=== PATIENT | male | born 1980 | race Caucasian/White ===

== ENCOUNTER → 2019-04-07 11:08 | Outpatient (BNVA) | payer MEDICARE, MEDICAID, SELFPAY | PROVIDERS: Family Provider Family Medicine; PCP Family Medicine; Visit Provider Family Medicine | DX: M25.562 Pain in left knee (principal); R61 Generalized hyperhidrosis; G43.909 Migraine, unspecified, not intractable, without status migrainosus; G89.4 Chronic pain syndrome; N52.9 Male erectile dysfunction, unspecified; E11.9 Type 2 diabetes mellitus without complications; J44.9 Chronic obstructive pulmonary disease, unspecified; K21.9 Gastro-esophageal reflux disease without esophagitis | CPT/HCPCS: 73562; 80053; 82607; 84402; 84403; 84443; 85025 ==

== ENCOUNTER → 2019-12-16 12:58 | Outpatient (BNVA) | payer MEDICARE, MEDICAID, SELFPAY | PROVIDERS: Family Provider Family Medicine; PCP Family Medicine; Visit Provider Family Medicine | DX: E11.9 Type 2 diabetes mellitus without complications (principal) | CPT/HCPCS: 80053; 80061; 83036; 85025 ==

== ENCOUNTER → 2020-02-01 14:25 | Outpatient (BNVA) | payer MEDICARE, MEDICAID, SELFPAY | PROVIDERS: Family Provider Family Medicine; PCP Family Medicine; Visit Provider Family Medicine | DX: R35.0 Frequency of micturition (principal); N40.1 Benign prostatic hyperplasia with lower urinary tract symptoms; R35.1 Nocturia | CPT/HCPCS: 81000; 87086 ==

== ENCOUNTER 2020-09-28 15:15 | Outpatient (CLI) | payer MEDICARE, MEDICAID, SELFPAY ==
--- NOTE | 2020-09-28 15:28 | XR_ITS ---
WS: [id number] Chest with right rib detail, 09/28/2020 Clinical Data: right rib pain Comparison: PA chest, 11/30/2018. Findings: There is right pleural pericardial reaction. There are clips on the right side of the lower thoracic spine from surgery. No nodules, masses or effusions are seen. The diaphragms are flattened. There is an epidural stimulator with the stimulator wires ending at the inferior aspect of the T5 vertebral darwin dy. There is deformity of the left second and third ribs possibly from trauma. Patient has had a disc fusion of the lower cervical spine. Heart is normal. The right ribs are normal without fracture. No bone destruction or erosion is seen. There is no pneum othorax or subcutaneous emphysema. XR/XR ribs RT 2V* [id number] Impression: 1. Right pleural pericardial reaction possibly from surgery. 2. Hyperinflation. 3. Negative right rib detail.
== END 2020-09-28 15:16 | disposition home or self-care (01) ==
PROVIDERS: PCP Family Medicine; Visit Provider Nurse Practitioner Family
DX: R07.81 Pleurodynia (principal)
CPT/HCPCS: 71100

== ENCOUNTER → 2020-10-06 09:15 | Outpatient (BNVA) | payer MEDICARE, MEDICAID, SELFPAY | PROVIDERS: PCP Family Medicine; Visit Provider Family Medicine | DX: Z13.6 Encounter for screening for cardiovascular disorders (principal); E66.9 Obesity, unspecified; N40.1 Benign prostatic hyperplasia with lower urinary tract symptoms; G43.701 Chronic migraine without aura, not intractable, with status migrainosus; E11.9 Type 2 diabetes mellitus without complications; R35.1 Nocturia | CPT/HCPCS: 80053; 80061; 83036; 84153; 84443; 85025 ==

== ENCOUNTER 2021-03-07 20:00 | Outpatient (CLI) | payer MEDICARE, MEDICAID, SELFPAY | END 2021-03-07 20:01 | disposition home or self-care (01) | LOC: SLEEP 03-08 08:48 | PROVIDERS: PCP Family Medicine; Visit Provider Family Medicine | DX: G47.10 Hypersomnia, unspecified (principal); R06.83 Snoring; R53.83 Other fatigue; G47.33 Obstructive sleep apnea (adult) (pediatric) | CPT/HCPCS: 95811 ==

== ENCOUNTER → 2021-05-16 03:00 | Outpatient (BNVA) | payer MEDICARE, MEDICAID, SELFPAY | PROVIDERS: PCP Family Medicine; Visit Provider Family Medicine | DX: R60.0 Localized edema (principal); E11.9 Type 2 diabetes mellitus without complications | CPT/HCPCS: 80048; 83036 ==

== ENCOUNTER 2021-05-23 20:00 | Outpatient (CLI) | payer MEDICARE, MEDICAID, SELFPAY | END 2021-05-23 20:01 | disposition home or self-care (01) | LOC: SLEEP 05-24 07:42 | PROVIDERS: PCP Family Medicine; Visit Provider Family Medicine | DX: G47.33 Obstructive sleep apnea (adult) (pediatric) (principal) | CPT/HCPCS: 95811 ==

== ENCOUNTER 2021-06-27 10:07 | Outpatient (CLI) | payer MEDICARE, MEDICAID, SELFPAY ==
--- NOTE | 2021-06-27 13:25 | PFTS_ITS ---
Date of Study:06/27/21 Date of Dictation: MECHANICS: Forced vital capacity (FVC) is reduced. Forced expiratory volume in one second (FEV1) is reduced. FEV1/FVC is reduced. FLOW VOLUME LOOP: Reduced lateral lung volumes with significant scooping. LUNG VOLUMES: Not measured DIFFUSING CAPACITY FOR CARBON MONOXIDE: Not measured. INTERPRETATION: The postbronchodilator spirometry is consistent with very severe airflow obstruction. There is no significant postbronchodilator response. A component of restrictive lung disease cannot be ruled out in the absence of lung volume measurements. MTDD
== END 2021-06-27 10:08 | disposition home or self-care (01) ==
LOC: RT 10:10
PROVIDERS: PCP Family Medicine; Visit Provider Family Medicine
DX: J44.9 Chronic obstructive pulmonary disease, unspecified (principal)
CPT/HCPCS: 94060; J7611

== ENCOUNTER 2021-06-28 07:10 | Outpatient (CLI) | payer MEDICARE, MEDICAID, SELFPAY ==
[2021-06-28 07:40] VITALS: BMI 31.1
--- NOTE | 2021-06-28 07:52 | ECG_ITS ---
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 Interpretive Statements NAME OF STUDY: LEXISCAN SESTAMIBI STRESS TEST INDICATION: [ng, ] Procedure: At the baseline, the blood pressure was 113/81mmHg with a heart rate of 107 bpm. The electrocardiogram showed sinus tachycardia,no ischemic changes. The Lexiscan was infused over a period of 20 seconds. A total of 0.4 mg of Lexiscan was infused. The stress phase was continued for a total of 5 minutes. Heart rate was at the end of stress phase was 116 bpm and a blood pressure of 100/72mmHg. The EKG at the peak infusion revealed sinus tachycardia with no significant ST-T wave changes. Sestamibi was injected 20 seconds after the Lexiscan infusion. Blood pressure at the end of recovery phase was 115/81 mmHg with a heart rate of 112 bpm. Conclusion: 1. Normal EKG response to Lexiscan infusion 2. No Lexiscan induced chest pain or cardiac arrhythmia. 3. Normal blood pressure and heart rate response. 4. Sestamibi/sestamibi perfusion scan pending; see separate report. Electronically Signed On 07-30-2021 21:23:25 CDT by Ulisses Howard M.D. [id number]
--- NOTE | 2021-06-28 07:53 | NMCV_ITS ---
NM camelia perf SPECT r/s* [id number] Valentino Cerrato Age: 40 Gender: M : 1980 Exam Date: 06/28/2021 08:33 Ordering Phys: Raina Parkinson DO Technologist: REGAN Gaspar Exam Location: [facility] Indications: SHORTNESS OF BREATH STRESS TEST Please see separate stress test report in [facility] for full findings IMAGE PROTOCOL Rest/Stress 1 Lexiscan Day Radiopharmaceutical Dose (mCi) Administration Site Administered by Rest: Tc-99m 11.0 IV REGAN Gaspar Sestamibi Stress:Tc-99m 32.4 IV Gita Torres, LOG SKIDDER Sestamibi Rest: 28-Jun-2021 60 Discovery 630 Stress: 28-Jun-2021 30 Discovery 630 0.4mg Lexiscan. Supine position only as patient was unable to lay prone. SPECT RESULTS Technical Quality: Excellent Raw Data Analysis: Normal Image Corrections: No attenuation or motion correction applied Summed Stress Score: 1 Summed Rest Score: 4 Summed Difference Score: 0 PERFUSION FINDINGS There is reduced radiotracer uptake in the apical inferior and apical lateral jasso at rest that improve at stress. Likely attenuation artifact. No evidence of ischemia is noted FUNCTIONAL RESULTS (calculated via Gated SPECT) Stress Image LV EF (%): 39 Stress EDV (mL):104 TID: 1.17 Stress ESV (mL):63 FUNCTIONAL FINDINGS: LV systolic function is moderately reduced with EF of 39% IMPRESSIONS 1. Attenuation artifact noted in the apical inferior and apical lateral jasso. No evidence of significant ischemia 2. LV systolic function is moderately reduced with EF of 39% Ulisses Howard MD (Electronically Signed) Final Date: 02 July 2021 10:55 S
[2021-06-28] MEDS: regadenoson 0.4 Mg/5 ml Syringe IVP (09:01)
[2021-06-28 09:42] VITALS: BP 115/81; PULSE 106
== END 2021-06-28 07:11 | disposition home or self-care (01) ==
LOC: CDL 07:19
PROVIDERS: PCP Family Medicine; Visit Provider Family Medicine
DX: R06.09 Other forms of dyspnea (principal); R06.02 Shortness of breath
CPT/HCPCS: 78452; 93017; A9500; J2785

== ENCOUNTER → 2021-07-26 10:25 | Outpatient (BNVA) | payer MEDICARE, MEDICAID, SELFPAY | PROVIDERS: PCP Family Medicine; Visit Provider Internal Medicine Critical Care Medicine | DX: J44.9 Chronic obstructive pulmonary disease, unspecified (principal); F17.210 Nicotine dependence, cigarettes, uncomplicated; G47.33 Obstructive sleep apnea (adult) (pediatric); K21.9 Gastro-esophageal reflux disease without esophagitis; E11.8 Type 2 diabetes mellitus with unspecified complications | CPT/HCPCS: 71046; 99204 ==

== ENCOUNTER → 2021-09-21 15:11 | Outpatient (BNVA) | payer MEDICARE, MEDICAID, SELFPAY | PROVIDERS: PCP Family Medicine; Visit Provider Family Medicine | DX: E11.9 Type 2 diabetes mellitus without complications (principal) | CPT/HCPCS: 80053; 83036 ==

== ENCOUNTER → 2021-09-25 09:11 | Outpatient (BNVA) | payer MEDICARE, MEDICAID, SELFPAY | PROVIDERS: PCP Family Medicine; Visit Provider Internal Medicine Critical Care Medicine | DX: J44.9 Chronic obstructive pulmonary disease, unspecified (principal); F17.210 Nicotine dependence, cigarettes, uncomplicated; G47.33 Obstructive sleep apnea (adult) (pediatric) | CPT/HCPCS: 99214 ==

== ENCOUNTER 2021-09-27 08:41 | Outpatient (CLI) | payer MEDICARE, MEDICAID, SELFPAY ==
--- NOTE | 2021-09-27 08:45 | USCV_ITS ---
Blossom Valentino Age: 41 Gender: M : 1980 Exam Date: 09/27/2021 09:18 Ordering Phys: Raina Parkinson DO Technologist: Heather See Exam Location: [facility] [place] Indication: dyspnea, decreased EF, CHF? BP: 118 / 70 HR: 109 Rhythm: Sinus Technical Quality: Suboptimal MEASUREMENTS (Male / Female) Normal Values 2D ECHO LV Diastolic Diameter PLAX 4.0 cm 4.2 - 5.9 / 3.9 - 5.3 cm LV Systolic Diameter PLAX 1.5 cm IVS Diastolic Thickness 1.4 cm 0.6 - 1.0 / 0.6 - 0.9 cm IVS Systolic Thickness 1.4 cm LVPW Diastolic Thickness 1.0 cm 0.6 - 1.0 / 0.6 - 0.9 cm LVPW Systolic Thickness 2.1 cm LVOT Diameter 2.0 cm LV Ejection Fraction 2D Teich 92.2 % LA Diameter 2.4 cm LA Width 2.8 cm LA Height 3.4 cm RA Width 3.3 cm RA Height 3.8 cm IVC Diameter 0.6 cm DOPPLER AV Peak Velocity 96.0 cm/s LVOT Peak Velocity 72.0 cm/s AV Area Cont Eq vti 2.6 cm squared AV Area Cont Eq pk 2.5 cm squared MV Area PHT 5.0 cm squared Mitral E to A Ratio 1.6 MV E' Velocity 63.0 cm/s Mitral E to LV E' Septal Ratio 4.4 TR Peak Velocity 103.0 cm/s TR Peak Gradient 4.2 mmHg Right Atrial Pressure 3.0 mmHg Pulmonary Artery Systolic Pressu 7.2 mmHg FINDINGS Left Ventricle Normal left ventricular size and systolic function, EF 65%.no regional wall motion abnormalities. Right Ventricle Possibly normal RV size ejection fraction. Right Atrium The right atrium is normal in size. Left Atrium The left atrium is normal in size. Mitral Valve No gross abnormalities noted Aortic Valve No gross abnormalities noted Tricuspid Valve No gross abnormalities noted Pulmonic Valve Pulmonic valve not well visualized. Pericardium Normal pericardium without effusion. Aorta Normal ascending aorta dimension. IVC Inferior vena cava not visualized. CONCLUSIONS Normal left ventricular size and systolic function, EF 65%. No regional wall motion abnormalities. There is no pericardial effusion. Possibly normal cardiac chamber sizes. Technically difficult study because of the poor ultrasonic window. Dr Duane Gonzalez MD [facility] (Electronically Signed) Final Date: 27 September 2021 23:08 S
== END 2021-09-27 08:42 | disposition home or self-care (01) ==
LOC: RAD 08:43
PROVIDERS: PCP Family Medicine; Visit Provider Family Medicine
DX: I50.20 Unspecified systolic (congestive) heart failure (principal); R00.0 Tachycardia, unspecified
CPT/HCPCS: 93306

== ENCOUNTER 2021-12-20 10:03 | Outpatient (CLI) | payer MEDICARE, MEDICAID, SELFPAY ==
--- NOTE | 2021-12-20 09:30 | USCV_ITS ---
Valentino Cerrato Age: 41 Gender: M : 1980 Exam Date: 12/20/2021 10:22 Ordering Phys: Raina Parkinson DO Technologist: DAYNA Exam Location: [facility] – [place] Indication: HISTORY: PROCEDURES: FINDINGS: The veins were found to be easily compressible with spontaneous blood flow. Non pulsatile flow pattern. No significant reflux either in the deep or in the superficial veins CONCLUSIONS #1. No evidence of deep or superficial vein thrombosis in the above- mentioned veins. #2. No significant reflux, either in the deep or in the superficial veins. #3. Relatively large caliber superficial veins bilaterally, mostly less than 1 cm deep from the surface. Dr Duane Gonzalez MD [facility] (Electronically Signed) Final Date: 22 December 2021 08:59 S
== END 2021-12-20 10:04 | disposition home or self-care (01) ==
PROVIDERS: PCP Family Medicine; Visit Provider Family Medicine
DX: I73.9 Peripheral vascular disease, unspecified (principal)
CPT/HCPCS: 93970

== ENCOUNTER → 2021-12-26 14:25 | Outpatient (BNVA) | payer MEDICARE, MEDICAID, SELFPAY | PROVIDERS: PCP Family Medicine; Visit Provider Family Medicine | DX: Z23 Encounter for immunization (principal); E11.9 Type 2 diabetes mellitus without complications; J44.1 Chronic obstructive pulmonary disease with (acute) exacerbation | CPT/HCPCS: 80061; 83036 ==

== ENCOUNTER → 2022-01-25 08:19 | Outpatient (BNVA) | payer MEDICARE, MEDICAID, SELFPAY | PROVIDERS: PCP Family Medicine; Visit Provider Internal Medicine Pulmonary Disease | DX: J44.9 Chronic obstructive pulmonary disease, unspecified (principal); F17.210 Nicotine dependence, cigarettes, uncomplicated; G47.33 Obstructive sleep apnea (adult) (pediatric) | CPT/HCPCS: 99214 ==

== ENCOUNTER 2022-03-18 06:00 | Outpatient (RCR) | payer MEDICARE, MEDICAID, SELFPAY | END 2022-04-17 23:59 | disposition home or self-care (01) | LOC: SPT 06:00 | PROVIDERS: PCP Family Medicine; Visit Provider Family Medicine | DX: M25.511 Pain in right shoulder (principal); M25.512 Pain in left shoulder | CPT/HCPCS: 97161 ==

== ENCOUNTER 2022-04-18 06:00 | Outpatient (RCR) | payer MEDICARE, MEDICAID, SELFPAY | END 2022-04-30 16:30 | disposition home or self-care (01) | LOC: SPT 06:00 | PROVIDERS: PCP Family Medicine; Visit Provider Family Medicine | DX: M25.511 Pain in right shoulder (principal); M25.512 Pain in left shoulder | CPT/HCPCS: 97110 ==

== ENCOUNTER → 2022-04-26 08:35 | Outpatient (BNVA) | payer MEDICARE, MEDICAID, SELFPAY | PROVIDERS: PCP Family Medicine; Visit Provider Internal Medicine Pulmonary Disease | DX: J44.9 Chronic obstructive pulmonary disease, unspecified (principal); F17.210 Nicotine dependence, cigarettes, uncomplicated; G47.33 Obstructive sleep apnea (adult) (pediatric) | CPT/HCPCS: 99214 ==

== ENCOUNTER 2022-06-16 06:00 | Outpatient (RCR) | payer MEDICARE, MEDICAID, SELFPAY | END 2022-07-15 23:59 | disposition home or self-care (01) | LOC: PULRHB 06:00 | PROVIDERS: PCP Family Medicine; Visit Provider Internal Medicine Pulmonary Disease | DX: J44.9 Chronic obstructive pulmonary disease, unspecified (principal); J84.9 Interstitial pulmonary disease, unspecified | CPT/HCPCS: 94625 ==

== ENCOUNTER → 2022-06-26 13:06 | Outpatient (BNVA) | payer MEDICARE, MEDICAID, SELFPAY | PROVIDERS: PCP Family Medicine; Visit Provider Family Medicine | DX: E11.9 Type 2 diabetes mellitus without complications (principal) | CPT/HCPCS: 80053; 82043; 83036; 85025 ==

== ENCOUNTER 2022-07-16 06:00 | Outpatient (RCR) | payer MEDICARE, MEDICAID, SELFPAY | END 2022-08-15 23:59 | disposition home or self-care (01) | LOC: PULRHB 06:00 | PROVIDERS: PCP Family Medicine; Visit Provider Internal Medicine Pulmonary Disease | DX: J44.9 Chronic obstructive pulmonary disease, unspecified (principal); J84.9 Interstitial pulmonary disease, unspecified | CPT/HCPCS: 94625 ==

== ENCOUNTER 2022-08-16 06:00 | Outpatient (RCR) | payer MEDICARE, MEDICAID, SELFPAY | END 2022-09-14 23:59 | disposition home or self-care (01) | LOC: PULRHB 06:00 | PROVIDERS: PCP Family Medicine; Visit Provider Internal Medicine Pulmonary Disease | DX: J44.9 Chronic obstructive pulmonary disease, unspecified (principal); J84.9 Interstitial pulmonary disease, unspecified | CPT/HCPCS: 94625 ==

== ENCOUNTER → 2022-09-04 11:48 | Outpatient (BNVA) | payer MEDICARE, MEDICAID, SELFPAY | PROVIDERS: PCP Family Medicine; Visit Provider Orthopaedic Surgery | DX: M25.511 Pain in right shoulder (principal); M25.512 Pain in left shoulder; M75.01 Adhesive capsulitis of right shoulder | CPT/HCPCS: 73030; 99203 ==

== ENCOUNTER 2022-09-04 12:16 | Outpatient (CLI) | payer MEDICARE, MEDICAID, SELFPAY ==
--- NOTE | 2022-09-04 12:25 | XR_ITS ---
WS: [id number] EXAMINATION: XR knee RT 3V* [id number] REASON FOR EXAM: right medial knee pain COMPARISON: None available. ORDER DATE: 09/04/2022 12:26 PM FINDINGS: There is no sign of any acute osseous or articular abnormality. There are no specific soft tissue abn ormalities. XR/XR knee RT 3V* [id number] IMPRESSION: No acute osseous or soft tissue change
== END 2022-09-04 12:17 | disposition home or self-care (01) ==
LOC: RAD 12:20
PROVIDERS: PCP Family Medicine; Visit Provider Family Medicine
DX: M25.561 Pain in right knee (principal)
CPT/HCPCS: 73562

== ENCOUNTER → 2022-09-12 14:59 | Outpatient (BNVA) | payer MEDICARE, MEDICAID, SELFPAY | PROVIDERS: Visit Provider Specialist | DX: M25.511 Pain in right shoulder (principal); G89.29 Other chronic pain; M75.01 Adhesive capsulitis of right shoulder | CPT/HCPCS: 99204 ==

== ENCOUNTER 2022-09-15 06:00 | Outpatient (RCR) | payer MEDICARE, MEDICAID, SELFPAY | END 2022-10-15 23:59 | disposition home or self-care (01) | LOC: PULRHB 06:00 | PROVIDERS: PCP Family Medicine; Visit Provider Internal Medicine Pulmonary Disease | DX: J44.9 Chronic obstructive pulmonary disease, unspecified (principal); J84.9 Interstitial pulmonary disease, unspecified | CPT/HCPCS: 94625 ==

== ENCOUNTER → 2022-09-25 09:21 | Outpatient (BNVA) | payer MEDICARE, MEDICAID, SELFPAY | PROVIDERS: PCP Family Medicine; Visit Provider Family Medicine | DX: R53.83 Other fatigue (principal); E11.9 Type 2 diabetes mellitus without complications | CPT/HCPCS: 80053; 83036; 84443 ==

== ENCOUNTER 2022-10-18 09:24 | Outpatient (CLI) | payer MEDICARE, MEDICAID, SELFPAY ==
--- NOTE | 2022-10-18 09:30 | CT_ITS ---
WS: [id number] CT ARTHROGRAM RIGHT SHOULDER TECHNIQUE: CT arthrogram RIGHT shoulder with coronal and sagittal reformatted images. CLINICAL INFORMATION: shoulder pain COMPARISON: None. DLP: [address] scans at [facility] use at least one of these dose optimization techniques: automated e xposure control; mA and/or kV adjustment per patient size (includes targeted exams where dose is matc hed to clinical indication); or iterative reconstruction. FINDINGS: Mild degenerative arthritis AC joint with mild downsloping acromion. Mild narrowing of the subacromia l space. Minimal contact of the underlying supraspinatus. Normal distal supraspinatus and infraspinat us. Normal teres minor. Distal subscapularis appears intact. Biceps tendon appears intact within the bicipital groove. Intra-articular biceps tendon appears intact. Small labral tear involving the inferior glenoid labrum with dissecting contrast. This is near the 6: 00 position extending to the anterior inferior labrum. Middle glenohumeral ligament appears intact. S omewhat diminutive joint capsule for a patient this age. Correlation for adhesive capsulitis. CT/CT shoulder RT ww con [id number] IMPRESSION: 1. Rotator cuff is intact. 2. Mild downsloping of the acromion. 3. Biceps tendon is intact within the bicipital groove. 4. Small labral tear at the 6 clock position extending towards the anterior in ferior glenoid labrum. 5. Somewhat diminutive joint capsule for patient this age. Recommend correlati on for adhesive capsulitis. 6. No other acute findings.
--- NOTE | 2022-10-18 09:30 | IR_ITS ---
WS: [id number] Right shoulder arthrogram, 10/18/2022 Clinical Data: shoulder pain Comparison: None. Fluoroscopy time: 1min [id number] # of spot films: 1 Findings: With the usual technique, a 22-gauge small spinal needle was inserted into the right shoulder joint. After localizing the needle tip with 1 mL of Omnipaque at a concentration of 240 mg/mL, an injection of 4 mL of Omnipaque and 20 mL of saline was done. The shoulder joint shows a normal outline. No evidence of a rotator cuff tear could be seen. IR/IR arthrogram shoulderRT [id number] Impression: Satisfactory injection of dilute Omnipaque into the right shoulder joint for pr eparation for CT arthrogram.
== END 2022-10-18 09:25 | disposition home or self-care (01) ==
PROVIDERS: PCP Family Medicine; Visit Provider Specialist
DX: M75.01 Adhesive capsulitis of right shoulder (principal); S43.401A Unspecified sprain of right shoulder joint, initial encounter; X58.XXXA Exposure to other specified factors, initial encounter
CPT/HCPCS: 23350; 73202; 77002; Q9966

== ENCOUNTER → 2022-10-25 09:29 | Outpatient (BNVA) | payer MEDICARE, MEDICAID, SELFPAY | PROVIDERS: PCP Family Medicine; Visit Provider Internal Medicine Pulmonary Disease | DX: J44.9 Chronic obstructive pulmonary disease, unspecified (principal); F17.210 Nicotine dependence, cigarettes, uncomplicated; G47.33 Obstructive sleep apnea (adult) (pediatric) | CPT/HCPCS: 99214 ==

== ENCOUNTER → 2022-11-05 10:08 | Outpatient (BNVA) | payer MEDICARE, MEDICAID, SELFPAY | PROVIDERS: PCP Family Medicine; Visit Provider Specialist | DX: M75.01 Adhesive capsulitis of right shoulder | CPT/HCPCS: 20610; 99214; J1100; J2795; J3301 ==

== ENCOUNTER 2022-11-07 08:55 | Outpatient (RCR) | payer MEDICARE, MEDICAID, SELFPAY | END 2022-11-15 23:59 | disposition home or self-care (01) | LOC: SPT 08:55 | PROVIDERS: PCP Family Medicine; Visit Provider Specialist | DX: M75.01 Adhesive capsulitis of right shoulder (principal) | CPT/HCPCS: 97110; 97161 ==

== ENCOUNTER 2022-11-14 07:09 | Outpatient (CLI) | payer MEDICARE, MEDICAID, SELFPAY ==
[2022-11-14 07:35] VITALS: PULSE 93; RESP 20; O2SAT 94
[2022-11-14 07:40] VITALS: PULSE 99
[2022-11-14] MEDS: albuterol 2.5 mg/3 mL Neb INHALATION (07:40)
== END 2022-11-14 07:10 | disposition home or self-care (01) ==
PROVIDERS: PCP Family Medicine; Visit Provider Internal Medicine Pulmonary Disease
DX: R06.02 Shortness of breath (principal)
CPT/HCPCS: 94060; 94618; 94726; 94729; J7613

== ENCOUNTER 2022-11-16 06:00 | Outpatient (RCR) | payer MEDICARE, MEDICAID, SELFPAY | END 2022-12-07 23:59 | disposition home or self-care (01) | LOC: SPT 06:00 | PROVIDERS: PCP Family Medicine; Visit Provider Specialist | DX: M75.01 Adhesive capsulitis of right shoulder (principal) | CPT/HCPCS: 97110 ==

== ENCOUNTER → 2022-12-25 13:02 | Outpatient (BNVA) | payer MEDICARE, MEDICAID, SELFPAY | PROVIDERS: PCP Family Medicine; Visit Provider Family Medicine | DX: E11.9 Type 2 diabetes mellitus without complications; R68.82 Decreased libido; I73.9 Peripheral vascular disease, unspecified | CPT/HCPCS: 80053; 83036 ==

== ENCOUNTER → 2023-06-25 13:14 | Outpatient (BNVA) | payer MEDICARE, MEDICAID, SELFPAY | PROVIDERS: PCP Family Medicine; Visit Provider Family Medicine | DX: Z13.6 Encounter for screening for cardiovascular disorders (principal); R35.1 Nocturia; E11.9 Type 2 diabetes mellitus without complications | CPT/HCPCS: 80053; 80061; 83036; 84153; 85025 ==

== ENCOUNTER 2023-07-01 06:57 | Outpatient (CLI) | payer MEDICARE, MEDICAID, SELFPAY ==
--- NOTE | 2023-07-01 07:30 | US_ITS ---
WS: [id number] RIGHT UPPER QUADRANT ULTRASOUND HISTORY: elevated LFT COMPARISON: None available. Liver: 17.0 cm in length. Liver is top normal size with mild coarse echotexture. No mass. Portal Vein: Normal hepatopetal flow with monophasic waveform. Gallbladder: Normally distended gallbladder with no stones or wall thickening. CBD: Not imaged or measured. No intrahepatic dilatation. Pancreas: Obscured. Right kidney: 11.5 cm in length. Normal size and echogenicity. No hydronephrosis or mass. Aorta and IVC: Poorly visualized. No ascites. IMPRESSION: 1. Technically limited RIGHT upper quadrant ultrasound. 2. Hepatic steatosis. No mass. 3. Common bile duct is not visualized. 4. Nonvisualization of the pancreas.
== END 2023-07-01 06:58 | disposition home or self-care (01) ==
LOC: RAD 06:57
PROVIDERS: PCP Family Medicine; Visit Provider Family Medicine
DX: R79.89 Other specified abnormal findings of blood chemistry (principal); J44.9 Chronic obstructive pulmonary disease, unspecified; J43.1 Panlobular emphysema; F17.210 Nicotine dependence, cigarettes, uncomplicated; G47.33 Obstructive sleep apnea (adult) (pediatric); Z99.81 Dependence on supplemental oxygen
CPT/HCPCS: 76705; 99214

== ENCOUNTER → 2023-07-23 10:05 | Outpatient (BNVA) | payer MEDICARE, MEDICAID, SELFPAY | PROVIDERS: PCP Family Medicine; Visit Provider Family Medicine | DX: I50.22 Chronic systolic (congestive) heart failure (principal); R06.02 Shortness of breath | CPT/HCPCS: 80053; 83880 ==

== ENCOUNTER → 2023-09-26 08:30 | Outpatient (BNVA) | payer MEDICARE, MEDICAID, SELFPAY | PROVIDERS: PCP Family Medicine; Visit Provider Family Medicine Adult Medicine | DX: E11.9 Type 2 diabetes mellitus without complications (principal); J44.9 Chronic obstructive pulmonary disease, unspecified; I73.9 Peripheral vascular disease, unspecified | CPT/HCPCS: 80048; 83036 ==

== ENCOUNTER → 2023-10-15 07:45 | Outpatient (BNVA) | payer MEDICARE, MEDICAID, SELFPAY | PROVIDERS: PCP Family Medicine; Visit Provider Podiatrist Foot & Ankle Surgery | DX: E11.8 Type 2 diabetes mellitus with unspecified complications (principal); E11.42 Type 2 diabetes mellitus with diabetic polyneuropathy; M21.41 Flat foot [pes planus] (acquired), right foot; L60.3 Nail dystrophy; G80.9 Cerebral palsy, unspecified; L84 Corns and callosities; Q66.72 Congenital pes cavus, left foot; Z79.84 Long term (current) use of oral hypoglycemic drugs | CPT/HCPCS: 11056; 11721; 99203 ==

== ENCOUNTER → 2023-11-20 15:25 | Outpatient (BNVA) | payer MEDICARE, MEDICAID, SELFPAY | PROVIDERS: PCP Family Medicine Adult Medicine | DX: I50.22 Chronic systolic (congestive) heart failure (principal); M79.604 Pain in right leg | CPT/HCPCS: 80053; 83880; 85025; 85379 ==

== ENCOUNTER 2023-11-25 14:48 | Outpatient (CLI) | payer MEDICARE, MEDICAID, SELFPAY ==
--- NOTE | 2023-11-25 15:00 | USCV_ITS ---
BlossomValentino Age: 43 Gender: M : 1980 Exam Date: 11/25/2023 15:03 Ordering Phys: Yocasta Dean NP Technologist: CT Exam Location: [facility] [place] Indication: swelling PROCEDURES: Venous duplex imaging was performed in only the right lower extremity. On the right side, the common femoral, superficial femoral, profunda femoral, popliteal, posterior tibial, greater saphenous veins and the peroneal trunk were identified and interrogated in the standard fashion. FINDINGS: Normal 2-D Doppler and augmentation and compressibility throughout the lower extremity venous structures. Additional imaging through the proximal calf veins also reveals no thrombus. Limited evaluation of the greater saphenous vein is patent with no thrombus. CONCLUSIONS No DVT right lower extremity. Dr. Maureen Castellon DO (Electronically Signed) Final Date: 25 November 2023 16:10 S
== END 2023-11-25 14:49 | disposition home or self-care (01) ==
LOC: RAD 14:51
PROVIDERS: PCP Family Medicine Adult Medicine
DX: M79.604 Pain in right leg (principal)
CPT/HCPCS: 93971

== ENCOUNTER → 2023-12-05 08:06 | Outpatient (BNVA) | payer MEDICARE, MEDICAID, SELFPAY | PROVIDERS: PCP Family Medicine Adult Medicine; Visit Provider Thoracic Surgery (Cardiothoracic Vascular Surgery) | DX: E11.52 Type 2 diabetes mellitus with diabetic peripheral angiopathy with gangrene (principal); E11.622 Type 2 diabetes mellitus with other skin ulcer; L97.811 Non-pressure chronic ulcer of other part of right lower leg limited to breakdown of skin; L97.311 Non-pressure chronic ulcer of right ankle limited to breakdown of skin | CPT/HCPCS: 97597; 99213 ==

== ENCOUNTER → 2023-12-19 13:45 | Outpatient (BNVA) | payer MEDICARE, MEDICAID, SELFPAY | PROVIDERS: PCP Family Medicine Adult Medicine; Visit Provider Thoracic Surgery (Cardiothoracic Vascular Surgery) | DX: E11.52 Type 2 diabetes mellitus with diabetic peripheral angiopathy with gangrene (principal); E11.622 Type 2 diabetes mellitus with other skin ulcer; L97.811 Non-pressure chronic ulcer of other part of right lower leg limited to breakdown of skin; L97.311 Non-pressure chronic ulcer of right ankle limited to breakdown of skin | CPT/HCPCS: 97597 ==

== ENCOUNTER → 2023-12-24 14:30 | Outpatient (BNVA) | payer MEDICARE, MEDICAID, SELFPAY | PROVIDERS: PCP Family Medicine Adult Medicine; Visit Provider Thoracic Surgery (Cardiothoracic Vascular Surgery) | DX: Z09 Encounter for follow-up examination after completed treatment for conditions other than malignant neoplasm (principal); Z87.2 Personal history of diseases of the skin and subcutaneous tissue | CPT/HCPCS: 99212 ==

== ENCOUNTER → 2024-01-03 10:52 | Outpatient (BNVA) | payer MEDICARE, MEDICAID, SELFPAY | PROVIDERS: PCP Family Medicine Adult Medicine | DX: E11.9 Type 2 diabetes mellitus without complications (principal); L03.90 Cellulitis, unspecified | CPT/HCPCS: 80053; 83036; 83880; 85025 ==

== ENCOUNTER 2024-02-11 12:45 | Outpatient (CLI) | payer MEDICARE, MEDICAID, SELFPAY ==
--- NOTE | 2024-02-11 12:45 | USCV_ITS ---
Valentino Cerrato Age: 43 Gender: M : 1980 Exam Date: 02/11/2024 13:03 Ordering Phys: Yocasta Dean NP Technologist: Exam Location: [facility] [place] Indication: cp sob copd BP: 130 / 80 HR: 104 Rhythm: Sinus Technical Quality: Adequate MEASUREMENTS (Male / Female) Normal Values 2D ECHO LV Diastolic Diameter PLAX 3.3 cm 4.2 - 5.9 / 3.9 - 5.3 cm IVS Diastolic Thickness 1.1 cm 0.6 - 1.0 / 0.6 - 0.9 cm IVS Systolic Thickness 1.5 cm LVPW Diastolic Thickness 1.4 cm 0.6 - 1.0 / 0.6 - 0.9 cm LVPW Systolic Thickness 1.7 cm LVOT Diameter 2.1 cm LV Ejection Fraction 2D Teich 64.2 % LV Ejection Fraction MOD 4C 63.0 % LV Ejection Fraction MOD 2C 67.9 % LV Ejection Fraction 2C AL 68.1 % LA Diameter 3.2 cm RA Systolic Volume 4C AL 28.7 ml RA Systolic Volume 4C MOD 26.6 ml Aorta at Sinotubular Diameter 2.7 cm M-MODE LA Ao Ratio MM 1.2 AV Cusp Separation MM 2.2 cm DOPPLER AV Peak Velocity 107.0 cm/s LVOT Peak Velocity 84.0 cm/s AV Area Cont Eq vti 3.7 cm squared AV Area Cont Eq pk 2.6 cm squared MV Peak Velocity 85.0 cm/s MV Area PHT 6.5 cm squared Mitral E to A Ratio 1.1 TR Peak Velocity 375.0 cm/s TR Peak Gradient 56.3 mmHg TV Peak E Velocity 95.0 cm/s PV Peak Velocity 111.0 cm/s FINDINGS Left Ventricle Normal left ventricular size, systolic function and wall thickness, with no regional wall motion abnormalities. Left ventricular ejection fraction is estimated at 60 %. Normal left ventricular filling pressure. Right Ventricle The right ventricle is normal in size and function. Right Atrium The right atrium is normal in size. Left Atrium The left atrium is normal in size. Mitral Valve Structurally normal mitral valve without significant stenosis or prolapse. There is no mitral regurgitation. Aortic Valve Structurally normal aortic valve without significant sclerosis or stenosis. There is no aortic regurgitation. Tricuspid Valve Structurally normal tricuspid valve without significant stenosis or regurgitation. Pulmonic Valve Structurally normal pulmonic valve without significant stenosis. There is no pulmonic regurgitation. Pericardium Normal pericardium without effusion. Aorta Normal ascending aorta dimension. IVC The inferior vena cava appears normal. CONCLUSIONS Normal left ventricular size, systolic function and wall thickness, with no regional wall motion abnormalities. Left ventricular ejection fraction is estimated at 60 %. Normal left ventricular filling pressure. There is no pericardial effusion. No significant valve abnormalities. Right atrial pressure is around 5 mm of mercury. Rangel Michaud MD (Electronically Signed) Final Date: 12 February 2024 00:23 S
== END 2024-02-11 12:55 | disposition home or self-care (01) ==
PROVIDERS: PCP Family Medicine Adult Medicine
DX: I73.9 Peripheral vascular disease, unspecified (principal); I50.22 Chronic systolic (congestive) heart failure; E11.42 Type 2 diabetes mellitus with diabetic polyneuropathy; R07.9 Chest pain, unspecified; L60.3 Nail dystrophy; R06.02 Shortness of breath; J44.9 Chronic obstructive pulmonary disease, unspecified; Q66.72 Congenital pes cavus, left foot; G80.9 Cerebral palsy, unspecified; Z79.84 Long term (current) use of oral hypoglycemic drugs
CPT/HCPCS: 11721; 93306; 99213

== ENCOUNTER 2024-02-28 11:28 | Emergency (ER) | payer MEDICARE, MEDICAID, SELFPAY ==
[2024-02-28 11:32] VITALS: BP 109/75; PULSE 88; RESP 18; TEMP 36.9; O2SAT 97; BMI 33.9
--- NOTE | 2024-02-28 11:51 | ECG_ITS ---
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 Measurements Intervals Neal Rate: 84 P: 62 OH: 153 QRS: 88 QRSD: 99 T: 67 QT: 353 QTc: 418 Interpretive Statements SINUS RHYTHM Compared to ECG 11/30/2018 16:52:01 Sinus tachycardia no longer present Electronically Signed On 02-28-2024 21:57:18 [employer] by Ulisses Howard M.D. [email or web address]
--- NOTE | 2024-02-28 11:51 | ED_ITS ---
HPI - General Adult 2 General: Chief complaint: Shortness of Breath/Dyspnea Stated complaint: sob Time Seen by Provider: 02/28/24 11:37 Source: patient Mode of arrival: EMS Limitations: no limitations History of Present Illness: Patient is a 43-year-old male with a history of cerebral palsy, systolic heart failure, obesity, COPD normally on 2-4L O2 and diabetes mellitus here via EMS for medical evaluation. Patient states he recently got placed on propranolol by his primary care provider for treatment of an essential tremor. He states the beta-niko caused his heart rate to bottom out . He states earlier today he turned christensen and ashy and states he placed a pulse ox on his finger and noticed his heart rate was in the low 80s. He states he is normally tachycardic so a heart rate in the 80s is very low for him. Patient did feel little lightheaded. EMS report was that when they picked patient up he was satting in the 80s on his normal amounts of oxygen. Upon arrival to the emergency department he is satting 99% on 4 L. I turned him down to 2 L and he maintained saturations at 97% or above. He does not feel any short of breath currently more so than his baseline. He has chronic lower extremity swelling that he feels like his at baseline. He has recently underwent echocardiogram just last month ordered by primary care. EF was reportedly estimated at 60%. He has no chest pain. 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 Onset (ago): hour(s) Relieving factors: none Exacerbating factors: none Associated symptoms: Reports dyspnea (chronic-normally wears 2-4L O2); Deny chest pain, headache(s), malaise, nausea, rash, palpitations, syncope or vomiting Treatments prior to arrival: none Related Data Home Medications Medication Instructions Recorded Confirmed hydrocodone 10 mg-acetaminophen 1 tab PO BID PRN 04/07/19 02/24/24 325 mg tablet nerve stimulator ##1 04/07/19 02/24/24 oxygen-air delivery systems 01/06/21 02/24/24 Previous Rx's Medication Instructions Recorded blood-glucose meter #1 ea 06/14/21 lancets 30 gauge ([employer] [facility] ##100 11/29/21 Plus Lancet) budesonide 0.5 mg/2 mL suspension 0.5 mg (2 mL) inhalation BID 30 10/29/22 for nebulization days #120 mL formoterol fumarate 20 mcg/2 mL 2 ml inhalation BID 30 days #120 mL 10/29/22 solution for nebulization (Perforomist) rizatriptan 10 mg disintegrating 10 mg PO Q2H PRN migraine headache 06/25/23 tablet (Maxalt-TECHNICAL INFORMATION SPECIALIST) #27 tabs pantoprazole 40 mg tablet,delayed See Rx Instructions .Route 07/09/23 release .COMPLEX #90 tabs tiotropium bromide 18 mcg capsule See Rx Instructions .Route 11/25/23 with inhalation device (Spiriva .COMPLEX #30 caps with HandiHaler) gentamicin 0.1 % topical ointment 1 applic topical BID #30 grams 12/03/23 levofloxacin 500 mg tablet 500 mg PO DAILY 10 days #10 tabs 12/03/23 aspirin 81 mg tablet,delayed 81 mg PO QDAY #90 tabs 12/30/23 release (Adult Low Dose Aspirin) dulaglutide 1.5 mg/0.5 mL 1.5 mg (0.5 mL) SUBCUT .weekly #6 12/31/23 subcutaneous pen injector mL hydrochlorothiazide 12.5 mg tablet See Rx Instructions .Route 01/20/24 .COMPLEX #90 tabs metoprolol tartrate 25 mg tablet See Rx Instructions .Route 01/20/24 .COMPLEX #90 tabs tamsulosin 0.4 mg capsule 0.4 mg PO DAILY #90 caps 01/23/24 empagliflozin 25 mg tablet See Rx Instructions .Route 02/19/24 (Jardiance) .COMPLEX #90 tabs fluticasone propionate 50 See Rx Instructions .Route 02/19/24 mcg/actuation nasal .COMPLEX #16 grams spray,suspension metformin 750 mg tablet,extended See Rx Instructions .Route 02/19/24 release 24 hr .COMPLEX #180 tabs blood sugar diagnostic (Blood #50 ea 02/24/24 Glucose Test strips) sodium chloride 0.65 % nasal spray 2 spray intranasal Q4H PRN dry 02/24/24 aerosol (Saline Nasal) nasal passages #44 mL Allergies Allergy/AdvReac Type Severity Reaction Status Date / Time Penicillins Allergy edema Verified 02/24/24 15:06 Review of Systems 2 Const: Denies: fever(s), chills, body aches, fatigue or malaise Eyes: Denies: change in vision or blurry vision Card: Reports: swelling of feet/ankles (chronic) and dyspnea on exertion (chronic); Denies: chest pain, palpitations, irregular heart rhythm, edema, lightheadedness, syncope, pre-syncope, orthopnea, leg pain with exertion or acrocyanosis Resp: Reports: dyspnea (chronic-normally wears 2-4L O2); Denies: productive cough, wheezing, stridor, pain on inspiration or hemoptysis GI: Denies: abdominal pain, nausea, vomiting, heartburn or diarrhea : Denies: difficulty urinating or dysuria Musc: Reports: extremity swelling (chronic LE edema); Denies: neck pain, back pain or joint pain Skin/Breast: Denies: rash Neuro: Denies: headache(s) or dizziness PFSH ED 2 PFSH: Medical History Colonoscopy refused Essential tremor Cellulitis Right leg pain Osteoarthrosis-multiple sites Bilateral shoulders, right knee, cervical, hips Bilateral impacted cerumen COPD, group B, by GOLD 2017 classification Chronic migraine without aura, with status migrainosus Chronic pain syndrome Erectile dysfunction Diabetes GERD (gastroesophageal reflux disease) Lumbar post-laminectomy syndrome Cataract Right Surgical History S/P carpal tunnel release right Status post lung surgery S/P cervical spinal fusion Family History Other Cancer Diabetes Social History Smoking and tobacco/nicotine status: former use of tobacco/nicotine Alcohol intake: never Substance/Drug Use: never Household members: significant other Marital status: Current occupational status: disabled Current gender identity: Male Physical Exam 2 Const: COMMON NORMALS: patient oriented x3, no limitations, alert and well nourished GENERAL APPEARANCE: cooperative, disheveled, appears older than stated age and other (odorous) ORIENTATION/CONSCIOUSNESS: Yes awake, Yes oriented to person, Yes oriented to place and Yes oriented to time HENMT: COMMON NORMALS: normocephalic and atraumatic HEAD & SCALP: normal to inspection, normocephalic and atraumatic Neck/C-Spine: COMMON NORMALS: full ROM, no lymphadenopathy, supple and no meningeal signs Chest: COMMONS NORMALS: normal inspection of the chest Resp: COMMON NORMALS: normal respiratory effort OTHER: course junky sounding lungs that clear with coughing Cardio: COMMON NORMALS: regular rate and regular rhythm RATE: regular rate RHYTHM: regular rhythm GI: COMMON NORMALS: Normal to inspection, nondistended, normoactive bowel sounds present, Soft to palpation, non-tender, No hepatosplenomegaly present and no masses PALPATION: Yes Soft to palpation and Yes No hepatosplenomegaly present : COMMON NORMALS: Yes no CVA tenderness BLADDER/KIDNEY EXAM: Yes no CVA tenderness Back/Pelvis: COMMON NORMALS: no CVA tenderness and thoracic and lumbar spine normal to inspection Extremity: NARRATIVE EXTREMITY EXAM: chronic 2+ bilateral pitting edema/lymphedema R>L; he has overlying erythema that is not cellulitic in appearance; patient/family states this is normal GENERAL: Yes normal exam except as noted Neuro: COMMON NORMALS: patient oriented x3, moves all extremities, no focal motor deficits and no sensory deficits noted SENSORIUM/ORIENTATION: Yes alert, Yes oriented to person, Yes oriented to place and Yes oriented to time MENINGEAL SIGNS: Yes no meningeal signs Skin: COMMON NORMALS: no rashes or lesions noted GENERAL SKIN EXAM: no rashes or lesions noted Course 2 Vital Signs: Vital signs: Vital Signs Temperature 98.4 F 02/28/24 11:32 Pulse Rate 90 02/28/24 12:27 Respiratory Rate 18 02/28/24 12:18 Blood Pressure 109/75 02/28/24 11:32 Pulse Oximetry 95 02/28/24 12:27 Oxygen Delivery Me thod Nasal Cannula 02/28/24 12:18 Oxygen Flow Rate 2 02/28/24 12:27 MDM - General Adult Medical Decision Making Patient really has no physical complaints upon arrival to the emergency department other than his recent propranolol prescription bottomed his heart rate out . Heart rate has been in the 80s throughout his stay. He is not requiring more oxygen than usual. He does not complain of shortness of breath. He has no chest pain. His blood work overall is nonactionable. CXR unremarkable. EKG non-ischemic. Patient has a diagnosis of systolic heart failure listed on his chart however he adamantly states he does not have this diagnosis and feels this is a mistake. He has had recent echocardiogram imaging which was normal. They would like further evaluation regarding his chronic lower extremity edema. This appears more like lymphedema. Discussed chronic management for this including lymphedema wraps and elevation and sometimes PT can help with this. States he will discuss with PCP. He wants cardiology follow up as well. He is cleared from an ED standpoint. Medical Records I reviewed the patient's medical records. Lab Data I reviewed the patient's lab results. 02/28/24 11:15 02/28/24 11:15 Radiology Impressions Chest X-Ray 02/28/24 11:51 IMPRESSION: 1. Pulmonary hyperinflation and chronic changes but no acute process noted. Laboratory Results WBC 9.21 10^3/uL (3.29-11.43) 02/28/24 11:15 RBC 5.67 10^6/uL (3.85-5.65) H 02/28/24 11:15 Hgb 16.60 g/dL (11.27-16.99) 02/28/24 11:15 Hct 57.2 % (37-53) H 02/28/24 11:15 MCV 100.9 fl (82-101) 02/28/24 11:15 MCH 29.3 pg (27-33) 02/28/24 11:15 MCHC 29.0 g/dL (30-55) L 02/28/24 11:15 RDW 12.7 % (12.1-15.1) 02/28/24 11:15 Plt Count 200 10^3/cmm (157-399) 02/28/24 11:15 MPV 10.4 fL (7.4-10.4) 02/28/24 11:15 Neut % (Auto) 78.9 % 02/28/24 11:15 Lymph % (Auto) 11.0 % 02/28/24 11:15 Leslie % (Auto) 8.6 % 02/28/24 11:15 Eos % (Auto) 0.4 % 02/28/24 11:15 Baso % (Auto) 0.7 % 02/28/24 11:15 Neut # (Auto) 7.27 10^3/uL (1.8-7.7) 02/28/24 11:15 Lymph # (Auto) 1.0 10^3/uL (0.8-4.8) 02/28/24 11:15 Leslie # (Auto) 0.8 10^3/uL (0.2-0.9) 02/28/24 11:15 Eos # (Auto) 0.0 10^3/uL (0.0-0.8) 02/28/24 11:15 Baso # (Auto) 0.1 10^3/uL (0.0-0.1) 02/28/24 11:15 Nucleated RBC % (auto) 0 % 02/28/24 11:15 Nucleated RBCs # 0.0 /100WBC 02/28/24 11:15 Sodium 138 mmol/L (136-145) 02/28/24 11:15 Potassium 4.9 mmol/L (3.5-5.1) 02/28/24 11:15 Chloride 93 mmol/L (98-107) L 02/28/24 11:15 Carbon Dioxide 37 mmol/L (22-29) H 02/28/24 11:15 Anion Gap 12.9 (5-19) 02/28/24 11:15 BUN 14 mg/dL (6-20) 02/28/24 11:15 Creatinine 0.6 mg/dL (0.7-1.2) L 02/28/24 11:15 GFR Calculation 145.7 mL/min (90-130) H 02/28/24 11:15 Glucose 225 mg/dL (65-115) H 02/28/24 11:15 Calculated Osmolality 294 mOsm/kg (285-295) 02/28/24 11:15 Calcium 9.5 mg/dL (8.5-10.5) 02/28/24 11:15 Total Bilirubin 0.6 mg/dL (0.15-1.2) 02/28/24 11:15 AST 36 U/L (0-40) 02/28/24 11:15 ALT 66 U/L (0-41) H 02/28/24 11:15 Alkaline Phosphatase 94 U/L (40-130) 02/28/24 11:15 Troponin T Baseline < 6 ng/L (0-15) 02/28/24 11:15 NT-Pro-B Natriuret Pep 178 pg/mL (0-125) H 02/28/24 11:15 Total Protein 6.7 g/dL (6.6-8.7) 02/28/24 11:15 Albumin 4.3 g/dL (3.5-5.2) 02/28/24 11:15 Globulin 2.4 g/dL (1.3-4.6) 02/28/24 11:15 All radiology interpretation(s) finalized by discharge Discharge Plan Discharge Patient Disposition: Home Clinical Impression: Lymphedema Adverse effect of beta-niko Qualifiers: Encounter type: initial encounter Qualified Code(s): T44.7X5A - Adverse effect of beta-adrenoreceptor antagonists, initial encounter Condition: Stable Prescriptions: Discontinued propranolol 10 mg tablet 10 mg PO BID Qty: 60 0RF No Action rizatriptan [Maxalt-TECHNICAL INFORMATION SPECIALIST] 10 mg tablet,disintegrating 10 mg PO Q2H PRN (Reason: migraine headache) Qty: 27 2RF Rx Instructions: until response; not to exceed 2 doses in a 24 hour period (DME) blood-glucose meter Misc See Rx Instructions .Route Qty: 1 0RF Rx Instructions: once daily with glucose test strips and lancets hydrocodone-acetaminophen 10-325 mg tablet 1 tab PO BID PRN (DME) nerve stimulator Device See Rx Instructions .ROUTE .MEDSUPPLY Qty: 1 Rx Instructions: As directed (DME) oxygen-air delivery systems Device See Rx Instructions .Route Rx Instructions: As directed 2L at night Saline Nasal 0.65 % aerosol,spray 2 spray intranasal Q4H PRN (Reason: dry nasal passages) Qty: 44 0RF (DME) Blood Glucose Test Strip See Rx Instructions .Route Qty: 50 2RF Rx Instructions: BID daily with glucose meter gentamicin 0.1 % ointment 1 applic topical BID Qty: 30 2RF levofloxacin 500 mg tablet 500 mg PO DAILY 10 Days Qty: 10 0RF (DME) lancets [OneTouch Delica Plus Lancet] 30 gauge misc See Rx Instructions .ROUTE .COMPLEX Qty: 100 2RF Dose Instruction: Once daily with Glucose meter and Test strips. Rx Instructions: Once daily with Glucose meter and Test strips. budesonide 0.5 mg/2 mL suspension for nebulization 0.5 mg inhalation BID 30 Days Qty: 120 4RF formoterol fumarate [Perforomist] 20 mcg/2 mL solution for nebulization 2 ml inhalation BID 30 Days Qty: 120 4RF pantoprazole 40 mg tablet,delayed release (DR/EC) See Rx Instructions .ROUTE .COMPLEX Qty: 90 3RF Dose Instruction: TAKE ONE TABLET BY MOUTH DAILY Rx Instructions: TAKE ONE TABLET BY MOUTH DAILY Spiriva with HandiHaler 18 mcg capsule, w/inhalation device See Rx Instructions .ROUTE .COMPLEX Qty: 30 5RF Dose Instruction: inhale THE contents of 1 capsule BY MOUTH DAILY; puncture 1 capsule using device AND INHALE fast AND deep two times. Rx Instructions: inhale THE contents of 1 capsule BY MOUTH DAILY; puncture 1 capsule using device AND INHALE fast AND deep two times. aspirin [Adult Low Dose Aspirin] 81 mg tablet,delayed release (DR/EC) 81 mg PO QDAY Qty: 90 3RF dulaglutide 1.5 mg/0.5 mL pen injector 1.5 mg SUBCUT .weekly Qty: 6 1RF hydrochlorothiazide 12.5 mg tablet See Rx Instructions .ROUTE .COMPLEX Qty: 90 1RF Dose Instruction: TAKE ONE TABLET BY MOUTH EVERY MORNING Rx Instructions: TAKE ONE TABLET BY MOUTH EVERY MORNING metoprolol tartrate 25 mg tablet See Rx Instructions .ROUTE .COMPLEX Qty: 90 1RF Dose Instruction: TAKE 1/2 TABLET BY MOUTH TWICE DAILY Rx Instructions: TAKE 1/2 TABLET BY MOUTH TWICE DAILY tamsulosin 0.4 mg capsule 0.4 mg PO DAILY Qty: 90 1RF fluticasone propionate 50 mcg/actuation spray,suspension See Rx Instructions .ROUTE .COMPLEX Qty: 16 2RF Dose Instruction: instill 2 SPRAYS IN EACH NOSTRIL EVERY DAY NEEDED FOR allergy symptoms Rx Instructions: instill 2 SPRAYS IN EACH NOSTRIL EVERY DAY NEEDED FOR allergy symptoms metformin 750 mg tablet extended release 24 hr See Rx Instructions .ROUTE .COMPLEX Qty: 180 2RF Dose Instruction: TAKE ONE TABLET BY MOUTH TWICE DAILY Rx Instructions: TAKE ONE TABLET BY MOUTH TWICE DAILY Jardiance 25 mg tablet See Rx Instructions .ROUTE .COMPLEX Qty: 90 2RF Dose Instruction: TAKE ONE TABLET BY MOUTH EVERY MORNING Rx Instructions: TAKE ONE TABLET BY MOUTH EVERY MORNING Discharge Orders: Discharge ED (Routine); Ordered 02/28/24 Ordered By: Sussy Amaya Referrals: Len Givens MD [Primary Care Provider] - Activity Restrictions/Additional Instructions: As we discussed, you can discontinue the propranolol. Please take your primary care provider about further evaluation of your chronic lymphedema. This could include referrals to wound care/physical therapy for lymphedema treatment, lymphedema wrapping, etc. You have requested cardiology follow-up/referral. This has been placed. 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
--- NOTE | 2024-02-28 11:51 | XR_ITS ---
WS: [id number] Exam: XR chest 1V portable [id number] Date/Time of Exam: 02/28/2024 11:51 AM Reason For Exam: chest pain Comparison 07/26/2021. Lungs are hyperinflated and clear. Chronic interstitial changes noted. Heart size is top limits hui l. Prominent right-sided epicardial fat pad. Electrode with leads superimpose the RIGHT heart and med iastinum. Postoperative changes of the RIGHT hilum. Signs of prior thoracotomy and several old rib fr actures. The superior mediastinum is normal in contour. Hardware in the lower C-spine. XR/XR chest 1V portable [id number] IMPRESSION: 1. Pulmonary hyperinflation and chronic changes but no acute process noted.
[2024-02-28 11:57] LABS: Basophils # 0.1 10^3/uL (0.0-0.1); Basophils % 0.7 %; Eosinophils % 0.4 %; Hematocrit 57.2 % (37-53); Mean Corpuscular Hemoglobin 29.3 pg (27-33); Mean Corpuscular Volume 100.9 fl (82-101); Mean Platelet Volume 10.4 fL (7.4-10.4); Monocytes # 0.8 10^3/uL (0.2-0.9); Monocytes % 8.6 %; Neutrophils # 7.27 10^3/uL (1.8-7.7); Neutrophils % 78.9 %; Nucleated Red Blood Cells % 0 %; Platelet Count 200 10^3/cmm (157-399); Red Blood Count 5.67 10^6/uL (3.85-5.65); Red Cell Distribution Width 12.7 % (12.1-15.1); White Blood Count 9.21 10^3/uL (3.29-11.43)
[2024-02-28] MEDS: ipratropium-albuterol 3 mL Neb INHALATION (12:17)
[2024-02-28 12:18] VITALS: PULSE 89; RESP 18; O2SAT 92
[2024-02-28 12:27] VITALS: PULSE 90; O2SAT 95
[2024-02-28 12:29] LABS: Alanine Aminotransferase 66 U/L (0-41); Albumin Level 4.3 g/dL (3.5-5.2); Alkaline Phosphatase 94 U/L (40-130); Anion Gap 12.9 (5-19); Aspartate Amino Transferase 36 U/L (0-40); Blood Urea Nitrogen 14 mg/dL (6-20); Calcium 9.5 mg/dL (8.5-10.5); Carbon Dioxide 37 mmol/L (22-29); Chloride 93 mmol/L (98-107); Creatinine Clr Calc Pharmacy 202.1371; Globulin 2.4 g/dL (1.3-4.6); Glomerular Filtration Rate 145.7 mL/min (90-130); Glucose 225 mg/dL (65-115); NT Pro B Type Natriuretic Pept 178 pg/mL (0-125); Osmolality Calculated 294 mOsm/kg (285-295); Potassium 4.9 mmol/L (3.5-5.1); Sodium 138 mmol/L (136-145); Total Bilirubin 0.6 mg/dL (0.15-1.2); Total Protein 6.7 g/dL (6.6-8.7)
[2024-02-28 12:39] LABS: Troponin(5th) Baseline < 6 ng/L (0-15)
[2024-02-28 13:41] VITALS: BP 137/78; PULSE 90; O2SAT 98
[2024-02-28 13:43] VITALS: BP 137/78; PULSE 91; O2SAT 96
--- NOTE | 2024-03-02 07:21 | DCPLANNER ---
message heart care for er f/u
== END 2024-02-28 13:46 | disposition home or self-care (01) ==
PROVIDERS: Emergency Provider Physician Assistant; PCP Family Medicine Adult Medicine
DX: I89.0 Lymphedema, not elsewhere classified (principal); T44.7X5A Adverse effect of beta-adrenoreceptor antagonists, initial encounter; Z79.84 Long term (current) use of oral hypoglycemic drugs; E11.9 Type 2 diabetes mellitus without complications; I11.0 Hypertensive heart disease with heart failure; I50.20 Unspecified systolic (congestive) heart failure; Z99.81 Dependence on supplemental oxygen; J44.9 Chronic obstructive pulmonary disease, unspecified; Z87.891 Personal history of nicotine dependence
CPT/HCPCS: 71045; 80053; 83880; 84484; 85025; 93005; 94640; 99285

== ENCOUNTER → 2024-05-19 11:32 | Outpatient (BNVA) | payer MEDICARE, MEDICAID, SELFPAY | PROVIDERS: PCP Family Medicine Adult Medicine; Visit Provider Internal Medicine Cardiovascular Disease | DX: J44.9 Chronic obstructive pulmonary disease, unspecified (principal); I87.2 Venous insufficiency (chronic) (peripheral); R00.0 Tachycardia, unspecified; Z87.891 Personal history of nicotine dependence | CPT/HCPCS: 99214 ==

== ENCOUNTER 2024-05-28 13:10 | Outpatient (CLI) | payer MEDICARE, MEDICAID, SELFPAY ==
--- NOTE | 2024-05-28 13:30 | USR_ITS ---
PROCEDURE INFORMATION: Exam: US Duplex Lower Extremity Veins, Bilateral Exam date and time: 05/28/2024 1:39 PM Age: 43 years old Clinical indication: Swelling (edema) of limb; Lower extremity, bilateral; Additional info: Venous insufficiency TECHNIQUE: Imaging protocol: Real-time duplex ultrasound of the bilateral extremities with 2-D christensen scale, color Doppler flow and spectral waveform analysis including responses to compression and other maneuvers (when performed) with image documentation. Complete exam focused on the lower extremity veins. COMPARISON: No relevant prior studies available. FINDINGS: Right deep veins: Unremarkable. The common femoral, femoral, proximal profunda femoral and popliteal veins are patent without thrombus. Normal Doppler waveforms. Normal compressibility and/or augmentation response. Left deep veins: Unremarkable. The common femoral, femoral, proximal profunda femoral and popliteal veins are patent without thrombus. Normal Doppler waveforms. Normal compressibility and/or augmentation response. Superficial veins: Greater saphenous veins at the saphenofemoral junctions are patent bilaterally without thrombus. Soft tissues: Diffuse subcutaneous edema. US/CV hemant dup insuff [facility] [id number] IMPRESSION: 1. Diffuse subcutaneous edema. 2. No DVT.
== END 2024-05-28 13:11 | disposition home or self-care (01) ==
LOC: RAD 13:11
PROVIDERS: PCP Family Medicine Adult Medicine; Visit Provider Internal Medicine Cardiovascular Disease
DX: M79.604 Pain in right leg (principal); R60.1 Generalized edema
CPT/HCPCS: 93970

== ENCOUNTER → 2024-06-16 08:45 | Outpatient (BNVA) | payer MEDICARE, MEDICAID, SELFPAY | PROVIDERS: PCP Family Medicine; Visit Provider Family Medicine | DX: E11.9 Type 2 diabetes mellitus without complications (principal); R79.89 Other specified abnormal findings of blood chemistry | CPT/HCPCS: 80053; 80061; 82043; 83036; 84403 ==

== ENCOUNTER 2024-08-22 21:42 | Emergency (ER) | payer MEDICARE, MEDICAID, SELFPAY ==
[2024-08-22 21:45] VITALS: BP 126/71; PULSE 114; RESP 18; TEMP 36.8; O2SAT 90
--- NOTE | 2024-08-22 22:16 | ECG_ITS ---
[facility] Test Date: 2024-08-22 Pat Name: Valentino Cerrato Department: Room: Gender: Male Board Handler: : 1980 Requested By: Fox Curtis Order Number: [id number] Sue MD: KENNY MACKEY Measurements Intervals [place] Rate: 117 P: 72 AK: 145 QRS: 83 QRSD: 82 T: 54 QT: 305 QTc: 427 Interpretive Statements SINUS TACHYCARDIA POSSIBLE RIGHT VENTRICULAR CONDUCTION DELAY [RSR (QR) IN V1/V2] ABNORMAL RHYTHM ECG Compared to ECG 02/28/2024 11:45:22 Sinus rhythm no longer present Electronically Signed On 08-22-2024 23:47:26 CDT by KENNY MACKEY [email or web address]
[2024-08-22 22:22] LABS: Basophils % 0.5 %; Eosinophils # 0.1 10^3/uL (0.0-0.8); Eosinophils % 1.1 %; Hematocrit 47.1 % (37-53); Lymphocytes # 1.2 10^3/uL (0.8-4.8); Lymphocytes % 15.3 %; Mean Corpuscular HGB Conc 30.8 g/dL (30-55); Mean Corpuscular Volume 94.2 fl (82-101); Mean Platelet Volume 9.8 fL (7.4-10.4); Monocytes # 0.7 10^3/uL (0.2-0.9); Monocytes % 8.5 %; Neutrophils % 74.4 %; Nucleated Red Blood Cells % 0 %; Platelet Count 227 10^3/cmm (157-399); Red Cell Distribution Width 12.3 % (12.1-15.1); White Blood Count 8.08 10^3/uL (3.29-11.43)
[2024-08-22 22:40] LABS: Alanine Aminotransferase 33 U/L (0-41); Albumin Level 3.9 g/dL (3.5-5.2); Alkaline Phosphatase 91 U/L (40-130); Anion Gap 13.5 (5-19); Aspartate Amino Transferase 24 U/L (0-40); Blood Urea Nitrogen 8 mg/dL (6-20); Calcium 9.4 mg/dL (8.5-10.5); Carbon Dioxide 37 mmol/L (22-29); Chloride 91 mmol/L (98-107); Globulin 3.3 g/dL (1.3-4.6); Glomerular Filtration Rate 179.8 mL/min (90-130); Glucose 137 mg/dL (65-115); Osmolality Calculated 286 mOsm/kg (285-295); Potassium 3.5 mmol/L (3.5-5.1); Sodium 138 mmol/L (136-145); Total Bilirubin 0.3 mg/dL (0.15-1.2); Total Protein 7.2 g/dL (6.6-8.7)
[2024-08-22 22:58] LABS: Influenza A NEGATIVE (Negative); Influenza B NEGATIVE (Negative); Respiratory Syncytial Virus Ce NEGATIVE (Negative); SARS-CoV-2 PCR NEGATIVE (Negative)
== END 2024-08-22 23:41 | disposition left against medical advice (07) ==
PROVIDERS: Student in an Organized Health Care Education/Training Program; Emergency Provider Family Medicine; PCP Family Medicine
DX: Z01.89 Encounter for other specified special examinations (principal); R00.0 Tachycardia, unspecified; R94.31 Abnormal electrocardiogram [ECG] [EKG]; Z53.21 Procedure and treatment not carried out due to patient leaving prior to being seen by health care provider
CPT/HCPCS: 36415; 80053; 85025; 87637; 93005; 99284

== ENCOUNTER → 2024-10-16 09:11 | Outpatient (BNVA) | payer MEDICARE, MEDICAID, SELFPAY | PROVIDERS: PCP Family Medicine; Visit Provider Family Medicine | DX: E11.9 Type 2 diabetes mellitus without complications (principal) | CPT/HCPCS: 80053; 83036 ==

== ENCOUNTER 2024-10-27 12:57 | Outpatient (CLI) | payer MEDICARE, MEDICAID, SELFPAY ==
--- NOTE | 2024-10-27 13:02 | XRR_ITS ---
PROCEDURE INFORMATION: Exam: XR Left Shoulder Exam date and time: 10/27/2024 1:09 PM Age: 44 years old Clinical indication: Pain; Shoulder; Left; Additional info: Limited rom TECHNIQUE: Imaging protocol: Radiologic exam of the left shoulder. Views: 2 or more views. COMPARISON: CR XR shoulder LT min 2V* [id number] 09/04/2022 11:48 AM FINDINGS: Bones/joints: Normal. Soft tissues: Normal. XR/XR shoulder LT min 2V* [id number] IMPRESSION: No acute findings.
== END 2024-10-27 12:58 | disposition home or self-care (01) ==
LOC: RAD 13:00
PROVIDERS: PCP Family Medicine; Visit Provider Family Medicine
DX: M25.512 Pain in left shoulder (principal); G89.29 Other chronic pain; M75.02 Adhesive capsulitis of left shoulder
CPT/HCPCS: 73030

== ENCOUNTER 2024-11-17 10:14 | Outpatient (RCR) | payer MEDICARE, MEDICAID, SELFPAY | END 2024-12-15 23:59 | disposition home or self-care (01) | LOC: SPT 10:14 | PROVIDERS: PCP Family Medicine; Visit Provider Family Medicine | DX: M75.02 Adhesive capsulitis of left shoulder (principal) | CPT/HCPCS: 97110; 97161 ==

== ENCOUNTER 2024-12-17 09:37 | Observation (INO) | payer MEDICARE, MEDICAID, SELFPAY ==
[2024-12-17] VITALS (11 sets, daily range): BP systolic 105–134; BP diastolic 69–78; PULSE 106–117; RESP 15–16; TEMP 37.3; O2SAT 94–97; BMI 32.5
--- OUTSIDE RECORDS SUMMARY | 2024-12-17 09:44 | XMS_ITS | Encounter Summary ---
Author Organization [facility] Address [address] [place] [address] Care Team Providers Care Induction Machine Setter Name Role Phone Kayla Duarte MD Primary Care Provider [phone] Encounter Details Date Type Department Care Team (Latest Contact Info) Description 02/27/2006 Outpatient Historical [facility] [address] Alex Macario, DO NO ADDRESS ON FILE Unspecified Infantile Cerebral Palsy (CMS/HCC) (Primary Dx); Cervicalgia; Depressive Disorder, not Elsewhere Classified Social History Tobacco Use Types Packs/Day Years Used Date Smoking Tobacco: Never Assessed Sex and Gender Information Value Date Recorded Sex Assigned at Not on file 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
--- OUTSIDE RECORDS SUMMARY | 2024-12-17 09:44 | XMS_ITS | Encounter Summary ---
Author Organization [facility] Address [address] [place] [address] Care Team Providers Care Tool Grinder Set Up Operator Gear Name Role Phone Kayla Duarte MD Primary Care Provider [phone] Encounter Details Date Type Department Care Team (Latest Contact Info) Description 02/14/2005 Outpatient Historical [facility] [address] [place] [address] Alex Dumont MD [address] [address] DISC DIS NEC/NOS-THORAC (Primary Dx) Social History Tobacco Use Types Packs/Day Years Used Date Smoking Tobacco: Never Assessed Sex and Gender Information Value Date Recorded Sex Assigned at Not on file 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
--- OUTSIDE RECORDS SUMMARY | 2024-12-17 09:44 | XMS_ITS | Encounter Summary ---
Author Organization [facility] Address [address] [place] [address] Care Team Providers Care Management Aide Name Role Phone Kayla Duarte MD Primary Care Provider [phone] Encounter Details Date Type Department Care Team (Late st Contact Info) Description 02/14/2005 Outpatient Historical [facility] [address] [place] [address] Social History Tobacco Use Types Packs/Day Years Used Date Smoking Tobacco: Never Assessed Sex and Gender Information Value Date Recorded Sex Assigned at Not on file 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
--- OUTSIDE RECORDS SUMMARY | 2024-12-17 09:44 | XMS_ITS | Clinical Summary ---
Author Organization [facility] Address [address] [place] [address] Care Team Providers Care Failure Analysis Technician Name Role Phone Kayla Duarte MD Primary Care Provider [phone] Allergies Active Allergy Reactions Criticality Noted Date Comments Penicillins Hives High 11/26/2019 Medications aspirin (ECOTRIN EC) 81 mg Tablet, Delayed Release (E.C.) Take 81 mg by mouth daily. Active divalproex (DEPAKOTE) 500 mg delayed release tablet Take 500 mg by mouth 3 times daily. Pt states 1000mg BID Active propantheline (PROBANTHINE) 15 mg tablet Take 15 mg by mouth 4 times daily. Active pantoprazole (PROTONIX) 40 mg Tablet, Delayed Release (E.C.) Take 40 mg by mouth daily. Active HYDROcodone-heber taminophen (NORCO) 10-325 mg Tablet Take 325 Tablets by mouth daily. 10/21/2019 Active Chantix Starting Month Box 0.5 mg (11)- 1 mg (42) tablets STARTER dose pack Take 1 Tablet by mouth 2 times daily. 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, s/p PPV 11/30/2019 11/26/2019 Proliferative vitreoretinopa thy of right eye, s/p PPV 11/30/2019 11/26/2019 Type 2 diabetes mellitus wit hout complication, without long-term current use of insulin 11/26/2019 Family History Medical History Relation Name Comments Diabetes Father Heart Attack Maternal Grandfather Amblyopia Neg Hx Blindness Neg Hx Cancer Neg Hx Cataract Neg Hx Corneal Dystrophies Neg Hx Detachment/Tears Neg Hx Fuchs' dystrophy Neg Hx Glaucoma Neg Hx Hypertension Neg Hx Keratoconus Neg Hx Macular Degen Neg Hx Strabismus Neg Hx Stroke Neg Hx Thyroid Disease Neg Hx Relation Name Status Comments Father Maternal Grandfather Social History Tobacco Use Types Packs/Day Years Used Date Smoking Tobacco: Every Day Smokeless Tobacco: Never Sex and Gender Information Value Date Recorded Sex Assigned at Not on file 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 Gender Identity Not on file Sexual Orientation Not on file Last Filed Vital Signs Vital Sign Reading Time Taken Comments Blood Pressure 126/77 11/30/2019 1:39 PM CDT Pulse 99 11/30/2019 1:39 PM CDT Temperature 36.7 C (98 F) 11/30/2019 1:39 PM CDT Respiratory Rate 16 11/30/2019 1:32 PM CDT Oxygen Saturation 95% 11/30/2019 1:39 PM CDT Inhaled Oxygen Concentration - - Weight 90.7 kg (200 lb) 12/23/2019 12:43 PM CDT Per pt Height 182.9 cm (6') 12/23/2019 12:43 PM CDT Per Pt Body Mass Index 27.12 12/23/2019 12:43 PM CDT Plan of Treatment Health Maintenance Due Date Last Done Comments DIABETES ANNUAL FOOT EXAM 1996 DIABETES HBA1C Q 6 MONTHS 1996 DIABETES MICROALBUMIN ANNUAL SCREEN 1996 LDL CHOLESTEROL ANNUAL 1996 DTAP/TDAP/TD VACCINES (1 - Tdap) 1997 HEPATITIS B VACCINES (1 of 3 - 19+ 3-dose series) 1997 COLORECTAL SCREENING 08/28/2023 Colorectal Cancer Screening 08/28/2023 FIT-DNA Q 3 years 08/28/2023 FIT/FOBT Q 1 year 08/28/2023 Flex Sig/CT Colonography Q 5 years 08/28/2023 DIABETES ANNUAL RETINAL EXAM 01/24/2024 01/23/2023, 04/21/2020, 04/21/2020, Additional history exists INFLUENZA VACCINE (#1) 2024 HPV VACCINES Aged Out No longer eligi ble based on patient's age to complete this topic Insurance [place]ICAID [place] [address] DUAL COMPLETE MCR PPO D-SNP RX [employer] RX Member Subscriber Plan / Payer (Ef fective 2015-Present) Name:Stephan Lyn Relation to Subscriber:Self Name:STEPHAN LYN Payer ID:Not on file Group ID:[id number] Type:RX Medicare Part D Address: [place], [place] RX INFOCROSSING Medicaid Advance Directives For more information, please contact: [phone] * Full Code (Latest Code Status on File) Date Activated Date Inactivated Comments 11/30/2019 9:54 AM 11/30/2019 4:40 PM Care Teams Failure Analysis Technician Relationship Specialty Start Date End Date Kayla Duarte MD [address] [facility] [place] [address] PCP - General 08/02/16
--- OUTSIDE RECORDS SUMMARY | 2024-12-17 09:44 | XMS_ITS | Clinical Summary ---
Author Organization [facility] Address [address] [place] [address] Phone Care Team Providers Care Milk Collector Name Role Phone Kayla Duarte MD Primary Care Provider [phone] Allergies Active Allergy Reactions Criticality Noted Date Comments Penicillins Hives High 11/26/2019 Medications HYDROcodone-acet aminophen (NORCO) 10-325 mg Tablet Take 325 Tablets by mouth daily. 10/21/19 20 Active propantheline (PROBANTHINE) 15 mg tablet Take 15 mg by mouth 4 times daily. 11/26/19 20 Active pantoprazole (PROTONIX) 40 mg Tablet, Delayed Release (E.C.) Take 40 mg by mouth daily. 11/26/19 20 Active aspirin (ECOTRIN EC) 81 mg Tablet, Delayed Release (E.C.) Take 81 mg by mouth daily. 11/26/19 20 Active varenicline (Chantix Starting Month Box) 0.5 mg (11)- 1 mg (42) tablets STARTER dose pack Take 1 Tablet by mouth 2 times daily. 03/22/19 21 Active albuterol (PROVENTIL,LIZZY VENANCIO) 2.5 mg /3 mL (0.083 %) Solution for Nebulization 3 mL by nebulizer every 6 hours for 30 day(s) Active albuterol sulfate HFA 90 mcg/actuation aerosol inhaler 2 puff(s) inhaled every 6 hours 05/17/19 22 Active diclofenac potassium (CATAFLAM) 50 mg Tablet 2 times daily. 05/26/19 22 Active Jardiance 25 mg tablet 01/23/20 23 Active Spiriva with HandiHaler 18 mcg capsule 01/23/20 23 Active testosterone cypionate (DEPO-TESTOSTERO NE) 100 mg/mL Oil as directed intramuscularly every 4 weeks for 4 week(s) Active tamsulosin (FLOMAX) 0.4 mg capsule 01/23/20 23 Active naproxen sodium (Aleve) 220 mg Tablet 2 tabs po orally TID prn pain; take with food Active metoprolol tartrate (LOPRESSOR) 25 mg tablet 01/23/20 23 Active metFORMIN (GLUCOPHAGE XR) 750 mg Extended Release 24 hour tablet 01/23/20 23 Active metFORMIN (FORTAMET) 500 mg Extended Release 24 hour tablet Take 750 mg by mouth 2 times daily. 11/14/19 22 Active lactulose (ENULOSE) 10 gram/15 mL 10 gram/15 mL solution 15 mL orally once a day Active hydroCHLOROthiaz howard 12.5 mg tablet 01/23/20 23 Active fluticasone propionate (FLONASE) 50 mcg/spray Padroni, Suspension nasal inhaler 01/23/20 23 Active Active Problems Problem Noted Date Diagnosed Date Pseudophakia of both eyes 01/23/2023 Proliferative vitreoretinopathy of left eye 10/2022 Cystoid macular edema, right eye 01/27/2020 Combined form of senile cataract of left eye 12/2019 Posterior capsular opacification, right eye 11/16 Macula-off rhegmatogenous retinal detachment of left eye 11/26/2019 Proliferative vitreoretinopa thy of right eye, [...] Smoking Tobacco: Every Day Smokeless Tobacco: Never Feeling Safe Answer Date Recorded Are you in a relationship wi th someone who hurts you emotionally and/or physically? 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 Gender Identity Not on file Sexual Orientation Not on file Last Filed Vital Signs Vital Sign Reading Time Taken Comments Blood Pressure 128/96 01/24/2023 5:47 PM OLEO HASHER AND RENDERER Pulse 110 01/24/2023 5:47 PM OLEO HASHER AND RENDERER per patiient this is his norm Temperature 37 C (98.6 F) 01/24/2023 5:47 PM OLEO HASHER AND RENDERER Respiratory Rate 18 01/24/2023 11:4 0 AM OLEO HASHER AND RENDERER Oxygen Saturation 92% 01/24/2023 5:4 7 PM OLEO HASHER AND RENDERER Inhaled Oxygen Concentration - - Weight 107.9 kg (237 lb 12.8 oz) 01/24/2023 11:40 AM OLEO HASHER AND RENDERER Height 182.9 cm (6') 01/24/2023 11:40 AM OLEO HASHER AND RENDERER Body Mass Index 32.25 01/24/2023 11:40 AM OLEO HASHER AND RENDERER Plan of Treatment Health Maintenance Due Date [...] 5 years 08/28/2023 DIABETES ANNUAL RETINAL EXAM 01/25/2024 01/24/2023, 01/24/2023, 01/23/2023, Additional history exists INFLUENZA VACCINE (#1) 2024 01/06/2021 HPV VACCINES Aged Out No longer eligi ble based on patient's age to complete this topic Insurance MEDICAID [facility] MEDICARE HMO * Guarantor: STEPHAN LYN Account Type Relation to Patient Date of Phone Billing Address Personal/Family [address] [place] [address] RX [employer] RX Member Subscriber Plan / Payer (Ef fective 2015-Present) Name:Stephan Lyn Relation to Subscriber:Self Name:Blossom Stephan Prather Payer ID:Not on file Group ID:[id number] Type:RX Medicare Part D Address: [place], [place] RX INFOCROSSING Medicaid Care Teams Milk Collector Relationship Specialty Start Date End Date Kayla Duarte MD [address] [facility] [place] [address] PCP - General 08/02/16
--- OUTSIDE RECORDS SUMMARY | 2024-12-17 09:44 | XMS_ITS | Encounter Summary ---
Author Organization [facility] Address [address] [place] [address] Care Team Providers Care Wood Boat Builder Supervisor Name Role Phone Kayla Duarte MD Primary Care Provider [phone] Encounter Details Date Type Department Care Team (Latest Contact Info) Description 04/03/2006 Outpatient Historical [facility] [address] [id number] Alex Macario, NO ADDRESS ON FILE Lumbago (Primary Dx) Social History Tobacco Use Types Packs/Day Years Used Date Smoking Tobacco: Never Assessed Sex and Gender Information Value Date Recorded Sex Assigned at Not on file 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
--- NOTE | 2024-12-17 10:23 | USCV_ITS ---
Valentino Cerrato Age: 44 Gender: M : 1980 Exam Date: 12/17/2024 11:11 Ordering Phys: Donaldo Garnett DO Technologist: SAL Exam Location: [facility] Indication: LE Swelling HISTORY: LE Swelling. Pt stated he couldn't remove pants so images start at prox sfv PROCEDURES: Venous duplex imaging was performed in bilateral lower extremities. The following venous structures were evaluated: common femoral vein, profunda vein, proximal portion of the greater saphenous vein, superficial femoral vein, and the popliteal vein. In addition, the posterior tibial and peroneal trunk were evaluated. Serial compression, augmentation maneuvers, and spectral Doppler flow evaluation were performed. FINDINGS: No evidence of DVT seen in any vessel visualized at this time. CONCLUSIONS No evidence of right lower extremity DVT. No evidence of left lower extremity DVT. Seymour Reddy MD (Electronically Signed) Final Date: 17 December 2024 15:20 S
--- NOTE | 2024-12-17 10:24 | ECG_ITS ---
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 Measurements Intervals [place] Rate: 115 P: 75 NH: 150 QRS: 87 QRSD: 84 T: 71 QT: 302 QTc: 418 Interpretive Statements SINUS TACHYCARDIA ABNORMAL RHYTHM ECG Compared to ECG 08/22/2024 22:16:08 No significant changes Electronically Signed On 12-17-2024 18:49:33 CDT by Duane Gonzalez M.D. [id number] [id number]
--- NOTE | 2024-12-17 10:30 | ED_ITS ---
HPI - Extremity Problem 2 General: Chief complaint: Extremity Problem,Nontraumatic Stated complaint: Both Legs swollen Time Seen by Provider: 12/17/24 10:23 History of Present Illness: 44-year-old male presents emergency room complaining of bilateral lower leg swelling. He reports this has been going on for some time and recently began to get worse he has redness there is necrotic skin about both lower extremities. 2+ edema of the lower extremities he denies any fever sweats or chills. Patient has baseline COPD and is on 4 L by nasal cannula chronically. He has a history of diabetes mellitus. No known history of coronary artery disease or peripheral vascular disease. Associated symptoms: Deny chest pain, fever(s) or rash Related Data Home Medications ?Medication ?Instructions ?Recorded ?Confirmed nerve stimulator ##1 04/07/19 12/17/24 oxygen-air delivery systems 01/06/21 12/17/24 Previous Rx's ?Medication ?Instructions ?Recorded blood-glucose meter #1 ea 06/14/21 lancets 30 gauge ([employer] [facility] ##100 11/29/21 Plus Lancet) sodium chloride 0.65 % nasal spray 2 spray intranasal Q4H PRN dry 02/24/24 aerosol (Saline Nasal) nasal passages #44 mL Portable 02 concentrator #1 ea 06/09/24 02 #1 ea 07/07/24 tamsulosin 0.4 mg capsule See Rx Instructions .Route 0 07/14/24 .COMPLEX #90 caps tiotropium bromide 18 mcg capsule See Rx Instructions .Route 08/31/24 with inhalation device (Spiriva .COMPLEX #30 caps with HandiHaler) aspirin 81 mg tablet,delayed See Rx Instructions .Rout e 10/12/24 release .COMPLEX #90 tabs blood sugar diagnostic (Blood #50 ea 10/12/24 Glucose Test strips) testosterone cypionate 200 mg/mL 200 mg SUBCUT .every 14 days #2 mL 10/16/24 intramuscular oil dulaglutide 3 mg/0.5 mL 3 mg (0.5 mL) SUBCUT .every 2 10/18/24 subcutaneous pen injector weeks #2 mL empagliflozin 25 mg tablet 25 mg PO QAM #90 tabs 10/18 (Jardiance) metformin 750 mg tablet,extended 750 mg PO BID #180 ta bs 10/18/24 release 24 hr fluticasone propionate 50 See Rx Instructions .Route 0 11/02/24 mcg/actuation nasal .COMPLEX #16 grams spray,suspension carbamide peroxide 6.5 % ear drops 5 drp otic (ear) Q1 2H 5 days #15 mL 12/07/24 (Debrox) metoprolol tartrate 25 mg tablet See Rx Instructions . Route 12/07/24 .COMPLEX #90 tabs pantoprazole 40 mg tablet,delayed 40 mg PO DAILY #90 t abs 12/07/24 release hydrochlorothiazide 12.5 mg tablet See Rx Instructions .Route 12/08/24 .COMPLEX #90 tabs rizatriptan 10 mg disintegrating 10 mg PO Q2H PRN migr brian headache 12/08/24 tablet (Maxalt-WATERPROOFING MIXER) #27 tabs Allergies Allergy/AdvReac Type Severity Reaction Status Date / Time Penicillins Allergy edema Verified 12/17/24 08:28 Review of Systems 2 Const: Denies: fever(s) or chills Card: Denies: chest pain Resp: Denies: dyspnea GI: Denies: abdominal pain : Denies: dysuria, urinary frequency or urinary urgency Musc: Denies: neck pain or back pain Skin/Breast: Denies: rash PFSH ED 2 PFSH: Medical History Type 2 diabetes mellitus Chronic venous stasis dermatitis of both lower extremities Bilateral impacted cerumen Colonoscopy refused Essential tremor Cellulitis of lower extremity, unspecified laterality Right leg pain Osteoarthrosis-multiple sites Bilateral shoulders, right knee, cervical, hips COPD, group B, by GOLD 2017 classification Chronic migraine without aura, with status migrainosus Chronic pain syndrome Erectile dysfunction Diabetes GERD (gastroesophageal reflux disease) Lumbar post-laminectomy syndrome Cataract Right Surgical History S/P carpal tunnel release right Status post lung surgery S/P cervical spinal fusion Family History Other Cancer Diabetes Social History Smoking and tobacco/nicotine status: former use of tobacco/nicotine Quit status (tobacco/nicotine): has quit using Year quit tobacco: 2023 Former quit date comment: 1 pack/day for 20 years Alcohol intake: never Substance/Drug Use: never Additional social history: Patient wants full CODE STATUS as discussed with Seymour Garza MD on 12/17/2024. 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 Current gender identity: Male Physical Exam 2 Const: GENERAL APPEARANCE: cooperative ORIENTATION/CONSCIOUSNESS: Yes awake, Yes oriented to person, Yes oriented to place and Yes oriented to time HENMT: COMMON NORMALS: normocephalic, atraumatic and hearing grossly normal bilaterally HEAD & SCALP: normocephalic and atraumatic Resp: COMMON NORMALS: normal respiratory effort, No retractions, No use of accessory muscles and clear to auscultation bilaterally AUSCULTATION: clear to auscultation bilaterally Cardio: COMMON NORMALS: regular rate, regular rhythm and No murmurs present (Cardio) RATE: regular rate RHYTHM: regular rhythm GI: COMMON NORMALS: Soft to palpation and No hepatosplenomegaly present A USCULTATION: Yes normoactive bowel sounds PALPATION: Yes Soft to palpation, No Tenderness to palpation present (GI), No Guarding due to palpation present (GI) and Yes No hepatosplenomegaly present Extremity: GENERAL: Yes edema OTHER: Bilateral changes of venous stasis edema with open wounds particularly in the right leg. Reddened inflamed and indurated. Neuro: SENSORIUM/ORIENTATION: Yes oriented to person, Yes oriented to place and Yes oriented to time Skin: COMMON NORMALS: no rashes or lesions noted GENERAL SKIN EXAM: no rashes or lesions noted Course 2 Vital Signs: Vital signs: Vital Signs Temperature 99.1 F 12/17/24 10:00 Pulse Rate 111 H 12/17/24 14:57 Respiratory Rate 16 12/17/24 10:00 Blood Pressure 134/78 12/17/24 14:57 Pulse Oximetry 96 12/17/24 14:57 Oxygen Delivery Me thod Nasal Cannula 12/17/24 15:45 Oxygen Flow Rate 4 12/17/24 13:00 Fraction of Inspir ed Oxygen 30 12/17/24 14:30 MDM - Extremity (Nontraumatic) Medical Decision Making Chronic venous stasis edema with worsening ulcers or signs of cellulitis. Patient has fluid overload. CO2 chronically elevated. No hypoxia on baseline of 4 L. Start antibiotics cultures done will admit the patient will need diuresis further evaluation for his heart failure. Ultrasound lower extremities negative for venous thrombosis. Medical Records I reviewed the patient's medical records. Lab Data I reviewed the patient's lab results. 12/17/24 10:37 12/17/24 10:37 Laboratory Results WBC 8.07 10^3/uL (3.29-11.43) 12/17/24 10:37 RBC 4.68 10^6/uL (3.85-5.65) 12/17/24 10:37 Hgb 13.40 g/dL (11.27-16.99) 12/17/24 10:37 Hct 44.8 % (37-53) 12/17/24 10:37 MCV 95.7 fl (82-101) 12/17/24 10:37 MCH 28.6 pg (27-33) 12/17/24 10:37 MCHC 29.9 g/dL (30-55) L 12/17/24 10:37 RDW 12.4 % (12.1-15.1) 12/17/24 10:37 Plt Count 286 10^3/cmm (157-399) 12/17/24 10:37 MPV 9.1 fL (7.4-10.4) 12/17/24 10:37 Neut % (Auto) 80.3 % 12/17/24 10:37 Lymph % (Auto) 8.9 % 12/17/24 10:37 Cavalier % (Auto) 9.0 % 12/17/24 10:37 Eos % (Auto) 1.1 % 12/17/24 10:37 Baso % (Auto) 0.5 % 12/17/24 10:37 Neut # (Auto) 6.47 10^3/uL (1.8-7.7) 12/17/24 10:37 Lymph # (Auto) 0.7 10^3/uL (0.8-4.8) L 12/17/24 10:37 Cavalier # (Auto) 0.7 10^3/uL (0.2-0.9) 12/17/24 10:37 Eos # (Auto) 0.1 10^3/uL (0.0-0.8) 12/17/24 10:37 Baso # (Auto) 0.0 10^3/uL (0.0-0.1) 12/17/24 10:37 Nucleated RBC % (auto) 0 % 12/17/24 10:37 Nucleated RBCs # 0.0 /100WBC 12/17/24 10:37 Specimen Type Arterial 12/17/24 12:30 Sample Site Radial, left 12/17/24 12:30 ABG pH 7.35 (7.35-7.45) 12/17/24 12:30 ABG pCO2 83.5 mmHg (35-45) H* 12/17/24 12:30 ABG pO2 72.3 mmHg (80.0-100.0) L 12/17/24 12:30 ABG HCO3 46.2 mmol/L (22-26) H 12/17/24 12:30 ABG O2 Saturation 94.6 12/17/24 12:30 ABG Base Excess 16.4 mmol/L (-2.0-2.0) H 12/17/24 12:30 Jone Test Pos 12/17/24 12:30 A-a O2 Gradient Not Reportable 12/17/24 12:30 Hematocrit 40.1 % (42-52) L 12/17/24 12:30 Hgb O2 Saturation 90.2 % (95-100) L 12/17/24 12:30 Carboxyhemoglobin 3.5 %THgb (0.4-20.1) 12/17/24 12:30 Methemoglobin 1.2 % (0.4-1.5) 12/17/24 12:30 Total Hemoglobin 13.1 g/dL (14-18) L 12/17/24 12:30 Sodium 140.0 mmol/L (131-143) 12/17/24 12:30 Potassium 3.8 mmol/L (3.5-5.0) 12/17/24 12:30 Glucose 197.0 mg/dL (70-115) H 12/17/24 12:30 Ionized Calcium 1.2 mmol/L (1.1-1.4) 12/17/24 12:30 O2 Delivery Device Nc 12/17/24 12:30 O2 Liters/Min 3.5 % 12/17/24 12:30 Fast Food Worker ID Cak 12/17/24 12:30 Sodium 139 mmol/L (136-145) 12/17/24 10:37 Potassium 3.9 mmol/L (3.5-5.1) 12/17/24 10:37 Chloride 90 mmol/L (98-107) L 12/17/24 10:37 Carbon Dioxide 41 mmol/L (22-29) H 12/17/24 10:37 Anion Gap 11.9 (5-19) 12/17/24 10:37 BUN 12 mg/dL (6-20) 12/17/24 10:37 Creatinine 0.6 mg/dL (0.7-1.2) L 12/17/24 10:37 GFR Calculation 145.0 mL/min (90-130) H 12/17/24 10:37 Glucose 239 mg/dL (65-115) H 12/17/24 10:37 Calculated Osmolality 296 mOsm/kg (285-295) H 12/17/24 10:37 Lactic Acid 1.7 mmol/L (0.5-2.2) 12/17/24 10:37 Calcium 9.3 mg/dL (8.5-10.5) 12/17/24 10:37 Total Bilirubin 0.4 mg/dL (0.15-1.2) 12/17/24 10:37 AST 14 U/L (0-40) 12/17/24 10:37 ALT 18 U/L (0-41) 12/17/24 10:37 Alkaline Phosphatase 80 U/L (40-130) 12/17/24 10:37 C-Reactive Protein 62.5 mg/L (0.0-4.9) H 12/17/24 10:37 Total Protein 7.5 g/dL (6.6-8.7) 12/17/24 10:37 Albumin 3.8 g/dL (3.5-5.2) 12/17/24 10:37 Globulin 3.7 g/dL (1.3-4.6) 12/17/24 10:37 Procalcitonin 0.07 ng/mL (0-0.5) 12/17/24 10:37 Urine Color Yellow (Yellow) 12/17/24 11:00 Urine Appearance Clear (CLEAR) 12/17/24 11:00 Urine pH 5.5 (5-7) 12/17/24 11:00 Ur Specific [place] 1.021 (1.005-1.030) 12/17/24 11:00 Urine Protein 1+ (Negative) A 12/17/24 11:00 Urine Glucose (UA) Trace (Normal) H 12/17/24 11:00 Urine Ketones Negative (Negative) 12/17/24 11:00 Urine Blood Negative (Negative) 12/17/24 11:00 Urine Nitrate Negative (Negative) 12/17/24 11:00 Urine Bilirubin Negative (Negative) 12/17/24 11:00 Urine Urobilinogen 1.0 mg/dL (Negative) 12/17/24 11:00 Ur Leukocyte Esterase Negative (Negative) 12/17/24 11:00 Urine RBC None /hpf (0-2) 12/17/24 11:00 Urine WBC 0-4 /hpf (0-5) H 12/17/24 11:00 Ur Squamous Epith Cells 0-4 /hpf (0-5) H 12/17/24 11:00 Amorphous Sediment Not Reportable 12/17/24 11:00 Urine Bacteria None /hpf (NONE) 12/17/24 11:00 Urine Mucus None /hpf 12/17/24 11:00 All radiology interpretation(s) finalized by discharge EKG Data EKG 1: Interpretation: EKG 12/17/2024 1038. Sinus tachycardia rate of 115. No acute ST changes noted LA interval 150 QTc 418. EKG compared to 08/22/2024 no acute changes noted Discharge Plan Discharge Patient Disposition: Admitted As Inpatient Admit Provider: Seymour Garza Clinical Impression: Cellulitis of lower extremity, unspecified laterality, Type 2 diabetes mellitus without complication, without long-term current use of insulin, Systolic heart failure, Chronic venous stasis dermatitis of both lower extremities Condition: Stable Coding Level of Care Code ED Pig Caster for Hilton Waters
[2024-12-17 10:44] LABS: Hematocrit 44.8 % (37-53); Hemoglobin 13.40 g/dL (11.27-16.99); Mean Corpuscular HGB Conc 29.9 g/dL (30-55); Mean Corpuscular Hemoglobin 28.6 pg (27-33); Mean Corpuscular Volume 95.7 fl (82-101); Nucleated Red Blood Cells % 0 %; Platelet Count 286 10^3/cmm (157-399); Red Blood Count 4.68 10^6/uL (3.85-5.65); White Blood Count 8.07 10^3/uL (3.29-11.43)
--- NOTE | 2024-12-17 10:49 | PC.NURSE ---
Pt bilat lower legs having swelling with large yellow discolored wounds that appear mostly intact. Strong foul odor noted. PT's feet appear black from dirt, unkempt, long thick toe nails noted. Soaks appear wet from weeping. wounds and swelling from below knee and down.
[2024-12-17 11:03] LABS: Alanine Aminotransferase 18 U/L (0-41); Albumin Level 3.8 g/dL (3.5-5.2); Alkaline Phosphatase 80 U/L (40-130); Anion Gap 11.9 (5-19); Aspartate Amino Transferase 14 U/L (0-40); Blood Urea Nitrogen 12 mg/dL (6-20); Calcium 9.3 mg/dL (8.5-10.5); Chloride 90 mmol/L (98-107); Creatinine Clr Calc Pharmacy 196.0614; Globulin 3.7 g/dL (1.3-4.6); Glucose 239 mg/dL (65-115); Lactic Sepsis W/Reflex 1.7 mmol/L (0.5-2.2); Osmolality Calculated 296 mOsm/kg (285-295); Potassium 3.9 mmol/L (3.5-5.1); Sodium 139 mmol/L (136-145); Total Protein 7.5 g/dL (6.6-8.7)
[2024-12-17 11:09] LABS: Carbon Dioxide 41 mmol/L (22-29)
[2024-12-17 12:41] LABS: ABG PH Result 7.35 (7.35-7.45); Arterial Blood Gas Hematocrit 40.1 % (42-52); Blood Gas Allen Test Pos; Blood Gas LPM 3.5 %; Blood Gas Operator Identificat CAK; Blood Gas Sample Site Radial, left; Blood Gas Sample Type Arterial; Carboxyhemoglobin 3.5 %THgb (0.4-20.1); Glucose Level-ABG 197.0 mg/dL (70-115); HCO3 ABG 46.2 mmol/L (22-26); Ionized Calcium Level - ABG 1.2 mmol/L (1.1-1.4); Methemoglobin 1.2 % (0.4-1.5); Oxygen Saturation ABG 94.6; PO2 ABG 72.3 mmHg (80.0-100.0); Potassium Level - ABG 3.8 mmol/L (3.5-5.0); Sodium Level - ABG 140.0 mmol/L (131-143)
[2024-12-17 12:42] LABS: ABG PCO2 83.5 mmHg (35-45)
[2024-12-17 13:35] LABS: Glucose Urine UA Trace (Normal); Nitrate Urine Negative (Negative); Specific Gravity, Urine 1.021 (1.005-1.030)
[2024-12-17 13:48] LABS: Add Urine Microscopic? YES
--- NOTE | 2024-12-17 18:34 | P.HP_ITS ---
Providers/Chief Complaint 2 Admitting Physician: Seymour Garza MD Primary Care Provider: Raina Parkinson DO Chief Complaint: Both Legs swollen History of Present Illness Valentino Cerrato is a 44 year old male with history of diabetes and with his fianc?e. He was seen in the clinic by Dr. Parkinson and sent to the emergency department for cellulitis known peripheral vascular disease. Patient was referred for admission for cellulitis and extremely poor hygiene. He has baseline COPD treated with 4 L nasal cannula oxygen. He tells me he has sleep apnea but he does not treat. Patient does not have a CPAP machine. He says he does snore some but fianc? is never said he quits breathing. Patient states his hemoglobin A1c runs about 7. Patient quit smoking last year after 20 years of a pack per day. Review of Systems 2 Narrative: General No fevers chills he had weight gain about 30 pounds to 240 pounds he is not sure how much of it is water. Cardiovascular no chest pain or palpitations he does have leg edema Respiratory positive for O2 dependence GI no nausea vomiting diarrhea constipation negative for dysuria hematuria Neuro no send history of stroke he did have a seizure when he was 2 weeks old and he had to have heart surgery as a baby Medications/Allergies Home Medications ?Medication ?Instructions ?Recorded ?Confirmed ?Last Taken ?Type nerve stimulator ##1 04/07/19 12/17/24 Unknow n History oxygen-air delivery systems 01/06/21 12/17/24 Unknown History blood-glucose meter #1 ea 06/14/21 12/17/24 Unkn own Rx lancets 30 gauge (OneTouch Delica ##100 11/29/2112/17 Unknown Rx Plus Lancet) sodium chloride 0.65 % nasal spray 2 spray intranasal Q4H PRN dry 02/24/24 12/17/24 Unknown Rx aerosol (Saline Nasal) nasal passages #44 mL Portable 02 concentrator #1 ea 06/09/24 12/17/24 Unkn own Rx 02 #1 ea 07/07/24 12/17/24 Unkn own Rx tamsulosin 0.4 mg capsule See Rx Instructions .Route 0 07/14/24 12/17/24 12/16/24 Rx .COMPLEX #90 caps tiotropium bromide 18 mcg capsule See Rx Instructions .Route 08/31/24 12/17/24 12/17/24 08:00 Rx with inhalation device (Spiriva .COMPLEX #30 caps with HandiHaler) aspirin 81 mg tablet,delayed See Rx Instructions .Rout e 10/12/24 12/17/24 12/17/24 08:00 Rx release .COMPLEX #90 tabs blood sugar diagnostic (Blood #50 ea 10/12/24 12/17/24 Unknown Rx Glucose Test strips) testosterone cypionate 200 mg/mL 200 mg SUBCUT .every 14 days #2 mL 10/16/24 12/17/24 Unknown Rx intramuscular oil dulaglutide 3 mg/0.5 mL 3 mg (0.5 mL) SUBCUT .every 2 10/18/24 12/17/24 Unknown Rx subcutaneous pen injector weeks #2 mL empagliflozin 25 mg tablet 25 mg PO QAM #90 tabs 10/1812/17/24 12/17/24 08:00 Rx (Jardiance) metformin 750 mg tablet,extended 750 mg PO BID #180 ta bs 10/18/24 12/17/24 12/17/24 08:30 Rx release 24 hr fluticasone propionate 50 See Rx Instructions .Route 0 11/02/24 12/17/24 Unknown Rx mcg/actuation nasal .COMPLEX #16 grams spray,suspension carbamide peroxide 6.5 % ear drops 5 drp otic (ear) Q1 2H 5 days #15 mL 12/07/24 12/17/24 Unknown Rx (Debrox) metoprolol tartrate 25 mg tablet See Rx Instructions . Route 12/07/24 12/17/24 12/17/24 08:30 Rx .COMPLEX #90 tabs pantoprazole 40 mg tablet,delayed 40 mg PO DAILY #90 t abs 12/07/24 12/17/24 12/17/24 08:30 Rx release hydrochlorothiazide 12.5 mg tablet See Rx Instructions .Route 12/08/24 12/17/24 12/17/24 08:30 Rx .COMPLEX #90 tabs rizatriptan 10 mg disintegrating 10 mg PO Q2H PRN migr brian headache 12/08/24 12/17/24 Unknown Rx tablet (Maxalt-AGRICULTURAL EXTENSION SPECIALIST) #27 tabs Allergies Allergy/AdvReac Type Severity Reaction Status Date / Time Penicillins Allergy edema Verified 12/17/24 08:28 PFSH Acute 2 PFSH: Medical History (Updated 12/17/24 @ 18:46 by Seymour Garza MD) Type 2 diabetes mellitus Chronic venous stasis dermatitis of both lower extremities Bilateral impacted cerumen Colonoscopy refused Essential tremor Cellulitis Right leg pain Osteoarthrosis-multiple sites Bilateral shoulders, right knee, cervical, hips COPD, group B, by GOLD 2017 classification Chronic migraine without aura, with status migrainosus Chronic pain syndrome Erectile dysfunction Diabetes GERD (gastroesophageal reflux disease) Lumbar post-laminectomy syndrome Cataract Right Surgical History S/P carpal tunnel release right Status post lung surgery S/P cervical spinal fusion Family History Other Cancer Diabetes Social History (Updated 12/17/24 @ 18:44 by Seymour Garza MD) Smoking and tobacco/nicotine status: former use of tobacco/nicotine Quit status (tobacco/nicotine): has quit using Year quit tobacco: 2023 Former quit date comment: 1 pack/day for 20 years Alcohol intake: never Substance/Drug Use: never Additional social history: Patient wants full CODE STATUS as discussed with Seymour Garza MD on 12/17/2024. 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 Oropharynx Mallampati 1 CV regular rate and rhythm no loud murmur Lungs clear to auscultation bilaterally Calves 2+ edema with chronic venous stasis changes, skin dark soiling with dirt or stool Mentation he is alert and oriented x 3 Extremity: NARRATIVE EXTREMITY EXAM: Data 12/17/24 10:37 12/17/24 10:37 Micro: Microbiology 12/17/24 10:35 Blood Culture - Preliminary Blood SPECIMEN COLLECTED 12/17/24 10:37 Blood Culture - Preliminary Blood SPECIMEN COLLECTED US Vascular: Radiologist's impression: No evidence of right lower extremity DVT. No evidence of left lower extremity DVT. A&P Assessment and plan 1. Chronic venous stasis dermatitis of both lower extremities: Patient be started on BiPAP diuresis. Will obtain CRP and procalcitonin to see if there are signs of ongoing infection. White count is normal and patient is afebrile. He denies fever at home he denies pain in his legs 2. Obstructive sleep apnea: Start BiPAP 12/6 with a backup rate of 12. Patient has CO2 retention with CO2 of 88. If on nasal cannula O2 maintain sats only 89 to 90% 3. Obesity (BMI 30.0-34.9): Start 1800-calorie ADA weight loss diet 4. GERD (gastroesophageal reflux disease): Continue home proton pump inhibitor 5. Type 2 diabetes mellitus: Continue metformin if creatinine bumped with diuresis stop metformin PDMP PDMP Reviewed: Not Reviewed Attestations 2 Medical Necessity Statement*: Patient mid to the hospital for venous stasis dermatitis and volume overload requiring BiPAP diuresis and will require greater than 2 midnights in hospital Coding Level of Care Code Acute Code for Chg Fwd Diagnoses Chronic venous stasis dermatitis of both lower extremities I87.2 Obstructive sleep apnea G47.33 Obesity (BMI 30.0-34.9) E66.811 GERD (gastroesophageal reflux disease) K21.9 Type 2 diabetes mellitus E11.9 Time Spent (min) 70
[2024-12-17 19:51] LABS: Procalcitonin 0.07 ng/mL (0-0.5)
--- NOTE | 2024-12-17 20:03 | PC.NURSE ---
THIS RN WAS NOTIFIED BY THE LADLE CLEANER AND BEDSIDE IOS DEVELOPER THAT THE PT WAS UPSET AND WAS WANTING TO LEAVE AMA. THIS RN WENT IN TO TALK WITH THE PT AND DETERMINE WHY THE PT WAS UPSET. PT STATES THAT HE WAS NPO AND DID NOT KNOW WHY. I FEEL LIKE I SHOULD KNOW WHAT IS GOING ON WITH MY CARE. ALSO THE NURSE BEFORE THIS ONE WAS SUPPOSED TO SCRUB MY FEET AND SHE NEVER DID. THIS RN EXPLAINED TO THE PT THAT HE WAS NO LONGER NPO AND OFFERED TO GET THE PT SOME FOOD TO WHICH THE PT DECLINED. THIS RN ALSO EXPLAINED THAT THE NURSE PRIOR WAS TOLD BY THE POSTAL INSPECTOR NOT TO SCRUB THE WOUNDS BUT COULD OFFER THE PT SOAP AND WATER TO CLEAN THE LEGS HIMSELF. AT THIS POINT THE PTS FIANCEE SHOWED UP AND TOLD THIS RN WE CAN DEBRIDE THE WOUNDS AT HOME. WE CAME HERE TO GET CARE AND WE ARE NOT GETTING CARE. THIS RN APOLOGIZED FOR THE CONFUSION AND FRUSTRATION. THIS RN ALSO EXPLAINED THE RISKS OF GOING HOME AMA AND THE BENEFITS OF STAYING AND GETTING ABX. PT AND HIS FIANCEE WERE STILL UPSET AND WANTED TO LEAVE AMA. THIS RN REMOVED THE IV AND PT SIGNED AMA PAPERWORK. THIS RN NOTIFIED ANNABELLE AMBROSE AND MOTORCYCLE FABRICATOR.
--- OUTSIDE RECORDS SUMMARY | 2024-12-18 15:06 | XMS_ITS | Clinical Summary ---
Author Organization [facility] Address [address] [place] [address] Phone Care Team Providers Care Tool Rental Technician Name Role Phone Kayla Duarte MD Primary Care Provider [phone] Allergies Active Allergy Reactions Criticality Noted Date [...] 23 Active fluticasone propionate (FLONASE) 50 mcg/spray [place], Suspension nasal inhaler 01/23/20 23 Active Active [...] on file Legal Sex Male 1:22 AM VISUAL EDUCATOR Gender Identity Not on file Sexual Orientation Not on file Last Filed Vital Signs Vital Sign Reading Time Taken Comments Blood Pressure 128/96 01/24/2023 5:47 PM VISUAL EDUCATOR Pulse 110 01/24/2023 5:47 PM VISUAL EDUCATOR per patiient this is his norm Temperature 37 C (98.6 F) 01/24/2023 5:47 PM VISUAL EDUCATOR Respiratory Rate 18 01/24/2023 11:4 0 AM VISUAL EDUCATOR Oxygen Saturation 92% 01/24/2023 5:4 7 PM VISUAL EDUCATOR Inhaled Oxygen Concentration - - Weight 107.9 kg (237 lb 12.8 oz) 01/24/2023 11:40 AM VISUAL EDUCATOR Height 182.9 cm (6') 01/24/2023 11:40 AM VISUAL EDUCATOR Body Mass Index 32.25 01/24/2023 11:40 AM VISUAL EDUCATOR Plan of Treatment Health Maintenance Due Date [...] age to complete this topic Insurance MEDICAID [place] [facility] MEDICARE HMO * Guarantor: STEPHAN LYN Account Type Relation to Patient Date of Phone Billing Address Personal/Family [address] [place] [address] RX [employer] RX Member Subscriber Plan / Payer (Ef fective 2015-Present) Name:Stephan Lyn Relation to Subscriber:Self Name:Blossom Stephan Prather Payer ID:Not on file Group ID:[id number] Type:RX Medicare Part D Address: [place], [place] RX INFOCROSSING Medicaid Care Teams Tool Rental Technician Relationship Specialty Start Date End Date Kayla Duarte MD [address] [facility] [place] [address] PCP - General 08/02/16
--- OUTSIDE RECORDS SUMMARY | 2024-12-18 15:07 | XMS_ITS | Encounter Summary ---
Author Organization [facility] Address [address] [place] [address] Care Team Providers Care Optical Mechanic Apprentice Name Role Phone Kayla Duarte MD Primary Care Provider [phone] Encounter Details Date Type Department Care Team (Late st Contact Info) Description 02/14/2005 Outpatient [facility] [address] [place] [address] Social History Tobacco Use Types Packs/Day Years Used Date Smoking Tobacco: Never Assessed Sex and Gender Information Value Date Recorded Sex Assigned at Not on file Legal Sex Male 4:05 AM SUPERVISOR TRANSFERRING AND BOXING Gender Identity Not on file Sexual Orientation Not on file documented as of this encounter Plan of Treatment Not on file documented as of this encounter Visit Diagnoses Not on filedocumented in this encounter Care Teams Optical Mechanic Apprentice Relationship Specialty Start Date End Date Kayla Duarte MD [address] [place] [address] PCP - General 08/02/16 documented as of this encounter
--- OUTSIDE RECORDS SUMMARY | 2024-12-18 15:07 | XMS_ITS | Encounter Summary ---
Author Organization [facility] Address [address] [place] [address] Care Team Providers Care Apartment Leasing Consultant Name Role Phone Kayla Duarte MD Primary Care Provider Encounter Details Date Type Department Care Team (Latest Contact Info) Description 02/14/2005 Outpatient Historical [facility] [address] [place] [phone] Alex Dumont MD [address] [address] DISC DIS NEC/NOS-THORAC (Primary Dx) Social History Tobacco Use Types Packs/Day Years Used Date Smoking Tobacco: Never Assessed Sex and Gender Information Value Date Recorded Sex Assigned at Not on file Legal Sex Male 4:05 AM CUSTOMER CARE MANAGER Gender Identity Not on file Sexual Orientation Not on file documented as of this encounter Plan of Treatment Not on file documented as of this encounter Visit Diagnoses Diagnosis Other and unspecified disc disorder of thoracic region- Primary documented in this encounter Care Teams Apartment Leasing Consultant Relationship Specialty Start Date End Date Kayla Duarte MD [address] [place] [address] PCP - General 08/02/16 documented as of this encounter
--- OUTSIDE RECORDS SUMMARY | 2024-12-18 15:07 | XMS_ITS | Clinical Summary ---
Author Organization [facility] Address [address] [place] [address] Care Team Providers Care Marketing Director Assisted Living Name Role Phone Kayla Duarte MD Primary Care Provider Allergies Active Allergy Reactions Criticality Noted Date [...] on file Legal Sex Male 4:05 AM TILT WALL SUPERVISOR Gender Identity Not on file Sexual Orientation [...] age to complete this topic Insurance [place]ICAID [place] [place] [address] DUAL COMPLETE MCR PPO D-SNP RX [employer] RX Member Subscriber Plan / Payer (Ef fective 2015-Present) Name:Stephan Lyn Relation to Subscriber:Self Name:STEPHAN LYN Payer ID:Not on file Group ID:[id number] Type:RX Medicare Part D Address: [place], [place] RX INFOCROSSING Medicaid Advance Directives For more information, please contact: [phone] * Full Code (Latest Code Status on File) Date Activated Date Inactivated Comments 11/30/2019 9:54 AM 11/30/2019 4:40 PM Care Teams Marketing Director Assisted Living Relationship Specialty Start Date End Date Kayla Duarte MD [address] [facility] [place] [address] PCP - General 08/02/16
--- OUTSIDE RECORDS SUMMARY | 2024-12-18 15:07 | XMS_ITS | Encounter Summary ---
Author Organization [facility] Address [address] [place] [address] Care Team Providers Care Post Acute Care Nurse Name Role Phone Kayla Duarte MD Primary Care Provider [phone] Encounter Details Date Type Department Care Team (Latest Contact Info) Description 02/27/2006 Outpatient Historical [facility] Medicine[address] [address] Alex Macario, DO NO ADDRESS ON FILE Unspecified Infantile Cerebral Palsy (CMS/HCC) (Primary Dx); Cervicalgia; Depressive Disorder, not Elsewhere Classified Social History Tobacco Use Types Packs/Day Years Used Date Smoking Tobacco: Never Assessed Sex and Gender Information Value Date Recorded Sex Assigned at Not on file Legal Sex Male 4:05 AM GRANITE POLISHER Gender Identity Not on file Sexual Orientation Not on file documented as of this encounter Plan of Treatment Not on file documented as of this encounter Visit Diagnoses Diagnosis Infantile cerebral palsy, unspecified (CMS/HCC)- Primary Infantile cerebral palsy, unspecified Cervicalgia Depressive disorder, not elsewhere classified documented in this encounter Care Teams Post Acute Care Nurse Relationship Specialty Start Date End Date Kayla Duarte MD [address] [facility] [place] [address] PCP - General 08/02/16 documented as of this encounter
--- OUTSIDE RECORDS SUMMARY | 2024-12-18 15:07 | XMS_ITS | Encounter Summary ---
Author Organization [facility] Address [address] [place] [address] Care Team Providers Care Plasterer Tender Name Role Phone Kayla Duarte MD Primary Care Provider [phone] Encounter Details Date Type Department Care Team (Latest Contact Info) Description 04/03/2006 Outpatient Historical [facility] Medicine[address] [phone] Alex Macario, NO ADDRESS ON FILE Lumbago (Primary Dx) Social History Tobacco Use Types Packs/Day Years Used Date Smoking Tobacco: Never Assessed Sex and Gender Information Value Date Recorded Sex Assigned at Not on file Legal Sex Male 4:05 AM SOLE LEVELER Gender Identity Not on file Sexual Orientation Not on file documented as of this encounter Plan of Treatment Not on file documented as of this encounter Visit Diagnoses Diagnosis Lumbago- Primary documented in this encounter Care Teams Plasterer Tender Relationship Specialty Start Date End Date Kayla Duarte MD [address] [place] [address] PCP - General 08/02/16 documented as of this encounter
--- NOTE | 2025-01-05 20:07 | P.DS_ITS ---
Discharge Providers Date of Admission: 12/17/24 13:24 Date of Discharge: December Attending Provider at Admission: Seymour Garza MD Attending Provider at Discharge: Seymour Garza MD Primary Care Provider: Raina Parkinson DO Diagnoses at Discharge Discharge Diagnosis 1. Chronic venous stasis dermatitis of both lower extremities: 2. Obstructive sleep apnea: 3. Obesity (BMI 30.0-34.9): 4. Gastroesophageal reflux disease without esophagitis: 5. Type 2 diabetes mellitus: Reason for Visit Reason for Visit: Both Legs swollen Hospital Course Hospital Course Pt Left AMA during lift supervisor 12/17/2024 12/17/24 20:03 - Nurse Note by Peri Cloud RN Acct Num: [id number] : 1980 Patient Age: 44 THIS RN WAS NOTIFIED BY THE LOADING MACHINE TOOL SETTER AND BEDSIDE PRESS TENDER SHORT GOODS THAT THE PT WAS UPSET AND WAS WANTING TO LEAVE AMA. THIS RN WENT IN TO TALK WITH THE PT AND DETERMINE WHY THE PT WAS UPSET. PT STATES THAT HE WAS NPO AND DID NOT KNOW WHY. I FEEL LIKE I SHOULD KNOW WHAT IS GOING ON WITH MY CARE. ALSO THE NURSE BEFORE THIS ONE WAS SUPPOSED TO SCRUB MY FEET AND SHE NEVER DID. THIS RN EXPLAINED TO THE PT THAT HE WAS NO LONGER NPO AND OFFERED TO GET THE PT SOME FOOD TO WHICH THE PT DECLINED. THIS RN ALSO EXPLAINED THAT THE NURSE PRIOR WAS TOLD BY THE TRAFFIC ANALYSIS TECHNICIAN NOT TO SCRUB THE WOUNDS BUT COULD OFFER THE PT SOAP AND WATER TO CLEAN THE LEGS HIMSELF. AT THIS POINT THE PTS FIANCEE SHOWED UP AND TOLD THIS RN WE CAN DEBRIDE THE WOUNDS AT HOME. WE CAME HERE TO GET CARE AND WE ARE NOT GETTING CARE. THIS RN APOLOGIZED FOR THE CONFUSION AND FRUSTRATION. THIS RN ALSO EXPLAINED THE RISKS OF GOING HOME AMA AND THE BENEFITS OF STAYING AND GETTING A BX. PT AND HIS FIANCEE WERE STILL UPSET AND WANTED TO LEAVE AMA. THIS RN REMOVED THE IV AND PT SIGNED AMA PAPERWORK. THIS RN NOTIFIED ANNABELLE MEADE MANNEQUIN MOLDER. Initialized on 12/17/24 20:03 - END OF NOTE Discharge Data Studies Completed and Pending Completed Studies During Hospitalization Category Date Time Status US venous duplex lower extremity bilat [CV venous Ultrasound 12/17/24 10:23 [place] [id number]] Stat Laboratory Results WBC 8.07 10^3/uL (3.29-11.43) 12/17/24 10:37 RBC 4.68 10^6/uL (3.85-5.65) 12/17/24 10:37 Hgb 13.40 g/dL (11.27-16.99) 12/17/24 10:37 Hct 44.8 % (37-53) 12/17/24 10:37 MCV 95.7 fl (82-101) 12/17/24 10:37 MCH 28.6 pg (27-33) 12/17/24 10:37 MCHC 29.9 g/dL (30-55) L 12/17/24 10:37 RDW 12.4 % (12.1-15.1) 12/17/24 10:37 Plt Count 286 10^3/cmm (157-399) 12/17/24 10:37 MPV 9.1 fL (7.4-10.4) 12/17/24 10:37 Neut % (Auto) 80.3 % 12/17/24 10:37 Lymph % (Auto) 8.9 % 12/17/24 10:37 King % (Auto) 9.0 % 12/17/24 10:37 Eos % (Auto) 1.1 % 12/17/24 10:37 Baso % (Auto) 0.5 % 12/17/24 10:37 Neut # (Auto) 6.47 10^3/uL (1.8-7.7) 12/17/24 10:37 Lymph # (Auto) 0.7 10^3/uL (0.8-4.8) L 12/17/24 10:37 King # (Auto) 0.7 10^3/uL (0.2-0.9) 12/17/24 10:37 Eos # (Auto) 0.1 10^3/uL (0.0-0.8) 12/17/24 10:37 Baso # (Auto) 0.0 10^3/uL (0.0-0.1) 12/17/24 10:37 Nucleated RBC % (auto) 0 % 12/17/24 10:37 Nucleated RBCs # 0.0 /100WBC 12/17/24 10:37 Specimen Type Arterial 12/17/24 12:30 Sample Site Radial, left 12/17/24 12:30 ABG pH 7.35 (7.35-7.45) 12/17/24 12:30 ABG pCO2 83.5 mmHg (35-45) H* 12/17/24 12:30 ABG pO2 72.3 mmHg (80.0-100.0) L 12/17/24 12:30 ABG HCO3 46.2 mmol/L (22-26) H 12/17/24 12:30 ABG O2 Saturation 94.6 12/17/24 12:30 ABG Base Excess 16.4 mmol/L (-2.0-2.0) H 12/17/24 12:30 Jone Test Pos 12/17/24 12:30 A-a O2 Gradient Not Reportable 12/17/24 12:30 Hematocrit 40.1 % (42-52) L 12/17/24 12:30 Hgb O2 Saturation 90.2 % (95-100) L 12/17/24 12:30 Carboxyhemoglobin 3.5 %THgb (0.4-20.1) 12/17/24 12:30 Methemoglobin 1.2 % (0.4-1.5) 12/17/24 12:30 Total Hemoglobin 13.1 g/dL (14-18) L 12/17/24 12:30 Sodium 140.0 mmol/L (131-143) 12/17/24 12:30 Potassium 3.8 mmol/L (3.5-5.0) 12/17/24 12:30 Glucose 197.0 mg/dL (70-115) H 12/17/24 12:30 Ionized Calcium 1.2 mmol/L (1.1-1.4) 12/17/24 12:30 O2 Delivery Device Nc 12/17/24 12:30 O2 Liters/Min 3.5 % 12/17/24 12:30 Bridal Sales Consultant ID Cak 12/17/24 12:30 Sodium 139 mmol/L (136-145) 12/17/24 10:37 Potassium 3.9 mmol/L (3.5-5.1) 12/17/24 10:37 Chloride 90 mmol/L (98-107) L 12/17/24 10:37 Carbon Dioxide 41 mmol/L (22-29) H 12/17/24 10:37 Anion Gap 11.9 (5-19) 12/17/24 10:37 BUN 12 mg/dL (6-20) 12/17/24 10:37 Creatinine 0.6 mg/dL (0.7-1.2) L 12/17/24 10:37 GFR Calculation 145.0 mL/min (90-130) H 12/17/24 10:37 Glucose 239 mg/dL (65-115) H 12/17/24 10:37 POC Glucose 128 mg/dL (70-110) H 12/17/24 16:57 Calculated Osmolality 296 mOsm/kg (285-295) H 12/17/24 10:37 Lactic Acid 1.7 mmol/L (0.5-2.2) 12/17/24 10:37 Calcium 9.3 mg/dL (8.5-10.5) 12/17/24 10:37 Total Bilirubin 0.4 mg/dL (0.15-1.2) 12/17/24 10:37 AST 14 U/L (0-40) 12/17/24 10:37 ALT 18 U/L (0-41) 12/17/24 10:37 Alkaline Phosphatase 80 U/L (40-130) 12/17/24 10:37 C-Reactive Protein 62.5 mg/L (0.0-4.9) H 12/17/24 10:37 Total Protein 7.5 g/dL (6.6-8.7) 12/17/24 10:37 Albumin 3.8 g/dL (3.5-5.2) 12/17/24 10:37 Globulin 3.7 g/dL (1.3-4.6) 12/17/24 10:37 Procalcitonin 0.07 ng/mL (0-0.5) 12/17/24 10:37 Urine Color Yellow (Yellow) 12/17/24 11:00 Urine Appearance Clear (CLEAR) 12/17/24 11:00 Urine pH 5.5 (5-7) 12/17/24 11:00 Ur Specific [place] 1.021 (1.005-1.030) 12/17/24 11:00 Urine Protein 1+ (Negative) A 12/17/24 11:00 Urine Glucose (UA) Trace (Normal) H 12/17/24 11:00 Urine Ketones Negative (Negative) 12/17/24 11:00 Urine Blood Negative (Negative) 12/17/24 11:00 Urine Nitrate Negative (Negative) 12/17/24 11:00 Urine Bilirubin Negative (Negative) 12/17/24 11:00 Urine Urobilinogen 1.0 mg/dL (Negative) 12/17/24 11:00 Ur Leukocyte Esterase Negative (Negative) 12/17/24 11:00 Urine RBC None /hpf (0-2) 12/17/24 11:00 Urine WBC 0-4 /hpf (0-5) H 12/17/24 11:00 Ur Squamous Epith Cells 0-4 /hpf (0-5) H 12/17/24 11:00 Amorphous Sediment Not Reportable 12/17/24 11:00 Urine Bacteria None /hpf (NONE) 12/17/24 11:00 Urine Mucus None /hpf 12/17/24 11:00 Vitals Last Vital Signs Temp 99.1 F 12/17/24 10:00 Pulse 111 H 12/17/24 14:57 Resp 16 12/17/24 10:00 BP 134/78 12/17/24 14:57 Pulse Ox 96 12/17/24 14:57 O2 Del Method Nasal Cannula 12/17/24 15:45 O2 Flow Rate 4 12/17/24 13:00 FiO2 30 12/17/24 14:30 Discharge Plan Discharge Patient Disposition: Home Condition: Stable Prescriptions: No Action (DME) blood-glucose meter Misc See Rx Instructions .Route Qty: 1 0RF Rx Instructions: once daily with glucose test strips and lancets (DME) nerve stimulator Device See Rx Instructions .ROUTE .MEDSUPPLY Qty: 1 Rx Instructions: As directed (DME) oxygen-air delivery systems Device See Rx Instructions .Route Rx Instructions: As directed 2L at night Saline Nasal 0.65 % aerosol,spray 2 spray intranasal Q4H PRN (Reason: dry nasal passages) Qty: 44 0RF testosterone cypionate 200 mg/mL oil 200 mg SUBCUT .every 14 days Qty: 2 0RF (DME) Portable 02 concentrator See Rx Instructions .Route .MEDSUPPLY Qty: 1 0RF Rx Instructions: As directed (DME) 02 See Rx Instructions .Route .MEDSUPPLY Qty: 1 0RF Rx Instructions: 2-4 L continuous O2 (DME) lancets [OneTouch Delica Plus Lancet] 30 gauge misc See Rx Instructions .ROUTE .COMPLEX Qty: 100 2RF Dose Instruction: Once daily with Glucose meter and Test strips. Rx Instructions: Once daily with Glucose meter and Test strips. tamsulosin 0.4 mg capsule See Rx Instructions .ROUTE .COMPLEX Qty: 90 1RF Dose Instruction: TAKE ONE CAPSULE BY MOUTH DAILY Rx Instructions: TAKE ONE CAPSULE BY MOUTH DAILY tiotropium bromide [Spiriva with HandiHaler] 18 mcg capsule, w/inhalation device See Rx Instructions .ROUTE .COMPLEX Qty: 30 5RF Dose Instruction: inhale THE contents of 1 capsule BY MOUTH DAILY; puncture 1 capsule using device AND INHALE fast AND deep two times. Rx Instructions: inhale THE contents of 1 capsule BY MOUTH DAILY; puncture 1 capsule using device AND INHALE fast AND deep two times. aspirin 81 mg tablet,delayed release (DR/EC) See Rx Instructions .ROUTE .COMPLEX Qty: 90 0RF Dose Instruction: TAKE ONE TABLET BY MOUTH EVERY DAY Rx Instructions: TAKE ONE TABLET BY MOUTH EVERY DAY metformin 750 mg tablet extended release 24 hr 750 mg PO BID Qty: 180 1RF Jardiance 25 mg tablet 25 mg PO QAM Qty: 90 1RF Rx Instructions: TAKE ONE TABLET BY MOUTH EVERY MORNING pantoprazole 40 mg tablet,delayed release (DR/EC) 40 mg PO DAILY Qty: 90 0RF rizatriptan [Maxalt-IMPACT HAMMER OPERATOR] 10 mg tablet,disintegrating 10 mg PO Q2H PRN (Reason: migraine headache) Qty: 27 2RF Rx Instructions: until response; not to exceed 2 doses in a 24 hour period fluticasone propionate 50 mcg/actuation spray,suspension See Rx Instructions .ROUTE .COMPLEX Qty: 16 2RF Dose Instruction: USE 2 SPRAYS in each nostril EVERY DAY as needed FOR allergy symptoms Rx Instructions: USE 2 SPRAYS in each nostril EVERY DAY as needed FOR allergy symptoms (DME) OneTouch Ultra Test Strip See Rx Instructions .ROUTE .COMPLEX Qty: 50 2RF Dose Instruction: USE DIRECTED TWICE DAILY WITH glucose meter Rx Instructions: USE DIRECTED TWICE DAILY WITH glucose meter metoprolol tartrate 25 mg tablet See Rx Instructions .ROUTE .COMPLEX Qty: 90 0RF Dose Instruction: TAKE ONE TABLET BY MOUTH TWICE DAILY Rx Instructions: TAKE ONE TABLET BY MOUTH TWICE DAILY polyethylene glycol 3350 17 gram Powder In Packet 17 g PO DAILY PRN (Reason: constipation) 30 Days Qty: 30 0RF docusate sodium 100 mg Capsule 100 mg PO BID 30 Days Qty: 60 0RF levofloxacin 750 mg Tablet 750 mg PO DAILY@0600 10 Days Qty: 10 0RF prednisone 10 mg tablet See Rx Instructions .ROUTE .COMPLEX Qty: 32 0RF Rx Instructions: 4 tabs(40mg) for 3 days, 3tabs(30mg) for 3days, 2tabs(20mg) for 3 days, 1tab(10mg) for 3days, 0.5(5mg) for 3 days albuterol sulfate [Ventolin HFA] 90 mcg/actuation HFA aerosol inhaler 1 inh inhalation Q6H PRN (Reason: shortness of breath or wheezing) Qty: 8.5 0RF fluticasone propion-salmeterol [Advair Diskus] 250-50 mcg/dose blister with device 1 inh inhalation BID Qty: 60 0RF (DME) glucometer testing kit See Rx Instructions .Route .MEDSUPPLY Qty: 1 0RF Rx Instructions: Glucometer testing kit Lancets #100 Strips 100 Check blood sugar 3 times daily after meals insulin aspart U-100 [Novolog FlexPen U-100 Insulin] 100 unit/mL (3 mL) insulin pen See Rx Instructions .ROUTE .COMPLEX MDD 40 Qty: 15 0RF Rx Instructions: Inject subcut, 3 times daily, after meals, based on low-dose sliding scale fluconazole 100 mg tablet 100 mg PO DAILY 10 Days Qty: 10 0RF furosemide [Lasix] 40 mg tablet 40 mg PO DAILY PRN (Reason: edema or weight gain 3Lbs or sob) 30 Days Qty: 30 0RF potassium chloride [Klor-Con M20] 20 mEq tablet,ER particles/crystals 20 meq PO DAILY PRN (Reason: with lasix) 30 Days Qty: 30 0RF Referrals: Raina Parkinson DO [Primary Care Provider, Family Practice] Patient Instructions: Opioid Safety, Patient Portal & Raj Instructions Discharge Attestations Time Spent in Discharge Care*: less than 30 min Quality Metrics Clinical Quality Measures [ No reported AMI, CVA or VTE this stay] Coding Level of Care Code Acute Code for Chg Fwd Diagnoses Chronic venous stasis dermatitis of both lower extremities I87.2 Obstructive sleep apnea G47.33 Obesity (BMI 30.0-34.9) E66.9 Gastroesophageal reflux disease without esophagitis K21.9 Esophagitis presence: without esophagitis Type 2 diabetes mellitus E11.9
== END 2024-12-17 19:57 | disposition home or self-care (01) ==
LOC: ER 10:31 → MEDSURG 12-18 15:05
PROVIDERS: Admitting Provider Internal Medicine; Emergency Provider Family Medicine; PCP Family Medicine; Visit Provider Internal Medicine
DX: I87.2 Venous insufficiency (chronic) (peripheral) (principal); G47.33 Obstructive sleep apnea (adult) (pediatric); E66.9 Obesity, unspecified; Z68.32 Body mass index [BMI] 32.0-32.9, adult; K21.9 Gastro-esophageal reflux disease without esophagitis; E11.9 Type 2 diabetes mellitus without complications; Z79.4 Long term (current) use of insulin; Z79.84 Long term (current) use of oral hypoglycemic drugs; Z79.82 Long term (current) use of aspirin; J44.9 Chronic obstructive pulmonary disease, unspecified; Z99.81 Dependence on supplemental oxygen; Z87.891 Personal history of nicotine dependence
CPT/HCPCS: 36415; 36416; 36600; 80051; 80053; 81001; 82330; 82805; 82962; 83605; 84145; 85025; 86140; 87040; 93005; 93970; 94660; 96365; 99291; G0378; J3373; J7050; J9999

== ENCOUNTER 2024-12-26 19:02 | Inpatient (IN) | payer MEDICARE, MEDICAID, SELFPAY ==
[2024-12-26] VITALS (11 sets, daily range): BP systolic 121–138; BP diastolic 63–83; PULSE 105–120; RESP 16–24; TEMP 36.8; O2SAT 88–93; BMI 32.5
--- OUTSIDE RECORDS SUMMARY | 2024-12-26 19:08 | XMS_ITS | Encounter Summary ---
Author Organization [facility] Address [address] [place] [address] Care Team Providers Care Instructional Aide Name Role Phone Kayla Duarte MD Primary Care Provider [phone] Encounter Details Date Type Department Care Team (Latest Contact Info) Description 04/03/2006 Outpatient Historical [facility] Medicine[address] [phone] Alex Macario, DO NO ADDRESS ON FILE Lumbago (Primary Dx) Social History Tobacco Use Types Packs/Day Years Used Date Smoking Tobacco: Never Assessed Sex and Gender Information Value Date Recorded Sex Assigned at Not on file Legal Sex Male 4:05 AM PORTER LUGGAGE Gender Identity Not on file Sexual Orientation Not on file documented as of this encounter Plan of Treatment Not on file documented as of this encounter Visit Diagnoses Diagnosis Lumbago- Primary documented in this encounter Care Teams Instructional Aide Relationship Specialty Start Date End Date Kayla Duarte MD [address] [place] [address] PCP - General 08/02/16 documented as of this encounter
--- OUTSIDE RECORDS SUMMARY | 2024-12-26 19:08 | XMS_ITS | Encounter Summary ---
Author Organization [facility] Address [address] [place] [address] Care Team Providers Care Heavy Equipment Service Manager Name Role Phone Kayla Duarte MD Primary Care Provider [phone] Encounter Details Date Type Department Care Team (Late st Contact Info) Description 02/14/[address] [facility] [address] [place] [address] Social History Tobacco Use Types Packs/Day Years Used Date Smoking Tobacco: Never Assessed Sex and Gender Information Value Date Recorded Sex Assigned at Not on file Legal Sex Male 4:05 AM DURALUMIN METALWORKER Gender Identity Not on file Sexual Orientation Not on file documented as of this encounter Plan of Treatment Not on file documented as of this encounter Visit Diagnoses Not on filedocumented in this encounter Care Teams Heavy Equipment Service Manager Relationship Specialty Start Date End Date [facility] Duarte [facility] [address] [facility] [place] [address] PCP - General 08/02/16 documented as of this encounter
--- OUTSIDE RECORDS SUMMARY | 2024-12-26 19:08 | XMS_ITS | Clinical Summary ---
Author Organization [facility] Address [address] [place] [address] Care Team Providers Care Health Informatics Instructor Name Role Phone Kayla Duarte MD Primary Care Provider [phone] Allergies Active Allergy Reactions Criticality Noted Date [...] on file Legal Sex Male 4:05 AM CREDIT ASSESSMENT ANALYST Gender Identity Not on file Sexual Orientation [...] age to complete this topic Insurance MEDICAID [address] [place] [address] DUAL COMPLETE MCR PPO D-SNP RX [employer] RX Member Subscriber Plan / Payer (Ef fective 2015-Present) Name:Stephan Lyn Relation to Subscriber:Self Name:STEPHAN LYN Payer ID:Not on file Group ID:[id number] Type:RX Medicare Part D Address: [place], [place] RX INFOCROSSING Medicaid Advance Directives For more information, please contact: [phone] * Full Code (Latest Code Status on File) Date Activated Date Inactivated Comments 11/30/2019 9:54 AM 11/30/2019 4:40 PM Care Teams Health Informatics Instructor Relationship Specialty Start Date End Date Kayla Duarte MD [address] [facility] [place] [address] PCP - General 08/02/16
--- OUTSIDE RECORDS SUMMARY | 2024-12-26 19:08 | XMS_ITS | Clinical Summary ---
Author Organization [facility] Address [address] [place] [address] Phone Care Team Providers Care In Class Special Education Teacher Name Role Phone Kayla Duarte MD Primary Care Provider [phone] Allergies Active Allergy Reactions Criticality Noted Date [...] 23 Active fluticasone propionate (FLONASE) 50 mcg/spray [place], Suspension nasal inhaler 01/23/20 23 Active Active [...] on file Legal Sex Male 1:22 AM EXECUTIVE DIRECTOR OF NURSING Gender Identity Not on file Sexual Orientation Not on file Last Filed Vital Signs Vital Sign Reading Time Taken Comments Blood Pressure 128/96 01/24/2023 5:47 PM EXECUTIVE DIRECTOR OF NURSING Pulse 110 01/24/2023 5:47 PM EXECUTIVE DIRECTOR OF NURSING per patiient this is his norm Temperature 37 C (98.6 F) 01/24/2023 5:47 PM EXECUTIVE DIRECTOR OF NURSING Respiratory Rate 18 01/24/2023 11:4 0 AM EXECUTIVE DIRECTOR OF NURSING Oxygen Saturation 92% 01/24/2023 5:4 7 PM EXECUTIVE DIRECTOR OF NURSING Inhaled Oxygen Concentration - - Weight 107.9 kg (237 lb 12.8 oz) 01/24/2023 11:40 AM EXECUTIVE DIRECTOR OF NURSING Height 182.9 cm (6') 01/24/2023 11:40 AM EXECUTIVE DIRECTOR OF NURSING Body Mass Index 32.25 01/24/2023 11:40 AM EXECUTIVE DIRECTOR OF NURSING Plan of Treatment Health Maintenance Due Date [...] age to complete this topic Insurance MEDICAID [facility] MEDICARE HMO * Guarantor: STEPHAN LYN Account Type Relation to Patient Date of Phone Billing Address Personal/Family [address] [place] [address] RX [employer] RX Member Subscriber Plan / Payer (Ef fective 2015-Present) Name:Stephan Lyn Relation to Subscriber:Self Name:Blossom Stephan Prather Payer ID:Not on file Group ID:[id number] Type:RX Medicare Part D Address: [place], [place] RX INFOCROSSING Medicaid Care Teams In Class Special Education Teacher Relationship Specialty Start Date End Date Kayla Duarte MD [address] [facility] [place] [address] PCP - General 08/02/16
--- OUTSIDE RECORDS SUMMARY | 2024-12-26 19:08 | XMS_ITS | Encounter Summary ---
Author Organization [facility] Address [address] [place] [address] Care Team Providers Care Psychological Tests Sales Agent Name Role Phone Kayla Duarte MD Primary Care Provider [phone] Encounter Details Date Type Department Care Team (Latest Contact Info) Description 02/14/2005 Outpatient Historical [facility] [address] [place] [phone] Alex Dumont MD [address] [address] DISC DIS NEC/NOS-THORAC (Primary Dx) Social History Tobacco Use Types Packs/Day Years Used Date Smoking Tobacco: Never Assessed Sex and Gender Information Value Date Recorded Sex Assigned at Not on file Legal Sex Male 4:05 AM MAKEUP SALES ADVISOR Gender Identity Not on file Sexual Orientation Not on file documented as of this encounter Plan of Treatment Not on file documented as of this encounter Visit Diagnoses Diagnosis Other and unspecified disc disorder of thoracic region- Primary documented in this encounter Care Teams Psychological Tests Sales Agent Relationship Specialty Start Date End Date Kayla Duarte MD [address] [place] [address] PCP - General 08/02/16 documented as of this encounter
--- OUTSIDE RECORDS SUMMARY | 2024-12-26 19:08 | XMS_ITS | Encounter Summary ---
Author Organization [facility] Address [address] [place] [address] Care Team Providers Care Winch Operator Name Role Phone Kayla Duarte MD Primary Care Provider [phone] Encounter Details Date Type Department Care Team (Latest Contact Info) Description 02/27/2006 Outpatient Historical [facility] [address] [address] Alex Macario, DO NO ADDRESS ON FILE Unspecified Infantile Cerebral Palsy (CMS/HCC) (Primary Dx); Cervicalgia; Depressive Disorder, not Elsewhere Classified Social History Tobacco Use Types Packs/Day Years Used Date Smoking Tobacco: Never Assessed Sex and Gender Information Value Date Recorded Sex Assigned at Not on file Legal Sex Male 4:05 AM WOOL [employer]LEE[employer] Gender Identity Not on file Sexual Orientation Not on file documented as of this encounter Plan of Treatment Not on file documented as of this encounter Visit Diagnoses Diagnosis Infantile cerebral palsy, unspecified (CMS/HCC)- Primary Infantile cerebral palsy, unspecified Cervicalgia Depressive disorder, not elsewhere classified documented in this encounter Care Teams Winch Operator Relationship Specialty Start Date End Date Kayla Duarte MD [address] [facility] [place] [address] PCP - General 08/02/16 documented as of this encounter
--- NOTE | 2024-12-26 19:37 | XRR_ITS ---
PROCEDURE INFORMATION: Exam: XR Chest Exam date and time: 12/26/2024 7:54 PM Age: 44 years old Clinical indication: Shortness of breath; Prior surgery; Surgery date: 6+ months; Surgery type: RT lung; Additional info: SOB TECHNIQUE: Imaging protocol: Radiologic exam of the chest. Views: 1 view. COMPARISON: CR XR chest 1V [id number] 09/19/2018 4:30 PM FINDINGS: Tubes, catheters and devices: Spinal stimulator. Lungs: Emphysematous changes. Pleural spaces: Unremarkable. No pleural effusion. No pneumothorax. Heart/Mediastinum: Unremarkable. No cardiomegaly. Bones/joints: Unremarkable. XR/XR chest 1V portable [id number] IMPRESSION: 1. Negative for infiltrate. 2. Emphysematous changes. 3. Spinal stimulator.
--- NOTE | 2024-12-26 19:38 | ECG_ITS ---
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
--- NOTE | 2024-12-26 20:01 | W.ED.EXTPRO ---
HPI - Extremity Problem General: Chief complaint: Extremity Problem,Nontraumatic Stated complaint: swelling on bilateral legs Time Seen by Provider: 12/26/24 19:20 History of Present Illness: Patient is a 44-year-old male presenting with bilateral lower extremity swelling and erythema that has been present for quite a while according to the patient. He reports that his legs are red and weeping. The patient was previously seen for the same complaint and states he was informed by his doctor that he would need to be admitted to receive appropriate antibiotic therapy for his condition. He was actually admitted to the hospital on 12/17, but then promptly left AMA, evidently because he was not being fed. He states that he came to the realization that he was not going to get better and less he returned, which he did on Saturday evening tonight. He also reports mild respiratory symptoms including increased shortness of breath and productive cough with clear sputum. Patient is on home oxygen at 4 liters. He denies fever. P Related Data Home Medications ?Medication ?Instructions ?Recorded ?Confirmed nerve stimulator ##1 04/07/19 12/27/24 oxygen-air delivery systems 01/06/21 12/27/24 Previous Rx's ?Medication ?Instructions ?Recorded blood-glucose meter #1 ea 06/14/21 lancets 30 gauge (OneTouch Delica ##100 11/29/21 Plus Lancet) sodium chloride 0.65 % nasal spray 2 spray intranasal Q4H PRN dry 02/24/24 aerosol (Saline Nasal) nasal passages #44 mL Portable 02 concentrator #1 ea 06/09/24 02 #1 ea 07/07/24 tamsulosin 0.4 mg capsule See Rx Instructions .Route 07/14/24 .COMPLEX #90 caps tiotropium bromide 18 mcg capsule See Rx Instructions .Route 08/31/24 with inhalation device (Spiriva .COMPLEX #30 caps with HandiHaler) aspirin 81 mg tablet,delayed See Rx Instructions .Route 10/12/24 release .COMPLEX #90 tabs blood sugar diagnostic (Blood #50 ea 10/12/24 Glucose Test strips) testosterone cypionate 200 mg/mL 200 mg SUBCUT .every 14 days #2 mL 10/16/24 intramuscular oil empagliflozin 25 mg tablet 25 mg PO QAM #90 tabs 10/18/24 (Jardiance) metformin 750 mg tablet,extended 750 mg PO BID #180 tabs 10/18/24 release 24 hr fluticasone propionate 50 See Rx Instructions .Route 11/02/24 mcg/actuation nasal .COMPLEX #16 grams spray,suspension metoprolol tartrate 25 mg tablet See Rx Instructions .Route 12/07/24 .COMPLEX #90 tabs pantoprazole 40 mg tablet,delayed 40 mg PO DAILY #90 tabs 12/07/24 release hydrochlorothiazide 12.5 mg tablet See Rx Instructions .Route 12/08/24 .COMPLEX #90 tabs rizatriptan 10 mg disintegrating 10 mg PO Q2H PRN migraine headache 12/08/24 tablet (Maxalt-HAIR CUTTER) #27 tabs Allergies Allergy/AdvReac Type Severity Reaction Status Date / Time Penicillins Allergy edema Verified 12/17/24 08:28 PFS ED PFSH: Medical History (Updated 12/27/24 @ 16:15 by Alvarez Coleman DO) Type 2 diabetes mellitus Chronic venous stasis dermatitis of both lower extremities Bilateral impacted cerumen Colonoscopy refused Essential tremor Cellulitis of lower extremity, unspecified laterality Right leg pain Osteoarthrosis-multiple sites Bilateral shoulders, right knee, cervical, hips COPD, group B, by GOLD 2017 classification Chronic migraine without aura, with status migrainosus Chronic pain syndrome Erectile dysfunction Diabetes GERD (gastroesophageal reflux disease) Lumbar post-laminectomy syndrome Cataract Right Surgical History S/P carpal tunnel release right Status post lung surgery S/P cervical spinal fusion Family History Other Cancer Diabetes Social History Smoking and tobacco/nicotine status: former use of tobacco/nicotine Quit status (tobacco/nicotine): has quit using Year quit tobacco: 2023 Former quit date comment: 1 pack/day for 20 years Alcohol intake: never Substance/Drug Use: never Additional social history: Patient wants full CODE STATUS as discussed with Seymour Garza MD on 12/17/2024. 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 Current gender identity: Male Physical Exam Const: COMMON NORMALS: no acute distress GENERAL APPEARANCE: cooperative; not ill appearing and not frail appearing HENMT: COMMON NORMALS: normocephalic, atraumatic and Normal external nose present HEAD & SCALP: normocephalic and atraumatic FACE & SINUS: normal facial exam and face symmetric NOSE: Normal external nose present Eye: COMMON NORMALS: Equal, round and reactive pupils present and EOMs intact bilaterally PUPIL: Yes Equal, round and reactive pupils present Neck/C-Spine: GENERAL: Yes trachea midline Chest: CHEST: Yes Symmetrical chest wall rise Resp: COMMON NORMALS: clear to auscultation bilaterally EFFORT & INSPECTION: Yes tachypneic and No labored AUSCULTATION: clear to auscultation bilaterally and diminished lung sounds Cardio: COMMON NORMALS: regular rate and regular rhythm RATE: regular rate RHYTHM: regular rhythm GI: COMMON NORMALS: Normal to inspection, nondistended, normoactive bowel sounds present Extremity: NARRATIVE EXTREMITY EXAM: Exam of the bilateral lower extremities reveals symmetrical bilateral lower extremity edema, with chronic cellulitis changes, stasis dermatitis changes, and weeping. Legs are warm to touch. Neuro: MICHA COMA SCALE: document GCS findings Micha coma scale eye opening: Spontaneous Micha coma scale verbal response: Orientated [place] coma scale motor response: Obey commands Micha coma scale total score: 15 SENSORY EXAM: Yes extremities (intact) Psych: COMMON NORMALS: speech normal SPEECH: Yes normal speech Skin: COMMON NORMALS: no rashes or lesions noted GENERAL SKIN EXAM: no rashes or lesions noted Course Vital Signs: Vital signs: Vital Signs Temperature 99.0 F 12/27/24 15:21 Pulse Rate 109 H 12/27/24 15:21 Respiratory Rate 19 H 12/27/24 15:21 Blood Pressure 120/84 12/27/24 15:21 Pulse Oximetry 96 12/27/24 15:21 Oxygen Delivery Me thod Nasal Cannula 12/27/24 15:21 Oxygen Flow Rate 5 12/26/24 23:42 MDM - Extremity (Nontraumatic) Medical Decision Making this patient has advanced cellulitis of the bilateral lower extremities, with changes of chronic stasis dermatitis. Exhibits, poor hygiene and has been unable to care for his legs at home on his own. CBC is normal. CRP is 27. BNP is not remarkable. just x-ray is negative. Your analysis is not remarkable. He is tachycardic, mildly hypoxic on his home O2 settings. He?ll be admitted. He has received vancomycin here after blood cultures. Will add zosyn. discussed case with hospitalist who agrees to admission. She will see the patient. Lab Data 12/26/24 19:59 10 19:59 Radiology Impressions Chest X-Ray 12/26/24 19:37 IMPRESSION: 1. Negative for infiltrate. 2. Emphysematous changes. 3. Spinal stimulator. Laboratory Results WBC 8.12 10^3/uL (3.29-11.43) 12/26/24 19:59 RBC 4.32 10^6/uL (3.85-5.65) 12/26/24 19:59 Hgb 12.20 g/dL (11.27-16.99) 12/26/24 19:59 Hct 42.5 % (37-53) 12/26/24 19:59 MCV 98.4 fl (82-101) 12/26/24 19:59 MCH 28.2 pg (27-33) 12/26/24 19:59 MCHC 28.7 g/dL (30-55) L 12/26/24 19:59 RDW 12.1 % (12.1-15.1) 12/26/24 19:59 Plt Count 278 10^3/cmm (157-399) 12/26/24 19:59 MPV 9.8 fL (7.4-10.4) 12/26/24 19:59 Neut % (Auto) 79.4 % 12/26/24 19:59 Lymph % (Auto) 11.2 % 12/26/24 19:59 [place] % (Auto) 7.3 % 12/26/24 19:59 Eos % (Auto) 1.0 % 12/26/24 19:59 Baso % (Auto) 0.6 % 12/26/24 19:59 Neut # (Auto) 6.45 10^3/uL (1.8-7.7) 12/26/24 19:59 Lymph # (Auto) 0.9 10^3/uL (0.8-4.8) 12/26/24 19:59 [place] # (Auto) 0.6 10^3/uL (0.2-0.9) 12/26/24 19:59 Eos # (Auto) 0.1 10^3/uL (0.0-0.8) 12/26/24 19:59 Baso # (Auto) 0.1 10^3/uL (0.0-0.1) 12/26/24 19:59 Nucleated RBC % (auto) 0 % 12/26/24 19:59 Nucleated RBCs # 0.0 /100WBC 12/26/24 19:59 Sodium 143 mmol/L (136-145) 12/26/24 19:59 Potassium 4.0 mmol/L (3.5-5.1) 12/26/24 19:59 Chloride 92 mmol/L (98-107) L 12/26/24 19:59 Carbon Dioxide 44 mmol/L (22-29) H* 12/26/24 19:59 Anion Gap 11.0 (5-19) 12/26/24 19:59 BUN 13 mg/dL (6-20) 12/26/24 19:59 Creatinine 0.6 mg/dL (0.7-1.2) L 12/26/24 19:59 GFR Calculation 145.0 mL/min (90-130) H 12/26/24 19:59 Glucose 253 mg/dL (65-115) H 12/26/24 19:59 Calculated Osmolality 305 mOsm/kg (285-295) H 12/26/24 19:59 Lactic Acid 1.6 mmol/L (0.5-2.2) 12/26/24 19:59 Calcium 9.3 mg/dL (8.5-10.5) 12/26/24 19:59 Total Bilirubin 0.3 mg/dL (0.15-1.2) 12/26/24 19:59 AST 22 U/L (0-40) 12/26/24 19:59 ALT 22 U/L (0-41) 12/26/24 19:59 Alkaline Phosphatase 86 U/L (40-130) 12/26/24 19:59 C-Reactive Protein 27.0 mg/L (0.0-4.9) H 12/26/24 19:59 NT-Pro-B Natriuret Pep 232 pg/mL (0-125) H 12/26/24 19:59 Total Protein 7.2 g/dL (6.6-8.7) 12/26/24 19:59 Albumin 3.6 g/dL (3.5-5.2) 12/26/24 19:59 Globulin 3.6 g/dL (1.3-4.6) 12/26/24 19:59 Procalcitonin 0.07 ng/mL (0-0.5) 12/26/24 19:59 Urine Color Yellow (Yellow) 12/26/24 20:13 Urine Appearance Clear (CLEAR) 12/26/24 20:13 Urine pH 5 (5-7) 12/26/24 20:13 Ur Specific [place] 1.005 (1.005-1.030) 12/26/24 20:13 Urine Protein Neg (Negative) 12/26/24 20:13 Urine Glucose (UA) 4+ (Normal) H 12/26/24 20:13 Urine Ketones Negative (Negative) 12/26/24 20:13 Urine Blood Neg (Negative) 12/26/24 20:13 Urine Nitrate Negative (Negative) 12/26/24 20:13 Urine Bilirubin Neg (Negative) 12/26/24 20:13 Urine Urobilinogen Norm mg/dL (Negative) 12/26/24 20:13 Ur Leukocyte Esterase Negative (Negative) 12/26/24 20:13 Amorphous Sediment Not Reportable 12/26/24 20:13 All radiology interpretation(s) finalized by discharge Discharge Plan Discharge Patient Disposition: Admitted As Inpatient Admit Provider: Milvia Ramos Clinical Impression: Systolic heart failure, Cellulitis of lower extremity, unspecified laterality, Chronic venous stasis dermatitis of both lower extremities, Chronic hypoxic respiratory failure, on home oxygen therapy Condition: Stable Coding Level of Care Code ED Computator for Hilton Waters
[2024-12-26 20:09] LABS: Hematocrit 42.5 % (37-53); Hemoglobin 12.20 g/dL (11.27-16.99); Mean Corpuscular HGB Conc 28.7 g/dL (30-55); Mean Corpuscular Hemoglobin 28.2 pg (27-33); Mean Corpuscular Volume 98.4 fl (82-101); Nucleated Red Blood Cells % 0 %; Platelet Count 278 10^3/cmm (157-399); Red Blood Count 4.32 10^6/uL (3.85-5.65); White Blood Count 8.12 10^3/uL (3.29-11.43)
[2024-12-26 20:17] LABS: Add Urine Microscopic? NO
[2024-12-26 20:39] LABS: Lactic Sepsis W/Reflex 1.6 mmol/L (0.5-2.2)
[2024-12-26 20:51] LABS: NT Pro B Type Natriuretic Pept 232 pg/mL (0-125); Procalcitonin 0.07 ng/mL (0-0.5)
[2024-12-26 21:03] LABS: Alanine Aminotransferase 22 U/L (0-41); Albumin Level 3.6 g/dL (3.5-5.2); Alkaline Phosphatase 86 U/L (40-130); Blood Urea Nitrogen 13 mg/dL (6-20); Calcium 9.3 mg/dL (8.5-10.5); Globulin 3.6 g/dL (1.3-4.6); Sodium 143 mmol/L (136-145); Total Protein 7.2 g/dL (6.6-8.7)
[2024-12-26 21:03] LABS: Glucose Urine UA 4+ (Normal); Nitrate Urine Negative (Negative); Specific Gravity, Urine 1.005 (1.005-1.030)
[2024-12-26 21:04] LABS: Charge for UA Resulting for Rev
[2024-12-26 21:11] LABS: Potassium 4.0 mmol/L (3.5-5.1)
[2024-12-26 21:12] LABS: Anion Gap 11.0 (5-19); Carbon Dioxide 44 mmol/L (22-29); Chloride 92 mmol/L (98-107)
[2024-12-26 21:13] LABS: Aspartate Amino Transferase 22 U/L (0-40); Creatinine Clr Calc Pharmacy 196.0614; Glucose 253 mg/dL (65-115); Osmolality Calculated 305 mOsm/kg (285-295)
--- NOTE | 2024-12-26 23:51 | PM.HP ---
Providers/Chief Complaint Admitting Physician: Milvia Ramos MD--- patient seen and evaluated in the emergency room before 12 midnight Primary Care Provider: Raina Parkinson DO Chief Complaint: swelling on bilateral legs History of Present Illness Valentino Cerrato is a 44 year old male with medical history significant for diabetes and a longstanding EzyAs of ischemic venous stasis with chronic cellulitis and weeping fluid from the skin of bilateral lower extremities. Patient was actually seen and admitted via the emergency room on 12/17/2024 that the left AGAINST MEDICAL ADVICE within a few hours of being admitted. Patient came back today and when asked why he left he said he just wanted to leave why did you come back today patient responded saying they legs were getting very bad and he decided to come to follow-up with some medical care. Patient had been seen and evaluated. Patient is poorly kept very very malodorous feet emergency department had initiated vancomycin patient received 1 dose in the emergency room I have seen patient and evaluated with his bilateral cellulitis with weeping fluid from the legs and feet. In the setting of patient being diabetic and this longstanding cellulitis Pseudomonas must be covered or any other notorious microorganism. I will continue with the vancomycin to cover gram-positive's such as MRSA staph and strep and also I am adding Zosyn to cover gram-negative's and anaerobic's. I have consulted pharmacy to dose and manage vancomycin. Will consult wound care for local wound care. Review of Systems Narrative: System review upon tenogram reviewed were significant for integumentary with bilateral weeping cellulitis chronic in nature. Actively in status Medications/Allergies Home Medications ?Medication ?Instructions ?Recorded ?Confirmed ?Last Taken ?Type nerve stimulator ##1 04/07/19 12/17/24 Unknown History oxygen-air delivery systems 01/06/21 12/17/24 Unknown History blood-glucose meter #1 ea 06/14/21 12/17/24 Unknown Rx lancets 30 gauge (OneTouch Delica ##100 11/29/21 12/17/24 Unknown Rx Plus Lancet) sodium chloride 0.65 % nasal spray 2 spray intranasal Q4H PRN dry 02/24/24 12/17/24 Unknown Rx aerosol (Saline Nasal) nasal passages #44 mL Portable 02 concentrator #1 ea 06/09/24 12/17/24 Unknown Rx 02 #1 ea 07/07/24 12/17/24 Unknown Rx tamsulosin 0.4 mg capsule See Rx Instructions .Route 07/14/24 12/17/24 12/16/24 Rx .COMPLEX #90 caps tiotropium bromide 18 mcg capsule See Rx Instructions .Route 08/31/24 12/17/24 12/17/24 08:00 Rx with inhalation device (Spiriva .COMPLEX #30 caps with HandiHaler) aspirin 81 mg tablet,delayed See Rx Instructions .Route 10/12/24 12/17/24 12/17/24 08:00 Rx release .COMPLEX #90 tabs blood sugar diagnostic (Blood #50 ea 10/12/24 12/17/24 Unknown Rx Glucose Test strips) testosterone cypionate 200 mg/mL 200 mg SUBCUT .every 14 days #2 mL 10/16/24 12/17/24 Unknown Rx intramuscular oil dulaglutide 3 mg/0.5 mL 3 mg (0.5 mL) SUBCUT .every 2 10/18/24 12/17/24 Unknown Rx subcutaneous pen injector weeks #2 mL empagliflozin 25 mg tablet 25 mg PO QAM #90 tabs 10/18/24 12/17/24 12/17/24 08:00 Rx (Jardiance) metformin 750 mg tablet,extended 750 mg PO BID #180 tabs 10/18/24 12/17/24 12/17/24 08:30 Rx release 24 hr fluticasone propionate 50 See Rx Instructions .Route 11/02/24 12/17/24 Unknown Rx mcg/actuation nasal .COMPLEX #16 grams spray,suspension carbamide peroxide 6.5 % ear drops 5 drp otic (ear) Q12H 5 days #15 mL 12/07/24 12/17/24 Unknown Rx (Debrox) metoprolol tartrate 25 mg tablet See Rx Instructions .Route 12/07/24 12/17/24 12/17/24 08:30 Rx .COMPLEX #90 tabs pantoprazole 40 mg tablet,delayed 40 mg PO DAILY #90 tabs 12/07/24 12/17/24 12/17/24 08:30 Rx release hydrochlorothiazide 12.5 mg tablet See Rx Instructions .Route 12/08/24 12/17/24 12/17/24 08:30 Rx .COMPLEX #90 tabs rizatriptan 10 mg disintegrating 10 mg PO Q2H PRN migraine headache 12/08/24 12/17/24 Unknown Rx tablet (Maxalt-LITIGATION LEGAL ASSISTANT) #27 tabs Allergies Allergy/AdvReac Type Severity Reaction Status Date / Time Penicillins Allergy edema Verified 12/17/24 08:28 PFSH Acute PFSH: Medical History Type 2 diabetes mellitus Chronic venous stasis dermatitis of both lower extremities Bilateral impacted cerumen Colonoscopy refused Essential tremor Cellulitis of lower extremity, unspecified laterality Right leg pain Osteoarthrosis-multiple sites Bilateral shoulders, right knee, cervical, hips COPD, group B, by GOLD 2017 classification Chronic migraine without aura, with status migrainosus Chronic pain syndrome Erectile dysfunction Diabetes GERD (gastroesophageal reflux disease) Lumbar post-laminectomy syndrome Cataract Right Surgical History S/P carpal tunnel release right Status post lung surgery S/P cervical spinal fusion Family History Other Cancer Diabetes Social History Smoking and tobacco/nicotine status: former use of tobacco/nicotine Quit status (tobacco/nicotine): has quit using Year quit tobacco: 2023 Former quit date comment: 1 pack/day for 20 years Alcohol intake: never Substance/Drug Use: never Additional social history: Patient wants full CODE STATUS as discussed with Seymour Garza MD on 12/17/2024. 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 Current gender identity: Male Vitals/I&O/Wt Last Vital Signs Temp 98.2 F 12/26/24 19:11 Pulse 109 H 12/26/24 23:42 Resp 20 H 12/26/24 23:42 BP 121/78 12/26/24 23:42 Pulse Ox 89 L 12/26/24 23:42 O2 Del Method Nasal Cannula 12/26/24 23:42 O2 Flow Rate 5 12/26/24 23:42 12/26/24 12/26/24 12/27/24 14:59 22:59 06:59 Intake Total 0 / 0 250 / 250 Balance 0 / 0 250 / 250 Weight last 48 hrs Weight 108.862 kg Physical Exam Narrative: Generally patient looks well in no apparent distress HEENT normocephalic/atraumatic neck neck is supple cardiovascular heart rate is regular lungs are pretty much clear abdomen soft nontender nondistended unremarkable extremities are intact with diffuse nodular skin cellulitis with weeping fluid and edema. The has good pulses neurology has no focality lab studies lab studies reviewed and noted. Data 12/26/24 19:59 12/26/24 19:59 Micro: Microbiology 12/26/24 19:57 Blood Culture - Preliminary Blood SPECIMEN COLLECTED 12/26/24 19:59 Blood Culture - Preliminary Blood SPECIMEN COLLECTED A&P Assessment and plan 1. Bilateral lower leg cellulitis: 2. Type 2 diabetes mellitus without complication, without long-term current use of insulin: 3. Chronic venous stasis dermatitis of both lower extremities: 4. Chronic hypoxic respiratory failure, on home oxygen therapy: 5. COPD (chronic obstructive pulmonary disease): Plan: #1 Bilateral lower extremities nodular cellulitis chronic active - Admit to general medical floor - Continue with antibiotics with vancomycin pharmacy dosing, keep trough between 15 and 20 - Vancomycin to cover MRSA, staph and strep - Must cover with cefepime for notorious Pseudomonas, other gram-negative's and anaerobic's - Will have wound care for local wound care for this patient #2 Diabetes type 2 - Continue tight glucose control in the setting of infection and all the time - Patient is on a regimen for insulin that we do not carry, pharmacy to substitute for long-acting insulin - Sliding scale insulin high protocol be initiated - Obtain hemoglobin A1c to guide therapy #3 Hypertension - Continue home medication GI and DVT prophylaxis in place PDMP PDMP Reviewed: Last Reviewed 12/27/24 01:17 by Milvia Ramos MD Attestations Medical Necessity Statement*: Patient with extensive bilateral lower extremity nodular cellulitis with weeping fluid in the setting of diabetes type 2 needs 2 midnights to be optimized for care Coding Level of Care Code 67026 Diagnoses Bilateral lower leg cellulitis L03.116; L03.115 Type 2 diabetes mellitus without complication, without long-term current use of insulin E11.9 Chronic venous stasis dermatitis of both lower extremities I87.2 Chronic hypoxic respiratory failure, on home oxygen therapy J96.11; Z99.81 COPD (chronic obstructive pulmonary disease) J44.9 Time Spent (min) 60
[2024-12-27] VITALS (11 sets, daily range): BP systolic 110–160; BP diastolic 67–84; PULSE 105–121; RESP 18–28; TEMP 36.4–37.2; O2SAT 90–98; BMI 32.9
[2024-12-27] MEDS: cefepime 2,000 mg SDV 2000 MG IVP ×3 (01:18→17:49)
[2024-12-27] MEDS: heparin 5,000 unit/mL INJ 1 mL 5000 UNIT SUBCUT ×3 (01:18→17:49)
--- OUTSIDE RECORDS SUMMARY | 2024-12-27 11:30 | XMS_ITS | Encounter Summary ---
Author Organization [facility] Address [address] [place] [address] Care Team Providers Care Aircraft Accessories Mechanic Name Role Phone Kayla Duarte MD Primary Care Provider [phone] Encounter Details Date Type Department Care Team (Late st Contact Info) Description 02/14/2005 Outpatient [facility] [address] [place] [address] Social History Tobacco Use Types Packs/Day Years Used Date Smoking Tobacco: Never Assessed Sex and Gender Information Value Date Recorded Sex Assigned at Not on file Legal Sex Male 4:05 AM [employer] Gender Identity Not on file Sexual Orientation Not on file documented as of this encounter Plan of Treatment Not on file documented as of this encounter Visit Diagnoses Not on filedocumented in this encounter Care Teams Aircraft Accessories Mechanic Relationship Specialty Start Date End Date [facility]arte [facility] [address] [facility] [address] PCP - General 08/02/16 documented as of this encounter
--- OUTSIDE RECORDS SUMMARY | 2024-12-27 11:30 | XMS_ITS | Encounter Summary ---
Author Organization [facility] Address [address] [place] [address] Care Team Providers Care Pipeline Executive Name Role Phone Kayla Duarte MD Primary Care Provider [phone] Encounter Details Date Type Department Care Team (Latest Contact Info) Description 02/14/2005 Outpatient Historical [facility] [address] [place] [id number] Alex Dumont MD [address] [address] DISC DIS NEC/NOS-THORAC (Primary Dx) Social History Tobacco Use Types Packs/Day Years Used Date Smoking Tobacco: Never Assessed Sex and Gender Information Value Date Recorded Sex Assigned at Not on file Legal Sex Male 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
--- OUTSIDE RECORDS SUMMARY | 2024-12-27 11:30 | XMS_ITS | Encounter Summary ---
Author Organization [facility] Address [address] [place] [address] Care Team Providers Care Handle Bender Name Role Phone Kayla Duarte MD Primary Care Provider [phone] Encounter Details Date Type Department Care Team (Latest Contact Info) Description 02/27/2006 Outpatient Historical [facility] Medicine[address] [address] Alex Macario, DO NO ADDRESS ON FILE Unspecified Infantile Cerebral Palsy (CMS/HCC) (Primary Dx); Cervicalgia; Depressive Disorder, not Elsewhere Classified Social History Tobacco Use Types Packs/Day Years Used Date Smoking Tobacco: Never Assessed Sex and Gender Information Value Date Recorded Sex Assigned at Not on file 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
--- OUTSIDE RECORDS SUMMARY | 2024-12-27 11:30 | XMS_ITS | Clinical Summary ---
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 Gender Identity Not on file Sexual Orientation [...] age to complete this topic Insurance [place]ICAID [place] [address] [place] [address] DUAL COMPLETE MCR PPO D-SNP RX [employer] RX Member Subscriber Plan / Payer (Ef fective 2015-Present) Name:Stephan Lyn Relation to Subscriber:Self Name:STEPHAN LYN Payer ID:Not on file Group ID:[id number] Type:RX Medicare Part D Address: [place], [place] RX INFOCROSSING Medicaid Advance Directives For more information, please contact: [phone] * Full Code (Latest Code Status on File) Date Activated Date Inactivated Comments 11/30/2019 9:54 AM 11/30/2019 4:40 PM Care Teams Political Scientist Relationship Specialty Start Date End Date Kayla Duarte MD [address] [facility] [place] [address] PCP - General 08/02/16
--- OUTSIDE RECORDS SUMMARY | 2024-12-27 11:30 | XMS_ITS | Clinical Summary ---
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 Gender Identity Not on file Sexual Orientation Not on file Last Filed Vital Signs Vital Sign Reading Time Taken Comments Blood Pressure 128/96 01/24/2023 5:47 PM GLOVE BOARDER Pulse 110 01/24/2023 5:47 PM GLOVE BOARDER per patiient this is his norm Temperature 37 C (98.6 F) 01/24/2023 5:47 PM GLOVE BOARDER Respiratory Rate 18 01/24/2023 11:4 0 AM GLOVE BOARDER Oxygen Saturation 92% 01/24/2023 5:4 7 PM GLOVE BOARDER Inhaled Oxygen Concentration - - Weight 107.9 kg (237 lb 12.8 oz) 01/24/2023 11:40 AM GLOVE BOARDER Height 182.9 cm (6') 01/24/2023 11:40 AM GLOVE BOARDER Body Mass Index 32.25 01/24/2023 11:40 AM GLOVE BOARDER Plan of Treatment Health Maintenance Due Date [...] age to complete this topic Insurance MEDICAID [facility] MEDICARE HMO * Guarantor: STEPHAN LYN Account Type Relation to Patient Date of Phone Billing Address Personal/Family [address] [place] [address] RX [employer] RX Member Subscriber Plan / Payer (Ef fective 2015-Present) Name:Stephan Lyn Relation to Subscriber:Self Name:Blossom Stephan Prather Payer ID:Not on file Group ID:[id number] Type:RX Medicare Part D Address: [place], [place] RX INFOCROSSING Medicaid Care Teams Real Estate Office Supervisor Relationship Specialty Start Date End Date Kayla Duarte MD [address] [facility] [place] [address] PCP - General 08/02/16
--- OUTSIDE RECORDS SUMMARY | 2024-12-27 11:30 | XMS_ITS | Encounter Summary ---
Author Organization [facility] Address [address] [place] [address] Care Team Providers Care Supervisor [place] Name Role Phone Kayla Duarte MD Primary Care Provider [phone] Encounter Details Date Type Department Care Team (Latest Contact Info) Description 04/03/2006 Outpatient Historical [facility] Medicine[address] [phone] Alex Macario, DO NO ADDRESS ON FILE Lumbago (Primary Dx) Social History Tobacco Use Types Packs/Day Years Used Date Smoking Tobacco: Never Assessed Sex and Gender Information Value Date Recorded Sex Assigned at Not on file 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
--- NOTE | 2024-12-27 13:07 | P.PN_ITS ---
Subjective 2 Subjective: Somnolent, able to arouse and answer questions. Vitals/I&O/Wt Last Vital Signs Temp 98.0 F 12/27/24 07:31 Pulse 105 H 12/27/24 07:31 Resp 19 H 12/27/24 07:31 BP 130/79 12/27/24 07:31 Pulse Ox 98 12/27/24 07:31 O2 Del Method Oxymask 12/27/24 07:31 O2 Flow Rate 5 12/26/24 23:42 12/26/24 12/27/24 12/27/24 22:59 06:59 14:59 Intake Total 0 / 0 250 / 250 730 / 730 Output Total 250 / 250 400 / 400 Balance 0 / 0 0 / 0 330 / 330 Weight last 48 hrs Weight 108.817 kg Weight 110.132 kg Weight 108.862 kg Physical Exam 2 Const: COMMON NORMALS: no acute distress and average body habitus OTHER: somnolent HENMT: COMMON NORMALS: normocephalic and atraumatic HEAD & SCALP: n ormocephalic and atraumatic Eye: COMMON NORMALS: Equal, round and reactive pupils present and EOMs intact bilaterally PUPIL: Yes Equal, round and reactive pupils present Resp: COMMON NORMALS: normal respiratory effort, No retractions and clear to auscultation bilaterally AUSCULTATION: clear to auscultation bilaterally Cardio: COMMON NORMALS: regular rate, regular rhythm, S1 normal heart sound present, S2 normal heart sound present, No gallops present (Cardio), No murmurs present (Cardio) and No rub (Cardio) RATE: regular rate RHYTHM: regular rhythm HEART SOUNDS: S1 normal heart sound present and S2 normal heart sound present GI: COMMON NORMALS: Soft to palpation, non-tender and no masses PALPATION: Yes Soft to palpation Extremity: OTHER: BL LE with advanced venous stasis changes, uniform erythema, edema. No open wounds or purulent discharge. thickened toe nails with discoloration. Data 12/26/24 19:59 12/26/24 19:59 Micro: Microbiology 12/26/24 19:57 Blood Culture - Preliminary Blood SPECIMEN COLLECTED 12/26/24 19:59 Blood Culture - Preliminary Blood SPECIMEN COLLECTED A&P Assessment and plan 1. Bilateral lower leg cellulitis: 2. Chronic hypoxic respiratory failure, on home oxygen therapy: 3. Type 2 diabetes mellitus without complication, without long-term current use of insulin: Plan: 44 year old male presenting with concern for BL LE cellulitis. Bilateral lower extremities with venous stasis changes Concern for cellulitis - Continue with antibiotics Vancomycin/cefepime for now, can consider downgrading soon. - Wound care consulted - IV lasix 40 mg Q12h - elevation/compression as tolerated - afebrile, no leukocytosis Diabetes type 2 - Patient is on a regimen for insulin that we do not carry, pharmacy to substitute for long-acting insulin - Sliding scale insulin high protocol be initiated - recent A1c 7.0 on 10/16/24, good overall control currently - keep blood sugars < 200. Hypertension - Continue home medication GI and DVT prophylaxis in place Disposition - monitor for improvement in erythema of BL LE. PDMP PDMP Reviewed: Not Reviewed Attestations 2 Medical Necessity Statement*: Ongoing inpatient admission for concern for LE infection. Time Spent in Patient Care: 16 - 35 minutes (>than 50% of time sp ent in counselling and/or direct pt care on unit) . Coding Level of Care Code Acute Code for Chg Fwd Diagnoses Bilateral lower leg cellulitis L03.116; L03.115 Chronic hypoxic respiratory failure, on home oxygen therapy J96.11; Z99.81 Type 2 diabetes mellitus without complication, without long-term current use of insulin E11.9
--- NOTE | 2024-12-27 13:31 | PHA.VACGOAL ---
Vancomycin Goal - Goal Vancomycin Indication:: SSTI - Therapy Day of therpy:: Day []of [] . Actual body weight (kg): 239 lb 14.4 oz - Data Labs: WBC 8.12 10^3/uL (3.29-11.43) 12/26/24 19:59 RBC 4.32 10^6/uL (3.85-5.65) 12/26/24 19:59 Hgb 12.20 g/dL (11.27-16.99) 12/26/24 19:59 Hct 42.5 % (37-53) 12/26/24 19:59 MCV 98.4 fl (82-101) 12/26/24 19:59 MCH 28.2 pg (27-33) 12/26/24 19:59 MCHC 28.7 g/dL (30-55) L 12/26/24 19:59 RDW 12.1 % (12.1-15.1) 12/26/24 19:59 Sodium 143 mmol/L (136-145) 12/26/24 19:59 Potassium 4.0 mmol/L (3.5-5.1) 12/26/24 19:59 Chloride 92 mmol/L (98-107) L 12/26/24 19:59 Carbon Dioxide 44 mmol/L (22-29) H* 12/26/24 19:59 Anion Gap 11.0 (5-19) 12/26/24 19:59 BUN 13 mg/dL (6-20) 12/26/24 19:59 Creatinine 0.6 mg/dL (0.7-1.2) L 12/26/24 19:59 GFR Calculation 145.0 mL/min (90-130) H 12/26/24 19:59 Regimen:: 1250 MG Q8H TROUGH 12/28 0730
[2024-12-27] MEDS: FUROsemide 10 mg/mL SDV 4mL 40 MG IVP (15:07)
--- NOTE | 2024-12-27 21:07 | CTR_ITS ---
PROCEDURE INFORMATION: Exam: CT Head Without Contrast Exam date and time: 12/27/2024 9:20 PM Age: 44 years old Clinical indication: Altered mental status/memory loss; Altered mentation TECHNIQUE: Imaging protocol: Computed tomography of the head without contrast. Radiation optimization: All CT scans at this facility use at least one of these dose optimization techniques: automated exposure control; mA and/or kV adjustment per patient size (includes targeted exams where dose is matched to clinical indication); or iterative reconstruction. COMPARISON: CT head wo/w con [id number] 08/20/2018 8:15 AM RADIATION DOSE METRICS: Total DLP (mGy-cm): 1162.88 FINDINGS: Brain: Stable appearance of calcification in the right conn radiata. Stable lacunar focus in the right basal ganglia. Stable lacunar focus in the left peripheral conn radiata. Cerebral ventricles: No ventriculomegaly. Paranasal sinuses: Visualized sinuses are unremarkable. No fluid levels. Mastoid air cells: Visualized mastoid air cells are well aerated. Bones: Unremarkable. No acute fracture. Soft tissues: Unremarkable. CT/CT head wo con* [id number] IMPRESSION: No acute intracranial abnormality.
[2024-12-27 21:52] LABS: PCP Screen Urine Negative (Negative)
[2024-12-27 22:21] LABS: Alcohol Level 12 mg/dL (0-10)
[2024-12-27 22:31] LABS: ABG PH Result 7.26 (7.35-7.45); Alveolar-Arterial Oxygen Gradi 8.6 mmHg (5-10); Arterial Blood Gas Hematocrit 36.4 % (42-52); Blood Gas Allen Test Pos; Blood Gas LPM 5.0 %; Blood Gas Operator Identificat gerca; Blood Gas Sample Site Radial, left; Blood Gas Sample Type Arterial; Carboxyhemoglobin 1.7 %THgb (0.4-20.1); Glucose Level-ABG 103.0 mg/dL (70-115); HCO3 ABG 55.5 mmol/L (22-26); Ionized Calcium Level - ABG 1.2 mmol/L (1.1-1.4); Methemoglobin 0.7 % (0.4-1.5); Oxygen Saturation ABG 94.6; PO2 ABG 74.8 mmHg (80.0-100.0); PO2 FiO2 Ratio Arterial Blood 187; Potassium Level - ABG 3.5 mmol/L (3.5-5.0); Sodium Level - ABG 147.0 mmol/L (131-143)
[2024-12-27 22:34] LABS: ABG PCO2 > 102.0 mmHg (35-45)
--- NOTE | 2024-12-27 23:24 | PC.NURSE ---
pt confused at change of shift. confusion increased, CT, ABG and tox screen done. ABG critical result, pt placed on bipap and transferred to ICU.
--- NOTE | 2024-12-27 23:47 | PC.NURSE ---
Pt transferred to ICU, arrived at 2318. Upon arrival pt able to state town and sluggish to respond. Within 10 min pt awakened and was asking for his remote, oriented x4, able to make needs known, inquiring why he was in a different room, and stated he felt fine. Was agreeable to treatment plan and requested to watch the news. Upon assessment noted significant redness and warmth from knees down, tender to touch, stasis dermatitis to lower legs, and moderate nonpitting edema, faint pedal pulses present, cap refill less than 3 sec.
[2024-12-28] VITALS (86 sets, daily range): BP systolic 85–155; BP diastolic 52–86; PULSE 52–139; RESP 13–46; TEMP 38–39.3; O2SAT 85–99
[2024-12-28] MEDS: cefepime 2,000 mg SDV 2000 MG IVP ×2 (00:30→09:07)
[2024-12-28] MEDS: heparin 5,000 unit/mL INJ 1 mL 5000 UNIT SUBCUT ×2 (00:44→09:07)
--- NOTE | 2024-12-28 00:50 | PM.MISC ---
Miscellaneous Note Purpose of Documentation: Change in mental status Note: Patient got confused ABG obtained patient is with hypercapnic respiratory failure with a CO2 of greater then 102. BiPAP was placed on the patient ICU bed obtained and patient got transferred. CT head done unremarkable
--- NOTE | 2024-12-28 01:30 | PC.NURSE ---
call placed to life partner and grandmother to notify of pt transfer to ICU. life partner's voicemail full and message left to grandmother to call back
[2024-12-28 01:41] LABS: Alveolar-Arterial Oxygen Gradi 47.0 mmHg (5-10); Arterial Blood Gas Hematocrit 39.7 % (42-52); Blood Gas Operator Identificat JDB; Blood Gas Sample Site Brachial, right; Blood Gas Sample Type Arterial; Carboxyhemoglobin 1.1 %THgb (0.4-20.1); Glucose Level-ABG 179.0 mg/dL (70-115); HCO3 ABG 36.6 mmol/L (22-26); Ionized Calcium Level - ABG 1.1 mmol/L (1.1-1.4); Methemoglobin 1.4 % (0.4-1.5); Oxygen Saturation ABG 98.0; PO2 ABG 175.0 mmHg (80.0-100.0); PO2 FiO2 Ratio Arterial Blood 175; Potassium Level - ABG 2.6 mmol/L (3.5-5.0); Sodium Level - ABG 155.0 mmol/L (131-143)
[2024-12-28 01:42] LABS: ABG PCO2 > 102.0 mmHg (35-45); ABG PH Result 6.97 (7.35-7.45)
[2024-12-28] MEDS: norepinephrine 4 MG/250 ML BAG 15 MG IV (01:42)
[2024-12-28] MEDS: midazolam 1 mg/mL INJ 5 ML 5 MG (02:05)
[2024-12-28] MEDS: fentaNYL 50 mcg/mL INJ 2mL 100 MCG IVP (02:05)
[2024-12-28] MEDS: midazolam 1 mg/mL INJ 2 mL 5 MG IVP (02:05)
--- NOTE | 2024-12-28 02:22 | XRR_ITS ---
PROCEDURE INFORMATION: Exam: XR Chest Exam date and time: 12/28/2024 1:41 AM Age: 44 years old Clinical indication: Device placement; Other: Et, og, and central line placement; Et tube, og tube, and central line placement confirmation; Additional info: Line and tube placement TECHNIQUE: Imaging protocol: Radiologic exam of the chest. Views: 1 view. COMPARISON: CR (CHEST, ) 12/26/2024 7:54 PM FINDINGS: Tubes, catheters and devices: Endotracheal tube with tip proximally 5 cm above the geno and below the clavicular heads. Right central venous catheter with tip in the upper right atrium. Lungs: Interval appearance of right mid lung zone opacity. Mild pulmonary vascular congestion. Platelike atelectasis left lower lung zone. Pleural spaces: Unremarkable. No pleural effusion. No pneumothorax. Heart/Mediastinum: Unremarkable. No cardiomegaly. Bones/joints: No acute osseous abnormality. XR/XR chest 1V portable [id number] IMPRESSION: Interval appearance of right mid lung zone opacity. Mild pulmonary vascular congestion.
--- NOTE | 2024-12-28 02:23 | P.PNCC_ITS ---
Critical Care Event Note The high probability of a clinically significant, sudden or life threatening deterioration of the patient's [] system(s) required my full and direct attention, intervention and personal management. The critical care time is as shown. This time is in addition to time spent performing any reported procedures but includes the following: [x] Data and vital sign review and interpretation [x] Patient assessment, examination and intervention [x] Documentation [x] Medication orders and management CODE BLUE called. Called to bedside regarding this. Chest compressions were in place by ICU nursing staff. [id number] was used for respirations. Proceeded with intubation. Difficult airway, requiring 2 intubations, as the first 1 was a failed airway. Multiple doses of epinephrine, 2 A of bicarb given during the code. Fluid bolus given. Patient was started on Levophed drip following ROSC for blood pressure support. Due to limited IV access, central line placed in the right IJ using ultrasound guidance without complication. X- ray confirms line placement and tube placement. Critical Care Time Code activated: Yes Critical Care Time (min): 40 Procedures Central Line Placement^ Right IJ: Time out performed: No Patient placed on monitor/pulse ox: Yes MD prep: mask and gloves Central line prep: Chlorhexidine scrub and sterile drapes applied Local anesthesia used: lidocaine 1% Amount of anesthesia used (ml): 3 Ultrasound used for placement: Yes Central line lumen inserted: triple Post procedure: sutured in place, good blood return, all ports aspirated, flushed, capped and sterile dressing applied Post procedure x-ray: tip of catheter in good position and no pneumothorax seen Patient tolerated procedure: well and no complications Complications: none Intubation Time out performed: No Sedative: none Laryngoscope: Clark (4) ET tube size: 7.5 ET tube uncuffed: No Tube secured depth (cm): 25 Tube secured location: teeth Tube placement confirmation: visualized tube passing through cords, equal breath sounds bilaterally and confirmation by capnometry Patient tolerated procedure: other Intubation complications: difficult intubation (Failed intubation x 1 due to difficult airway. Achieved without complication second time.) Coding Level of Care Code Acute Code for [facility] Fwd
[2024-12-28] MEDS: fentaNYL 1,000 MCG/100 ML BAG 12.5 MCG IV ×2 (02:26→09:31)
[2024-12-28] MEDS: midazolam hcl 100 MG/100 ML BAG 6 MG IV (02:26)
--- NOTE | 2024-12-28 02:49 | ECG_ITS ---
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 Measurements Intervals [place] Rate: 110 P: 76 [place]: 129 QRS: 85 QRSD: 86 T: 74 QT: 340 QTc: 461 Interpretive Statements SINUS TACHYCARDIA ABNORMAL RHYTHM ECG Compared to ECG 12/26/2024 19:42:17 P WAVES NOW VISIBLE Electronically Signed On 12-30-2024 21:47:32 CDT by Angelito Duval M.D. [email or web address]
--- NOTE | 2024-12-28 03:03 | PC.NURSE ---
0115: This nurse heard banging in room, entered to find pt having tonic clonic seizure like activity, cyanotic, bipap removed, had large amount of pink thick mucous coming from mouth and nose, agonal respirations, pulse present. Pt suctioned, palpable pulse but bradycardic, respirations slowed then ceased. PEA noted at 0117, chest compressions started, and code called. See code sheet for code sequence. Dr. Coleman at bedside, intubated (size 7.5 tube, 26 @ lip), and inserted central line. Verbal orders given per Dr. Ramos and Dr. Coleman with verbal orders for titrations.
[2024-12-28 03:05] LABS: Hematocrit 45.4 % (37-53); Hemoglobin 12.10 g/dL (11.27-16.99); Mean Corpuscular HGB Conc 26.7 g/dL (30-55); Mean Corpuscular Hemoglobin 28.0 pg (27-33); Mean Corpuscular Volume 105.1 fl (82-101); Nucleated Red Blood Cells % 0.2 %; Platelet Count 283 10^3/cmm (157-399); Red Blood Count 4.32 10^6/uL (3.85-5.65); White Blood Count 10.09 10^3/uL (3.29-11.43)
[2024-12-28 03:30] LABS: Alanine Aminotransferase 38 U/L (0-41); Albumin Level 3.2 g/dL (3.5-5.2); Alkaline Phosphatase 79 U/L (40-130); Anion Gap 25.8 (5-19); Aspartate Amino Transferase 66 U/L (0-40); Blood Urea Nitrogen 12 mg/dL (6-20); Calcium 8.3 mg/dL (8.5-10.5); Carbon Dioxide 35 mmol/L (22-29); Chloride 91 mmol/L (98-107); Creatinine Clr Calc Pharmacy 147.0167; Globulin 3.4 g/dL (1.3-4.6); Glucose 175 mg/dL (65-115); Magnesium 2.2 mg/dL (1.7-2.3); Osmolality Calculated 312 mOsm/kg (285-295); Sodium 149 mmol/L (136-145); Total Protein 6.6 g/dL (6.6-8.7)
[2024-12-28 03:43] LABS: Lactic Sepsis W/Reflex 18.8 mmol/L (0.5-2.2); Potassium 2.8 mmol/L (3.5-5.1)
--- NOTE | 2024-12-28 04:10 | PC.NURSE ---
Pt on 6 mg/hr (max dose per protocol) and 125 mcg/hr fentanyl. Currently awake, follows commands, overbreathing vent, nods head yes and no to answer questions. Spoke with Dr. Ramos regarding sedation, ordered to start propofol in addition to versed and fentanyl. Critical labs received, Dr. Ramos made aware and new orders received. During code instructions were given per Dr. Ramos to mix epi drip, once rosc obtained heart rate was greater than 110 and epi was not indicated. Medication wasted. Also one amp of bicarb wasted, amp dropped and broke on floor.
[2024-12-28 04:11] LABS: Troponin(5th) Baseline 10 ng/L (0-15)
[2024-12-28 04:15] LABS: Reflex Lactate Order REFLEX LACTIC ORDERD
[2024-12-28 04:21] LABS: Procalcitonin 0.10 ng/mL (0-0.5)
[2024-12-28] MEDS: lidocaine 1% 5 ML in potassium chloride premix 100 ML 26.25 ML IV (04:33)
[2024-12-28] MEDS: potassium chloride oral liq 20 mEq/15 mL UDC 40 MEQ OG-TUBE (04:33)
[2024-12-28] MEDS: propofol 1,000 MG/100 ML INJ 3.27 MG IV (04:34)
[2024-12-28 04:41] LABS: ABG PH Result 7.46 (7.35-7.45); Arterial Blood Gas Hematocrit 41.1 % (42-52); Blood Gas Allen Test Pos; Blood Gas Sample Type Arterial; Carboxyhemoglobin 0.3 %THgb (0.4-20.1); Glucose Level-ABG 216.0 mg/dL (70-115); HCO3 ABG 53.4 mmol/L (22-26); Ionized Calcium Level - ABG 1.1 mmol/L (1.1-1.4); Methemoglobin 1.1 % (0.4-1.5); Oxygen Saturation ABG 95.6; PO2 ABG 81.3 mmHg (80.0-100.0); Potassium Level - ABG 3.1 mmol/L (3.5-5.0); Sodium Level - ABG 145.0 mmol/L (131-143)
[2024-12-28 04:42] LABS: Alveolar-Arterial Oxygen Gradi 52.0 mmHg (5-10); Blood Gas Operator Identificat JDB; Blood Gas Sample Site Radial, right; Blood Gas Tidal Volume 0.50; PEEP 8.0 cmH20; PO2 FiO2 Ratio Arterial Blood 101
[2024-12-28 04:45] LABS: Troponin 5 2HR 54.18 ng/L (0-15)
[2024-12-28 04:47] LABS: ABG PCO2 75.0 mmHg (35-45)
[2024-12-28 04:54] LABS: Troponin 5 2HR Delta 44.18 ABS# (0-10)
--- NOTE | 2024-12-28 05:02 | CTR_ITS ---
PROCEDURE INFORMATION: Exam: CTA Chest With Contrast Exam date and time: 12/28/2024 05:41 AM Age: 44 years old Clinical indication: Abnormal findings; Abnormal diagnostic tests; Elevated d-dimer; Prior surgery; Surgery date: 6+ months; Surgery type: RT lung; Elevated ddimer; Additional info: Elevated d dimer TECHNIQUE: Imaging protocol: Computed tomographic angiography of the chest with contrast. Exam focused on the arteries. 3D rendering (Not supervised by radiologist): MIP and/or 3D reconstructed images were created by the technologist. Radiation optimization: All CT scans at this facility use at least one of these dose optimization techniques: automated exposure control; mA and/or kV adjustment per patient size (includes targeted exams where dose is matched to clinical indication); or iterative reconstruction. Contrast material: [id number]; Contrast volume: 60 ml; Contrast route: INTRAVENOUS (IV); COMPARISON: CR XR chest 1V portable [id number] 12/28/2024 01:41 AM RADIATION DOSE METRICS: Total DLP (mGy-cm): 567.81 FINDINGS: Tubes, catheters and devices: Endotracheal tube tip terminates over the lower thoracic trachea. Enteric tube tip terminates in the gastric antrum. Spinal stimulator leads within the central canal at the T6 vertebral body level. Pulmonary arteries: No occlusive pulmonary embolism. Aorta: Ectatic appearance to the thoracic aorta. No dissection. Celiac and mesenteric arteries: Origin of the celiac axis and SMA is unremarkable. Lungs: Patchy ground-glass opacities within both upper and lower lobes with confluent airspace disease in the right upper lobe. Probable bibasilar atelectasis. Surgical clips in the right hilar region. Pleural spaces: No pleural effusion. Heart: Heart size is normal. No pericardial effusion. Right IJ central line tip over the right atrium. Lymph nodes: Calcified left hilar lymph nodes. Bones/joints: Degenerative changes of the spine. Postsurgical changes to the lower cervical spine. Soft tissues: Unremarkable. CT/CT angio chest PE protcl [id number] IMPRESSION: 1. Patchy ground-glass opacities within both upper and lower lobes with confluent airspace disease in the right upper lobe. Probable bibasilar atelectasis. 2. No occlusive pulmonary embolism.
--- NOTE | 2024-12-28 05:21 | ECG_ITS ---
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 Measurements Intervals [place] Rate: 120 P: 72 [place]: 127 QRS: 78 QRSD: 77 T: 76 QT: 307 QTc: 435 Interpretive Statements SINUS TACHYCARDIA ABNORMAL RHYTHM ECG Compared to ECG 12/28/2024 02:51:25 No significant changes Electronically Signed On 12-30-2024 22:52:37 CDT by Angelito Duval M.D. [email or web address]
[2024-12-28] MEDS: iohexol 350 mg/mL 500 mL Btl (per mL) IV (05:52)
[2024-12-28 05:55] LABS: Lactic Acid level (Lactate) 1.7 mmol/L (0.5-2.2)
--- NOTE | 2024-12-28 06:46 | PM.MISC ---
Miscellaneous Note Purpose of Documentation: Patient status post blue and was intubated doing okay in ICU room for Note: Patient witnessed having agonal breathing instantly lost pulse CPR, intubated and ACLS protocol was initiated. The l patient got 4 rounds of epi, 2 bicarb with a bicarb drip initiated. Patient went from asystole to PEA to sinus tach regained perfusion moving all extremities.
[2024-12-28] MEDS: pantoprazole 40 mg SDV IVP (07:16)
[2024-12-28 08:31] LABS: Ketone (Acetest) Serum Positive (Negative)
[2024-12-28 08:39] LABS: Alanine Aminotransferase 75 U/L (0-41); Albumin Level 2.9 g/dL (3.5-5.2); Alkaline Phosphatase 59 U/L (40-130); Anion Gap 12.8 (5-19); Aspartate Amino Transferase 92 U/L (0-40); Blood Urea Nitrogen 13 mg/dL (6-20); Calcium 8.0 mg/dL (8.5-10.5); Chloride 93 mmol/L (98-107); Creatinine Clr Calc Pharmacy 128.3390; Globulin 2.7 g/dL (1.3-4.6); Glucose 184 mg/dL (65-115); Magnesium 1.9 mg/dL (1.7-2.3); Osmolality Calculated 303 mOsm/kg (285-295); Potassium 3.8 mmol/L (3.5-5.1); Sodium 144 mmol/L (136-145); Total Protein 5.6 g/dL (6.6-8.7)
[2024-12-28 08:40] LABS: Troponin 5 6HR 58.37 ng/L (0-15)
--- NOTE | 2024-12-28 08:45 | USCV_ITS ---
Valentino Cerrato Age: 44 Gender: M : 1980 Exam Date: 12/28/2024 09:38 Ordering Phys: Martin Graham MD Technologist: SAL Exam Location: [facility] Indication: Swelling HISTORY: Lower extremity swelling. PROCEDURES: Venous duplex imaging was performed in bilateral lower extremities. The following venous structures were evaluated: common femoral vein, profunda vein, proximal portion of the greater saphenous vein, superficial femoral vein, and the popliteal vein. In addition, the posterior tibial and peroneal trunk were evaluated. Serial compression, augmentation maneuvers, and spectral Doppler flow evaluation were performed. FINDINGS: Normal 2-D Doppler and augmentation and compressibility throughout the lower extremity venous structures. Additional imaging through the proximal calf veins also reveals no thrombus. Limited evaluation of the greater saphenous vein is patent with no thrombus. Bilateral subcutaneous edema. CONCLUSIONS No DVT bilateral lower extremities. Dr. Maueren Castellon DO (Electronically Signed) Final Date: 28 December 2024 11:52 S
--- NOTE | 2024-12-28 08:45 | XR_ITS ---
WS: [id number] XR KUB portable [id number] REASON FOR EXAM: sob FINDINGS: Nasogastric tube tip in a position consistent with the junction of the fundus and body of the stomach. Unremarkable bowel gas pattern. No free air or retroperitoneal air. No mass or significant calcification identified. Posterior lumbar fusion L4-S1 with interbody fusion devices, pedicle screws, and interconnecting rods. Dorsal column stimulator battery pack over the right lower back. XR/XR KUB portable [id number] IMPRESSION: No significant abdominal abnormality.
[2024-12-28 08:46] LABS: Carbon Dioxide 42 mmol/L (22-29); Troponin 5 6HR Delta 48.37 ng/L (0-12)
--- NOTE | 2024-12-28 08:47 | US_ITS ---
WS: [id number] pelvic limited [id number] HISTORY: Reducible inguinal hernia, male patient COMPARISON: CT 11/30/2018 Ultrasound performed of the RIGHT inguinal canals. RIGHT inguinal canal: No obvious hernia. No fluid collection. LEFT inguinal canal: There is a GI tract with shadowing along the LEFT inguinal canal. There is no fluid. On a prior CT from 2019 there were small inguinal hernias containing fat. There is a small amount of the urinary bladder extending into the LEFT inguinal canal hernia. US/US pelvic limited [id number] IMPRESSION: Highly suspicious for LEFT inguinal canal hernia containing GI tract based on t he imaging submitted. No obvious RIGHT inguinal canal hernia containing GI tract. Fat-containing ingu inal hernia may be present. Consider CT evaluation of the abdomen and pelvis. This will help evaluate for p ossible GI tract obstruction or fluid in the inguinal canals.
--- NOTE | 2024-12-28 09:05 | ECG_ITS ---
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 Measurements Intervals Andreas Rate: 119 P: 59 MN: 129 QRS: 75 QRSD: 86 T: 37 QT: 335 QTc: 472 Interpretive Statements SINUS TACHYCARDIA NONSPECIFIC T-WAVE ABNORMALITY ABNORMAL RHYTHM ECG Compared to ECG 12/28/2024 05:21:10 T-wave abnormality now present Electronically Signed On 12-30-2024 22:53:31 CDT by Angelito Duval M.D. [email or web address]
[2024-12-28] MEDS: potassium phosphate (mEq K) 40 MEQ in sodium chloride 0.9% (100 ml) 100 ML 27.25 MEQ IV (09:40)
--- NOTE | 2024-12-28 11:43 | CTR_ITS ---
PROCEDURE INFORMATION: Exam: CT Abdomen And Pelvis Without Contrast Exam date and time: 12/28/2024 11:04 PM Age: 44 years old Clinical indication: Other: Umbilical hernia TECHNIQUE: Imaging protocol: Computed tomography of the abdomen and pelvis without contrast. Radiation optimization: All CT scans at this facility use at least one of these dose optimization techniques: automated exposure control; mA and/or kV adjustment per patient size (includes targeted exams where dose is matched to clinical indication); or iterative reconstruction. COMPARISON: CR XR KUB portable [id number] 12/28/2024 9:01 AM , CT chest dated 12/28/2024 RADIATION DOSE METRICS: Total DLP (mGy-cm): 1197.29 FINDINGS: Tubes, catheters and devices: Partially imaged spinal cord stimulator is seen in the right lower quadrant soft tissues with partially imaged lead terminating out of the field of view. An enteric tube terminates within the gastric lumen. Lungs: Bilateral lower lobe consolidations concerning for pneumonia and/or atelectatic changes. Liver: Normal. No mass. Gallbladder and biliary ducts: Normal. No calcified stones. No ductal dilation. Pancreas: Normal. No ductal dilation. Spleen: Normal. No splenomegaly. Adrenal glands: Normal. No mass. Kidneys and ureters: Residual nephrograms in the bilateral kidneys, likely from recent contrast administration. The kidneys are otherwise within normal limits. Stomach and bowel: The large and small bowel are unremarkable. Bowel is normal in course and caliber without evidence of wall thickening or obstruction. Appendix: The appendix is not clearly identified. No inflammation in the right lower quadrant is present to suggest acute appendicitis. Intraperitoneal space: Unremarkable. No free air. No significant fluid collection. Vasculature: Unremarkable. No abdominal aortic aneurysm. Lymph nodes: Unremarkable. No enlarged lymph nodes. Urinary bladder: A Davis catheter is appropriately seated within the urinary bladder, which is underdistended and poorly characterized. Excreted contrast is seen within the urinary bladder. L4-S1 posterior instrumented spinal fusion without acute complication is noted. Reproductive: Unremarkable as visualized. Bones/joints: Degenerative joint and disc disease is seen in the imaged spine. Schmorl's nodes are present. Soft tissues: A small umbilical hernia is present. A loop of nonobstructed small bowel is seen within the hernia (series 3, image 55). CT/CT abdomen pelvis wo con [id number] IMPRESSION: 1. Small bowel containing umbilical hernia without evidence of intestinal obstruction/strangulation. 2. Bilateral lower lobe consolidations concerning for pneumonia and/or atelectatic changes. Please refer to separately dictated CT chest from 12/28/2024 for further characterization and recommendations. 3. Residual bilateral renal nephrograms, which may be from recent contrast administration. Correlate with renal function. 4. Otherwise, no acute process in the abdomen or pelvis to explain the patient's symptoms.
[2024-12-28 12:34] LABS: NT Pro B Type Natriuretic Pept 399 pg/mL (0-125)
[2024-12-28] MEDS: FUROsemide 10 mg/mL SDV 4mL 40 MG IVP (13:02)
[2024-12-28] MEDS: heparin drip 25,000 UNIT/500 ML PREMIX 29 UNIT IV (13:08)
--- NOTE | 2024-12-28 13:34 | PC.NURSE ---
MTS on unit. Gave verbal update on patient. Currently not a candidate due to intact neuro and clinical course. To call and update if patient declines.
[2024-12-28] MEDS: acetaminophen 1,000 MG/100 ML PIGGYBACK 400 MG IV (13:38)
[2024-12-28] MEDS: propofol 1,000 MG/100 ML INJ 9.79 MG IV (16:11)
[2024-12-28] MEDS: fentaNYL 1,000 MCG/100 ML BAG 15 MCG IV ×2 (16:11→23:21)
--- NOTE | 2024-12-28 17:16 | P.PN_ITS ---
Subjective 2 Subjective: - Overnight events noted - Overnight patient was noted to be conf used, found to have hypercapnic respiratory failure, CO2 greater than 102, moved to ICU placed on BiPAP - In the ICU according to nursing staff patient potentially had a seizure-like episode? Became unresponsive, agonal breathing with loss of pulse, rhythm was asystole CPR initiated, 20 minutes, noted difficult airway, requiring 2 intubations, as first airway failed, -Rhythm change from asystole to PEA 2 si nus tachycardia - Levophed started after ROSC, status po st doses of epinephrine, bicarb, -As per nursing notes, patient at roughl y 410am was able to follow commands, overbreathing the vent, nodding to yes and no questions, sedation was optimized by overnight physician - Right IJ central line placed by ER pro vider - Currently he was seen this morning, he is on propofol, fentanyl and Versed for sedation off pressors, febrile, normotensive, on 50% FiO2 - Discussed with nursing staff, - Patient's was seen at bedside thi s afternoon, discussed patient's events overnight with acute hypercapnic respiratory failure,, cardiac arrest episode with ROSC, currently requiring Levophed, sedation is being weaned, Vitals/I&O/Wt Last Vital Signs Temp 102.7 F H 12/28/24 13:00 Pulse 119 H 12/28/24 17:00 Resp 16 12/28/24 17:00 BP 105/59 12/28/24 17:00 Pulse Ox 90 12/28/24 17:00 O2 Del Method Mechanical Ventilation 12/28/24 17:00 O2 Flow Rate 5 12/27/24 19:58 FiO2 45 12/28/24 17:00 12/28/24 12/28/24 12/28/24 06:59 14:59 22:59 Intake Total 2024.571 / 4964.571 1138.156 / 1138.554 554.0337 / 1378.9379 Output Total 1650 / 3000 1450 / 1450 Balance 374.571 / 8018.155 5489.156 / 1138.156 -1209.2181 / -71.0621 Weight last 48 hrs Weight 104.78 kg Weight 108.817 kg Weight 110.132 kg Weight 108.862 kg Physical Exam 2 Const: COMMON NORMALS: no acute distress Eye: OTHER: Pupils are pinpoint, minimally reactive to light Lymph: LYMPHATIC: no lymphadenopathy noted Resp: COMMON NORMALS: normal respiratory effort, No retractions and No use of accessory muscles AUSCULTATION: wheezes Cardio: COMMON NORMALS: regular rate, regular rhythm, S1 normal heart sound present and S2 normal heart sound present RATE: regular rate RHYTHM: r egular rhythm HEART SOUNDS: S1 normal heart sound present and S2 normal heart sound present GI: COMMON NORMALS: Normal to inspection, nondistended, normoactive bowel sounds present and non-tender OTHER: Umbilical hernia present, reducible : OTHER: No CVA tenderness to palpation Extremity: COMMON NORMALS: no pedal edema Skin: COMMON NORMALS: turgor normal GENERAL SKIN EXAM: turgor normal Urinary Catheter Management: Davis: Cath Placed During This Visit: yes Reason for Continuing Indwelling Catheter: Accurate Measurement of Urinary Output in Critically Ill Patients Urinary Catheter Date of Insertion: 12/27/24 Urinary Catheter Time of Insertion: 16:30 Quick SOFA Score: Respiratory Rate: 16 Blood Pressure: 105/59 [place] Coma Scale: 8 qSOFA Score: 1 If qSOFA score 2 or greater, continue: PaO2/FiO2 Ratio (mmHg): 101 Blood Pressure Mean: 74 Bilirubin (mg/dl): 0.5 Platelets (x10?/ml): 283 C reatinine (mg/dl): 0.9 SOFA Score: 6 Evaluation: Current stage of sepsis: septic shock Sepsis stage criteria used: [facility] Sep-1 and Sepsis-3 Crystalloid fluids: less than 30 mL/kg crystalloid fluids ordered Blood cultures ordered: Yes Possible source: p ulmonary and skin/soft tissue Focused Exam: Vital signs: Temp Pulse Resp BP Pulse Ox O2 Del Method FiO2 12/28/24 17:00 119 H 16 105/59 90 Mechanical Ventila tion 45 12/28/24 16:30 120 H 16 89/55 91 Mechanical Ventila tion 45 12/28/24 16:00 116 H 16 101/59 91 Mechanical Ventila tion 45 12/28/24 15:41 115 H 12/28/24 15:40 16 92 45 12/28/24 15:38 113 H 16 93 Mechanical Ventila tion 45 12/28/24 15:30 113 H 16 103/57 93 Mechanical Ventila tion 45 12/28/24 15:00 113 H 16 95/56 93 Mechanical Ventila tion 45 12/28/24 14:30 113 H 16 94/59 93 Mechanical Ventila tion 45 12/28/24 14:00 115 H 16 101/58 93 Mechanical Ventila tion 45 12/28/24 13:30 124 H 16 113/66 91 Mechanical Ventila tion 45 12/28/24 13:14 16 93 50 12/28/24 13:00 102.7 F H 119 H 94/60 93 Mechanical Ventila tion 60 12/28/24 12:30 121 H 16 101/56 93 Mechanical Ventila tion 60 12/28/24 12:00 125 H 16 99/61 93 Mechanical Ventila tion 60 12/28/24 11:36 123 H 12/28/24 11:35 130 H 17 92 Mechanical Ventila tion 55 12/28/24 11:30 121 H 16 105/65 91 Mechanical Ventila tion 60 12/28/24 11:29 17 91 55 12/28/24 11:00 115 H 16 93/61 92 Mechanical Ventila tion 60 12/28/24 10:30 122 H 16 105/59 92 Mechanical Ventila tion 60 12/28/24 10:00 115 H 16 110/61 92 Mechanical Ventila tion 60 12/28/24 09:30 119 H 16 91/56 92 Mechanical Ventila tion 60 12/28/24 09:13 16 93 55 12/28/24 09:00 118 H 16 96/56 95 Mechanical Ventila tion 60 12/28/24 08:30 119 H 16 85/52 94 Mechanical Ventila tion 60 12/28/24 08:26 101.4 F H 12/28/24 08:00 120 H 16 89/57 93 Mechanical Ventila tion 60 12/28/24 07:56 60 12/28/24 07:45 117 H 16 102/61 94 Mechanical Ventila tion 60 12/28/24 07:36 115 H 12/28/24 07:34 116 H 16 95 Mechanical Ventila tion 60 12/28/24 07:30 115 H 16 99/59 96 Mechanical Ventila tion 60 12/28/24 07:28 16 95 60 12/28/24 07:15 115 H 16 95/60 97 Mechanical Ventila tion 60 12/28/24 07:00 101.5 F H 114 H 16 97/58 98 Mechanical Ventila tion 80 12/28/24 06:30 110 H 16 113/66 98 Mechanical Ventila tion 80 12/28/24 06:15 110 H 117/77 98 12/28/24 06:00 114 H 12/28/24 06:00 119 H 96 12/28/24 05:57 16 97 80 12/28/24 05:30 117 H 96 Respiratory exam: positive wheezes Cardiovascular exam: regular rate, regular rhythm, S1 normal heart sound and S2 normal heart sound Capillary refill: > 3 Seconds Peripheral pulse strength: 2+ Slightly Diminished P eripheral pulse location: Radial and Pedal Skin exam: turgor normal Date exam was performed: 12/28/24 Time exam was performed: 17:35 2 Sepsis Screen No Definite Risk 12/26/24, 23:42 Respiratory Rate, (12 - 18) 16 breaths/min Today, 17:00 Blood Pressure 105/59 mmHg Today, 17:00 [place] Coma Scale Score 8 Today, 07:56 Quick SOFA Score 0 12/26/24, 23:42 SOFA Score: 2 ABG PO2/FiO2 Ratio 101 Today, 04:18 [place] Coma Scale Score 8 Today, 07:56 Blood Pressure Mean 74 mmHg Today, 17:00 Total Bilirubin, (0.15-1.2) 0.5 mg/dL Today, 08:08 Platelet Count, (157-399) 283 10^3/cmm Today, 01:55 Creatinine, (0.7-1.2) 0.9 mg/dL Today, 08:08 Data 12/28/24 01:55 12/28/24 08:08 Micro: Microbiology 12/28/24 02:35 Gram Stain - Final Sputum - Endotracheal Tube Aspirate 12/26/24 19:57 Blood Culture - Preliminary Blood NEGATIVE TO DATE 12/26/24 19:59 Blood Culture - Preliminary Blood NEGATIVE TO DATE A&P Assessment and plan 1. Septic shock: 2. Pneumonia: 3. Acute respiratory failure with hypoxia and hypercapnia: 4. NSTEMI (non-ST elevated myocardial infarction): 5. Lactic acidosis: 6. Cardiac arrest with successful resuscitation: 7. Bilateral lower leg cellulitis: 8. BPH associated with nocturia: 9. GERD (gastroesophageal reflux disease): 10. Diastolic CHF: 11. Chronic hypoxic respiratory failure, on home oxygen therapy: 12. Type 2 diabetes mellitus without complication, without long-term current use of insulin: 13. COPD exacerbation: Plan: Acute hypoxic hypercarbic respiratory failure - Multifactorial - Secondary to COPD exacerbation - Secondary to bilateral pneumonia CT/CT angio chest PE protcl [id number] IMPRESSION: 1. Patchy ground-glass opacities within both upper and lower lobes with confluent airspace disease in the right upper lobe. Probable bibasilar atelectasis. 2. No occlusive pulmonary embolism. -Component of systolic and diastolic CHF, avoid fluid therapy Plan - Currently intubated, sedated, mechanical ventilation - Propofol, Precedex for sedation - Fentanyl for sedation, pain control - Minimize FiO2, no end-tidal volume, sedation vacation - IV vancomycin - IV meropenem - Blood cultures - Sputum cultures - DuoNeb - Budesonide - Solu-Medrol 125 mg followed by 40 mg IV every 8 hours -Respiratory viral panel -Hold diuresis for today as patient appears euvolemic -Full code -Heparin drip for DVT prophylaxis Septic shock -Secondary to bilateral pneumonia -Secondary to cellulitis -Will avoid fluid therapy given concerns for fluid overload, systolic and diastolic CHF -Continue Levophed, maintain MAP in 65 NSTEMI -Serial EKGs, serial troponins, telemetry monitoring -Aspirin, statin -Cardiac echo -Heparin drip Cardiac arrest episode with ROSC -20 minutes of CPR, rhythm of asystole to PEA to sinus tachycardia, status post doses of epinephrine, bicarbonate -Cardiac workup as above COPD exacerbation -History of COPD Hypophosphatemia, replace Lactic acidosis, monitor Umbilical hernia, reducible -With transaminitis -Will do CT scan abdomen pelvis Acute encephalopathy - Initially concerns for hypercarbia - Currently intubated, sedated on mechanical ventilation - Sedation vacation - Neurochecks, NIH stroke scale Full code Protonix for GI prophylaxis Prognosis guarded PDMP PDMP Reviewed: Not Reviewed Attestations 2 Medical Necessity Statement*: Patient requires hospitalization acute hypoxic respiratory failure, pneumonia, sepsis, septic shock, pneumonia, cellulitis, cardiac arrest status post ROSC, COPD exacerbation, lactic acidosis hypophosphatemia, NSTEMI Coding Level of Care Code Critical Care >/= 30 minutes Critical care time (in minutes): 60 The high probability of a clinically significant, sudden or life threatening deterioration, as referenced in this documentation, required my full and direct attention, intervention and personal management. The critical care time shown is in addition to time spent performing any reported separately billable procedures and includes the following: [x] Data and vital sign review and interpretation [x ] Patient assessment, examination and intervention [x] Medication orders and management [x] Patient/Family updates as able [x] Care Coordination and Documentation. Diagnoses Septic shock A41.9; R65.21 Pneumonia J18.9 Acute respiratory failure with hypoxia and hypercapnia J96.01; J96.02 NSTEMI (non-ST elevated myocardial infarction) I21.4 Lactic acidosis E87.20 Cardiac arrest with successful resuscitation I46.9 Bilateral lower leg cellulitis L03.116; L03.115 BPH associated with nocturia N40.1; R35.1 GERD (gastroesophageal reflux disease) K21.9 Diastolic CHF I50.30 Chronic hypoxic respiratory failure, on home oxygen therapy J96.11; Z99.81 Type 2 diabetes mellitus without complication, without long-term current use of insulin E11.9 COPD exacerbation J44.1 Sepsis Event Note Evaluation Current stage of sepsis: septic shock Possible source: pulmonary and skin/soft tissue Focused Exam Vital Signs Temp Pulse Resp BP Pulse Ox O2 Del Method FiO2 12/28/24 17:00 119 H 16 105/59 90 Mechanical Ventilation 45 12/28/24 16:30 120 H 16 89/55 91 Mechanical Ventilation 45 12/28/24 16:00 116 H 16 101/59 91 Mechanical Ventilation 45 12/28/24 15:41 115 H 12/28/24 15:40 16 92 45 12/28/24 15:38 113 H 16 93 Mechanical Ventilation 45 12/28/24 15:30 113 H 16 103/57 93 Mechanical Ventilation 45 12/28/24 15:00 113 H 16 95/56 93 Mechanical Ventilation 45 12/28/24 14:30 113 H 16 94/59 93 Mechanical Ventilation 45 12/28/24 14:00 115 H 16 101/58 93 Mechanical Ventilation 45 12/28/24 13:30 124 H 16 113/66 91 Mechanical Ventilation 45 12/28/24 13:14 16 93 50 12/28/24 13:00 102.7 F H 119 H 94/60 93 Mechanical Ventilation 60 12/28/24 12:30 121 H 16 101/56 93 Mechanical Ventilation 60 12/28/24 12:00 125 H 16 99/61 93 Mechanical Ventilation 60 12/28/24 11:36 123 H 12/28/24 11:35 130 H 17 92 Mechanical Ventilation 55 12/28/24 11:30 121 H 16 105/65 91 Mechanical Ventilation 60 12/28/24 11:29 17 91 55 12/28/24 11:00 115 H 16 93/61 92 Mechanical Ventilation 60 12/28/24 10:30 122 H 16 105/59 92 Mechanical Ventilation 60 12/28/24 10:00 115 H 16 110/61 92 Mechanical Ventilation 60 12/28/24 09:30 119 H 16 91/56 92 Mechanical Ventilation 60 12/28/24 09:13 16 93 55 12/28/24 09:00 118 H 16 96/56 95 Mechanical Ventilation 60 12/28/24 08:30 119 H 16 85/52 94 Mechanical Ventilation 60 12/28/24 08:26 101.4 F H 12/28/24 08:00 120 H 16 89/57 93 Mechanical Ventilation 60 12/28/24 07:56 60 12/28/24 07:45 117 H 16 102/61 94 Mechanical Ventilation 60 12/28/24 07:36 115 H 12/28/24 07:34 116 H 16 95 Mechanical Ventilation 60 12/28/24 07:30 115 H 16 99/59 96 Mechanical Ventilation 60 12/28/24 07:28 16 95 60 12/28/24 07:15 115 H 16 95/60 97 Mechanical Ventilation 60 12/28/24 07:00 101.5 F H 114 H 16 97/58 98 Mechanical Ventilation 80 12/28/24 06:30 110 H 16 113/66 98 Mechanical Ventilation 80 12/28/24 06:15 110 H 117/77 98 12/28/24 06:00 114 H 12/28/24 06:00 119 H 96 12/28/24 05:57 16 97 80 12/28/24 05:30 117 H 96 Capillary refill: > 3 Seconds Peripheral pulse strength: 2+ Slightly Diminished Date exam was performed: 12/28/24 Time exam was performed: 17:35 Problem List 1. Bilateral lower leg cellulitis: Status: Acute 2. Chronic hypoxic respiratory failure, on home oxygen therapy: Status: Acute 3. Type 2 diabetes mellitus without complication, without long-term current use of insulin: Status: Acute 4. COPD exacerbation: Status: Inactive
[2024-12-28] MEDS: methylPREDNISolone sod succ 125 mg/2 mL INJ IVP (18:54)
[2024-12-28 19:24] LABS: Partial Thromboplastin Time 52.3 SECONDS (23.9-36.7)
[2024-12-28 19:28] LABS: Anion Gap 13.1 (5-19); Blood Urea Nitrogen 14 mg/dL (6-20); Calcium 8.1 mg/dL (8.5-10.5); Chloride 93 mmol/L (98-107); Creatinine Clr Calc Pharmacy 105.0046; Glucose 150 mg/dL (65-115); Magnesium 1.9 mg/dL (1.7-2.3); Osmolality Calculated 305 mOsm/kg (285-295); Potassium 3.1 mmol/L (3.5-5.1); Sodium 146 mmol/L (136-145)
[2024-12-28 19:32] LABS: Carbon Dioxide 43 mmol/L (22-29)
--- NOTE | 2024-12-28 20:08 | CTR_ITS ---
PROCEDURE INFORMATION: Exam: CT Head Without Contrast Exam date and time: 12/28/2024 11:01 PM Age: 44 years old Clinical indication: Altered mental status/memory loss; Additional info: Rule out stroke TECHNIQUE: Imaging protocol: Computed tomography of the head without contrast. Radiation optimization: All CT scans at this facility use at least one of these dose optimization techniques: automated exposure control; mA and/or kV adjustment per patient size (includes targeted exams where dose is matched to clinical indication); or iterative reconstruction. COMPARISON: CT head wo con* [id number] 12/27/2024 9:20 PM RADIATION DOSE METRICS: Total DLP (mGy-cm): 1284.38 FINDINGS: Brain: Lacunar focus in the right basal ganglia, likely chronic. Probable focus of encephalomalacia in the left conn radiata. Stable calcification in the right basal ganglia. Cerebral ventricles: No ventriculomegaly. Paranasal sinuses: Mild bilateral maxillary sinus mucosal thickening. Mastoid air cells: Visualized mastoid air cells are well aerated. Bones: Unremarkable. No acute fracture. Soft tissues: Unremarkable. CT/CT head wo con* [id number] IMPRESSION: No acute intracranial abnormality.. Chronic findings as above.
[2024-12-28] MEDS: magnesium sulfate premix 1 GM/100 ML PIGGYBACK IV (20:18)
[2024-12-28 21:33] LABS: Coronavirus 229E,HKU1,NL63,OC4 Not Detected (NOT DETECT); Parainfluenza Virus Type 1 Not Detected (NOT DETECT); Parainfluenza Virus Type 2 Not Detected (NOT DETECT); Parainfluenza Virus Type 3 Not Detected (NOT DETECT); Parainfluenza Virus Type 4 Not Detected (NOT DETECT); SARS-COV-2 Not Detected (NOT DETECT)
[2024-12-28] MEDS: norepinephrine 4 MG/250 ML BAG 7.5 MG IV (23:21)
[2024-12-29] VITALS (120 sets, daily range): BP systolic 92–162; BP diastolic 55–98; PULSE 80–140; RESP 12–19; TEMP 37.1–39.3; O2SAT 85–96
[2024-12-29] MEDS: propofol 1,000 MG/100 ML INJ 13.06 MG IV (03:02)
[2024-12-29 03:07] LABS: Hematocrit 37.9 % (37-53); Hemoglobin 11.20 g/dL (11.27-16.99); Mean Corpuscular HGB Conc 29.6 g/dL (30-55); Mean Corpuscular Hemoglobin 28.5 pg (27-33); Mean Corpuscular Volume 96.4 fl (82-101); Nucleated Red Blood Cells % 0 %; Platelet Count 236 10^3/cmm (157-399); Red Blood Count 3.93 10^6/uL (3.85-5.65); White Blood Count 10.58 10^3/uL (3.29-11.43)
[2024-12-29 03:19] LABS: Partial Thromboplastin Time 54.3 SECONDS (23.9-36.7)
[2024-12-29 03:26] LABS: INR 1.06 (0.8-1.2); Prothrombin Time 14.60 SECONDS (12.1-14.9)
[2024-12-29 03:29] LABS: Alanine Aminotransferase 54 U/L (0-41); Albumin Level 3.0 g/dL (3.5-5.2); Alkaline Phosphatase 58 U/L (40-130); Anion Gap 16.3 (5-19); Aspartate Amino Transferase 51 U/L (0-40); Blood Urea Nitrogen 18 mg/dL (6-20); Calcium 7.9 mg/dL (8.5-10.5); Carbon Dioxide 39 mmol/L (22-29); Chloride 95 mmol/L (98-107); Creatinine Clr Calc Pharmacy 115.5051; Globulin 3.1 g/dL (1.3-4.6); Glucose 258 mg/dL (65-115); Magnesium 2.1 mg/dL (1.7-2.3); Osmolality Calculated 315 mOsm/kg (285-295); Potassium 3.3 mmol/L (3.5-5.1); Sodium 147 mmol/L (136-145); Total Protein 6.1 g/dL (6.6-8.7)
[2024-12-29 03:30] LABS: Lactate (Lactic Acid level) 1.5 mmol/L (0.5-2.2)
[2024-12-29] MEDS: heparin 5,000 unit/mL INJ 1 mL IVP ×2 (03:35→17:50)
[2024-12-29 04:09] LABS: NT Pro B Type Natriuretic Pept 307 pg/mL (0-125); Procalcitonin 0.66 ng/mL (0-0.5)
[2024-12-29] MEDS: heparin drip 25,000 UNIT/500 ML PREMIX 33 UNIT IV (04:23)
[2024-12-29] MEDS: pantoprazole 40 mg SDV IVP (04:25)
[2024-12-29 06:13] LABS: ABG PCO2 50.5 mmHg (35-45); ABG PH Result 7.56 (7.35-7.45); Arterial Blood Gas Hematocrit 35.7 % (42-52); Blood Gas Operator Identificat SAM; Blood Gas Sample Site Brachial, left; Blood Gas Sample Type Arterial; Blood Gas Tidal Volume 0.50; HCO3 ABG 45.3 mmol/L (22-26); PEEP 8.0 cmH20; PO2 ABG 57.8 mmHg (80.0-100.0); PO2 FiO2 Ratio Arterial Blood 115
--- NOTE | 2024-12-29 07:00 | XR_ITS ---
WS: [id number] XR chest 1V portable [id number] REASON FOR EXAM: sob FINDINGS: There are multiple overlying tubes, wires, etc. degrading the diagnostic quality of the examination. Endotracheal tube, right internal jugular central venous line, and nasogastric tube remain in proper position. Compared to the examination of 12/28/2024 the opacity in the uppermost left lung has resolved. The opacity in the central right lung has partially resolved and there is an area of platelike atelectasis. The right hilar region remains prominent. Extensive paraseptal emphysematous changes in the right lower lung. XR/XR chest 1V portable [id number] IMPRESSION: Improving abnormal chest. Based on chest x-ray and CT chest findings, some susp icion for central right lung neoplasm resulting with atelectasis in the right l chari.
[2024-12-29] MEDS: fentaNYL 1,000 MCG/100 ML BAG 12.5 MCG IV ×2 (07:19→16:55)
--- NOTE | 2024-12-29 07:55 | USCV_ITS ---
Valentino Cerrato Age: 44 Gender: M : 1980 Exam Date: 12/29/2024 19:51 Ordering Phys: Martin Graham MD Technologist: ROB Exam Location: [facility] [place] Indication: sob, respiratory failure on vent in ICU-4 BP: 129 / 74 HR: 94 Rhythm: Sinus Technical Quality: Adequate MEASUREMENTS (Male / Female) Normal Values 2D ECHO LV Diastolic Diameter PLAX 4.7 cm 4.2 - 5.9 / 3.9 - 5.3 cm IVS Diastolic Thickness 1.1 cm 0.6 - 1.0 / 0.6 - 0.9 cm IVS Systolic Thickness 2.0 cm LVPW Diastolic Thickness 1.1 cm 0.6 - 1.0 / 0.6 - 0.9 cm LVPW Systolic Thickness 1.3 cm LVOT Diameter 1.9 cm LV Ejection Fraction 2D Teich 67.7 % LV Ejection Fraction MOD 4C 66.1 % LV Ejection Fraction MOD 2C 57.1 % LV Ejection Fraction 2C AL 62.1 % LA Diameter 3.4 cm Aorta at Sinotubular Diameter 2.5 cm IVC Diameter 2.8 cm M-MODE LA Ao Ratio MM 1.2 AV Cusp Separation MM 2.2 cm DOPPLER AV Peak Velocity 129.0 cm/s LVOT Peak Velocity 96.0 cm/s AV Area Cont Eq vti 2.1 cm squared AV Area Cont Eq pk 2.1 cm squared MV Peak Velocity 128.0 cm/s MV Area PHT 3.6 cm squared Mitral E to A Ratio 1.3 TV Peak E Velocity 43.0 cm/s PV Peak Velocity 89.0 cm/s FINDINGS Left Ventricle Normal left ventricular size, systolic function and wall thickness with no regional wall motion abnormality. Left ventricular ejection fraction is 66%. Normal left ventricular diastolic function. Right Ventricle Normal right ventricular size and systolic function. RVSP could not be calculated due to incomplete tricuspid regurgitation velocity profile. Right Atrium Normal right atrial size. Left Atrium Normal left atrial size. IA Septum Normal appearance of the interatrial septum. Mitral Valve Normal mitral valve structure. No mitral valve stenosis or regurgitation. Aortic Valve Normal aortic valve structure. No aortic valve stenosis or regurgitation. Tricuspid Valve Normal tricuspid valve structure. No tricuspid valve stenosis or regurgitation. Pulmonic Valve Normal pulmonic valve structure. No pulmonic valve stenosis or regurgitation. Pericardium No pericardial effusion. Aorta Normal diameter of the aortic root and ascending thoracic aorta. IVC Dilated IVC on ventilator CONCLUSIONS Normal left ventricular size, systolic function and wall thickness with ejection fraction of 66 %. Normal right ventricular size and systolic function. No significant valvular abnormalities. Angelito Duval MD, FACC (Electronically Signed) Final Date: 29 December 2024 22:04 S
[2024-12-29] MEDS: methylPREDNISolone sod succ 40 mg/mL INJ IVP ×2 (08:21→16:51)
[2024-12-29] MEDS: dexmedeTOMIDine 0.9 % NaCL 400 MCG/100 ML PREMIX IV (08:21)
[2024-12-29] MEDS: FUROsemide 10 mg/mL SDV 4mL 40 MG IVP (08:22)
[2024-12-29] MEDS: lidocaine 1% 5 ML in potassium chloride premix 100 ML 52.5 ML IV (08:39)
[2024-12-29] MEDS: albumin 50 G/200 ML BAG 60 G IV (08:51)
[2024-12-29] MEDS: propofol 1,000 MG/100 ML INJ 16.32 MG IV (09:30)
[2024-12-29 10:40] LABS: Partial Thromboplastin Time 61.5 SECONDS (23.9-36.7)
[2024-12-29] MEDS: dexmedeTOMIDine 0.9 % NaCL 400 MCG/100 ML PREMIX 20.96 MCG IV (15:43)
[2024-12-29 17:34] LABS: Partial Thromboplastin Time 54.3 SECONDS (23.9-36.7)
--- NOTE | 2024-12-29 18:21 | P.PN_ITS ---
Subjective 2 Subjective: Patient was seen this morning, currently on minimal Levophed, sedation is being weaned down, 50% FiO2, he is able to follow commands, able to nod to yes or no questions he is able to squeeze my fingers bilaterally able to wiggle his toes, discussed plans on spontaneous breathing trial, respiratory therapy reports thick secretions home endotracheal tube - Patient seen throughout the day on spo ntaneous breathing trial, on 50% FiO2 continues to follow commands does have episodes of agitation, febrile in the afternoon, Vitals/I&O/Wt Last Vital Signs Temp 102.8 F H 12/29/24 16:30 Pulse 99 12/29/24 16:30 Resp 15 12/29/24 17:21 BP 129/74 12/29/24 16:30 Pulse Ox 90 12/29/24 17:21 O2 Del Method Mechanical Ventilation 12/29/24 16:30 O2 Flow Rate 5 12/27/24 19:58 FiO2 50 12/29/24 17:21 12/29/24 12/29/24 12/29/24 06:59 14:59 22:59 Intake Total 1224.787 / 3071.5399 1075.296 / 1075.296 545.010 / 1620.306 Output Total 1050 / 2500 1600 / 1600 800 / 2400 Balance 174.787 / 571.5399 -524.704 / -524.704 -254.990 / -779.694 Weight last 48 hrs Weight 107.456 kg Weight 104.78 kg Physical Exam 2 Const: COMMON NORMALS: no acute distress ORIENTATION/CONSCIOUSNESS: Yes awake; not oriented to person, not oriented to place and not oriented to time OTHER: Intubated, on sedation Eye: OTHER: Pupils are equal round reactive to light Resp: COMMON NORMALS: normal respiratory effort, No retractions and No use of accessory muscles AUSCULTATION: crackles and wheezes Cardio: COMMON NORMALS: regular rate, regular rhythm, S1 normal heart sound present and S2 normal heart sound present RATE: regular rate RHYTHM: r egular rhythm HEART SOUNDS: S1 normal heart sound present and S2 normal heart sound present GI: COMMON NORMALS: Normal to inspection, nondistended, normoactive bowel sounds present and non-tender Extremity: COMMON NORMALS: no pedal edema Neuro: SENSORIUM/ORIENTATION: No oriented to person, No oriented to place and No oriented to time Urinary Catheter Management: Davis: Cath Placed During This Visit: yes Reason for Continuing Indwelling Catheter: Accurate Measurement of Urinary Output in Critically Ill Patients Urinary Catheter Date of Insertion: 12/27/24 Urinary Catheter Time of Insertion: 16:30 Data 12/29/24 03:00 12/29/24 03:00 Micro: Microbiology 12/28/24 02:35 Gram Stain - Final Sputum - Endotracheal Tube Aspirate Sputum Culture - Preliminary A&P Assessment and plan 1. Septic shock: 2. Pneumonia: 3. Acute respiratory failure with hypoxia and hypercapnia: 4. NSTEMI (non-ST elevated myocardial infarction): 5. Lactic acidosis: 6. Cardiac arrest with successful resuscitation: 7. Bilateral lower leg cellulitis: 8. BPH associated with nocturia: 9. GERD (gastroesophageal reflux disease): 10. Diastolic CHF: 11. Chronic hypoxic respiratory failure, on home oxygen therapy: 12. Type 2 diabetes mellitus without complication, without long-term current use of insulin: 13. COPD exacerbation: Plan: Acute hypoxic hypercarbic respiratory failure - Multifactorial - Secondary to COPD exacerbation - Secondary to bilateral pneumonia CT/CT angio chest PE protcl [id number] IMPRESSION: 1. Patchy ground-glass opacities within both upper and lower lobes with confluent airspace disease in the right upper lobe. Probable bibasilar atelectasis. 2. No occlusive pulmonary embolism. -Component of systolic and diastolic CHF, avoid fluid therapy Plan - Currently intubated, sedated, mechanical ventilation - Propofol, Precedex for sedation - Fentanyl for sedation, pain control - Minimize FiO2, minimize tidal volume, sedation vacation - IV vancomycin - IV meropenem - Blood cultures - Sputum cultures - DuoNeb - Budesonide - Solu-Medrol 40 mg IV every 8 hours -Respiratory viral panel - 1 dose IV Lasix today -Full code -Heparin drip for DVT prophylaxis Septic shock -Secondary to bilateral pneumonia -Secondary to cellulitis -Will avoid fluid therapy given concerns for fluid overload, systolic and diastolic CHF -Continue Levophed, maintain MAP in 65 NSTEMI -Serial EKGs, serial troponins, telemetry monitoring -Aspirin, statin -Cardiac echo pending -Heparin drip Cardiac arrest episode with ROSC -20 minutes of CPR, rhythm of asystole to PEA to sinus tachycardia, status post doses of epinephrine, bicarbonate -Cardiac workup as above COPD exacerbation -History of COPD Hypophosphatemia, replace Lactic acidosis, monitor Umbilical hernia, reducible -With transaminitis CT/CT abdomen pelvis wo con [id number] IMPRESSION: 1. Small bowel containing umbilical hernia without evidence of intestinal obstruction/strangulation. 2. Bilateral lower lobe consolidations concerning for pneumonia and/or atelectatic changes. Please refer to separately dictated CT chest from 12/28/2024 for further characterization and recommendations. 3. Residual bilateral renal nephrograms, which may be from recent contrast administration. Correlate with renal function. 4. Otherwise, no acute process in the abdomen or pelvis to explain the patient's symptoms. Acute encephalopathy - Initially concerns for hypercarbia - Currently intubated, sedated on mechanical ventilation - Sedation vacation - Neurochecks, NIH stroke scale Full code Protonix for GI prophylaxis Prognosis guarded Plan for today, sedation vacation, fever control, IV antibiotics, IV steroids, wean off Levophed, heparin drip, await cardiac studies PDMP PDMP Reviewed: Not Reviewed Attestations 2 Medical Necessity Statement*: Requires hospitalization, for sepsis, septic shock, acute hypoxic respiratory failure, cardiac arrest, NSTEMI, acute encephalopathy, pneumonia Coding Level of Care Code Critical Care >/= 30 minutes Critical care time (in minutes): 45 The high probability of a clinically significant, sudden or life threatening deterioration, as referenced in this documentation, required my full and direct attention, intervention and personal management. The critical care time shown is in addition to time spent performing any reported separately billable procedures and includes the following: [x] Data and vital sign review and interpretation [x ] Patient assessment, examination and intervention [x] Medication orders and management [x] Patient/Family updates as able [x] Care Coordination and Documentation. Diagnoses Septic shock A41.9; R65.21 Pneumonia J18.9 Acute respiratory failure with hypoxia and hypercapnia J96.01; J96.02 NSTEMI (non-ST elevated myocardial infarction) I21.4 Lactic acidosis E87.20 Cardiac arrest with successful resuscitation I46.9 Bilateral lower leg cellulitis L03.116; L03.115 BPH associated with nocturia N40.1; R35.1 GERD (gastroesophageal reflux disease) K21.9 Diastolic CHF I50.30 Chronic hypoxic respiratory failure, on home oxygen therapy J96.11; Z99.81 Type 2 diabetes mellitus without complication, without long-term current use of insulin E11.9 COPD exacerbation J44.1
[2024-12-29] MEDS: dexmedeTOMIDine 0.9 % NaCL 400 MCG/100 ML PREMIX 23.58 MCG IV ×2 (18:36→21:57)
--- NOTE | 2024-12-29 19:22 | PM.CONSULT ---
Providers/Reason For Consult Consulting Physician/Specialty*: Dr. Wade Solitario Reason for Consult*: Acute hypoxemic respiratory failure, ventilator management, septic shock Attending Physician: Matrin Graham MD Primary Care Provider: Raina Parkinson DO History of Present Illness History of Present Illness Valentino Cerrato is a 44 year old male with past medical history of diabetes longstanding ischemic venous stasis and chronic cellulitis in bilateral lower extremities comes in initially to the ER on 12/17/2024 and leaves AMA within a few hours, returns back again on 12/26/2024 but malodorous feet, seen in ER vancomycin started along with Zosyn. While in the hospital he was found to be somnolent, ABG obtained showed hypercapnic acute on chronic respiratory failure with CO2 102, BiPAP started and eventually intubated for airway protection. CT head was normal. ended up having a PEA cardiac arrest, multiple rounds of epi given 2 A of bicarb eventually ROSC was obtained. Patient had a difficult airway requiring 2 attempts at intubation. Patient reportedly also had seizure-like activity prior to cardiac rest. Eventually after cardiac arrest she did wake up and follow commands. Currently on propofol fentanyl and Versed drips having to take thick tube secretions. Febrile with a temp of 102F for the last 2 days,. Endotracheal tube aspirate sent off for cultures pending results. Currently tolerating ventilator well. He is also on Solu-Medrol 40 every 8 receiving IV vancomycin and meropenem. Precedex at 0.9, propofol at 10, and fentanyl 125 mics as well as heparin drip drips on. CT chest abdomen pelvis obtained. Small bowel containing umbilical hernia without strangulation or obstruction seen along with bilateral lower lobe pneumonia like changes. satting 94% ABG obtained showed a pH of 7.56 pCO2 of 50 PaO2 57.5. Vent settings are VC-AC at 500 mL/kg rate of 12, PI of 27, PEEP of 8 FiO2 50. Pertinent positive labs of sodium of 147, potassium 3.3, creatinine 1.2, AST ALT mildly elevated at 50, elevated C-reactive protein at 85. Chest x-ray reviewed by me personally shows bilateral pulmonary infiltrates suggestive of multifocal pneumonia and confirmed on CT showing patchy pulmonary opacities suggestive of multifocal pneumonia mixed with air bronchograms on the right and COPD like changes. Right main bronchus as well as upper lobe bronchus abruptly narrows down unclear whether there is endobronchial lesion or extrinsic compression or mucous plugging. Review of systems unable to obtain patient on the ventilator Medications/Allergies Home Medications ?Medication ?Instructions ?Recorded ?Confirmed ?Last Taken ?Type nerve stimulator ##1 04/07/19 12/27/24 Unknown History oxygen-air delivery systems 01/06/21 12/27/24 Unknown History blood-glucose meter #1 ea 06/14/21 12/27/24 Unknown Rx lancets 30 gauge (OneTouch Delica ##100 11/29/21 12/27/24 Unknown Rx Plus Lancet) sodium chloride 0.65 % nasal spray 2 spray intranasal Q4H PRN dry 02/24/24 12/27/24 Unknown Rx aerosol (Saline Nasal) nasal passages #44 mL Portable 02 concentrator #1 ea 06/09/24 12/27/24 Unknown Rx 02 #1 ea 07/07/24 12/27/24 Unknown Rx tamsulosin 0.4 mg capsule See Rx Instructions .Route 07/14/24 12/27/24 12/26/24 Rx .COMPLEX #90 caps tiotropium bromide 18 mcg capsule See Rx Instructions .Route 08/31/24 12/27/24 12/26/24 Rx with inhalation device (Spiriva .COMPLEX #30 caps with HandiHaler) aspirin 81 mg tablet,delayed See Rx Instructions .Route 10/12/24 12/27/24 12/26/24 Rx release .COMPLEX #90 tabs blood sugar diagnostic (Blood #50 ea 10/12/24 12/27/24 Unknown Rx Glucose Test strips) testosterone cypionate 200 mg/mL 200 mg SUBCUT .every 14 days #2 mL 10/16/24 12/27/24 Unknown Rx intramuscular oil empagliflozin 25 mg tablet 25 mg PO QAM #90 tabs 10/18/24 12/27/24 12/26/24 Rx (Jardiance) metformin 750 mg tablet,extended 750 mg PO BID #180 tabs 10/18/24 12/27/24 12/26/24 Rx release 24 hr fluticasone propionate 50 See Rx Instructions .Route 11/02/24 12/27/24 Unknown Rx mcg/actuation nasal .COMPLEX #16 grams spray,suspension metoprolol tartrate 25 mg tablet See Rx Instructions .Route 12/07/24 12/27/24 12/26/24 Rx .COMPLEX #90 tabs pantoprazole 40 mg tablet,delayed 40 mg PO DAILY #90 tabs 12/07/24 12/27/24 12/26/24 Rx release hydrochlorothiazide 12.5 mg tablet See Rx Instructions .Route 12/08/24 12/27/24 12/26/24 Rx .COMPLEX #90 tabs rizatriptan 10 mg disintegrating 10 mg PO Q2H PRN migraine headache 12/08/24 12/27/24 Unknown Rx tablet (Maxalt-SALT REFINER) #27 tabs Allergies Allergy/AdvReac Type Severity Reaction Status Date / Time Penicillins Allergy edema Verified 12/17/24 08:28 Current Medications Generic Name Dose Route Start Last Admin Trade Name Freq PRN Reason Stop Dose Admin Acetaminophen 650 mg 12/27/24 00:54 12/29/24 12:37 Acetaminophen 325 Mg Tablet PO 650 mg Q6H PRN Administration Mild/Mod Pain Or Temp >/= 101 Albuterol/Ipratropium 3 ml 12/28/24 08:00 12/29/24 15:11 Ipratropium-Albuterol 3 Ml Neb INHALATION 3 ml Q4H.RESPIRATORY LILIANA Administration Aspirin 81 mg 12/28/24 08:00 12/29/24 04:28 Aspirin 81 Mg Ec Tablet PO 81 mg DAILY LILIANA Administration Atorvastatin Calcium 80 mg 12/28/24 21:00 12/28/24 20:25 Atorvastatin 40 Mg Tablet PO 80 mg BEDTIME LILINAA Administration Budesonide 0.5 mg 12/28/24 20:00 12/29/24 07:46 Budesonide 0.5 Mg/2 Ml Neb INHALATION 0.5 mg BID.RESPIRATORY LILIANA Administration Docusate Sodium 100 mg 12/27/24 05:00 12/29/24 17:04 Docusate Sodium 100 Mg Capsule PO 100 mg BID LILIANA Administration Heparin Sodium (Porcine) 0 unit 12/28/24 11:44 12/29/24 17:50 Heparin 5,000 Unit/Ml Inj 1 Ml IVP 2,100 unit PRN PRN Administration Heparin Weight Based Protocol -Subsequent Bolus Protocol Norepinephrine Bitartrate 4 mg in 250 mls @ 0 mls/hr 12/28/24 03:00 12/29/24 01:08 Levophed IV 0 mcg/min .Q0M LILIANA 0 mls/hr Protocol Titration Per Protocol Fentanyl 1,000 mcg in 100 mls @ 0 mls/hr 12/28/24 03:00 12/29/24 16:55 Sublimaze IV 125 mcg/hr .Q0M LILIANA 12.5 mls/hr Protocol Administration Per Protocol Propofol 1,000 mg in 100 mls @ 0 mls/hr 12/28/24 04:15 12/29/24 19:13 Diprivan IV 10 mcg/kg/min .Q0M LILIANA 6.53 mls/hr Protocol Titration Per Protocol Heparin Sodium/Sodium Chloride 25,000 unit in 500 mls @ 0 mls/hr 12/28/24 11:45 12/29/24 17:51 Heparin Drip IV 16.7 unit/kg/hr CONT LILIANA 35 mls/hr Protocol Titration Per Protocol Dexmedetomidine/Sodium Chloride 400 mcg in 100 mls @ 0 mls/hr 12/28/24 17:15 12/29/24 18:36 Precedex IV 0.9 mcg/kg/hr .Q0M LILIANA 23.58 mls/hr Protocol Administration Per Protocol Vancomycin HCl 1,000 mg/ 250 mls @ 250 mls/hr 12/29/24 00:30 12/29/24 17:05 Sodium Chloride IV Infused Q8H LILIANA Infusion Insulin Human Lispro 0 unit 12/27/24 08:00 12/29/24 17:32 Insulin Lispro 100 Unit/1 Ml SUBCUT 8 unit WM&BEDTIME LILIANA Administration Protocol Lanolin 1 applic 12/29/24 16:41 12/29/24 17:32 Lanolin Oint 7 Gm TOPICAL 1 applic PRN PRN Administration DRYNESS Meropenem 500 mg 12/28/24 15:00 12/29/24 16:02 Meropenem 500 Mg Sdv IVP 500 mg Q8H LILIANA Administration Protocol Methylprednisolone Sodium Succinate 40 mg 12/29/24 09:00 12/29/24 16:51 Methylprednisolone Sod Succ 40 Mg/Ml Inj IVP 40 mg Q8H LILIANA Administration Pantoprazole Sodium 40 mg 12/28/24 05:00 12/29/24 04:25 Pantoprazole 40 Mg Sdv IVP 40 mg DAILY LILIANA Administration Potassium Phosphate 500 mg 12/29/24 05:30 12/29/24 12:36 Phosphorus 250 Mg Tablet PO 500 mg Q8H LILIANA Administration Senna 17.2 mg 12/27/24 21:00 12/28/24 20:24 Sennosides 8.6 Mg Tablet PO 17.2 mg BEDTIME LILIANA Administration PFSH Acute PFSH: Medical History (Updated 12/29/24 @ 19:37 by Wade Solitario MD) Multifocal pneumonia Type 2 diabetes mellitus Chronic venous stasis dermatitis of both lower extremities Bilateral impacted cerumen Colonoscopy refused Essential tremor Cellulitis of lower extremity, unspecified laterality Right leg pain Osteoarthrosis-multiple sites Bilateral shoulders, right knee, cervical, hips COPD, group B, by GOLD 2017 classification Chronic migraine without aura, with status migrainosus Chronic pain syndrome Erectile dysfunction Diabetes GERD (gastroesophageal reflux disease) Lumbar post-laminectomy syndrome Cataract Right Surgical History S/P carpal tunnel release right Status post lung surgery S/P cervical spinal fusion Family History Other Cancer Diabetes Social History Smoking and tobacco/nicotine status: former use of tobacco/nicotine Quit status (tobacco/nicotine): has quit using Year quit tobacco: 2023 Former quit date comment: 1 pack/day for 20 years Alcohol intake: never Substance/Drug Use: never Additional social history: Patient wants full CODE STATUS as discussed with Seymour Garza MD on 12/17/2024. 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 Current gender identity: Male Vitals/I&O/Wt Last Vital Signs Temp 102.1 F H 12/29/24 18:30 Pulse 82 12/29/24 18:30 Resp 15 12/29/24 17:21 BP 133/80 12/29/24 18:30 Pulse Ox 90 12/29/24 18:30 O2 Del Method Mechanical Ventilation 12/29/24 18:30 O2 Flow Rate 5 12/27/24 19:58 FiO2 50 12/29/24 18:30 12/29/24 12/29/24 12/29/24 06:59 14:59 22:59 Intake Total 1224.787 / 3071.5399 1075.296 / 1075.296 614.252 / 1689.548 Output Total 1050 / 2500 1600 / 1600 800 / 2400 Balance 174.787 / 571.5399 -524.704 / -524.704 -185.748 / -710.452 Weight last 48 hrs Weight 236 lb 14.4 oz Weight 231 lb Physical Exam Narrative: per RN General: Intubated sedated obese HEENT: conj clear, EOMI, PERRL Neck: supple Pulmonary: Rhonchorous breath sounds bilaterally Cardiovascular: rrr, nl s1s2, no mrg Abdomen: soft, nt, nd, no r/g, mildly distended Extremities: pulses +, no edema Skin: no rash Neurologic: grossly intact Agree with above exam Urinary Catheter Management: Davis: Cath Placed During This Visit: yes Reason for Continuing Indwelling Catheter: Accurate Measurement of Urinary Output in Critically Ill Patients Urinary Catheter Date of Insertion: 12/27/24 Urinary Catheter Time of Insertion: 16:30 Data 12/29/24 03:00 12/29/24 03:00 Micro: Microbiology 12/28/24 02:35 Gram Stain - Final Sputum - Endotracheal Tube Aspirate Sputum Culture - Preliminary A&P Assessment and plan 1. Acute respiratory failure with hypoxia and hypercapnia: 2. Multifocal pneumonia: Plan: This is a 44-year-old male past medical history of multiple medical problems presents initially to be with bilateral lower lower extremity cellulitis, course complicated by cardiac arrest due to hypercapnic respiratory failure currently on the ventilator. CT shows extensive multifocal pneumonia like changes # Acute on chronic respiratory failure -Continue mechanical ventilation at this time. Tracheal aspirate cultures reviewed showing multi organisms - Continue to wean vent settings and keep O2 sats above 90 -Wean off FiO2 as tolerated. Continue Solu-Medrol and bronchodilators # Septic shock-source is bilateral leg cellulitis as well as MULTIFOCAL pneumonia Awaiting cultures Consent for bronchoscopy will be obtained to plan for tomorrow. Heparin drip needs to be stopped 4 to 5 hours prior to procedure. # PEA cardiac arrest status post CPR for 20 minutes with return of ROSC -Will obtain echocardiogram in the AM. # Difficult airway -Patient will need daily cough leaks since he was a difficult airway. Will plan for bronchoscopy early tomorrow morning and plan accordingly. His ET tube is 7.5 # Lower extremity cellulitis -On antibiotics currently will recommend wound care consult for dressing changes # COPD exacerbation Continue bronchodilator therapy as well as Solu-Medrol # Diastolic congestive heart failure -Cautious with fluids. Lasix was given today with good urine output. Levo off since 1 AM last night. Will obtain echocardiogram # Acute lactic acidosis -ABG reviewed pH is normalized CO2 compensated. PF ratio is very low. Will try low tidal volume ventilation strategy bronchoscopy tomorrow # Probable right mainstem mucous plugging versus endobronchial lesion versus extrinsic compression-I reviewed the CT scan personally myself that shows probability of endobronchial lesion. Explained the findings to the family. Will schedule bronchoscopy for tomorrow morning # Obstipation -No bowel movements for 3 to 4 days. Will give Dulcolax # Obesity # DVT GI prophylaxis - with heparin drip and famotidine # Patient is a full code. Family not available to conduct goals of care Discussed case with hospitalist Dr. Sparks The high probability of a clinically significant, sudden or life threatening deterioration of the patient's [Respiratory, cardiac ] system(s) required my full and direct attention, intervention and personal management. The critical care time is as shown. This time is in addition to time spent performing any reported procedures but includes the following: [x] Data and vital sign review and interpretation [x] Patient assessment, examination and intervention [x] Documentation [x] Medication orders and management Critical Care Time (min): 55 Telemedicine Consent Patient seen today via Telemedicine by agreement and consent of patient.? Telemedicine technology used during the visit includes audio and, as available, review of images.? The patient encounter is appropriate and reasonable under the circumstances given the patient?s particular presentation at this time.? The patient has been advised of the potential risks and limitations of this mode of treatment (including but not limited to the absence of in-person examination) and has agreed to be treated in a remote fashion in spite of them.? Any, and all, of the patient?s/patient?s family?s questions on this issue have been answered and I have made no promises or guarantees to the patient. The patient has also been advised to contact this office for worsening conditions or problems, and seek emergency medical treatment and/or call 911 if the patient deems either necessary PDMP PDMP Reviewed: Not Reviewed Coding Level of Care Code Acute Code for Chg Fwd Diagnoses Acute respiratory failure with hypoxia and hypercapnia J96.01; J96.02 Multifocal pneumonia J18.8
[2024-12-29] MEDS: heparin drip 25,000 UNIT/500 ML PREMIX 35 UNIT IV (19:31)
[2024-12-29 23:15] LABS: Partial Thromboplastin Time 68.1 SECONDS (23.9-36.7)
[2024-12-30] VITALS (106 sets, daily range): BP systolic 107–180; BP diastolic 70–128; PULSE 83–137; RESP 10–22; TEMP 36.9–38.8; O2SAT 89–100; BMI 31.6
[2024-12-30] MEDS: methylPREDNISolone sod succ 40 mg/mL INJ IVP ×4 (00:14→20:44)
[2024-12-30] MEDS: propofol 1,000 MG/100 ML INJ 9.79 MG IV (01:08)
[2024-12-30] MEDS: fentaNYL 1,000 MCG/100 ML BAG 12.5 MCG IV ×3 (01:11→22:21)
[2024-12-30] MEDS: dexmedeTOMIDine 0.9 % NaCL 400 MCG/100 ML PREMIX 23.58 MCG IV ×6 (02:00→21:19)
[2024-12-30 03:48] LABS: ABG PCO2 56.1 mmHg (35-45); ABG PH Result 7.50 (7.35-7.45); Arterial Blood Gas Hematocrit 39.7 % (42-52); Blood Gas Sample Type Arterial; HCO3 ABG 43.4 mmol/L (22-26); PO2 ABG 66.3 mmHg (80.0-100.0)
[2024-12-30 03:49] LABS: Blood Gas Operator Identificat SAM; Blood Gas Sample Site Brachial, right; PEEP 8.0 cmH20; PO2 FiO2 Ratio Arterial Blood 132
[2024-12-30] MEDS: pantoprazole 40 mg SDV IVP (04:50)
[2024-12-30 05:38] LABS: Hematocrit 38.6 % (37-53); Hemoglobin 11.60 g/dL (11.27-16.99); Mean Corpuscular HGB Conc 30.1 g/dL (30-55); Mean Corpuscular Hemoglobin 28.9 pg (27-33); Mean Corpuscular Volume 96.3 fl (82-101); Nucleated Red Blood Cells % 0 %; Platelet Count 244 10^3/cmm (157-399); Red Blood Count 4.01 10^6/uL (3.85-5.65); White Blood Count 13.02 10^3/uL (3.29-11.43)
[2024-12-30 05:56] LABS: Partial Thromboplastin Time 65.4 SECONDS (23.9-36.7)
[2024-12-30 06:03] LABS: Alanine Aminotransferase 38 U/L (0-41); Albumin Level 3.4 g/dL (3.5-5.2); Alkaline Phosphatase 62 U/L (40-130); Anion Gap 16.3 (5-19); Aspartate Amino Transferase 28 U/L (0-40); Blood Urea Nitrogen 25 mg/dL (6-20); Calcium 8.1 mg/dL (8.5-10.5); Carbon Dioxide 38 mmol/L (22-29); Chloride 93 mmol/L (98-107); Creatinine Clr Calc Pharmacy 116.9026; Globulin 3.1 g/dL (1.3-4.6); Glucose 236 mg/dL (65-115); Magnesium 2.1 mg/dL (1.7-2.3); Osmolality Calculated 310 mOsm/kg (285-295); Potassium 3.3 mmol/L (3.5-5.1); Sodium 144 mmol/L (136-145); Total Protein 6.5 g/dL (6.6-8.7)
[2024-12-30 06:08] LABS: Lactate (Lactic Acid level) 1.1 mmol/L (0.5-2.2)
[2024-12-30 06:12] LABS: INR 1.01 (0.8-1.2); Prothrombin Time 14.00 SECONDS (12.1-14.9)
[2024-12-30 06:18] LABS: NT Pro B Type Natriuretic Pept 583 pg/mL (0-125); Procalcitonin 0.37 ng/mL (0-0.5)
--- NOTE | 2024-12-30 07:00 | XRR_ITS ---
PROCEDURE INFORMATION: Exam: XR Chest Exam date and time: 12/30/2024 6:21 AM Age: 44 years old Clinical indication: Shortness of breath; Additional info: SOB TECHNIQUE: Imaging protocol: Radiologic exam of the chest. Views: 1 view. COMPARISON: CR XR chest 1V portable [id number] 12/29/2024 7:08 AM FINDINGS: Tubes, catheters and devices: Endotracheal tube tip is 4.9 cm above the geno. Remaining support hardware is stable. Lungs: Ongoing central pulmonary vascular congestion without overt edema. Bandlike opacities in the right mid lung favor atelectasis appear similar to prior. Increasing bibasilar opacities. Pleural spaces: Trace bilateral pleural effusions. Heart/Mediastinum: Stable cardiomediastinal silhouette. Bones/joints: Unremarkable. XR/XR chest 1V portable [id number] IMPRESSION: Increasing bibasilar opacities may represent atelectasis versus developing infiltrate.
[2024-12-30] MEDS: lidocaine 1% 5 ML in potassium chloride premix 100 ML 26.25 ML IV (08:19)
[2024-12-30] MEDS: FUROsemide 10 mg/mL SDV 4mL 40 MG IVP (08:20)
--- NOTE | 2024-12-30 11:02 | PC.NURSE ---
BEDSIDE PROCEDURE NOTE At bedside to perform bronchoscopy with Dr. Solitario Timeout performed at 1102, consent obtained prior to procedure by Dr. Solitario, verified via phone with RYLAN Elise 2 mg of Versed and 50 mcg of Fentanyl administered by Sincere Hoskins RN at 1103 Procedure start 1103 2 mL of 2% Lidocaine administered via scope by Paydan at 1104 Additional 2 mL of 2% Lidocaine administered via scope by Paydan at 1105 Additional 2 mL of 2% Lidocaine administered via scope by Paydan at 1106 2 mg of Versed administered by Ervin at 1106 2 mL of 2% Lidocaine administered via scope by Paydan at 1108 Specimen collected at 1109
[2024-12-30] MEDS: fentaNYL 50 mcg/mL INJ 2mL 100 MCG IVP (11:03)
[2024-12-30] MEDS: heparin drip 25,000 UNIT/500 ML PREMIX 35 UNIT IV (11:46)
[2024-12-30 12:37] LABS: Partial Thromboplastin Time 58.2 SECONDS (23.9-36.7)
--- NOTE | 2024-12-30 13:36 | PC.SOCIAL ---
IMM Updated Updated pt on IMM. No questions voiced. Provided pt a copy. Initialed, dated, & timed a copy & placed in chart.
--- NOTE | 2024-12-30 16:26 | P.PN_ITS ---
Subjective 2 Subjective: probably okayValentino Cerrato is a 44 year old male with past medical history of diabetes longstanding ischemic venous stasis and chronic cellulitis in bilateral lower extremities comes in initially to the ER on 12/17/2024 and leaves AMA within a few hours, returns back again on 12/26/2024 but malodorous feet, seen in ER vancomycin started along with Zosyn. While in the hospital he was found to be somnolent, ABG obtained showed hypercapnic acute on chronic respiratory failure with CO2 102, BiPAP started and eventually intubated for airway protection. CT head was normal. ended up having a PEA cardiac arrest, multiple rounds of epi given 2 A of bicarb eventually ROSC was obtained. Patient had a difficult airway requiring 2 attempts at intubation. Patient reportedly also had seizure-like activity prior to cardiac rest. Eventually after cardiac arrest she did wake up and follow commands. Currently on propofol fentanyl and Versed drips having to take thick tube secretions. Febrile with a temp of 102F for the last 2 days,. Endotracheal tube aspirate sent off for cultures pending results. Currently tolerating ventilator well. He is also on Solu-Medrol 40 every 8 receiving IV vancomycin and meropenem. Precedex at 0.9, propofol at 10, and fentanyl 125 mics as well as heparin drip drips on. CT chest abdomen pelvis obtained. Small bowel containing umbilical hernia without strangulation or obstruction seen along with bilateral lower lobe pneumonia like changes. satting 94% ABG obtained showed a pH of 7.56 pCO2 of 50 PaO2 57.5. Vent settings are VC-AC at 500 mL/kg rate of 12, PI of 27, PEEP of 8 FiO2 50. Pertinent positive labs of sodium of 147, potassium 3.3, creatinine 1.2, AST ALT mildly elevated at 50, elevated C-reactive protein at 85. Chest x-ray reviewed by me personally shows bilateral pulmonary infiltrates suggestive of multifocal pneumonia and confirmed on CT showing patchy pulmonary opacities suggestive of multifocal pneumonia mixed with air bronchograms on the right and COPD like changes. Right main bronchus as well as upper lobe bronchus abruptly narrows down unclear whether there is endobronchial lesion or extrinsic compression or mucous plugging. 12/30/2024-patient is awake on the venti lator following commands. Having thick mucous plugs and secretions. On fentanyl and propofol drips currently tolerating well. Also on heparin drip. negative. Extrinsic compression collapse. Bronchoscopy performed showing right lower lobe, extrinsic compression noted on the right main stem bronchus Review of systems unable to obtain patient on the ventilator Vitals/I&O/Wt Last Vital Signs Temp 98.5 F 12/30/24 07:45 Pulse 115 H 12/30/24 15:49 Resp 21 H 12/30/24 15:53 BP 136/73 12/30/24 12:15 Pulse Ox 95 12/30/24 15:53 O2 Del Method Mechanical Ventilation 12/30/24 15:49 O2 Flow Rate 5 12/27/24 19:58 FiO2 45 12/30/24 15:53 12/30/24 12/30/24 12/30/24 06:59 14:59 22:59 Intake Total 1032.833 / 2936.144 681.965 / 681.965 Output Total 1000 / 3400 2049 / 2049 Balance 32.833 / -463.856 -1368.035 / -1368.035 Weight last 48 hrs Weight 232 lb 14.4 oz Weight 236 lb 14.4 oz Physical Exam 2 Narrative: per RN General: Intubated sedated obese HEENT: conj clear, EOMI, PERRL Neck: supple Pulmonary: Rhonchorous breath sounds bilaterally Cardiovascular: rrr, nl s1s2, no mrg Abdomen: soft, nt, nd, no r/g, mildly distended Extremities: pulses +, no edema Skin: no rash Neurologic: grossly intact Agree with above exam Urinary Catheter Management: Davis: Cath Placed During This Visit: yes Reason for Continuing Indwelling Catheter: Accurate Measurement of Urinary Output in Critically Ill Patients Urinary Catheter Date of Insertion: 12/27/24 Urinary Catheter Time of Insertion: 16:30 Data 12/30/24 05:20 12/30/24 05:20 Micro: Microbiology 12/28/24 02:35 Gram Stain - Final Sputum - Endotracheal Tube Aspirate Sputum Culture - Final A&P Assessment and plan 1. Acute respiratory failure with hypoxia and hypercapnia: 2. Multifocal pneumonia: Plan: This is a 44-year-old male past medical history of multiple medical problems presents initially to be with bilateral lower lower extremity cellulitis, course complicated by cardiac arrest due to hypercapnic respiratory failure currently on the ventilator. CT shows extensive multifocal pneumonia like changes # Acute on chronic respiratory failure -Continue mechanical ventilation at this time. Tracheal aspirate cultures reviewed showing multi organisms- NGTD- micro data check. Bronch BAL pending from bilateral lower lobes - Continue to wean vent settings and keep O2 sats above 90 -Wean off FiO2 as tolerated. Continue Solu-Medrol and bronchodilators - Daily SBTs, PF ratio is only 132, not ready today for extubation trial # Septic shock-source is bilateral leg cellulitis as well as MULTIFOCAL pneumonia Awaiting cultures Continue vancomycin 12/29/24 and merrem 12/28/24 s/p bronchoscopy showing extrinsic compression and narrowed main stem bronchus # PEA cardiac arrest status post CPR for 20 minutes with return of ROSC -echocardiogram ordered # Difficult airway -Patient will need daily cuff leaks since he was a difficult airway. His ET tube is 7.5 # Lower extremity cellulitis -On antibiotics currently will recommend wound care consult for dressing changes # COPD exacerbation Continue bronchodilator therapy as well as Solu-Medrol # Diastolic congestive heart failure Lasix was given today with good urine output. Levo off since 12/29. echo pending # Acute lactic acidosis -ABG reviewed pH is normalized CO2 compensated. PF ratio is very low. Will try low tidal volume ventilation strategy bronchoscopy tomorrow # Probable right mainstem mucous plugging versus endobronchial lesion versus extrinsic compression-I reviewed the CT scan personally myself that shows probability of endobronchial lesion. Explained the findings to the family. Will schedule bronchoscopy for tomorrow morning # NSTEMI - Continue heparin gtt # Obstipation -prn Dulcolax # Hypokalemia - Replace as needed # Obesity # DVT GI prophylaxis - with heparin drip and famotidine # Patient is a full code. Family not available to conduct goals of care Discussed case with hospitalist Dr. Sparsk The high probability of a clinically significant, sudden or life threatening deterioration of the patient's [Respiratory, cardiac ] system(s) required my full and direct attention, intervention and personal management. The critical care time is as shown. This time is in addition to time spent performing any reported procedures but includes the following: [x] Data and vital sign review and interpretation [x] Patient assessment, examination and intervention [x] Documentation [x] Medication orders and management Critical Care Time (min): 45 Telemedicine Consent Patient seen today via Telemedicine by agreement and consent of patient.? Telemedicine technology used during the visit includes audio and, as available, review of images.? The patient encounter is appropriate and reasonable under the circumstances given the patient?s particular presentation at this time.? The patient has been advised of the potential risks and limitations of this mode of treatment (including but not limited to the absence of in-person examination) and has agreed to be treated in a remote fashion in spite of them.? Any, and all, of the patient?s/patient?s family?s questions on this issue have been answered and I have made no promises or guarantees to the patient. The patient has also been advised to contact this office for worsening conditions or problems, and seek emergency medical treatment and/or call 911 if the patient deems either necessary PDMP PDMP Reviewed: Not Reviewed Attestations 2 Medical Necessity Statement*: intubated sedated Coding Level of Care Code Acute Code for Chg Fwd Diagnoses Acute respiratory failure with hypoxia and hypercapnia J96.01; J96.02 Multifocal pneumonia J18.8
[2024-12-30 16:49] LABS: ABG PCO2 59.6 mmHg (35-45); ABG PH Result 7.48 (7.35-7.45); Arterial Blood Gas Hematocrit 36.1 % (42-52); Blood Gas Allen Test Pos; Blood Gas Operator Identificat MONRO; Blood Gas Sample Site Brachial, left; Blood Gas Sample Type Arterial; Carboxyhemoglobin 0.9 %THgb (0.4-20.1); Glucose Level-ABG 215.0 mg/dL (70-115); HCO3 ABG 44.7 mmol/L (22-26); Ionized Calcium Level - ABG 1.1 mmol/L (1.1-1.4); Methemoglobin 0.4 % (0.4-1.5); Oxygen Saturation ABG 93.1; PEEP 5.0 cmH20; PO2 ABG 65.9 mmHg (80.0-100.0); Potassium Level - ABG 3.2 mmol/L (3.5-5.0); Sodium Level - ABG 145.0 mmol/L (131-143)
--- NOTE | 2024-12-30 18:09 | P.PN_ITS ---
Subjective 2 Subjective: - Patient was seen this morning - This morning afebrile, normotensive, o ff pressors, on 50% FiO2, good urine output, - Plans on spontaneous breathing trial t vivek and bronchoscopy, - Rounded with pulmonary - On minimal sedation, he is able to fol low commands, -Patient's status post bronchoscopy, - Spontaneous breathing trial remains of 45 to 50% FiO2, tachypneic, tachycardic, RSBI 80, repeat ABG pCO2 59.6, pO2 65.9, on 50%, has thick mucus secretions -Discussed with that currently he i s a high risk for reintubation if we were to extubate him now, -Discussed with at bedside continui ng intubation, mechanical ventilation, trying spontaneous breathing trial tomorrow morning Vitals/I&O/Wt Last Vital Signs Temp 98.5 F 12/30/24 07:45 Pulse 115 H 12/30/24 15:49 Resp 16 12/30/24 17:00 BP 136/73 12/30/24 12:15 Pulse Ox 95 12/30/24 17:00 O2 Del Method Mechanical Ventilation 12/30/24 15:49 O2 Flow Rate 5 12/27/24 19:58 FiO2 45 12/30/24 17:00 12/30/24 12/30/24 12/30/24 06:59 14:59 22:59 Intake Total 1032.833 / 2936.144 681.965 / 681.965 110.866 / 792.831 Output Total 1000 / 3400 2049 / 2049 Balance 32.833 / -463.856 -1368.035 / -1368.035 110.866 / -1257.169 Weight last 48 hrs Weight 105.642 kg Weight 107.456 kg Physical Exam 2 Const: COMMON NORMALS: no acute distress ORIENTATION/CONSCIOUSNESS: Yes awake and Yes oriented to person; not oriented to place, not oriented to time and not confused Eye: COMMON NORMALS: Equal, round and reactive pupils present PUPIL: Yes Equal, round and reactive pupils present Resp: COMMON NORMALS: normal respiratory effort, No retractions and No use of accessory muscles AUSCULTATION: crackles and wheezes Cardio: COMMON NORMALS: regular rate, regular rhythm, S1 normal heart sound present and S2 normal heart sound present RATE: regular rate RHYTHM: r egular rhythm HEART SOUNDS: S1 normal heart sound present and S2 normal heart sound present GI: COMMON NORMALS: Normal to inspection, nondistended, normoactive bowel sounds present and non-tender Extremity: OTHER: 1+ edema, anasarca Superficial cellulitis bilateral lower extremities, no open wounds, no open blisters, erythema/swelling significantly improving Neuro: COMMON NORMALS: moves all extremities SENSORIUM/ORIENTATION: Yes oriented to person, No oriented to place and No oriented to time Psych: COMMON NORMALS: mental status grossly normal Urinary Catheter Management: Davis: Cath Placed During This Visit: yes Reason for Continuing Indwelling Catheter: Accurate Measurement of Urinary Output in Critically Ill Patients Urinary Catheter Date of Insertion: 12/27/24 Urinary Catheter Time of Insertion: 16:30 Data 12/30/24 05:20 12/30/24 05:20 Micro: Microbiology 12/28/24 02:35 Gram Stain - Final Sputum - Endotracheal Tube Aspirate Sputum Culture - Final A&P Assessment and plan 1. Septic shock: 2. Pneumonia: 3. Acute respiratory failure with hypoxia and hypercapnia: 4. NSTEMI (non-ST elevated myocardial infarction): 5. Lactic acidosis: 6. Cardiac arrest with successful resuscitation: 7. Bilateral lower leg cellulitis: 8. BPH associated with nocturia: 9. GERD (gastroesophageal reflux disease): 10. Diastolic CHF: 11. Chronic hypoxic respiratory failure, on home oxygen therapy: 12. Type 2 diabetes mellitus without complication, without long-term current use of insulin: 13. COPD exacerbation: Plan: Acute hypoxic hypercarbic respiratory failure - Multifactorial - Secondary to COPD exacerbation - Secondary to bilateral pneumonia CT/CT angio chest PE protcl [id number] IMPRESSION: 1. Patchy ground-glass opacities within both upper and lower lobes with confluent airspace disease in the right upper lobe. Probable bibasilar atelectasis. 2. No occlusive pulmonary embolism. -Component of systolic and diastolic CHF, avoid fluid therapy - Status post bronchoscopy Plan - Currently intubated, sedated, mechanical ventilation - Propofol, Precedex for sedation - Fentanyl for sedation, pain control - Minimize FiO2, minimize tidal volume, sedation vacation, hospital days breathing trial - IV vancomycin - IV meropenem - Blood cultures - Sputum cultures - DuoNeb - Budesonide - Solu-Medrol 40 mg IV every12 hours -Respiratory viral panel - 1 dose IV Lasix today -Full code -Heparin drip for DVT prophylaxis Septic shock -Secondary to bilateral pneumonia -Secondary to cellulitis -Will avoid fluid therapy given concerns for fluid overload, systolic and diastolic CHF -Continue Levophed, maintain MAP in 65 NSTEMI -Serial EKGs, serial troponins, telemetry monitoring -Aspirin, statin -Cardiac echo CONCLUSIONS Normal left ventricular size, systolic function and wall thickness with ejection fraction of 66 %. Normal right ventricular size and systolic function. No significant valvular abnormalities. -Heparin drip for 48 hours Cardiac arrest episode with ROSC -20 minutes of CPR, rhythm of asystole to PEA to sinus tachycardia, status post doses of epinephrine, bicarbonate -Cardiac workup as above COPD exacerbation -History of COPD Hypophosphatemia, replace Lactic acidosis, monitor Umbilical hernia, reducible -With transaminitis CT/CT abdomen pelvis wo con [id number] IMPRESSION: 1. Small bowel containing umbilical hernia without evidence of intestinal obstruction/strangulation. 2. Bilateral lower lobe consolidations concerning for pneumonia and/or atelectatic changes. Please refer to separately dictated CT chest from 12/28/2024 for further characterization and recommendations. 3. Residual bilateral renal nephrograms, which may be from recent contrast administration. Correlate with renal function. 4. Otherwise, no acute process in the abdomen or pelvis to explain the patient's symptoms. Acute encephalopathy, resolving - Initially concerns for hypercarbia - Currently intubated, sedated on mechanical ventilation - Sedation vacation - Neurochecks, NIH stroke scale Cellulitis bilateral extremities, continue IV antibiotics, wound care Full code Protonix for GI prophylaxis Prognosis guarded Plan for today, consultation with pulmonary, bronchoscopy, IV antibiotics, spontaneous breathing trial, transition off heparin drip to his Lovenox, PDMP PDMP Reviewed: Not Reviewed Attestations 2 Medical Necessity Statement*: Patient requires hospitalization for acute hypoxic respiratory failure, pneumonia, Coding Level of Care Code Critical Care >/= 30 minutes Critical care time (in minutes): 45 The high probability of a clinically significant, sudden or life threatening deterioration, as referenced in this documentation, required my full and direct attention, intervention and personal management. The critical care time shown is in addition to time spent performing any reported separately billable procedures and includes the following: [x] Data and vital sign review and interpretation [x ] Patient assessment, examination and intervention [x] Medication orders and management [x] Patient/Family updates as able [x] Care Coordination and Documentation. Diagnoses Septic shock A41.9; R65.21 Pneumonia J18.9 Acute respiratory failure with hypoxia and hypercapnia J96.01; J96.02 NSTEMI (non-ST elevated myocardial infarction) I21.4 Lactic acidosis E87.20 Cardiac arrest with successful resuscitation I46.9 Bilateral lower leg cellulitis L03.116; L03.115 BPH associated with nocturia N40.1; R35.1 GERD (gastroesophageal reflux disease) K21.9 Diastolic CHF I50.30 Chronic hypoxic respiratory failure, on home oxygen therapy J96.11; Z99.81 Type 2 diabetes mellitus without complication, without long-term current use of insulin E11.9 COPD exacerbation J44.1
[2024-12-30] MEDS: propofol 1,000 MG/100 ML INJ 13.06 MG IV (20:48)
--- NOTE | 2024-12-30 20:52 | PC.NURSE ---
Went into patient's room to administer evening PO atorvastatin. Patient's life partner at bedside. Explained medications that patient would be getting. Patient's life partner refused atorvastatin because she stated that patient already has low cholesterol. Explained to her that there was concern for an NSTEMI. Patient's life partner continued to decline atorvastatin. Spoke with Dr Lopes who was agreeable to not administering atorvastatin. See MAR.
--- NOTE | 2024-12-30 20:57 | P.OP_ITS ---
Procedure: Flexible bronchoscopy Attending: Wade Solitario MD Indication: bilateral lung infiltrates Medications: Lidocaine 2% (8 cc) applied to the tracheobronchial tree [place] Protocol: Pre-procedure Verification: Prior to the procedure, the patient's identity was confirmed using full name, date of , and medical record number. Identity verification included a review of all relevant medical records, history, physical examination, medications, allergies, and previous anesthesia tolerance. Risks, benefits, sedation options, and associated risks were reviewed with the patient, and informed consent was obtained after addressing all questions. Time-Out: Immediately before the procedure, a time-out was conducted to confirm patient identification, procedure details, consent, image labeling, and the need for prophylactic antibiotics. This was verified by the physician, nurse Outcome: The procedure was completed without difficulty, and the patient tolerated it well. Findings: A thorough airway exam was performed after passage of the bronchoscope. The trachea was anatomically normal. The right sided airway was anatomically not normal. Right main stem bronchus was impinged with narrowing of it. Looked like it was extrinsically compressed. Right upper lobe bronchus looked somewhat patent but tortous with airways distorted distally The left sided airway was anatomically normal without endobronchial lesions. Lots of thick secretions noted and suctioned out. Bronchoscope channel was blocked due to mucus plugs and had to be withdrawn out of the scope multiple aris es and rised out using saline flushes ([id number]) After confirming our location, we proceeded to sampling. A bronchoalveolar lavage was performed of the left lower lobe and the right upper lobe with 120mL of saline instilled and 40 mL of effluent returned. Additional rinse from the bronchoscope lumen was added to the sample after removal of the scope. ([id number]) [place] Bleeding Scale Grade 1: Suctioning <1 minute. Bleeding of no clinical consequence to patient or provider. Following completion of all diagnostic and therapeutic procedures, hemostasis was verified. The scope was removed and procedure concluded. In summary, the following procedures were performed: [id number] BAL, (Bronchoalveolar Lavage), Wade Solitario MD Pulmonary and Critical Care
[2024-12-31] VITALS (73 sets, daily range): BP systolic 96–165; BP diastolic 55–90; PULSE 88–132; RESP 10–30; TEMP 37.7–38.8; O2SAT 86–98
[2024-12-31] MEDS: dexmedeTOMIDine 0.9 % NaCL 400 MCG/100 ML PREMIX 20.96 MCG IV (00:50)
[2024-12-31] MEDS: propofol 1,000 MG/100 ML INJ 13.06 MG IV (03:35)
[2024-12-31 03:48] LABS: ABG PH Result 7.44 (7.35-7.45); Arterial Blood Gas Hematocrit 37.3 % (42-52); Blood Gas Operator Identificat SAM; Blood Gas Sample Site Brachial, right; Blood Gas Sample Type Arterial; Blood Gas Tidal Volume 0.45; HCO3 ABG 44.1 mmol/L (22-26); PEEP 5.0 cmH20; PO2 ABG 60.2 mmHg (80.0-100.0); PO2 FiO2 Ratio Arterial Blood 133
[2024-12-31 04:24] LABS: Hematocrit 38.8 % (37-53); Hemoglobin 11.40 g/dL (11.27-16.99); Mean Corpuscular HGB Conc 29.4 g/dL (30-55); Mean Corpuscular Hemoglobin 27.8 pg (27-33); Mean Corpuscular Volume 94.6 fl (82-101); Nucleated Red Blood Cells % 0.2 %; Platelet Count 235 10^3/cmm (157-399); Red Blood Count 4.10 10^6/uL (3.85-5.65); White Blood Count 10.16 10^3/uL (3.29-11.43)
[2024-12-31 04:36] LABS: INR 0.98 (0.8-1.2); Prothrombin Time 13.70 SECONDS (12.1-14.9)
[2024-12-31 04:49] LABS: Alanine Aminotransferase 29 U/L (0-41); Albumin Level 3.5 g/dL (3.5-5.2); Alkaline Phosphatase 55 U/L (40-130); Aspartate Amino Transferase 9 U/L (0-40); Blood Urea Nitrogen 31 mg/dL (6-20); Calcium 8.4 mg/dL (8.5-10.5); Carbon Dioxide 40 mmol/L (22-29); Chloride 95 mmol/L (98-107); Creatinine Clr Calc Pharmacy 128.8392; Globulin 3.1 g/dL (1.3-4.6); Glucose 241 mg/dL (65-115); Magnesium 2.2 mg/dL (1.7-2.3); Osmolality Calculated 318 mOsm/kg (285-295); Sodium 147 mmol/L (136-145); Total Protein 6.6 g/dL (6.6-8.7)
[2024-12-31 04:50] LABS: Anion Gap 15.6 (5-19); Potassium 3.6 mmol/L (3.5-5.1)
[2024-12-31 04:54] LABS: NT Pro B Type Natriuretic Pept 495 pg/mL (0-125); Procalcitonin 0.27 ng/mL (0-0.5)
[2024-12-31 04:56] LABS: Lactate (Lactic Acid level) 1.0 mmol/L (0.5-2.2)
[2024-12-31] MEDS: pantoprazole 40 mg SDV IVP (05:31)
[2024-12-31] MEDS: methylPREDNISolone sod succ 40 mg/mL INJ IVP ×2 (06:16→17:11)
--- NOTE | 2024-12-31 07:00 | XR_ITS ---
WS: [id number] XR chest 1V portable [id number] REASON FOR EXAM: sob FINDINGS: The endotracheal tube, nasogastric tube, and the right internal jugular central venous line remain in appropriate position. Central pulmonary venous congestion. Linear and groundglass lung opacities in the central mid right lung and left lower lung. The chest is stable compared to the previous examination of 12/30/2024 at 6:21 a.m. XR/XR chest 1V portable [id number] IMPRESSION: Stable abnormal chest as above.
[2024-12-31] MEDS: FUROsemide 10 mg/mL SDV 4mL 40 MG IVP (08:53)
[2024-12-31] MEDS: dexmedeTOMIDine 0.9 % NaCL 400 MCG/100 ML PREMIX 7.86 MCG IV (08:59)
--- NOTE | 2024-12-31 12:53 | PC.NURSE ---
patient's informed this nurse that patient's legs needed WTD q2 hrs, this nurse attempted to explain that was not ordered and the reason it wasn't indicated due to lack of open wounds, patient's not cooperative and angry DON steeped in to deescalate . calm at the moment.
--- NOTE | 2024-12-31 14:41 | P.PN_ITS ---
Subjective 2 Subjective: Valentino Cerarto is a 44 year old male with past medical history of diabetes longstanding ischemic venous stasis and chronic cellulitis in bilateral lower extremities comes in initially to the ER on 12/17/2024 and leaves AMA within a few hours, returns back again on 12/26/2024 but malodorous feet, seen in ER vancomycin started along with Zosyn. While in the hospital he was found to be somnolent, ABG obtained showed hypercapnic acute on chronic respiratory failure with CO2 102, BiPAP started and eventually intubated for airway protection. CT head was normal. ended up having a PEA cardiac arrest, multiple rounds of epi given 2 A of bicarb eventually ROSC was obtained. Patient had a difficult airway requiring 2 attempts at intubation. Patient reportedly also had seizure-like activity prior to cardiac rest. Eventually after cardiac arrest she did wake up and follow commands. Currently on propofol fentanyl and Versed drips having to take thick tube secretions. Febrile with a temp of 102F for the last 2 days,. Endotracheal tube aspirate sent off for cultures pending results. Currently tolerating ventilator well. He is also on Solu-Medrol 40 every 8 receiving IV vancomycin and meropenem. Precedex at 0.9, propofol at 10, and fentanyl 125 mics as well as heparin drip drips on. CT chest abdomen pelvis obtained. Small bowel containing umbilical hernia without strangulation or obstruction seen along with bilateral lower lobe pneumonia like changes. satting 94% ABG obtained showed a pH of 7.56 pCO2 of 50 PaO2 57.5. Vent settings are VC-AC at 500 mL/kg rate of 12, PI of 27, PEEP of 8 FiO2 50. Pertinent positive labs of sodium of 147, potassium 3.3, creatinine 1.2, AST ALT mildly elevated at 50, elevated C-reactive protein at 85. Chest x-ray reviewed by me personally shows bilateral pulmonary infiltrates suggestive of multifocal pneumonia and confirmed on CT showing patchy pulmonary opacities suggestive of multifocal pneumonia mixed with air bronchograms on the right and COPD like changes. Right main bronchus as well as upper lobe bronchus abruptly narrows down unclear whether there is endobronchial lesion or extrinsic compression or mucous plugging. 12/30/2024-patient is awake on the venti lator following commands. Having thick mucous plugs and secretions. On fentanyl and propofol drips currently tolerating well. Also on heparin drip. negative. Extrinsic compression collapse. Bronchoscopy performed showing right lower lobe, extrinsic compression noted on the right main stem bronchus 12/31/2024-patient is awake following co mmands. Less thick mucous plugs noted. Currently on propofol and fentanyl drips following commands. Also on heparin drip. PF ratio slightly low on ABGs. Chest x-ray reviewed shows a masslike consolidation on the right lung. Review of systems unable to obtain patient on the ventilator Vitals/I&O/Wt Last Vital Signs Temp 101.3 F H 12/31/24 01:55 Pulse 118 H 12/31/24 12:59 Resp 16 12/31/24 13:37 BP 143/58 12/31/24 12:30 Pulse Ox 96 12/31/24 13:37 O2 Del Method Mechanical Ventilation 12/31/24 11:16 O2 Flow Rate 5 12/27/24 19:58 FiO2 50 12/31/24 13:37 12/30/24 12/31/24 12/31/24 22:59 06:59 14:59 Intake Total 888.018 / 1569.983 582.959 / 2152.942 25.767 / 25.767 Output Total 1999 / 4050 Balance 888.018 / -480.017 -1417.041 / -1897.058 25.767 / 25.767 Weight last 48 hrs Weight 232 lb 14.4 oz Physical Exam 2 Narrative: per RN General: Intubated awake obese HEENT: conj clear, EOMI, PERRL Neck: supple Pulmonary: Rhonchorous breath sounds bilaterally Cardiovascular: rrr, nl s1s2, no mrg Abdomen: soft, nt, nd, no r/g, mildly distended Extremities: pulses + cellulitis noted Neurologic: grossly intact Agree with above exam Urinary Catheter Management: Davis: Cath Placed During This Visit: yes Reason for Continuing Indwelling Catheter: Accurate Measurement of Urinary Output in Critically Ill Patients Urinary Catheter Date of Insertion: 12/27/24 Urinary Catheter Time of Insertion: 16:30 Data 12/31/24 03:46 12/31/24 03:46 Micro: Microbiology 12/30/24 11:25 Gram Stain - Final Bronchial Washings Bronchial Washings Culture - Preliminary Yeast species 12/28/24 02:35 Gram Stain - Final Sputum - Endotracheal Tube Aspirate Sputum Culture - Final A&P Assessment and plan 1. Acute respiratory failure with hypoxia and hypercapnia: 2. Multifocal pneumonia: Plan: This is a 44-year-old male past medical history of multiple medical problems presents initially to be with bilateral lower lower extremity cellulitis, course complicated by cardiac arrest due to hypercapnic respiratory failure currently on the ventilator. CT shows extensive multifocal pneumonia like changes # Acute on chronic respiratory failure -Continue mechanical ventilation at this time. Tracheal aspirate cultures reviewed showing multi organisms- NGTD- micro data check. Bronch BAL pending from bilateral lower lobes, yeast are noted on bronchial washings so far - Continue to wean vent settings and keep O2 sats above 90 -Wean off FiO2 as tolerated. Continue Solu-Medrol and bronchodilators - Daily SBTs, PF ratio is only 133, not ready today for extubation trial-most likely will not change but will try to diurese today with 1 dose of Lasix. Will also get a CT of the chest to rule out mass effect on the right upper lobe # Septic shock-source is bilateral leg cellulitis as well as MULTIFOCAL pneumonia Awaiting cultures Continue vancomycin 12/29/24 and merrem 12/28/24-follow course of 10 days s/p bronchoscopy showing extrinsic compression and narrowed main stem bronchus Labs reviewed, white count is down to normal again at 10.6 ABG reviewed shows compensated hypercapnic respiratory failure pCO2 and PaO2 are both 60s, sodium is 147, creatinine 0.9 glucose mildly elevated at 250s. C-reactive protein decreasing from 85-37 # PEA cardiac arrest status post CPR for 20 minutes with return of ROSC -echocardiogram ordered # Difficult airway -Patient will need daily cuff leaks since he was a difficult airway. His ET tube is 7.5 - Today's cuff leak shows patent airway. Still very high risk for intubation which he wants. May use BiPAP postextubation # Lower extremity cellulitis -On antibiotics currently will recommend wound care consult for dressing changes # COPD exacerbation Continue bronchodilator therapy as well as Solu-Medrol # Diastolic congestive heart failure Lasix was given today with good urine output.-40 mg levo off since 12/29. # Acute lactic acidosis -ABG reviewed pH is normalized CO2 compensated. PF ratio is very low. # Probable right mainstem mucous plugging versus endobronchial lesion versus extrinsic compression-I reviewed the CT scan personally myself that shows probability of endobronchial lesion. Explained the findings to the f . Status post bronchoscopy 12/30/2024 # NSTEMI - Continue heparin gtt # Obstipation -prn Dulcolax # Hypokalemia - Replace as needed # Obesity # DVT GI prophylaxis - with heparin drip and famotidine # Patient is a full code. Family not available to conduct goals of care Discussed case with hospitalist Dr. Sparks The high probability of a clinically significant, sudden or life threatening deterioration of the patient's [Respiratory, cardiac ] system(s) required my full and direct attention, intervention and personal management. The critical care time is as shown. This time is in addition to time spent performing any reported procedures but includes the following: [x] Data and vital sign review and interpretation [x] Patient assessment, examination and intervention [x] Documentation [x] Medication orders and management Critical Care Time (min): 35 Telemedicine Consent Patient seen today via Telemedicine by agreement and consent of patient.? Telemedicine technology used during the visit includes audio and, as available, review of images.? The patient encounter is appropriate and reasonable under the circumstances given the patient?s particular presentation at this time.? The patient has been advised of the potential risks and limitations of this mode of treatment (including but not limited to the absence of in-person examination) and has agreed to be treated in a remote fashion in spite of them.? Any, and all, of the patient?s/patient?s family?s questions on this issue have been answered and I have made no promises or guarantees to the patient. The patient has also been advised to contact this office for worsening conditions or problems, and seek emergency medical treatment and/or call 911 if the patient deems either necessary PDMP PDMP Reviewed: Not Reviewed Attestations 2 Medical Necessity Statement*: Intubated sedated Coding Level of Care Code Critical Care >/= 30 minutes Diagnoses Acute respiratory failure with hypoxia and hypercapnia J96.01; J96.02 Multifocal pneumonia J18.8
--- NOTE | 2024-12-31 14:51 | CTR_ITS ---
PROCEDURE INFORMATION: Exam: CT Chest Without Contrast; Diagnostic Exam date and time: 12/31/2024 3:48 PM Age: 44 years old Clinical indication: Abnormal findings; Other: XR; Additional info: Possible right mediastinal mass TECHNIQUE: Imaging protocol: Diagnostic computed tomography of the chest without contrast. Radiation optimization: All CT scans at this facility use at least one of these dose optimization techniques: automated exposure control; mA and/or kV adjustment per patient size (includes targeted exams where dose is matched to clinical indication); or iterative reconstruction. COMPARISON: CT angio chest PE protcl [id number] 12/28/2024 5:41 AM RADIATION DOSE METRICS: Total DLP (mGy-cm): 619.83 FINDINGS: Limitations: Examination is limited for the evaluation of vascular structures due to the lack of intravenous contrast. Tubes, catheters and devices: Nasogastric tube is in position. Endotracheal tube is in position with the tip terminating approximately 4.5 cm above the geno. Spinal cord stimulator in position in the upper thoracic spine. There is a right IJ central line in position with the tip terminating in the right atrium. Lungs: Bibasal atelectasis. Clips in the right hilar region. Pleural spaces: Bilateral pleural effusions, loculated right effusion. There is no pneumothorax. Heart: There is no cardiomegaly. There is no pericardial effusion. Coronary arteries: There are no coronary artery calcifications. Mediastinal space: Lack of intravenous contrast limits evaluation for hilar masses. The previous study from 12/28/2024 however did not demonstrate any mass in this region. Left hilar calcification. Lymph nodes: No pathologically enlarged lymph nodes (by short axis size criteria). Vasculature: There is no aortic aneurysm. Bones/joints: Minimally displaced fracture of the anterior left 5th rib. There is degenerative disease of the spine. Soft tissues: Unremarkable. CT/CT chest wo con [id number] IMPRESSION: 1. Interval progression of the pleural effusions with loculated right pleural effusion and a small left pleural effusion. 2. Bibasal atelectasis. 3. Limited evaluation for hilar masses due to lack of contrast administration. Recent CTA done on 12/28/2024 however did not show any hilar mass. 4. Postop changes in the right hilum.
[2024-12-31 15:24] LABS: ABG PCO2 64.7 mmHg (35-45)
--- NOTE | 2024-12-31 17:27 | P.PN_ITS ---
Subjective 2 Subjective: Patient was seen this morning, he is on minimal sedation, he is awake, can follow commands, on 50% FiO2, febrile this morning, discussed case with pulmonary, Vitals/I&O/Wt Last Vital Signs Temp 101.3 F H 12/31/24 01:55 Pulse 115 H 12/31/24 16:30 Resp 18 12/31/24 16:30 BP 124/72 12/31/24 16:30 Pulse Ox 94 12/31/24 16:30 O2 Del Method Non-Rebreather 12/31/24 15:14 O2 Flow Rate 5 12/27/24 19:58 FiO2 50 12/31/24 15:14 12/31/24 12/31/24 12/31/24 06:59 14:59 22:59 Intake Total 582.959 / 2152.942 275.767 / 275.767 Output Total 1999 2500 / 2500 Balance -1417.041 / -1897.058 275.767 / 275.767 -2500 / -2224.233 Weight last 48 hrs Weight 105.642 kg Physical Exam 2 Const: COMMON NORMALS: no acute distress Eye: COMMON NORMALS: Equal, round and reactive pupils present and EOMs intact bilaterally PUPIL: Yes Equal, round and reactive pupils present Resp: COMMON NORMALS: normal respiratory effort, No retractions and No use of accessory muscles AUSCULTATION: crackles and wheezes Cardio: COMMON NORMALS: regular rate, regular rhythm, S1 normal heart sound present and S2 normal heart sound present RATE: regular rate RHYTHM: r egular rhythm HEART SOUNDS: S1 normal heart sound present and S2 normal heart sound present GI: COMMON NORMALS: Normal to inspection, nondistended, normoactive bowel sounds present and non-tender Extremity: COMMON NORMALS: no pedal edema Neuro: OTHER: Alert, can follow commands, good and equal strength bilateral upper and lower extremities Psych: COMMON NORMALS: mental status grossly normal Skin: NARRATIVE SKIN EXAM: DP PT pulses palpable, cap refill less than 3 seconds, no mottling, Urinary Catheter Management: Davis: Cath Placed During This Visit: yes Reason for Continuing Indwelling Catheter: Accurate Measurement of Urinary Output in Critically Ill Patients Urinary Catheter Date of Insertion: 12/27/24 Urinary Catheter Time of Insertion: 16:30 Data 12/31/24 03:46 12/31/24 03:46 Micro: Microbiology 12/30/24 11:25 Mycobacterial Smear - Preliminary Body Fluids - Bronchial 12/30/24 11:25 Gram Stain - Final Bronchial Washings Bronchial Washings Culture - Preliminary Yeast species A&P Assessment and plan 1. Septic shock: 2. Pneumonia: 3. Acute respiratory failure with hypoxia and hypercapnia: 4. NSTEMI (non-ST elevated myocardial infarction): 5. Lactic acidosis: 6. Cardiac arrest with successful resuscitation: 7. Bilateral lower leg cellulitis: 8. BPH associated with nocturia: 9. GERD (gastroesophageal reflux disease): 10. Diastolic CHF: 11. Chronic hypoxic respiratory failure, on home oxygen therapy: 12. Type 2 diabetes mellitus without complication, without long-term current use of insulin: 13. COPD exacerbation: Plan: Acute hypoxic hypercarbic respiratory failure - Multifactorial - Secondary to COPD exacerbation - Secondary to bilateral pneumonia CT/CT angio chest PE protcl [id number] IMPRESSION: 1. Patchy ground-glass opacities within both upper and lower lobes with confluent airspace disease in the right upper lobe. Probable bibasilar atelectasis. 2. No occlusive pulmonary embolism. -Component of systolic and diastolic CHF, avoid fluid therapy - Status post bronchoscopy Plan - Currently intubated, sedated, mechanical ventilation - Propofol, Precedex for sedation - Fentanyl for sedation, pain control - Minimize FiO2, minimize tidal volume, sedation vacation, hospital days breathing trial - IV vancomycin - IV meropenem - Blood cultures, so far no growth - Sputum cultures, so far no growth -Bronchoscopy, cultures pending - DuoNeb - Budesonide - Solu-Medrol 40 mg IV every12 hours -Respiratory viral panel - 1 dose IV Lasix today -Full code - Lovenox for DVT prophylaxis Septic shock resolved -Secondary to bilateral pneumonia -Secondary to cellulitis -Will avoid fluid therapy given concerns for fluid overload, systolic and diastolic CHF -Continue Levophed, maintain MAP in 65 NSTEMI -Serial EKGs, serial troponins, telemetry monitoring -Aspirin, statin -Cardiac echo CONCLUSIONS Normal left ventricular size, systolic function and wall thickness with ejection fraction of 66 %. Normal right ventricular size and systolic function. No significant valvular abnormalities. -Heparin drip for 48 hours completed Cardiac arrest episode with ROSC -20 minutes of CPR, rhythm of asystole to PEA to sinus tachycardia, status post doses of epinephrine, bicarbonate -Cardiac workup as above COPD exacerbation -History of COPD Hypophosphatemia, replace Lactic acidosis, monitor Umbilical hernia, reducible -With transaminitis CT/CT abdomen pelvis wo con [id number] IMPRESSION: 1. Small bowel containing umbilical hernia without evidence of intestinal obstruction/strangulation. 2. Bilateral lower lobe consolidations concerning for pneumonia and/or atelectatic changes. Please refer to separately dictated CT chest from 12/28/2024 for further characterization and recommendations. 3. Residual bilateral renal nephrograms, which may be from recent contrast administration. Correlate with renal function. 4. Otherwise, no acute process in the abdomen or pelvis to explain the patient's symptoms. Acute encephalopathy, resolving - Initially concerns for hypercarbia - Currently intubated, sedated on mechanical ventilation - Sedation vacation - Neurochecks, NIH stroke scale Cellulitis bilateral extremities, continue IV antibiotics, wound care Full code Protonix for GI prophylaxis Prognosis guarded Plan for today, spontaneous breathing trial, follow-up bronchoscopy cultures, repeat CT of the chest, PDMP PDMP Reviewed: Not Reviewed Attestations 2 Medical Necessity Statement*: Patient requires hospitalization for acute hypoxic respiratory failure, currently intubated, with cardiac arrest, febrile state Coding Level of Care Code Critical Care >/= 30 minutes Critical care time (in minutes): 45 The high probability of a clinically significant, sudden or life threatening deterioration, as referenced in this documentation, required my full and direct attention, intervention and personal management. The critical care time shown is in addition to time spent performing any reported separately billable procedures and includes the following: [x] Data and vital sign review and interpretation [x ] Patient assessment, examination and intervention [x] Medication orders and management [x] Patient/Family updates as able [x] Care Coordination and Documentation. Diagnoses Septic shock A41.9; R65.21 Pneumonia J18.9 Acute respiratory failure with hypoxia and hypercapnia J96.01; J96.02 NSTEMI (non-ST elevated myocardial infarction) I21.4 Lactic acidosis E87.20 Cardiac arrest with successful resuscitation I46.9 Bilateral lower leg cellulitis L03.116; L03.115 BPH associated with nocturia N40.1; R35.1 GERD (gastroesophageal reflux disease) K21.9 Diastolic CHF I50.30 Chronic hypoxic respiratory failure, on home oxygen therapy J96.11; Z99.81 Type 2 diabetes mellitus without complication, without long-term current use of insulin E11.9 COPD exacerbation J44.1
[2024-12-31] MEDS: dexmedeTOMIDine 0.9 % NaCL 400 MCG/100 ML PREMIX 15.72 MCG IV (19:37)
--- NOTE | 2024-12-31 21:07 | PC.NURSE ---
Addendum entered by DIDIER Lopez 12/31/24 21:18: Patients also refusing medications for patient. She stated he doesn't need all the medications you are giving him and you guys don't give a shit about him. Original Note: Patients at bedside. This nurse entered patiets room to administer 2100 insulin and requested that patient have swabs with Mountain Dew. The patients became very upset and accusing staff of not caring for her after I explained it was contraindicated that the patient have swabs, without suction, while he is on the ventilator. Situation began to escalate and patients began swearing at this nurse and charge nurse MANJEET Alston was passing by patients room and was asked to step in. Alecia also attempted to reassure that that swabs without suction could cause complications. still not pleased, situation continued to escalate with demeaning staff, ending in the patient slamming his fists down on his bedside table. This nurse explained to patients , that I could not answer for what had previously been allowed, but I was not comfortable allowing it and possibly delaying the extubation process. This nurse, and charge nurse, stepped out while had a few minutes with her in an attempt to let her calm down. currently still at patients bedside.
[2024-12-31] MEDS: morphine 4 mg/mL SDV 1 mL IVP (23:25)
[2024-12-31] MEDS: LORazepam 1 MG/0.5 ML injection IVP (23:26)
--- NOTE | 2024-12-31 23:49 | PC.NURSE ---
Administered patients PRN Lorazepam and Morphine due to agitation and discomfort of ET tube. Patient continually attempting to convince staff to adjust ET tube due to his level of discomfort. Patient educated that nursing staff can not adjust his ET tube. RT notified and came to bedside in an attempt to make adjustments for patients comfort, as well as educate patient on not moving his ET tube.
[2025-01-01] VITALS (51 sets, daily range): BP systolic 104–143; BP diastolic 60–97; PULSE 93–138; RESP 16–18; TEMP 37.3; O2SAT 90–99
[2025-01-01] MEDS: dexmedeTOMIDine 0.9 % NaCL 400 MCG/100 ML PREMIX 20.96 MCG IV ×2 (00:37→05:50)
[2025-01-01 04:11] LABS: Hematocrit 41.7 % (37-53); Hemoglobin 12.00 g/dL (11.27-16.99); Mean Corpuscular HGB Conc 28.8 g/dL (30-55); Mean Corpuscular Hemoglobin 27.6 pg (27-33); Mean Corpuscular Volume 96.1 fl (82-101); Nucleated Red Blood Cells % 0 %; Platelet Count 230 10^3/cmm (157-399); Red Blood Count 4.34 10^6/uL (3.85-5.65); White Blood Count 9.60 10^3/uL (3.29-11.43)
[2025-01-01 04:45] LABS: Alanine Aminotransferase 26 U/L (0-41); Albumin Level 3.4 g/dL (3.5-5.2); Alkaline Phosphatase 59 U/L (40-130); Anion Gap 13.7 (5-19); Aspartate Amino Transferase 28 U/L (0-40); Blood Urea Nitrogen 32 mg/dL (6-20); Calcium 8.6 mg/dL (8.5-10.5); Chloride 100 mmol/L (98-107); Creatinine Clr Calc Pharmacy 128.8392; Globulin 2.3 g/dL (1.3-4.6); Glucose 172 mg/dL (65-115); Magnesium 2.2 mg/dL (1.7-2.3); Osmolality Calculated 323 mOsm/kg (285-295); Potassium 3.7 mmol/L (3.5-5.1); Sodium 151 mmol/L (136-145); Total Protein 5.7 g/dL (6.6-8.7)
[2025-01-01 04:50] LABS: NT Pro B Type Natriuretic Pept 441 pg/mL (0-125); Procalcitonin 0.16 ng/mL (0-0.5)
[2025-01-01 04:56] LABS: ABG PH Result 7.46 (7.35-7.45); Arterial Blood Gas Hematocrit 44.7 % (42-52); Blood Gas Operator Identificat JDB; Blood Gas Sample Site Brachial, right; Blood Gas Sample Type Arterial; HCO3 ABG 46.6 mmol/L (22-26); PEEP 5.0 cmH20; PO2 ABG 80.8 mmHg (80.0-100.0); PO2 FiO2 Ratio Arterial Blood 161
[2025-01-01 05:02] LABS: ABG PCO2 65.8 mmHg (35-45)
[2025-01-01 05:05] LABS: Carbon Dioxide 41 mmol/L (22-29)
[2025-01-01] MEDS: pantoprazole 40 mg SDV IVP (05:52)
[2025-01-01] MEDS: methylPREDNISolone sod succ 40 mg/mL INJ IVP ×2 (05:53→17:22)
--- NOTE | 2025-01-01 05:58 | PC.RESP ---
Pt pulled ett to 20cm@ lip deflated cuff and placed tube back to 28cm@ the lip patient has bilateral breath sounds spo2 98% on 50% fio2
--- NOTE | 2025-01-01 06:00 | US_ITS ---
WS: [id number] ULTRASOUND-GUIDED THORACENTESIS CLINICAL INFORMATION: right pleural effusion PROCEDURE: Informed consent: The risks, benefits, and alternatives of the procedure were discussed with the patient. Verbal and written consent was obtained. Timeout: A timeout was performed to confirm the correct patient, procedure, and site. Site: RIGHT chest Preparation: A suitable skin site was identified. The patient was prepped and draped in usual sterile fashion. Lidocaine 1% was used for local anesthesia. Catheter: 4 Dominican One-Step catheter. Fluid Volume: 550 cc Color: [place] Discarded safely. Sent to the laboratory for analysis. Complications: None. / thoracentesis [id number] IMPRESSION: Uncomplicated ultrasound-guided RIGHT thoracentesis with removal of 550 cc pleu ral fluid.
--- NOTE | 2025-01-01 06:05 | PC.NURSE ---
Went into patients room to administer meds shortly before 0600. Patient was gagging around ET tube and SpO2 was dropping into 70s. RT notified and came to bedside to assess patient. Patient ET tube was approximately 20 at the lip. RT addressed issue. Patient SpO2 now 95% and bilateral breath sounds. Patient has been very agitated the entire shift at wanting the tube removed and telling staff It will come out today one way or another.
--- NOTE | 2025-01-01 07:00 | XR_ITS ---
WS: [id number] XR chest 1V portable [id number] REASON FOR EXAM: sob FINDINGS: Compared to the examination of 12/31/2024 at 7:03 a.m. there is increased opacification in the lower right hemithorax which may be due to additional pleural effusion and atelectasis in the left lower lung. The chest is otherwise unchanged. XR/XR chest 1V portable [id number] IMPRESSION: Interval change in the right chest as above.
--- NOTE | 2025-01-01 07:38 | PC.NURSE ---
approximately 0715 Vent Alarming, no volume on screen sat 95 patient talking around tube and placement at 14 at lip. RT came to bedside stated the cuff was in the back of the patients mouth and was extubated ET tube removed and placed on 6L nc. Dr. Graham notified order received for bipap npo and abg in one hour RT notified.
--- NOTE | 2025-01-01 08:00 | PC.RESP ---
pt refused bipap
[2025-01-01 10:33] LABS: ABG PCO2 68.9 mmHg (35-45); ABG PH Result 7.42 (7.35-7.45); Alveolar-Arterial Oxygen Gradi 19.5 mmHg (5-10); Arterial Blood Gas Hematocrit 41.5 % (42-52); Blood Gas LPM 6.0 %; Blood Gas Operator Identificat GD; Blood Gas Sample Site Brachial, right; Blood Gas Sample Type Arterial; Carboxyhemoglobin < 0.3 %THgb (0.4-20.1); Glucose Level-ABG 198.0 mg/dL (70-115); HCO3 ABG 45.1 mmol/L (22-26); Ionized Calcium Level - ABG 1.1 mmol/L (1.1-1.4); Methemoglobin 1.3 % (0.4-1.5); Oxygen Saturation ABG 94.7; PO2 ABG 80.7 mmHg (80.0-100.0); PO2 FiO2 Ratio Arterial Blood 183; Potassium Level - ABG 3.8 mmol/L (3.5-5.0); Sodium Level - ABG 150.0 mmol/L (131-143)
--- NOTE | 2025-01-01 11:05 | PC.NURSE ---
patient verbalized procedure and gave consent patient tolerating a sitting on side of bed position v/s stable Time out complete 1105 end time 1113 patient tolerated well vital signs stable through out verbal order received for portable chest post thoracentsis
--- NOTE | 2025-01-01 11:14 | XR_ITS ---
WS: [id number] CHEST XRAY TECHNIQUE: Portable chest. CLINICAL INFORMATION: post thoracentisis COMPARISON: 01/01/2025 FINDINGS: RIGHT central venous catheter with tip in the mid SVC. Post RIGHT thoracentesis with resolution of the RIGHT pleural effusion. Subsegmental ectasis RIGHT lower lobe. No pneumothorax. Postoperative changes lower cervical spine. Fullness and opacification about the RIGHT hilum unchanged. XR/XR chest 1V portable [id number] IMPRESSION: 1. Interval improvement with resolution of the RIGHT pleural effusion. Subsegm ental ectasis RIGHT lower lobe. No pneumothorax. 2. RIGHT central venous catheter with tip in the SVC. 3. No other significant interval changes
[2025-01-01 11:48] LABS: Apprearance, Body Fluid CLOUDY; Color, Body Fluid YELLOW; Cyto Order Verification Order Verified; PATH Referral YES
[2025-01-01 11:49] LABS: Fluid Laterality RT THORA
--- NOTE | 2025-01-01 11:49 | PC.SOCIAL ---
IMM Updated Updated pt on IMM. No questions voiced. Provided pt a copy. Initialed, dated, & timed a copy & placed in chart.
[2025-01-01 11:53] LABS: Body Fluid Polynuclear #Cells 0.026; Monocytes # Body Fluid 0.045; Mononuclear WBC Body Fluid % 63.400 %; Polynuclear WBC Body Fluid % 36.600 %
[2025-01-01 11:55] LABS: Hematocrit Body Fluid 0.0 %
[2025-01-01 12:29] LABS: Triglycerides, Pleural Fluid 13 mg/dL
--- NOTE | 2025-01-01 17:37 | PM.PN ---
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 bilateral upper extremities, good strength bilateral lower extremities, able to smile for me, - Denies any chest pain, does report shortness of breath, does have a cough, - Discussed with him he is increased risk of reintubation, he voiced understanding, all questions answered - Discussed with him hand and right pleural effusion, concerns for complicated pleural effusion, plan for thoracentesis today, he is in agreement - Discussed that if this is an empyema or a complicated parapneumonic effusion he might need to be transferred for CT surgery evaluation Vitals/I&O/Wt Last Vital Signs Temp 99.2 F 01/01/25 04:00 Pulse 113 H 01/01/25 16:32 Resp 16 01/01/25 16:24 BP 118/80 01/01/25 16:00 Pulse Ox 97 01/01/25 16:24 O2 Del Method Nasal Cannula 01/01/25 16:24 O2 Flow Rate 4 01/01/25 16:24 FiO2 50 01/01/25 04:25 01/01/25 01/01/25 01/01/25 06:59 14:59 22:59 Intake Total 405.329 / 1075.767 250 / 250 Output Total 700 / 3200 Balance -294.671 / -2124.233 250 / 250 Weight last 48 hrs Weight 105.6 kg Physical Exam Urinary Catheter Management: Davis: Cath Placed During This Visit: yes Reason for Continuing Indwelling Catheter: Accurate Measurement of Urinary Output in Critically Ill Patients Urinary Catheter Date of Insertion: 12/27/24 Urinary Catheter Time of Insertion: 16:30 Data 01/01/25 03:43 01/01/25 03:43 Micro: Microbiology 12/26/24 19:57 Blood Culture - Final Blood NO GROWTH AFTER 5 DAYS 12/26/24 19:59 Blood Culture - Final Blood NO GROWTH AFTER 5 DAYS 12/30/24 11:25 Mycobacterial Smear - Preliminary Body Fluids - Bronchial 12/30/24 11:25 Gram Stain - Final Bronchial Washings Bronchial Washings Culture - Preliminary Yeast species A&P Assessment and plan 1. Septic shock: 2. Pneumonia: 3. Acute respiratory failure with hypoxia and hypercapnia: 4. NSTEMI (non-ST elevated myocardial infarction): 5. Lactic acidosis: 6. Cardiac arrest with successful resuscitation: 7. Bilateral lower leg cellulitis: 8. BPH associated with nocturia: 9. GERD (gastroesophageal reflux disease): 10. Diastolic CHF: 11. Chronic hypoxic respiratory failure, on home oxygen therapy: 12. Type 2 diabetes mellitus without complication, without long-term current use of insulin: 13. COPD exacerbation: Plan: Acute hypoxic hypercarbic respiratory failure - Multifactorial - Secondary to COPD exacerbation - Secondary to bilateral pneumonia CT/CT angio chest PE protcl [id number] IMPRESSION: 1. Patchy ground-glass opacities within both upper and lower lobes with confluent airspace disease in the right upper lobe. Probable bibasilar atelectasis. 2. No occlusive pulmonary embolism. -Component of systolic and diastolic CHF, avoid fluid therapy - Status post bronchoscopy Plan - Extubated to nasal cannula -BiPAP as needed during the day, scheduled during the night -Precedex as needed for agitationl - IV vancomycin - IV meropenem - Blood cultures, so far no growth - Sputum cultures, so far no growth -Bronchoscopy, cultures pending - DuoNeb - Budesonide - Solu-Medrol 40 mg IV every12 hours -Respiratory viral panel -Full code - Lovenox for DVT prophylaxis Right pleural effusion CT/CT chest wo con [id number] IMPRESSION: 1. Interval progression of the pleural effusions with loculated right pleural effusion and a small left pleural effusion. 2. Bibasal atelectasis. 3. Limited evaluation for hilar masses due to lack of contrast administration. Recent CTA done on 12/28/2024 however did not show any hilar mass. 4. Postop changes in the right hilum. Plan - Thoracentesis - Pleural studies ordered Septic shock resolved -Secondary to bilateral pneumonia -Secondary to cellulitis -Will avoid fluid therapy given concerns for fluid overload, systolic and diastolic CHF -Continue Levophed, maintain MAP in 65 NSTEMI -Serial EKGs, serial troponins, telemetry monitoring -Aspirin, statin -Cardiac echo CONCLUSIONS Normal left ventricular size, systolic function and wall thickness with ejection fraction of 66 %. Normal right ventricular size and systolic function. No significant valvular abnormalities. -Heparin drip for 48 hours completed Cardiac arrest episode with ROSC -20 minutes of CPR, rhythm of asystole to PEA to sinus tachycardia, status post doses of epinephrine, bicarbonate -Cardiac workup as above COPD exacerbation -History of COPD Hypophosphatemia, replace Lactic acidosis, monitor Umbilical hernia, reducible -With transaminitis CT/CT abdomen pelvis wo con [id number] IMPRESSION: 1. Small bowel containing umbilical hernia without evidence of intestinal obstruction/strangulation. 2. Bilateral lower lobe consolidations concerning for pneumonia and/or atelectatic changes. Please refer to separately dictated CT chest from 12/28/2024 for further characterization and recommendations. 3. Residual bilateral renal nephrograms, which may be from recent contrast administration. Correlate with renal function. 4. Otherwise, no acute process in the abdomen or pelvis to explain the patient's symptoms. Acute encephalopathy, resolving - Initially concerns for hypercarbia - Sedation vacation - Neurochecks, NIH stroke scale Cellulitis bilateral extremities, continue IV antibiotics, wound care Full code Protonix for GI prophylaxis Prognosis guarded Plan for today, PT OT, speech therapy eval, right thoracentesis IV antibiotics, BiPAP therapy, monitor respiratory status closely, PDMP PDMP Reviewed: Not Reviewed Attestations Medical Necessity Statement*: Patient requires hospitalization for cardiac arrest, acute respiratory failure, complicated right pleural effusion Diagnoses Septic shock A41.9; R65.21 Pneumonia J18.9 Acute respiratory failure with hypoxia and hypercapnia J96.01; J96.02 NSTEMI (non-ST elevated myocardial infarction) I21.4 Lactic acidosis E87.20 Cardiac arrest with successful resuscitation I46.9 Bilateral lower leg cellulitis L03.116; L03.115 BPH associated with nocturia N40.1; R35.1 GERD (gastroesophageal reflux disease) K21.9 Diastolic CHF I50.30 Chronic hypoxic respiratory failure, on home oxygen therapy J96.11; Z99.81 Type 2 diabetes mellitus without complication, without long-term current use of insulin E11.9 COPD exacerbation J44.1
--- NOTE | 2025-01-01 19:35 | P.PN_ITS ---
Subjective 2 Subjective: Valentino Cerrato is a 44 year old male with past medical history of diabetes longstanding ischemic venous stasis and chronic cellulitis in bilateral lower extremities comes in initially to the ER on 12/17/2024 and leaves AMA within a few hours, returns back again on 12/26/2024 but malodorous feet, seen in ER vancomycin started along with Zosyn. While in the hospital he was found to be somnolent, ABG obtained showed hypercapnic acute on chronic respiratory failure with CO2 102, BiPAP started and eventually intubated for airway protection. CT head was normal. ended up having a PEA cardiac arrest, multiple rounds of epi given 2 A of bicarb eventually ROSC was obtained. Patient had a difficult airway requiring 2 attempts at intubation. Patient reportedly also had seizure-like activity prior to cardiac rest. Eventually after cardiac arrest she did wake up and follow commands. Currently on propofol fentanyl and Versed drips having to take thick tube secretions. Febrile with a temp of 102F for the last 2 days,. Endotracheal tube aspirate sent off for cultures pending results. Currently tolerating ventilator well. He is also on Solu-Medrol 40 every 8 receiving IV vancomycin and meropenem. Precedex at 0.9, propofol at 10, and fentanyl 125 mics as well as heparin drip drips on. CT chest abdomen pelvis obtained. Small bowel containing umbilical hernia without strangulation or obstruction seen along with bilateral lower lobe pneumonia like changes. satting 94% ABG obtained showed a pH of 7.56 pCO2 of 50 PaO2 57.5. Vent settings are VC-AC at 500 mL/kg rate of 12, PI of 27, PEEP of 8 FiO2 50. Pertinent positive labs of sodium of 147, potassium 3.3, creatinine 1.2, AST ALT mildly elevated at 50, elevated C-reactive protein at 85. Chest x-ray reviewed by me personally shows bilateral pulmonary infiltrates suggestive of multifocal pneumonia and confirmed on CT showing patchy pulmonary opacities suggestive of multifocal pneumonia mixed with air bronchograms on the right and COPD like changes. Right main bronchus as well as upper lobe bronchus abruptly narrows down unclear whether there is endobronchial lesion or extrinsic compression or mucous plugging. 12/30/2024-patient is awake on the venti lator following commands. Having thick mucous plugs and secretions. On fentanyl and propofol drips currently tolerating well. Also on heparin drip. negative. Extrinsic compression collapse. Bronchoscopy performed showing right lower lobe, extrinsic compression noted on the right main stem bronchus 12/31/2024-patient is awake following co mmands. Less thick mucous plugs noted. Currently on propofol and fentanyl drips following commands. Also on heparin drip. PF ratio slightly low on ABGs. Chest x-ray reviewed shows a masslike consolidation on the right lung. 01/01/2025-patient is self extubated sin ce a.m. thoracentesis was done [address] chest reviewed showing loculated right-sided pleural effusion. Still febrile. On 2 L. Vitals/I&O/Wt Last Vital Signs Temp 99.2 F 01/01/25 04:00 Pulse 111 H 01/01/25 18:01 Resp 16 01/01/25 18:01 BP 118/80 01/01/25 16:00 Pulse Ox 97 01/01/25 18:01 O2 Del Method Nasal Cannula 01/01/25 18:01 O2 Flow Rate 4 01/01/25 18:01 FiO2 50 01/01/25 04:25 01/01/25 01/01/25 01/01/25 06:59 14:59 22:59 Intake Total 405.329 / 1075.767 250 / 250 300 / 550 Output Total 700 / 3200 1200 / 1200 Balance -294.671 / -2124.233 250 / 250 -900 / -650 Weight last 48 hrs Weight 232 lb 12.93 oz Physical Exam 2 Narrative: per RN General: awake obese HEENT: conj clear, EOMI, PERRL Neck: supple Pulmonary: Rhonchorous breath sounds bilaterally Cardiovascular: rrr, nl s1s2, no mrg Abdomen: soft, nt, nd, no r/g, mildly distended Extremities: pulses + cellulitis noted Neurologic: grossly intact Agree with above exam Urinary Catheter Management: Davis: Cath Placed During This Visit: yes Reason for Continuing Indwelling Catheter: Accurate Measurement of Urinary Output in Critically Ill Patients Urinary Catheter Date of Insertion: 12/27/24 Urinary Catheter Time of Insertion: 16:30 Data 01/01/25 03:43 01/01/25 03:43 Micro: Microbiology 01/01/25 11:30 Gram Stain - Final Pleural Fluid 12/26/24 19:57 Blood Culture - Final Blood NO GROWTH AFTER 5 DAYS 12/26/24 19:59 Blood Culture - Final Blood NO GROWTH AFTER 5 DAYS 12/30/24 11:25 Mycobacterial Smear - Preliminary Body Fluids - Bronchial A&P Assessment and plan 1. Acute respiratory failure with hypoxia and hypercapnia: 2. Multifocal pneumonia: Plan: This is a 44-year-old male past medical history of multiple medical problems presents initially to be with bilateral lower lower extremity cellulitis, course complicated by cardiac arrest due to hypercapnic respiratory failure currently on the ventilator. CT shows extensive multifocal pneumonia like changes # Acute on chronic respiratory failure -Continue mechanical ventilation at this time. Tracheal aspirate cultures reviewed showing multi organisms- NGTD- micro data check 01/01/2025 Bronch BAL pending from bilateral lower lobes, yeast are noted on bronchial washings so far Self extubated 01/01/2025 Continue Solu-Medrol and bronchodilators # Loculated pleural effusion-most likely infectious # Septic shock-source is bilateral leg cellulitis as well as MULTIFOCAL pneumonia Awaiting cultures Stop vancomycin 12/29/24, continue merrem 12/28/24-follow course of 10 days s/p bronchoscopy showing extrinsic compression and narrowed main stem bronchus most likely secondary to loculated pleural effusion # PEA cardiac arrest status post CPR for 20 minutes with return of ROSC # Difficult airway -Resolved # Lower extremity cellulitis -On antibiotics currently will recommend wound care consult for dressing changes # COPD exacerbation Continue bronchodilator therapy as well as Solu-Medrol # Diastolic congestive heart failure Lasix was given today with good urine output.-40 mg levo off since 12/29. # Acute lactic acidosis -ABG reviewed pH is normalized CO2 compensated. PF ratio is very low. # Probable right mainstem mucous plugging versus endobronchial lesion versus extrinsic compression Status post bronchoscopy 12/30/[address] chest personally myself and interpreted results. Has a loculated right-sided pleural effusion. Discussed case with Dr. Sparks, thoracentesis ordered. May need decortication by thoracic surgery. He is still febrile and this could be a source of his infection. # NSTEMI - Continue heparin gtt # Obstipation -prn Dulcolax # Hypokalemia - Replace as needed # Obesity # DVT GI prophylaxis - with heparin drip and famotidine # Patient is a full code. Family not available to conduct goals of care Discussed case with hospitalist Dr. Sparks Medical decision making level-moderate Telemedicine Consent Patient seen today via Telemedicine by agreement and consent of patient.? Telemedicine technology used during the visit includes audio and, as available, review of images.? The patient encounter is appropriate and reasonable under the circumstances given the patient?s particular presentation at this time.? The patient has been advised of the potential risks and limitations of this mode of treatment (including but not limited to the absence of in-person examination) and has agreed to be treated in a remote fashion in spite of them.? Any, and all, of the patient?s/patient?s family?s questions on this issue have been answered and I have made no promises or guarantees to the patient. The patient has also been advised to contact this office for worsening conditions or problems, and seek emergency medical treatment and/or call 911 if the patient deems either necessary PDMP PDMP Reviewed: Not Reviewed Attestations 2 Medical Necessity Statement*: Still febrile Coding Level of Care Code 85940 Diagnoses Acute respiratory failure with hypoxia and hypercapnia J96.01; J96.02 Multifocal pneumonia J18.8
--- NOTE | 2025-01-01 20:09 | PC.NURSE ---
Mar titration: Upon arrival to shift precedex was stopped, MAR updated to reflect dose.
[2025-01-01] MEDS: FUROsemide 10 mg/mL SDV 4mL 40 MG IVP (20:36)
[2025-01-02] VITALS (12 sets, daily range): BP systolic 141; BP diastolic 83; PULSE 98–145; RESP 16–17; TEMP 36.7; O2SAT 94–98
--- NOTE | 2025-01-02 04:42 | PC.NURSE ---
Refusing: patient refusing multiple medications, BP measurement, and continuos vital sign monitoring. This nurse attempted to educate patient on importance of medications and vital sign monitoring, patient still refusing. Dr. Lopes notified.
--- NOTE | 2025-01-02 05:33 | PC.NURSE ---
Addendum entered by Cecilia De Luna RN 01/02/25 07:04: Witnessed propofol waste with Dary RN. Addendum entered by Francisca Cooney RN 01/02/25 06:42: Witnessed Fentanyl gtt waste with MANJEET Foote Original Note: Wasted meds: 24mL of fentanyl wasted with Francisca BURROUGHS, 107mL of propofol wasted with Cecilia BURROUGHS.
--- NOTE | 2025-01-02 09:28 | P.PN_ITS ---
Subjective 2 Subjective: Valentino Cerrato is a 44 year old male with past medical history of diabetes longstanding ischemic venous stasis and chronic cellulitis in bilateral lower extremities comes in initially to the ER on 12/17/2024 and leaves AMA within a few hours, returns back again on 12/26/2024 but malodorous feet, seen in ER vancomycin started along with Zosyn. While in the hospital he was found to be somnolent, ABG obtained showed hypercapnic acute on chronic respiratory failure with CO2 102, BiPAP started and eventually intubated for airway protection. CT head was normal. ended up having a PEA cardiac arrest, multiple rounds of epi given 2 A of bicarb eventually ROSC was obtained. Patient had a difficult airway requiring 2 attempts at intubation. Patient reportedly also had seizure-like activity prior to cardiac rest. Eventually after cardiac arrest she did wake up and follow commands. Currently on propofol fentanyl and Versed drips having to take thick tube secretions. Febrile with a temp of 102F for the last 2 days,. Endotracheal tube aspirate sent off for cultures pending results. Currently tolerating ventilator well. He is also on Solu-Medrol 40 every 8 receiving IV vancomycin and meropenem. Precedex at 0.9, propofol at 10, and fentanyl 125 mics as well as heparin drip drips on. CT chest abdomen pelvis obtained. Small bowel containing umbilical hernia without strangulation or obstruction seen along with bilateral lower lobe pneumonia like changes. satting 94% ABG obtained showed a pH of 7.56 pCO2 of 50 PaO2 57.5. Vent settings are VC-AC at 500 mL/kg rate of 12, PI of 27, PEEP of 8 FiO2 50. Pertinent positive labs of sodium of 147, potassium 3.3, creatinine 1.2, AST ALT mildly elevated at 50, elevated C-reactive protein at 85. Chest x-ray reviewed by me personally shows bilateral pulmonary infiltrates suggestive of multifocal pneumonia and confirmed on CT showing patchy pulmonary opacities suggestive of multifocal pneumonia mixed with air bronchograms on the right and COPD like changes. Right main bronchus as well as upper lobe bronchus abruptly narrows down unclear whether there is endobronchial lesion or extrinsic compression or mucous plugging. 12/30/2024-patient is awake on the venti lator following commands. Having thick mucous plugs and secretions. On fentanyl and propofol drips currently tolerating well. Also on heparin drip. negative. Extrinsic compression collapse. Bronchoscopy performed showing right lower lobe, extrinsic compression noted on the right main stem bronchus 12/31/2024-patient is awake following co mmands. Less thick mucous plugs noted. Currently on propofol and fentanyl drips following commands. Also on heparin drip. PF ratio slightly low on ABGs. Chest x-ray reviewed shows a masslike consolidation on the right lung. 01/01/2025-patient is self extubated sin ce a.m. thoracentesis was done [address] chest reviewed showing loculated right-sided pleural effusion. Still febrile. On 2 L. 01/02/2025-patient is doing well on 5 L nasal cannula, tolerating p.o. intake well. No fevers overnight. Has been refusing to take meds this morning. Wants to go home. Vitals/I&O/Wt Last Vital Signs Temp 98.1 F 01/02/25 00:30 Pulse 112 H 01/02/25 08:00 Resp 16 01/02/25 03:48 BP 141/83 01/02/25 01:00 Pulse Ox 98 01/02/25 04:00 O2 Del Method Nasal Cannula 01/02/25 04:00 O2 Flow Rate 4 01/02/25 04:00 FiO2 50 01/01/25 04:25 01/01/25 01/02/25 01/02/25 22:59 06:59 14:59 Intake Total 400 / 650 1480 / 2130 250 / 250 Output Total 2900 / 2900 750 / 3650 Balance -2500 / -2250 730 / -1520 250 / 250 Weight last 48 hrs Weight 232 lb 12.93 oz Physical Exam 2 Narrative: per RN General: awake obese HEENT: conj clear, EOMI, PERRL Neck: supple Pulmonary: Rhonchorous breath sounds bilaterally Cardiovascular: rrr, nl s1s2, no mrg Abdomen: soft, nt, nd, no r/g, mildly distended Extremities: pulses + cellulitis noted Neurologic: grossly intact Agree with above exam Urinary Catheter Management: Davis: Cath Placed During This Visit: yes Reason for Continuing Indwelling Catheter: Accurate Measurement of Urinary Output in Critically Ill Patients Urinary Catheter Date of Insertion: 12/27/24 Urinary Catheter Time of Insertion: 16:30 Data 01/01/25 03:43 01/01/25 03:43 Micro: Microbiology 01/01/25 11:30 Gram Stain - Final Pleural Fluid A&P Assessment and plan 1. Acute respiratory failure with hypoxia and hypercapnia: 2. Multifocal pneumonia: Plan: This is a 44-year-old male past medical history of multiple medical problems presents initially to be with bilateral lower lower extremity cellulitis, course complicated by cardiac arrest due to hypercapnic respiratory failure currently on the ventilator. CT shows extensive multifocal pneumonia like changes # Acute on chronic respiratory failure -Continue O2 at this time along with as needed BiPAP -Tracheal aspirate cultures reviewed showing multi organisms- NGTD- micro data check 01/02/2025 Bronch BAL pending from bilateral lower lobes, yeast are noted on bronchial washings so far Self extubated 01/02/2025 Continue Solu-Medrol and bronchodilators-wean off to p.o. prednisone 40 daily- NGTD today-taper over week # Loculated pleural effusion-most likely infectious-Will get chest x-ray today # Septic shock-source is bilateral leg cellulitis as well as MULTIFOCAL pneumonia Awaiting cultures Stop vancomycin 12/29/24, continue merrem 12/28/24-follow course of 10 days s/p bronchoscopy showing extrinsic compression and narrowed main stem bronchus most likely secondary to loculated pleural effusion # PEA cardiac arrest status post CPR for 20 minutes with return of ROSC # Difficult airway -Resolved # COPD exacerbation Continue bronchodilator therapy as well as [id number] to p.o. prednisone today # Diastolic congestive heart failure Resolving, good urine output.-40 mg levo off since 12/29. # Acute lactic acidosis -A resolved # Probable right mainstem - extrinsic compression Status post bronchoscopy 12/30/[address] chest personally myself and interpreted results. Has a loculated right-sided pleural effusion. Discussed case with Dr. Sparks, thoracentesis ordered. May need decortication by thoracic surgery. He is afebrile today. Will get a chest x-ray and decide whether he could be discharged with outpatient follow-up with thoracic surgery. # NSTEMI - Continue heparin gtt # Obstipation -prn Dulcolax # Hypokalemia - Replace as needed # Obesity # DVT GI prophylaxis - with heparin drip and famotidine # Patient is a full code. Discussed case with hospitalist Dr. Sparks Medical decision making level-moderate Telemedicine Consent Patient seen today via Telemedicine by agreement and consent of patient.? Telemedicine technology used during the visit includes audio and, as available, review of images.? The patient encounter is appropriate and reasonable under the circumstances given the patient?s particular presentation at this time.? The patient has been advised of the potential risks and limitations of this mode of treatment (including but not limited to the absence of in-person examination) and has agreed to be treated in a remote fashion in spite of them.? Any, and all, of the patient?s/patient?s family?s questions on this issue have been answered and I have made no promises or guarantees to the patient. The patient has also been advised to contact this office for worsening conditions or problems, and seek emergency medical treatment and/or call 911 if the patient deems either necessary PDMP PDMP Reviewed: Not Reviewed Attestations 2 Medical Necessity Statement*: Can be discharged to home today Coding Level of Care Code 59451 Diagnoses Acute respiratory failure with hypoxia and hypercapnia J96.01; J96.02 Multifocal pneumonia J18.8
[2025-01-02 09:36] LABS: Hematocrit 48.5 % (37-53); Hemoglobin 14.50 g/dL (11.27-16.99); Mean Corpuscular HGB Conc 29.9 g/dL (30-55); Mean Corpuscular Hemoglobin 27.9 pg (27-33); Mean Corpuscular Volume 93.3 fl (82-101); Nucleated Red Blood Cells % 0 %; Platelet Count 259 10^3/cmm (157-399); Red Blood Count 5.20 10^6/uL (3.85-5.65); White Blood Count 13.58 10^3/uL (3.29-11.43)
--- NOTE | 2025-01-02 09:36 | PC.NURSE ---
pt up in chair, refused iv antibotic this am and refusing to have vital signs done or assessment done,,, angry requesting to be left alone,,, Im going home today
[2025-01-02 10:02] LABS: Alanine Aminotransferase 38 U/L (0-41); Albumin Level 3.6 g/dL (3.5-5.2); Alkaline Phosphatase 66 U/L (40-130); Anion Gap 8.0 (5-19); Aspartate Amino Transferase 58 U/L (0-40); Blood Urea Nitrogen 24 mg/dL (6-20); Calcium 8.9 mg/dL (8.5-10.5); Chloride 92 mmol/L (98-107); Creatinine Clr Calc Pharmacy 165.6190; Globulin 3.2 g/dL (1.3-4.6); Glucose 169 mg/dL (65-115); Osmolality Calculated 296 mOsm/kg (285-295); Potassium 3.0 mmol/L (3.5-5.1); Sodium 139 mmol/L (136-145); Total Protein 6.8 g/dL (6.6-8.7)
[2025-01-02 10:07] LABS: Carbon Dioxide 42 mmol/L (22-29)
[2025-01-02 10:16] LABS: NT Pro B Type Natriuretic Pept 266 pg/mL (0-125); Procalcitonin 0.16 ng/mL (0-0.5)
[2025-01-02 10:34] LABS: Magnesium 2.0 mg/dL (1.7-2.3)
--- NOTE | 2025-01-02 12:32 | P.DS_ITS ---
Discharge Providers Date of Admission: 12/27/24 00:54 Date of Discharge: January 02, 2025 Attending Provider at Admission: Milvia Ramos MD Attending Provider at Discharge: Martin Graham MD Primary Care Provider: Raina Parkinson DO Diagnoses at Discharge Discharge Diagnosis 1. Acute respiratory failure with hypoxia and hypercapnia: 2. Multifocal pneumonia: Reason for Visit Reason for Visit: swelling on bilateral legs Hospital Course Hospital Course This is a 44-year-old male with a past medical history of type 2 diabetes mellitus, peripheral vascular disease, COPD, on 4 L, history of severe obstructive sleep apnea, has a home ventilator, emphysema, history of leaving AGAINST MEDICAL ADVICE 12/17/2024 who presents [facility] due to lower extremity edema Patient had a prolonged hospitalization, please look in with progress note for further detail Patient was admitted to [facility] for bilateral lower extremity cellulitis, with systolic and diastolic CHF exacerbation, received IV diuresis, received IV antibiotics. Patient's hospitalization was complicated by acute hypoxic hypercapnic respiratory failure with cardiac arrest 12/28/2024 with successful ROSC, requiring intubation, mechanical ventilation, with shock. Pulmonary was consulted, was treated for acute hypoxic hypercarbic respiratory failure, bilateral pneumonia, septic shock, right pleural effusion, requiring bronchoscopy, overall clinically improved, patient self extubated 01/01/2025 For patient's cardiac arrest -20 minutes of CPR, rhythm of asystole to PEA to sinus tachycardia, status post doses of epinephrine, bicarbonate -Etiology of cardiac arrest likely multifactorial from acute hypoxic hypercarbic respiratory failure, septic shock from bilateral pneumonia, cellulitis -However cannot rule out an underlying cardiac etiology -Cardiac workup NSTEMI -Serial EKGs, serial troponins, telemetry monitoring -Aspirin, statin -Cardiac echo CONCLUSIONS Normal left ventricular size, systolic function and wall thickness with ejection fraction of 66 %. Normal right ventricular size and systolic function. No significant valvular abnormalities. -Heparin drip for 48 hours completed - No chest pain complaints - I have recommended for him to stay in the hospital for further evaluation and consideration of of cardiac stress testing on Saturday and/or cardiology evaluation - However patient declines further evaluation and testing -Denies any chest pain - Understands morbidity and mortality associated with leaving it prematurely without further workup, he voices understanding, all questions answered, shared decision making, declines to stay - Continue home aspirin - Declined statin on discharge - Patient was advised if he has any chest pain go to the emergency room - Follow-up with cardiology as outpatient for consideration of stress testing For patient's acute hypoxic hypercarbic respiratory failure - Multifactorial - From underlying COPD, bilateral pneumonia, systolic and diastolic CHF - Required broad-spectrum IV antibiotic therapy - Requiring IV steroids - Requiring IV diuresis - Pulmonary consulted requiring bronchoscopy -Patient self extubated 01/01/2025 -Patient refusing to take his medications the morning of 01/02/2025, wants to leave the hospital, refusing further medical care, refusing further testing, refusing further evaluation -Discussed with patient the morbidity and mortality associate with not following medical advice, not staying for further medical care, he voices understanding all questions answered, nursing staff at bedside, declines further interventions/medical clearance/staying in the hospital/further evaluation - On discharge patient continues to have wheezing and is on 4 L, discharged on Levaquin for 10 days, a prednisone taper, sputum cultures show yeast species patient is unwilling to stay in the hospital for any longer thus I will discharge him on p.o. Diflucan. - Patient's sputum culture showing yeast species, identification pending, as patient is unwilling to stay at [facility] for further evaluation and monitoring, will discharge on p.o. Diflucan - Fungal studies ordered, and pending - Discussed with patient the morbidity and mortality against leaving the [facility] prematurely, he voiced understanding, all questions answered, declined to stay further in the hospital - I am concerned about his compliance with his home ventilator machine, patient reports that it is a CPAP but I believe that he seen Dr. Morin in the past and it has been prescribed a home ventilator discussed compliance with his home vent, patient is unwilling to stay in the hospital further for me to troubleshoot any issues with his home ventilator, confirm status, discussed morbidity and mortality associated with hypercarbic respiratory failure, he voiced understanding, plans to stay further in the hospital, will be discharged home, follow-up with primary care provider, follow-up with pulmonary -Discharged on a prednisone taper -Discharged on 10 more days of oral Levaquin with For his bronchoscopy - Bronchoscopy showing normal right lower lobe extrinsic compression noted in the right mainstem bronchus - He will need to have further pulmonary evaluation - Consideration of PET scanning and/or possible biopsy, evaluation by CT surgery as outpatient - Will have him follow-up with pulmonary as outpatient - Will have him follow-up with CT surgery Dr. Krause as outpatient Right pleural effusion CT/CT chest wo con [id number] IMPRESSION: 1. Interval progression of the pleural effusions with loculated right pleural effusion and a small left pleural effusion. 2. Bibasal atelectasis. 3. Limited evaluation for hilar masses due to lack of contrast administration. Recent CTA done on 12/28/2024 however did not show any hilar mass. 4. Postop changes in the right hilum. -Status post thoracentesis 550 cc of pleural fluid removed -So far transudative by lights criteria -Current concerns for complicated versus uncomplicated pleural effusion -So far cultures no growth -Discussed with patient that complicated pleural effusions, long-term can have long-term complications such as chronic shortness of breath, adhesions, risk of infections, especially given the loculations on CT scan -Did discuss with him that he needs more urgent CT surgery evaluation, I do not have CT surgery here at [facility] however patient does not want to stay in the hospital longer, does not want to have further evaluation, does not want further monitoring currently, wants to leave the hospital. Discussed the morbidity and mortality, he voiced understanding, all questions answered, declined further evaluation/monitoring/treatment, wants to leave the hospital - Fortunately, patient refuses to stay in the hospital for further evaluation, testing, and monitoring -Patient will need to follow-up with CT surgery as outpatient, referral sent for -Discharged on p.o. antibiotics For diastolic CHF, required IV diuresis overall clinically improved, does appear a bit fluid overloaded on discharge, however patient refuses to stay in the hospital for further evaluation/testing/interventions/refusing medications, understands morbidity and mortality associated, will discharge on as needed Lasix with potassium replacement therapy On discharge patient CPK is elevated 1354, patient refuses to stay as inpatient for further evaluation/treatment/monitoring Cellulitis bilateral extremities clinically improving, discharged on p.o. antibiotics Physical Exam Const: COMMON NORMALS: no acute distress and patient oriented x3 Resp: COMMON NORMALS: normal respiratory effort, No retractions and No use of accessory muscles AUSCULTATION: crackles and wheezes Cardio: COMMON NORMALS: regular rate, regular rhythm, S1 normal heart sound present and S2 normal heart sound present RATE: regular rate RHYTHM: regular rhythm HEART SOUNDS: S1 normal heart sound present and S2 normal heart sound present GI: COMMON NORMALS: Normal to inspection, nondistended, normoactive bowel sounds present and non-tender Extremity: COMMON NORMALS: no calf tenderness OTHER: 1+ pitting edema Cellulitis bilateral lower extremities, clinically improving Neuro: COMMON NORMALS: patient oriented x3 Psych: COMMON NORMALS: mental status grossly normal Urinary Catheter Management: Davis: Cath Placed During This Visit: yes Reason for Continuing Indwelling Catheter: Accurate Measurement of Urinary Output in Critically Ill Patients Urinary Catheter Date of Insertion: 12/27/24 Urinary Catheter Time of Insertion: 16:30 Discharge Data Studies Completed and Pending Completed Studies During Hospitalization Category Date Time Status CT abdomen pelvis wo con [id number] Stat Cat Scan 12/28/24 11:[address] angio chest PE protcl [id number] Routine Cat Scan 12/28/24 05:[address] chest wo con [id number] Routine Cat Scan 12/31/24 14:[address] head wo con* [id number] Stat Cat Scan 12/28/24 20:[address] head wo con* [id number] Urgent Cat Scan 12/27/24 21:07 Completed CXRP [XR chest 1V portable 05787] Routine Exams 01/01/25 11:14 Completed XR KUB portable [id number] Routine Exams 12/28/24 08:45 Completed XR chest 1V portable [id number] Routine Exams 12/29/24 07:00 Completed XR chest 1V portable [id number] Routine Exams 12/30/24 07:00 Completed XR chest 1V portable 63386 Routine Exams 12/31/24 07:00 Completed XR chest 1V portable [id number] Routine Exams 01/01/25 07:00 Completed XR chest 1V portable [id number] Stat Exams 12/26/24 19:37 Completed XR chest 1V portable 03017 Stat Exams 12/28/24 02:22 Completed CV. echo complete* [id number] Routine Ultrasound 12/29/24 07:55 Completed US pelvic limited 75998 Stat Ultrasound 12/28/24 08:47 Completed US thoracentesis 78881 Stat Ultrasound 01/01/25 06:00 Completed US venous duplex lower extremity bilat [CV venous Ultrasound 12/28/24 08:45 [place] [address]] Routine Pending at discharge Category Date Time Status Amylase, Pleural Fluid Routine Lab 12/31/24 17:37 Received 1-3 Beta D Glucan [Fungitell Glucan Assay (Blood)] Lab 01/02/25 09:14 Received Routine Aspergillus AG,EIA,Serum Stat Lab 01/02/25 09:14 Received Aspergillus DNA Qualitativ PCR Routine Lab 01/02/25 09:14 Received Body Fluid Culture & GS Routine Lab 12/31/24 17:37 Results Bronchial Washing Culture Routine Lab 12/30/24 11:25 Results C Reactive Protein AM LABS Lab 01/03/25 04:00 Ordered Complete Blood Count w/Auto AM LABS Lab 01/03/25 04:00 Ordered Comprehensive Metabolic Panel AM LABS Lab 01/03/25 04:00 Ordered Creatine Phosphokinase AM LABS Lab 01/03/25 04:00 Ordered Fungal Culture not HR/SK/BL Routine Lab 12/30/24 11:25 Received Gram Stain Routine Lab 12/30/24 11:25 Results Magnesium AM LABS Lab 01/03/25 04:00 Ordered Mycobacteria, Culture w/Fluor Routine Lab 12/30/24 11:25 Results Mycobacteria, Culture w/Fluor Routine Lab 12/31/24 17:37 Received NT Pro B Type Natriuretic Pept QAM Lab 01/03/25 06:00 Ordered Phosphorus AM LABS Lab 01/03/25 04:00 Ordered Procalcitonin AM LABS Lab 01/03/25 04:00 Ordered Sputum Culture and Gram Stain Stat Lab 12/29/24 11:35 Ordered Viral Respiratory,Rapid Cultur Routine Lab 12/30/24 11:25 Received Cytology [PTH] Routine Pth 12/31/24 11:30 Received Radiology Impressions Chest CTA 12/28/24 05:02 IMPRESSION: 1. Patchy ground-glass opacities within both upper and lower lobes with confluent airspace disease in the right upper lobe. Probable bibasilar atelectasis. 2. No occlusive pulmonary embolism. KUB X-Ray 12/28/24 08:45 IMPRESSION: No significant abdominal abnormality. Pelvis Ultrasound 12/28/24 08:47 IMPRESSION: Highly suspicious for LEFT inguinal canal hernia containing GI tract based on the imaging submitted. No obvious RIGHT inguinal canal hernia containing GI tract. Fat-containing inguinal hernia may be present. Consider CT evaluation of the abdomen and pelvis. This will help evaluate for possible GI tract obstruction or fluid in the inguinal canals. Abdomen/Pelvis CT 12/28/24 11:43 IMPRESSION: 1. Small bowel containing umbilical hernia without evidence of intestinal obstruction/strangulation. 2. Bilateral lower lobe consolidations concerning for pneumonia and/or atelectatic changes. Please refer to separately dictated CT chest from 12/28/2024 for further characterization and recommendations. 3. Residual bilateral renal nephrograms, which may be from recent contrast administration. Correlate with renal function. 4. Otherwise, no acute process in the abdomen or pelvis to explain the patient's symptoms. Head CT 12/28/24 20:08 IMPRESSION: No acute intracranial abnormality.. Chronic findings as above. Chest CT 12/31/24 14:51 IMPRESSION: 1. Interval progression of the pleural effusions with loculated right pleural effusion and a small left pleural effusion. 2. Bibasal atelectasis. 3. Limited evaluation for hilar masses due to lack of contrast administration. Recent CTA done on 12/28/2024 however did not show any hilar mass. 4. Postop changes in the right hilum. Thoracentesis Ultrasound 01/01/25 06:00 IMPRESSION: Uncomplicated ultrasound-guided RIGHT thoracentesis with removal of 550 cc pleural fluid. Chest X-Ray 01/01/25 11:14 IMPRESSION: 1. Interval improvement with resolution of the RIGHT pleural effusion. Subsegmental ectasis RIGHT lower lobe. No pneumothorax. 2. RIGHT central venous catheter with tip in the SVC. 3. No other significant interval changes Laboratory Results WBC 13.58 10^3/uL (3.29-11.43) H 01/02/25 09:14 WBC Cancelled 01/02/25 09:14 Corrected WBC Cancelled 01/02/25 09:14 RBC 5.20 10^6/uL (3.85-5.65) 01/02/25 09:14 RBC Cancelled 01/02/25 09:14 Hgb 14.50 g/dL (11.27-16.99) 01/02/25 09:14 Hgb Cancelled 01/02/25 09:14 Hct 48.5 % (37-53) 01/02/25 09:14 Hct Cancelled 01/02/25 09:14 MCV 93.3 fl (82-101) 01/02/25 09:14 MCV Cancelled 01/02/25 09:14 MCH 27.9 pg (27-33) 01/02/25 09:14 MCH Cancelled 01/02/25 09:14 MCHC 29.9 g/dL (30-55) L 01/02/25 09:14 MCHC Cancelled 01/02/25 09:14 RDW 12.5 % (12.1-15.1) 01/02/25 09:14 RDW Cancelled 01/02/25 09:14 Plt Count 259 10^3/cmm (157-399) 01/02/25 09:14 Plt Count Cancelled 01/02/25 09:14 MPV 10.1 fL (7.4-10.4) 01/02/25 09:14 MPV Cancelled 01/02/25 09:14 Gran % Cancelled 01/02/25 09:14 Neut % (Auto) 81.0 % 01/02/25 09:14 Neut % (Auto) Cancelled 01/02/25 09:14 Lymph % (Auto) 12.9 % 01/02/25 09:14 Lymph % (Auto) Cancelled 01/02/25 09:14 [place] % (Auto) 5.4 % 01/02/25 09:14 [place] % (Auto) Cancelled 01/02/25 09:14 Eos % (Auto) 0.3 % 01/02/25 09:14 Eos % (Auto) Cancelled 01/02/25 09:14 Baso % (Auto) 0.1 % 01/02/25 09:14 Baso % (Auto) Cancelled 01/02/25 09:14 Neut # (Auto) 11.01 10^3/uL (1.8-7.7) H 01/02/25 09:14 Neut # (Auto) Cancelled 01/02/25 09:14 Lymph # (Auto) 1.8 10^3/uL (0.8-4.8) 01/02/25 09:14 Lymph # (Auto) Cancelled 01/02/25 09:14 [place] # (Auto) 0.7 10^3/uL (0.2-0.9) 01/02/25 09:14 [place] # (Auto) Cancelled 01/02/25 09:14 Eos # (Auto) 0.0 10^3/uL (0.0-0.8) 01/02/25 09:14 Eos # (Auto) Cancelled 01/02/25 09:14 Baso # (Auto) 0.0 10^3/uL (0.0-0.1) 01/02/25 09:14 Baso # (Auto) Cancelled 01/02/25 09:14 Absolute Gran (auto) Cancelled 01/02/25 09:14 Nucleated RBC % (auto) 0 % 01/02/25 09:14 Nucleated RBC % (auto) Cancelled 01/02/25 09:14 Nucleated RBCs # 0.0 /100WBC 01/02/25 09:14 Nucleated RBCs # Cancelled 01/02/25 09:14 Differential Comment Yes 01/01/25 11:30 ESR 85 mm/hr (0-10) H 12/28/24 01:55 PT 13.70 SECONDS (12.1-14.9) 12/31/24 03:46 INR 0.98 (0.8-1.2) 12/31/24 03:46 APTT 58.2 SECONDS (23.9-36.7) H 12/30/24 11:53 D-Dimer 2.39 ug/mLFEU (0-0.59) H 12/28/24 01:55 Specimen Type Arterial 01/01/25 10:15 Sample Site Brachial, right 01/01/25 10:15 ABG pH 7.42 (7.35-7.45) 01/01/25 10:15 ABG pCO2 68.9 mmHg (35-45) H* 01/01/25 10:15 ABG pO2 80.7 mmHg (80.0-100.0) 01/01/25 10:15 ABG PO2/FiO2 Ratio 183 01/01/25 10:15 ABG HCO3 45.1 mmol/L (22-26) H 01/01/25 10:15 ABG O2 Saturation 94.7 01/01/25 10:15 ABG Base Excess 17.0 mmol/L (-2.0-2.0) H 01/01/25 10:15 Jone Test N/a 01/01/25 10:15 A-a O2 Gradient 19.5 mmHg (5-10) H 01/01/25 10:15 Hematocrit 41.5 % (42-52) L 01/01/25 10:15 Hgb O2 Saturation 93.3 % (95-100) L 01/01/25 10:15 Carboxyhemoglobin < 0.3 %THgb (0.4-20.1) L 01/01/25 10:15 Methemoglobin 1.3 % (0.4-1.5) 01/01/25 10:15 Total Hemoglobin 13.5 g/dL (14-18) L 01/01/25 10:15 Sodium 150.0 mmol/L (131-143) H 01/01/25 10:15 Potassium 3.8 mmol/L (3.5-5.0) 01/01/25 10:15 Glucose 198.0 mg/dL (70-115) H 01/01/25 10:15 Ionized Calcium 1.1 mmol/L (1.1-1.4) 01/01/25 10:15 O2 Delivery Device Nc 01/01/25 10:15 O2 Liters/Min 6.0 % 01/01/25 10:15 FiO2 44.0 % 01/01/25 10:15 Tidal Volume 0.45 12/31/24 03:37 PEEP 5.0 cmH20 01/01/25 04:33 [employer] And [employer] Instructor ID Gd 01/01/25 10:15 Sodium 139 mmol/L (136-145) 01/02/25 09:14 Sodium Cancelled 01/02/25 09:14 Potassium 3.0 mmol/L (3.5-5.1) L 01/02/25 09:14 Potassium Cancelled 01/02/25 09:14 Chloride 92 mmol/L (98-107) L 01/02/25 09:14 Chloride Cancelled 01/02/25 09:14 Carbon Dioxide 42 mmol/L (22-29) H* 01/02/25 09:14 Carbon Dioxide Cancelled 01/02/25 09:14 Anion Gap 8.0 (5-19) 01/02/25 09:14 Anion Gap Cancelled 01/02/25 09:14 BUN 24 mg/dL (6-20) H 01/02/25 09:14 BUN Cancelled 01/02/25 09:14 Creatinine 0.7 mg/dL (0.7-1.2) 01/02/25 09:14 Creatinine Cancelled 01/02/25 09:14 GFR Calculation 121.4 mL/min (90-130) 01/02/25 09:14 GFR Calculation Cancelled 01/02/25 09:14 Glucose 169 mg/dL (65-115) H 01/02/25 09:14 Glucose Cancelled 01/02/25 09:14 POC Glucose 205 mg/dL (70-110) H 01/01/25 20:22 Calculated Osmolality 296 mOsm/kg (285-295) H 01/02/25 09:14 Calculated Osmolality Cancelled 01/02/25 09:14 Lactic Acid 18.8 mmol/L (0.5-2.2) H* 12/28/24 01:55 Lactic Acid (Sepsis) 1.7 mmol/L (0.5-2.2) 12/28/24 05:04 Lactate 1.0 mmol/L (0.5-2.2) 12/31/24 03:46 Calcium 8.9 mg/dL (8.5-10.5) 01/02/25 09:14 Calcium Cancelled 01/02/25 09:14 Phosphorus 2.9 mg/dL (2.5-4.5) 01/02/25 09:14 Phosphorus Cancelled 01/02/25 09:14 Magnesium 2.0 mg/dL (1.7-2.3) 01/02/25 09:14 Magnesium Cancelled 01/02/25 09:14 Total Bilirubin 1.0 mg/dL (0.15-1.2) 01/02/25 09:14 Total Bilirubin Cancelled 01/02/25 09:14 AST 58 U/L (0-40) H 01/02/25 09:14 AST Cancelled 01/02/25 09:14 ALT 38 U/L (0-41) 01/02/25 09:14 ALT Cancelled 01/02/25 09:14 Alkaline Phosphatase 66 U/L (40-130) 01/02/25 09:14 Alkaline Phosphatase Cancelled 01/02/25 09:14 Lactate Dehydrogenase 311 U/L (135-225) H 01/01/25 03:43 Creatine Kinase 1354 U/L (39-308) H* 01/02/25 09:14 Troponin T 5th Gen ng/L Cancelled 12/28/24 08:08 Troponin T Baseline 10 ng/L (0-15) 12/28/24 01:55 Troponin T 120 Minute 54.18 ng/L (0-15) H 12/28/24 04:19 Delta Troponin T 44.18 ABS# (0-10) H* 12/28/24 04:19 Troponin T Hi Sens 6Hr 58.37 ng/L (0-15) H 12/28/24 08:08 Troponin T Hi Sens 6Hr Delta 48.37 ng/L (0-12) H* 12/28/24 08:08 C-Reactive Protein 10.7 mg/L (0.0-4.9) H 01/02/25 09:14 C-Reactive Protein Cancelled 01/02/25 09:14 NT-Pro-B Natriuret Pep 266 pg/mL (0-125) H 01/02/25 09:14 Total Protein 6.8 g/dL (6.6-8.7) 01/02/25 09:14 Total Protein Cancelled 01/02/25 09:14 Albumin 3.6 g/dL (3.5-5.2) 01/02/25 09:14 Albumin Cancelled 01/02/25 09:14 Globulin 3.2 g/dL (1.3-4.6) 01/02/25 09:14 Globulin Cancelled 01/02/25 09:14 Procalcitonin 0.16 ng/mL (0-0.5) 01/02/25 09:14 Urine Color Yellow (Yellow) 12/26/24 20:13 Urine Appearance Clear (CLEAR) 12/26/24 20:13 Urine pH 5 (5-7) 12/26/24 20:13 Ur Specific [place] 1.005 (1.005-1.030) 12/26/24 20:13 Urine Protein Neg (Negative) 12/26/24 20:13 Urine Glucose (UA) 4+ (Normal) H 12/26/24 20:13 Urine Ketones Negative (Negative) 12/26/24 20:13 Urine Blood Neg (Negative) 12/26/24 20:13 Urine Nitrate Negative (Negative) 12/26/24 20:13 Urine Bilirubin Neg (Negative) 12/26/24 20:13 Urine Urobilinogen Norm mg/dL (Negative) 12/26/24 20:13 Ur Leukocyte Esterase Negative (Negative) 12/26/24 20:13 Amorphous Sediment Not Reportable 12/26/24 20:13 Fluid Color Yellow 01/01/25 11:30 Fluid Appearance Cloudy 01/01/25 11:30 Fluid WBC 71 /uL 01/01/25 11:30 Fluid RBC 2.000 10^3/uL 01/01/25 11:30 Fluid Hematocrit 0.0 % 01/01/25 11:30 Fld Polynuclear WBCs # 0.026 01/01/25 11:30 Fld Polynuclear WBCs % 36.600 % 01/01/25 11:30 Fl Mononucl WBCs #(Auto) 0.045 01/01/25 11:30 Fl Mononuclear % Auto 63.400 % 01/01/25 11:30 Fld Crystal Laterality Rt thora 01/01/25 11:30 Fluid Albumin 1.5 g/dL 01/01/25 11:30 Fluid Creatinine 0.89 (0.7-1.2) 01/01/25 11:30 Pleural pH 7.00 (6.5-7.5) 01/01/25 11:30 Pleural Total Protein 2.2 g/dL 01/01/25 11:30 Pleural LDH 137 U/L 01/01/25 11:30 Pleural Glucose 180.0 mg/dL 01/01/25 11:30 Pleural Triglycerides 13 mg/dL 01/01/25 11:30 Vancomycin Trough 18.6 ug/mL (10-15) H 12/30/24 07:08 Urine Opiates Screen Negative ng/mL (Negative) 12/27/24 21:15 Ur Barbiturates Screen Negative ng/mL (Negative) 12/27/24 21:15 Ur Phencyclidine Scrn Negative ng/mL (Negative) 12/27/24 21:15 Ur Amphetamines Screen Negative ng/mL (Negative) 12/27/24 21:15 U Benzodiazepines Scrn Negative ng/mL (Negative) 12/27/24 21:15 Urine Cocaine Screen Negative ng/mL (Negative) 12/27/24 21:15 U Marijuana (THC) Screen Negative ng/mL (Negative) 12/27/24 21:15 Ethyl Alcohol 12 mg/dL (0-10) H 12/27/24 21:36 Serum Ketones Positive (Negative) H 12/28/24 08:08 Adenovirus (PCR) Not detected (NOT DETECT) 12/28/24 19:22 C. pneumoniae DNA (PCR) Not detected (NOT DETECT) 12/28/24 19:22 Coronavirus 229E (PCR) Not detected (NOT DETECT) 12/28/24 19:22 Human Metapneumovir PCR Not detected (NOT DETECT) 12/28/24 19:22 Influenza A (H1) PCR Not detected (NOT DETECT) 12/28/24 19: Influ A (H1/09) PCR Not detected (NOT DETECT) 12/28/24 19: Influenza A (H3) PCR Not detected (NOT DETECT) 12/28/24 19: Influenza Type A (PCR) Not detected (NOT DETECT) 12/28/24 19: Influenza Type B (PCR) Not detected (NOT DETECT) 12/28/24 19:22 M. pneumoniae (PCR) Not detected (NOT DETECT) 12/28/24 19: Parainfluenza 1 (PCR) Not detected (NOT DETECT) 12/28/24 19: Parainfluenza 2 (PCR) Not detected (NOT DETECT) 12/28/24: Parainfluenza 3 (PCR) Not detected (NOT DETECT) 12/28/24 19: Parainfluenza 4 (PCR) Not detected (NOT DETECT) 12/28/24 19: RSV Type A (PCR) Not detected (NOT DETECT) 12/28/24 19: RSV Type B (PCR) Not detected (NOT DETECT) 12/28/24 19: Entero/Rhino (PCR) Not detected (NOT DETECT) 12/28/24 19:22 SARS-CoV-2 (PCR) Not detected (NOT DETECT) 12/28/24 19: Vitals Last Vital Signs Temp 98.1 F 01/02/25 00:30 Pulse 112 H 01/02/25 08:00 Resp 16 01/02/25 03:48 BP 141/83 01/02/25 01:00 Pulse Ox 98 01/02/25 04:00 O2 Del Method Nasal Cannula 01/02/25 04:00 O2 Flow Rate 4 01/02/25 04:00 FiO2 50 01/01/25 04:25 Discharge Plan Discharge Patient Disposition: Home Condition: Stable Prescriptions: New (DME) glucometer testing kit See Rx Instructions .Route .MEDSUPPLY Qty: 1 0RF Rx Instructions: Glucometer testing kit Lancets #100 Strips 100 Check blood sugar 3 times daily after meals docusate sodium 100 mg Capsule 100 mg PO BID 30 Days Qty: 60 0RF fluticasone propion-salmeterol [Advair Diskus] 250-50 mcg/dose blister with device 1 inh inhalation BID Qty: 60 0RF prednisone 10 mg tablet See Rx Instructions .ROUTE .COMPLEX Qty: 32 0RF Rx Instructions: 4 tabs(40mg) for 3 days, 3tabs(30mg) for 3days, 2tabs(20mg) for 3 days, 1tab(10mg) for 3days, 0.5(5mg) for 3 days insulin aspart U-100 [Novolog FlexPen U-100 Insulin] 100 unit/mL (3 mL) insulin pen See Rx Instructions .ROUTE .COMPLEX MDD 40 Qty: 15 0RF Rx Instructions: Inject subcut, 3 times daily, after meals, based on low-dose sliding scale polyethylene glycol 3350 17 gram Powder In Packet 17 g PO DAILY PRN (Reason: constipation) 30 Days Qty: 30 0RF levofloxacin 750 mg Tablet 750 mg PO DAILY@0600 10 Days Qty: 10 0RF albuterol sulfate [Ventolin HFA] 90 mcg/actuation HFA aerosol inhaler 1 inh inhalation Q6H PRN (Reason: shortness of breath or wheezing) Qty: 8.5 0RF fluconazole 100 mg tablet 100 mg PO DAILY 10 Days Qty: 10 0RF Continued Saline Nasal 0.65 % aerosol,spray 2 spray intranasal Q4H PRN (Reason: dry nasal passages) Qty: 44 0RF testosterone cypionate 200 mg/mL oil 200 mg SUBCUT .every 14 days Qty: 2 0RF tamsulosin 0.4 mg capsule See Rx Instructions .ROUTE .COMPLEX Qty: 90 1RF Dose Instruction: TAKE ONE CAPSULE BY MOUTH DAILY Rx Instructions: TAKE ONE CAPSULE BY MOUTH DAILY tiotropium bromide [Spiriva with HandiHaler] 18 mcg capsule, w/inhalation device See Rx Instructions .ROUTE .COMPLEX Qty: 30 5RF Dose Instruction: inhale THE contents of 1 capsule BY MOUTH DAILY; puncture 1 capsule using device AND INHALE fast AND deep two times. Rx Instructions: inhale THE contents of 1 capsule BY MOUTH DAILY; puncture 1 capsule using device AND INHALE fast AND deep two times. aspirin 81 mg tablet,delayed release (DR/EC) See Rx Instructions .ROUTE .COMPLEX Qty: 90 0RF Dose Instruction: TAKE ONE TABLET BY MOUTH EVERY DAY Rx Instructions: TAKE ONE TABLET BY MOUTH EVERY DAY metformin 750 mg tablet extended release 24 hr 750 mg PO BID Qty: 180 1RF Jardiance 25 mg tablet 25 mg PO QAM Qty: 90 1RF Rx Instructions: TAKE ONE TABLET BY MOUTH EVERY MORNING fluticasone propionate 50 mcg/actuation spray,suspension See Rx Instructions .ROUTE .COMPLEX Qty: 16 2RF Dose Instruction: INSTILL 2 SPRAYS IN EACH NOSTRIL EVERY DAY NEEDED FOR allergy SYMPTOMS Rx Instructions: INSTILL 2 SPRAYS IN EACH NOSTRIL EVERY DAY NEEDED FOR allergy SYMPTOMS pantoprazole 40 mg tablet,delayed release (DR/EC) 40 mg PO DAILY Qty: 90 0RF metoprolol tartrate 25 mg tablet See Rx Instructions .ROUTE .COMPLEX Qty: 90 0RF Dose Instruction: TAKE ONE TABLET BY MOUTH TWICE DAILY Rx Instructions: TAKE ONE TABLET BY MOUTH TWICE DAILY rizatriptan [Maxalt-MANUFACTURING MAINTENANCE MECHANIC] 10 mg tablet,disintegrating 10 mg PO Q2H PRN (Reason: migraine headache) Qty: 27 2RF Rx Instructions: until response; not to exceed 2 doses in a 24 hour period Discontinued hydrochlorothiazide 12.5 mg tablet See Rx Instructions .ROUTE .COMPLEX Qty: 90 1RF Dose Instruction: TAKE ONE TABLET BY MOUTH EVERY MORNING Rx Instructions: TAKE ONE TABLET BY MOUTH EVERY MORNING No Action (DME) blood-glucose meter Misc See Rx Instructions .Route Qty: 1 0RF Rx Instructions: once daily with glucose test strips and lancets (DME) nerve stimulator Device See Rx Instructions .ROUTE .MEDSUPPLY Qty: 1 Rx Instructions: As directed (DME) oxygen-air delivery systems Device See Rx Instructions .Route Rx Instructions: As directed 2L at night (DME) Portable 02 concentrator See Rx Instructions .Route .MEDSUPPLY Qty: 1 0RF Rx Instructions: As directed (DME) 02 See Rx Instructions .Route .MEDSUPPLY Qty: 1 0RF Rx Instructions: 2-4 L continuous O2 (DME) lancets [OneTouch Delica Plus Lancet] 30 gauge misc See Rx Instructions .ROUTE .COMPLEX Qty: 100 2RF Dose Instruction: Once daily with Glucose meter and Test strips. Rx Instructions: Once daily with Glucose meter and Test strips. (DME) Blood Glucose Test Strip See Rx Instructions .Route Qty: 50 2RF Rx Instructions: BID daily with glucose meter Discharge Order = DC NOW: Discharge Order (Routine); Ordered 01/02/25 Ordered By: Martin Graham Referrals: Wade Solitario MD [Physician, Pulmonology] - 2 weeks Ulisses Howard M.D [Physician, Cardiology] - 2 weeks Referral Note: stress test Raina Parkinson DO [Primary Care Provider, [facility]] Anselmo Krause DO [Referring] Referral Note: Right pleural effusion Patient Instructions: Albuterol (By breathing) (ProAir, AccuNeb, Proventil, Proventil..., Prednisone (By mouth) (Prednisone Intensol, Prednicot, Deltasone, Daysi), Fluconazole (By mouth) (Diflucan), Levofloxacin (By mouth) (Levaquin, Levaquin Leva-nahomy), Insulin Aspart, Recombinant (By injection) (Novolog, Novolog..., Fluticasone/Salmeterol (By breathing) (Advair Diskus 100/50, Advair..., Polyethylene Glycol 3350 (By mouth) (Miralax, Healthylax..., Docusate Sodium (By mouth), How to Check your Blood Sugar (GEN), Opioid Safety, Patient Portal & Raj Instructions Activity Restrictions/Additional Instructions: -Please monitor your blood sugars closely -Monitor your blood sugars 3 times daily as after meals -Please record your blood sugars, and a blood sugar log -For your NovoLog -Please inject blood sugar after meals based on sliding scale provided -Do not inject insulin if you do not eat as hypoglycemia kills -This is a NovoLog sliding scale -Insulin sliding ?fingerstick? Insulin ?141-180?0 units/sq 181-220?2 units/sq ?221-260?4 units/sq ?261-300 6 units/sq ?301-350?8 units/sq ?351-400 10 units/sq ?401-450?12 units/sq >450? 14units/sq -If your blood sugar is greater than 500 go to the emergency room -If your blood sugar is less than 60 or at anytime you feel lightheaded or dizzy or diaphoretic or have chest palpitations check your blood sugar, and eat a hard candy or drink orange juice and go immediately to the emergency room -Remember hypoglycemia kills, so if his blood sugar is less than 60 we have to increase it by taking in a sugary meal such as a hard candy or orange juice and go to the emergency room -If you have any questions please call us where here to help - For your COPD, please follow-up with pulmonary - For your pneumonia please take antibiotics, if any recurrent fevers or chills go to emergency room - For your right pleural effusion please follow-up with Dr. Krause - For your cardiac arrest please follow-up with cardiology - Follow-up with primary care Please call Saturday to schedule follow-ups with the doctors listed in the discharge packet. Discharge Attestations Time Spent in Discharge Care*: greater than 30 min Quality Metrics Clinical Quality Measures [ No reported AMI, CVA or VTE this stay] Coding Level of Care Code 69193 Total time (in minutes) for Discharge: 45 Diagnoses Acute respiratory failure with hypoxia and hypercapnia J96.01; J96.02 Multifocal pneumonia J18.8
--- NOTE | 2025-01-02 15:01 | PC.NURSE ---
has refused all vital signs and up in room voided post terry removal , iv removed have been waiting for to come pick him up all meds transmitted ect. he has talked with several times on phone she is still getting ready to come up here pick him up . awaiting clothes to dress pt
[2025-01-05 16:14] LABS: Fungitell 1-3-B Glucan Assay 138 pg/mL (<60); Interpretation Positive (Negative)
[2025-01-05 18:00] LABS: Amylase, Pleural Fluid <10 U/L
[2025-01-05 23:05] LABS: Aspergillus Source WHOLE BLOOD; Aspergillus Supp NOT DETECTED; Aspergillus Terreus DNA NOT DETECTED
[2025-01-06 19:14] LABS: Aspergillus AG,EIA,Serum NOT DETECTED; Aspergillus Galactomannan Inde <0.50
== END 2025-01-02 15:54 | disposition home or self-care (01) | DRG 870 ==
LOC: ER 22:03 → MEDSURG 12-27 00:27 → ICU 12-27 23:36
PROVIDERS: Internal Medicine; Student in an Organized Health Care Education/Training Program; Admitting Provider Internal Medicine; Emergency Provider Emergency Medicine; PCP Family Medicine; Visit Provider Family Medicine
DX: A41.9 Sepsis, unspecified organism (principal); I21.4 Non-ST elevation (NSTEMI) myocardial infarction; J96.21 Acute and chronic respiratory failure with hypoxia; J18.9 Pneumonia, unspecified organism; R65.21 Severe sepsis with septic shock; J96.22 Acute and chronic respiratory failure with hypercapnia; I50.43 Acute on chronic combined systolic (congestive) and diastolic (congestive) heart failure; I46.8 Cardiac arrest due to other underlying condition; E87.21 Acute metabolic acidosis; L03.116 Cellulitis of left lower limb; L03.115 Cellulitis of right lower limb; E87.20 Acidosis, unspecified; J44.1 Chronic obstructive pulmonary disease with (acute) exacerbation; G93.40 Encephalopathy, unspecified; J91.8 Pleural effusion in other conditions classified elsewhere; I11.0 Hypertensive heart disease with heart failure; E83.39 Other disorders of phosphorus metabolism; J98.09 Other diseases of bronchus, not elsewhere classified; Z99.81 Dependence on supplemental oxygen; J44.0 Chronic obstructive pulmonary disease with (acute) lower respiratory infection; E11.51 Type 2 diabetes mellitus with diabetic peripheral angiopathy without gangrene; J43.9 Emphysema, unspecified; G47.33 Obstructive sleep apnea (adult) (pediatric); I87.8 Other specified disorders of veins; K21.9 Gastro-esophageal reflux disease without esophagitis; G89.4 Chronic pain syndrome; R00.0 Tachycardia, unspecified; K42.9 Umbilical hernia without obstruction or gangrene; K59.00 Constipation, unspecified; E66.9 Obesity, unspecified; E87.6 Hypokalemia; N40.1 Benign prostatic hyperplasia with lower urinary tract symptoms; R35.1 Nocturia; J98.4 Other disorders of lung; Z79.82 Long term (current) use of aspirin; Z79.84 Long term (current) use of oral hypoglycemic drugs; Z79.899 Other long term (current) drug therapy; Z88.0 Allergy status to penicillin; Z87.891 Personal history of nicotine dependence; Z68.31 Body mass index [BMI] 31.0-31.9, adult
CPT/HCPCS: 31622; 32555; 36415; 36416; 36592; 36600; 51702; 70450; 71045; 71250; 71275; 74018; 74176; 76857; 80048; 80051; 80053; 80202; 80306; 80307; 80503; 81003; 82009; 82042; 82150; 82330; 82550; 82570; 82803; 82805; 82945; 82962; 83605; 83615; 83735; 83880; 83986; 84100; 84145; 84157; 84478; 84484; 85014; 85025; 85378; 85610; 85651; 85730; 86140; 86606; 87015; 87040; 87070; 87075; 87102; 87106; 87116; 87205; 87206; 87305; 87449; 87486; 87581; 87633; 87798; 87801; 88112; 89050; 92523; 92610; 93005; 93306; 93970; 94003; 94640; 94660; 94799; 96365; 96372; 97161; 97530; 99285; A4570; C1751; J0131; J0692; J1644; J1650; J1815; J1938; J2003; J2060; J2185; J2250; J2270; J2470; J2704; J2919; J3010; J3373; J3475; J3480; J7030; J7050; J7070; J7120; J7626; J9999; P9046

== ENCOUNTER 2025-01-19 12:15 | Outpatient (CLI) | payer MEDICARE, MEDICAID, SELFPAY ==
[2025-01-19 13:03] LABS: Estmated Average Glucose 200; Hemoglobin A1C 8.6 % (4.0-6.0)
[2025-01-19 13:08] LABS: Alanine Aminotransferase 27 U/L (0-41); Albumin Level 4.0 g/dL (3.5-5.2); Alkaline Phosphatase 170 U/L (40-130); Anion Gap 12.7 (5-19); Aspartate Amino Transferase 18 U/L (0-40); Blood Urea Nitrogen 11 mg/dL (6-20); Calcium 9.4 mg/dL (8.5-10.5); Chloride 85 mmol/L (98-107); Globulin 2.9 g/dL (1.3-4.6); Glucose 308 mg/dL (65-115); Osmolality Calculated 299 mOsm/kg (285-295); Potassium 3.7 mmol/L (3.5-5.1); Sodium 139 mmol/L (136-145); Total Protein 6.9 g/dL (6.6-8.7)
[2025-01-19 14:22] LABS: Carbon Dioxide 45 mmol/L (22-29)
== END 2025-01-19 12:16 | disposition home or self-care (01) ==
LOC: LAB 12:18
PROVIDERS: PCP Family Medicine; Visit Provider Family Medicine
DX: E11.9 Type 2 diabetes mellitus without complications (principal); L03.116 Cellulitis of left lower limb; L03.115 Cellulitis of right lower limb
CPT/HCPCS: 36415; 80053; 82550; 83036

== ENCOUNTER → 2025-01-27 14:11 | Outpatient (BNVA) | payer MEDICARE, MEDICAID, SELFPAY | PROVIDERS: PCP Family Medicine; Visit Provider Thoracic Surgery (Cardiothoracic Vascular Surgery) | DX: L28.0 Lichen simplex chronicus (principal); R60.0 Localized edema | CPT/HCPCS: 99213 ==

== ENCOUNTER 2025-03-01 18:50 | Inpatient (IN) | payer MEDICARE, MEDICAID, SELFPAY ==
--- OUTSIDE RECORDS SUMMARY | 2025-02-02 03:20 | XMS_ITS ---
Author Organization [facility] Address [address] [place] [address] Care Team Providers Care Currency Exchange Specialist Name Role Phone Heather Samson Unavailable [phone] REASON FOR VISIT Ref by Raina Parkinson Problems Problem Type SNOMED Code ICD Code Onset Dates Problem Status W/U Status Risk Notes Problem Chronic pain syndrome (236581883) Chronic pain syndrome (G89.4) Active confirmed Encounters Encounter Location Date Provider Diagnosis [facility] [place] [address] [place] [address] 02/02/2025 Heather Samson Chronic pain syndrome G89.4 Assessments Encounter Date Diagnosis (ICD Code) Assessment Notes Treatment Notes Treatment Clinical Notes Section Notes 02/02/2025 Chronic pain syndrome (ICD-10 - G89.4) Plan Of Treatment Next Appt Details Provider Name:Heather Sauceda, 04/27/2025 09:20:00 AM, [address] [place], [address], History and Physical Notes * HPI (History of Present Illness) Category Sub-Category Detail Notes Category Not es Pain Details Pain Location ___ Duration ___ Onset ___ Frequency of Pain ___ Quality ___ Radiation ___ Severity of pain at its worst ___ Severity of pain at its best ___ Severity of average pain ___ Severity of pain right now ___ Worsening factors ___ Relieving factors ___ Associated symptoms ___ Severity of pain on medication ___ When did you last take your pain medicin e ___ Opioid Assessment Tools Pill Count ___ Today's Rapid Urine Drug Screen ___ [place] Prescription Monitoring Program ___ SOAPP-R (Screener/Opioid Assessment for Patient) ___ Today's SOAPP-R Score ___ Treatment History Caregivers you have visited ___ Test undergone in the past ___ Past medication you have taken ___ Treatments you have had ___ Were prior treatments of any help? ___ When was prior treatment started? ___ STOP-BANG Questionnaire Do you snore nanci dly (louder than talking or loud enough to be heard through closed doors)? ___ Do you often feel tired, fatigued, or sl eepy during the day? ___ Has anyone observed you stop breathing d uring your sleep ___ Do you have or are you being treated for high blood pressure? ___ BMI greater than 35 kg/m2? ___ Age over 50 years old? ___ Gender: Male ___ Neck circumference is measured greater t palmer 40cm? ___ Score ___ Oxygen ___ CPAP ___ Progress Notes * Valentino LYNDOB:1980 (44 yo M)Acc No.[id number]:02/02/2025 Progress Notes Patient: Valentino Ricketts Provider: Karlene Samson MD :1980 A ge:44 Y S ex:Male Date:02/02/2025 Address:[address] [place], [place] [id number] Subjective: * Chief Complaints: * R ef by Raina Parkinson * HPI: Herbert field Details: Pain Location _ __. Duration _ __. Onset _ __. Frequency of Pain _ __. Quality _ __. Radiation _ __. Severity of pain at its worst _ __. Severity of pain at its best _ __. Severity of pain on medication _ __. Severity of average pain _ __. Severity of pain right now _ __. Worsening factors _ __. Relieving factors _ __. Associated symptoms _ __. When did you last take your pain medicine _ __. O pioid Assessment Tools: SOAPP-R (Screener/Opioid Assessment for Patient) _ __. Today's SOAPP-R Score _ __. Pill Count _ __. Today's Rapid Urine Drug Screen _ __. [place] Prescription Monitoring Program _ __. T reatment History: Caregivers you have visited _ __. Test undergone in the past _ __. Past medication you have taken _ __. Treatments you have had _ __. Were prior treatments of any help? _ __. When was prior treatment started? _ __. S TOP-BANG Questionnaire: Do you snore loudly (louder than talking or loud enough to be heard through closed doors)? _ __. Do you often feel tired, fatigued, or sleepy during the day??___. Has anyone observed you stop breathing during your sleep _ __. Do you have or are you being treated for high blood pressure??___. BMI greater than 35 kg/m2? _ __. Age over 50 years old? _ __. Gender: Male _ __. Neck circumference is measured greater than 40cm? _ __.? Score _ __. Oxygen _ __. CPAP _ __. * ROS: G eneral - Multi System: Constitutional D eniesfever, fatigue, weight gain, weight loss, sleep difficulty. R espiratory D enies, cough, shortness of breath, COPD/emphysema, sleep apnea, wheezing, snoring. G astrointestinal?Denies, nausea, vomiting, constipation, diarrhea, abdominal pain. N eurologic D enies, headaches, numbness, weakness, memory loss, excessive sedation. P sychiatric D enies depression, anxiety, suicidal thoughts/actions, panic attacks. Assessment: * Assessment: 1. C hronic pain syndrome - G89.4 (Primary) Billing Information: * Procedure Codes: * Electronic signature of Anabella Samson MD on 03/01/2025 at 07:34 PM GERMAN INSTRUCTOR Sign off status: Pending * Provider: Karlene Samson MD Date: 04/04/2024 Generated for Bobbi sutton/Mia/Sanjuanita on: 05/02/2024 07:34 PM GERMAN INSTRUCTOR
[2025-03-01] VITALS (9 sets, daily range): BP systolic 105–156; BP diastolic 66–88; PULSE 122–128; RESP 20–25; TEMP 36.9; O2SAT 84–100; BMI 33.2
--- NOTE | 2025-03-01 18:55 | XRR_ITS ---
PROCEDURE INFORMATION: Exam: XR Chest Exam date and time: 03/01/2025 6:58 PM Age: 44 years old Clinical indication: Shortness of breath TECHNIQUE: Imaging protocol: Radiologic exam of the chest. Views: 1 view. COMPARISON: CR XR chest 1V portable [id number] 01/01/2025 11:25 AM FINDINGS: Tubes, catheters and devices: There is a stimulator device in the midthoracic spine. Lungs: Extensive findings of interstitial lung parenchymal reticulation involving the right upper and right lower lobes as well as left lower lobe present postinflammatory related scarring suspected. There are calcified granulomas throughout the lower lobes. Surgical sutures present in the right pulmonary hilum full surgical related Pleural spaces: Unremarkable. No pleural effusion. No pneumothorax. Heart/Mediastinum: Unremarkable. No cardiomegaly. Bones/joints: Patient is status post fusion of the cervical spine . XR/XR chest 1V portable [id number] IMPRESSION: Findings extensive reticulation in the right upper and lower lobe postinflammatory related scarring could be considered. Findings suggest prior granulomatous exposure Postsurgical changes as above from cervical spine fusion and prior surgery around the region of the right pulmonary hilum
[2025-03-01 19:28] LABS: ABG PH Result 7.23 (7.35-7.45); Arterial Blood Gas Hematocrit 35.6 % (42-52); Blood Gas LPM 15.0 %; Blood Gas Operator Identificat AMH; Blood Gas Sample Site Brachial, right; Blood Gas Sample Type Arterial; Carboxyhemoglobin 1.2 %THgb (0.4-20.1); Glucose Level-ABG 155.0 mg/dL (70-115); HCO3 ABG 46.0 mmol/L (22-26); Ionized Calcium Level - ABG 1.2 mmol/L (1.1-1.4); Methemoglobin 1.1 % (0.4-1.5); Oxygen Saturation ABG 98.4; PO2 ABG 302.0 mmHg (80.0-100.0); Potassium Level - ABG 3.8 mmol/L (3.5-5.0); Sodium Level - ABG 145.0 mmol/L (131-143)
[2025-03-01 19:29] LABS: ABG PCO2 > 102.0 mmHg (35-45)
--- OUTSIDE RECORDS SUMMARY | 2025-03-01 19:34 | XMS_ITS | Clinical Summary ---
Author Organization 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 Gender Identity Not on file Sexual [...] 5 years 08/28/2023 DIABETES ANNUAL RETINAL EXAM 01/24/202410/2022, 04/21/2020, 04/21/2020, Additional history exists INFLUENZA VACCINE (#1) 2024 HPV VACCINES (No Doses Required) Completed Insurance [place] [address] [address] DUAL COMPLETE MCR PPO D-SNP RX OPTUM RX Member Subscriber Plan / Payer (Ef fective 2015-Present) Name:Lyn Stephan Prather Relation to Subscriber:Self Name:LYN,STEPHAN Prather Payer ID:Not on file Group ID:[id number] Type:RX Medicare Part D Address: [place], [place] RX INFOCROSSING Medicaid Advance Directives For more information, please contact: [phone] * Full Code (Latest Code Status on File) Date Activated Date Inactivated Comments 11/30/2019 9:54 AM 11/30/2019 4:40 PM Care Teams Municipal Services Manager Relationship Specialty Start Date End Date Kayla Duarte MD [address] [facility] [place] [address] PCP - General 08/02/16
--- OUTSIDE RECORDS SUMMARY | 2025-03-01 19:34 | XMS_ITS | Patient Health Record ---
Author Organization [facility] Address [address] [place] [address] Care Team Providers Care Tank Stave Assembler Name Role Phone ChapinHeather Unavailable Reason For Referral Reason eval and treat Diagnosis 1 Postlaminectomy synd armando, not elsewhere classified (M96.1) Referring Provider First Name Raina Referring Provider Last Name Iggy Referring Provider Speciality Family Pra ctice Referred Organization [facility] Referred Provider Karlene Samson Referred Address [address] [place],[address], Referred Provider Specialty Pain Medicin e General Notes Hillary Boswell 04:31:42 PM CDT > atc pt, no answer, Hillary Boswell 11/30/2024 03:19:00 PM CDT > atc pt, lvmAndreia Twyla A 12/02/2024 12:46:33 PM CDT > mailing npp, scheduled pt Referral Priority Routine Problems Problem Type SNOMED Code ICD Code Onset Dates Problem Status W/U Status Risk Notes Problem Chronic pain syndrome (007431436) Chronic pain syndrome (G89.4) Active confirmed Problem Post-laminec ignacia syndrome (25837909) Postlaminectomy syndrome, not elsewhere classified (M96.1) Active confirmed Plan Of Treatment Next Appt Details Provider Name:Heather Vines Saritha Sauceda, 04/27/2025 09:20:00 AM, [address] [place], [address], Insurance Providers Payer Name Payer Address Payer Phone Subscriber Number Group Number Insured Name Patient Relationship to Insured Coverage Start Date Coverage End Date BC [place] [address] [place] [address] [id number] Valentino Cerrato Self - patient is the insured [place] Medicaid [address] [place] [phone] [id number] Valentino Cerrato Self - patient is the insured
--- OUTSIDE RECORDS SUMMARY | 2025-03-01 19:34 | XMS_ITS | Encounter Summary ---
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
--- OUTSIDE RECORDS SUMMARY | 2025-03-01 19:34 | XMS_ITS | Encounter Summary ---
Author Organization [facility] Address [address] [place] [address] Care Team Providers Care Copra Processor Name Role Phone Kayla Duarte MD Primary Care Provider [phone] Encounter Details Date Type Department Care Team (Latest Contact Info) Description 04/03/2006 Outpatient Historical [facility] Medicine[address] [phone] Alex Macario, DO NO ADDRESS ON FILE Lumbago (Primary Dx) Social History Tobacco Use Types Packs/Day Years Used Date Smoking Tobacco: Never Assessed Sex and Gender Information Value Date Recorded Sex Assigned at Not on file Legal Sex Male 4:05 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
--- OUTSIDE RECORDS SUMMARY | 2025-03-01 19:34 | XMS_ITS | Encounter Summary ---
Author Organization [facility] Address [address] [place] [address] Care Team Providers Care Data Science And Iot Manager Name Role Phone Kayla Duarte MD Primary Care Provider [phone] Encounter Details Date Type Department Care Team (Latest Contact Info) Description 02/27/2006 Outpatient Historical [facility] Medicine[address] [address] Alex Macario, DO NO ADDRESS ON FILE Unspecified Infantile Cerebral Palsy (CMS/HCC) (Primary Dx); Cervicalgia; Depressive Disorder, not Elsewhere Classified Social History Tobacco Use Types Packs/Day Years Used Date Smoking Tobacco: Never Assessed Sex and Gender Information Value Date Recorded Sex Assigned at Not on file 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
--- OUTSIDE RECORDS SUMMARY | 2025-03-01 19:34 | XMS_ITS | Encounter Summary ---
Author Organization [facility] Address [address] [place] [address] Care Team Providers Care Animal Health Technician Name Role Phone Kayla Duarte MD Primary Care Provider [phone] Encounter Details Date Type Department Care Team (Latest Contact Info) Description 02/14/2005 Outpatient Historical [facility] Services [address] [place] [phone] Alex Dumont MD [address] [address] DISC DIS NEC/NOS-THORAC (Primary Dx) Social History Tobacco Use Types Packs/Day Years Used Date Smoking Tobacco: Never Assessed Sex and Gender Information Value Date Recorded Sex Assigned at Not on file Legal 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
--- OUTSIDE RECORDS SUMMARY | 2025-03-01 19:34 | XMS_ITS | Clinical Summary ---
Author Organization [facility] Address [address] [place] [address] Phone Care Team Providers Care Skein Washer Name Role Phone Kayla Duarte MD Primary Care Provider [phone] Allergies Active Allergy Reactions Criticality Noted Date [...] 23 Active fluticasone propionate (FLONASE) 50 mcg/spray [place], Suspension nasal inhaler 01/23/20 23 Active Active [...] on file Legal Sex Male 1:22 AM BATCH AND FURNACE OPERATOR Gender Identity Not on file Sexual Orientation Not on file Last Filed Vital Signs Vital Sign Reading Time Taken Comments Blood Pressure 128/96 01/24/2023 5:47 PM BATCH AND FURNACE OPERATOR Pulse 110 01/24/2023 5:47 PM BATCH AND FURNACE OPERATOR per patiient this is his norm Temperature 37 C (98.6 F) 01/24/2023 5:47 PM BATCH AND FURNACE OPERATOR Respiratory Rate 18 01/24/2023 11:4 0 AM BATCH AND FURNACE OPERATOR Oxygen Saturation 92% 01/24/2023 5:4 7 PM BATCH AND FURNACE OPERATOR Inhaled Oxygen Concentration - - Weight 107.9 kg (237 lb 12.8 oz) 01/24/2023 11:40 AM BATCH AND FURNACE OPERATOR Height 182.9 cm (6') 01/24/2023 11:40 AM BATCH AND FURNACE OPERATOR Body Mass Index 32.25 01/24/2023 11:40 AM BATCH AND FURNACE OPERATOR Plan of Treatment Health Maintenance Due Date [...] 5 years 08/28/2023 DIABETES ANNUAL RETINAL EXAM 01/25/202411/2022, 01/24/2023, 01/23/2023, Additional history exists INFLUENZA VACCINE (#1) 2024 01/06/2021 HPV VACCINES (No Doses Required) Completed Insurance MEDICAID [facility] MEDICARE HMO * Guarantor: STEPHAN LYN Account Type Relation to Patient Date of Phone Billing Address Personal/Family [address] [place] [address] RX OPTUM RX Member Subscriber Plan / Payer (Ef fective 2015-Present) Name:Stephan Lyn Relation to Subscriber:Self Name:Stephan Lyn Payer ID:Not on file Group ID:[id number] Type:RX Medicare Part D Address: [place], [place] RX INFOCROSSING Medicaid Care Teams Skein Washer Relationship Specialty [place] [address] [place] [address] [place] [address] [facility] - General 08/02/16
[2025-03-01 19:39] LABS: Hematocrit 40.1 % (37-53); Hemoglobin 11.30 g/dL (11.27-16.99); Mean Corpuscular HGB Conc 28.2 g/dL (30-55); Mean Corpuscular Hemoglobin 28.3 pg (27-33); Mean Corpuscular Volume 100.5 fl (82-101); Nucleated Red Blood Cells % 0 %; Platelet Count 223 10^3/cmm (157-399); Red Blood Count 3.99 10^6/uL (3.85-5.65); White Blood Count 6.52 10^3/uL (3.29-11.43)
[2025-03-01] MEDS: methylPREDNISolone sod succ 125 mg/2 mL INJ IVP (19:45)
--- NOTE | 2025-03-01 19:55 | ECG_ITS ---
[facility] 2025[facility]03[facility]01 Pat Name: Valentino Cerrato Department: Room: Gender: Male Level Vial Grinder: : 1980 Requested By: Sierra Ansari Order Number: [id number] Rogers MD: Duane Gonzalez M.D. Measurements Intervals [place] Rate: 119 P: 79 CO: 127 QRS: 85 QRSD: 84 T: 56 QT: 304 QTc: 428 Interpretive Statements SINUS TACHYCARDIA ABNORMAL RHYTHM ECG Compared to ECG 12/28/2024 09:05:15 T-wave abnormality no longer present Electronically Signed On 03-02-2025 21:47:43 BOAT OUTBOARD ENGINE MECHANIC by Duane Gonzalez M.D. [email or web address]
[2025-03-01 20:01] LABS: Lactic Sepsis W/Reflex 1.5 mmol/L (0.5-2.2)
[2025-03-01 20:13] LABS: Troponin(5th) Baseline 16 ng/L (0-15)
--- NOTE | 2025-03-01 20:15 | ED_ITS ---
HPI - SOB/Dyspnea 2 General: Chief Complaint: Shortness of Breath/Dyspnea Stated Complaint: Resp Distr Time Seen by Provider: 03/01/25 18:54 History of Present Illness: HPI Narrative: Patient is a 44-year-old male with past medical history of COPD, diabetes, CHF who presents to the ED in respiratory distress. Seemingly progressive onset per EMS for a few days, was hypoxic in the 80s, arrives on nonrebreather on arrival and saturating in the mid 90s. History limited due to respiratory distress. Related Data Home Medications ?Medication ?Instructions ?Recorded ?Confirmed nerve stimulator ##1 04/07/19 02/16/25 oxygen-air delivery systems 01/06/21 02/16/25 dulaglutide 3 mg/0.5 mL mg SUBCUT 01/19/25 02/16/25 subcutaneous [facility] inject[facility] Previous Rx's ?Medication ?Instructions ?Recorded blood-glucose meter #1 ea 06/14/21 lancets 30 gauge (What's On Foodie DelClicktree ##100 11/29/21 Plus Lancet) sodium chloride 0.65 % nasal spray 2 spray intranasal Q4H PRN dry 02/24/24 aerosol (Saline Nasal) nasal passages #44 mL Portable 02 concentrator #1 ea 06/09/24 02 #1 ea 07/07/24 aspirin 81 mg tablet,delayed See Rx Instructions .Rout e 10/12/24 release .COMPLEX #90 tabs empagliflozin 25 mg tablet 25 mg PO QAM #90 tabs 10/18 (Jardiance) metformin 750 mg tablet,extended 750 mg PO BID #180 ta bs 10/18/24 release 24 hr rizatriptan 10 mg disintegrating 10 mg PO Q2H PRN migr brian headache 12/08/24 tablet (Maxalt-BOTTOM POUNDER CEMENT SHOES) #27 tabs albuterol sulfate 90 mcg/actuation 1 inh inhalation Q6 H PRN shortness 01/02/25 aerosol inhaler (Ventolin HFA) of breath or wheezing # 8.5 grams fluticasone 250 mcg-salmeterol 50 1 inh inhalation BID #60 ea 01/02/25 mcg/dose blistr powdr for inhalation (Advair Diskus) glucometer testing kit #1 ea 01/02/25 blood sugar diagnostic (SIL4 SystemsTouch #50 strips 01/05/25 Ultra Test strips) fluticasone propionate 50 See Rx Instructions .Route 1 mcg/actuation nasal .COMPLEX #16 grams spray,suspension levofloxacin 750 mg tablet 750 mg PO DAILY 7 days #7 t abs 01/19/25 furosemide 40 mg tablet (Lasix) 40 mg PO DAILY PRN anika ma or weight 02/01/25 gain 3Lbs or sob 0 days #90 tabs potassium chloride 20 mEq 20 meq PO DAILY PRN with las ix 0 02/01/25 tablet,extended days #90 tabs release(part/cryst) (Klor-Con M) tamsulosin 0.4 mg capsule See Rx Instructions .Route 1 04/03/24 .COMPLEX #90 caps tiotropium bromide 18 mcg capsule See Rx Instructions .Route 02/09/25 with inhalation device (Spiriva .COMPLEX #30 caps with HandiHaler) metoprolol tartrate 25 mg tablet See Rx Instructions . 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, with long-term current use of insulin Chronic venous stasis dermatitis of both lower extremities Bilateral impacted cerumen Colonoscopy refused Essential tremor Cellulitis of lower extremity, unspecified laterality Right leg pain Osteoarthrosis-multiple sites Bilateral shoulders, right knee, cervical, hips COPD, group B, by GOLD 2017 classification Chronic migraine without aura, with status migrainosus Chronic pain syndrome Erectile dysfunction Diabetes GERD (gastroesophageal reflux disease) Lumbar post-laminectomy syndrome Cataract Right Surgical History S/P carpal tunnel release right Status post lung surgery S/P cervical spinal fusion Family History Other Cancer Diabetes Social History Smoking and tobacco/nicotine status: former use of tobacco/nicotine Quit status (tobacco/nicotine): has quit using Year quit tobacco: 2023 Former quit date comment: 1 pack/day for 20 years Alcohol intake: never Substance/Drug Use: never Additional social history: Patient wants full CODE STATUS as discussed with Seymour Garza MD on 12/17/2024. 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 Abdomen mildly distended but soft, nontender, sinus tach at 120, normotensive, mild bilateral nonpitting edema, pale. Following commands and answering questions appropriately. Course 2 Vital Signs: Vital signs: Vital Signs Temperature 98.5 F 03/01/25 18:51 Pulse Rate 125 H 03/01/25 21:58 Respiratory Rate 22 H 03/01/25 19:23 Blood Pressure 137/66 03/01/25 23:20 Pulse Oximetry 84 L 03/01/25 23:20 Oxygen Delivery Me thod Nasal Cannula 03/01/25 23:20 Oxygen Flow Rate 5 03/01/25 23:20 Fraction of Inspir ed Oxygen 55 03/01/25 20:55 MDM - SOB/Dyspnea Medical Decision Making -ddx: COPD exacerbation, CHF exacerbation, URI, pneumonia, ACS, dysrhythmia, pneumothorax - Patient arrives in respiratory distress, on nonrebreather, initial blood gas with CO2 over 100 and acidotic, quickly transitioned to BiPAP, treated with steroids and magnesium as well, will try to evaluate for above differentials and treat rapidly to prevent intubation but will make frequent rechecks to further assess. - After about 2 hours, patient trialed off BiPAP with seemingly much improvement compared to arrival, placed back on 4 L nasal cannula with saturations in the low 90s, goal sat of 88% with history of COPD, looking a lot more comfortable, still moderately wheezy but able to speak in full sentences at this time, admitted to the hospitalist after a repeat VBG showed normalization of his pH. Lab Data 03/01/25 19:17 03/01/25 19:17 Labs/Radiology: Radiology Impressions Chest X-Ray 03/01/25 18:55 IMPRESSION: Findings extensive reticulation in the right upper and lower lobe postinflammatory related scarring could be considered. Findings suggest prior granulomatous exposure Postsurgical changes as above from cervical spine fusion and prior surgery around the region of the right pulmonary hilum Laboratory Results WBC 6.52 10^3/uL (3.29-11.43) 03/01/25 19:17 RBC 3.99 10^6/uL (3.85-5.65) 03/01/25 19:17 Hgb 11.30 g/dL (11.27-16.99) 03/01/25 19:17 Hct 40.1 % (37-53) 03/01/25 19:17 MCV 100.5 fl (82-101) 03/01/25 19:17 MCH 28.3 pg (27-33) 03/01/25 19:17 MCHC 28.2 g/dL (30-55) L 03/01/25 19:17 RDW 13.1 % (12.1-15.1) 03/01/25 19:17 Plt Count 223 10^3/cmm (157-399) 03/01/25 19:17 MPV 10.3 fL (7.4-10.4) 03/01/25 19:17 Neut % (Auto) 76.3 % 03/01/25 19:17 Lymph % (Auto) 10.9 % 03/01/25 19:17 [place] % (Auto) 11.2 % 03/01/25 19:17 Eos % (Auto) 0.3 % 03/01/25 19:17 Baso % (Auto) 0.5 % 03/01/25 19:17 Neut # (Auto) 4.98 10^3/uL (1.8-7.7) 03/01/25 19:17 Lymph # (Auto) 0.7 10^3/uL (0.8-4.8) L 03/01/25 19:17 [place] # (Auto) 0.7 10^3/uL (0.2-0.9) 03/01/25 19:17 Eos # (Auto) 0.0 10^3/uL (0.0-0.8) 03/01/25 19:17 Baso # (Auto) 0.0 10^3/uL (0.0-0.1) 03/01/25 19:17 Nucleated RBC % (auto) 0 % 03/01/25 19:17 Nucleated RBCs # 0.0 /100WBC 03/01/25 19:17 Specimen Type Venous 03/01/25 22:56 Sample Site Brachial, right 03/01/25 19:17 ABG pH 7.23 (7.35-7.45) L 03/01/25 19:17 ABG pCO2 > 102.0 mmHg (35-45) H* 03/01/25 19:17 ABG pO2 302.0 mmHg (80.0-100.0) H 03/01/25 19:17 ABG HCO3 46.0 mmol/L (22-26) H 03/01/25 19:17 ABG O2 Saturation 98.4 03/01/25 19:17 ABG Base Excess 14.2 mmol/L (-2.0-2.0) H 03/01/25 19:17 Jone Test N/a 03/01/25 22:56 VBG pH 7.35 (7.32-7.42) 03/01/25 22:56 VBG pCO2 77.0 mmHg (41-51) H* 03/01/25 22:56 VBG pO2 65.8 mmHg (25-40) H 03/01/25 22:56 VBG HCO3 42.9 mmol/L (24-28) H 03/01/25 22:56 VBG Base Excess 14.2 mmol/L (-3.0-3.0) H 03/01/25 22:56 VBG Hematocrit 35.3 % (42-52) L 03/01/25 22:56 A-a O2 Gradient Not Reportable 03/01/25 19:17 Hematocrit 35.6 % (42-52) L 03/01/25 19:17 Hgb O2 Saturation 96.1 % (95-100) 03/01/25 19:17 Carboxyhemoglobin 1.2 %THgb (0.4-20.1) 03/01/25 19:17 Methemoglobin 1.1 % (0.4-1.5) 03/01/25 19:17 Total Hemoglobin 11.6 g/dL (14-18) L 03/01/25 19:17 Sodium 145.0 mmol/L (131-143) H 03/01/25 19:17 Potassium 3.8 mmol/L (3.5-5.0) 03/01/25 19:17 Glucose 155.0 mg/dL (70-115) H 03/01/25 19:17 Ionized Calcium 1.2 mmol/L (1.1-1.4) 03/01/25 19:17 O2 Delivery Device Nrb 03/01/25 19:17 O2 Liters/Min 15.0 % 03/01/25 19:17 Fleet Assistant ID [email or web address] 03/01/25 22:56 Sodium 144 mmol/L (136-145) 03/01/25 19:17 Potassium 4.3 mmol/L (3.5-5.1) 03/01/25 19:17 Chloride 94 mmol/L (98-107) L 03/01/25 19:17 Carbon Dioxide 44 mmol/L (22-29) H* 03/01/25 19:17 Anion Gap 10.3 (5-19) 03/01/25 19:17 BUN 16 mg/dL (6-20) 03/01/25 19:17 Creatinine 0.5 mg/dL (0.7-1.2) L 03/01/25 19:17 GFR Calculation 179.0 mL/min (90-130) H 03/01/25 19:17 Glucose 162 mg/dL (65-115) H 03/01/25 19:17 Calculated Osmolality 303 mOsm/kg (285-295) H 03/01/25 19:17 Lactic Acid 1.5 mmol/L (0.5-2.2) 03/01/25 19:17 Calcium 9.1 mg/dL (8.5-10.5) 03/01/25 19:17 Phosphorus 3.0 mg/dL (2.5-4.5) 03/01/25 20:17 Magnesium 2.1 mg/dL (1.7-2.3) 03/01/25 20:17 Total Bilirubin 0.5 mg/dL (0.15-1.2) 03/01/25 19:17 AST 18 U/L (0-40) 03/01/25 19:17 ALT 17 U/L (0-41) 03/01/25 19:17 Alkaline Phosphatase 104 U/L (40-130) 03/01/25 19:17 Troponin T Baseline 16 ng/L (0-15) H 03/01/25 19:17 Troponin T 60 Minute 14.41 ng/L (0-15) 03/01/25 20:17 Delta Troponin T -1.59 ABS# (0-10) L 03/01/25 20:17 C-Reactive Protein 39.4 mg/L (0.0-4.9) H 03/01/25 19:17 NT-Pro-B Natriuret Pep 329 pg/mL (0-125) H 03/01/25 19:17 Total Protein 6.3 g/dL (6.6-8.7) L 03/01/25 19:17 Albumin 3.9 g/dL (3.5-5.2) 03/01/25 19:17 Globulin 2.4 g/dL (1.3-4.6) 03/01/25 19:17 Procalcitonin 0.10 ng/mL (0-0.5) 03/01/25 20:17 Influenza A (PCR) Negative (Negative) 03/01/25 19:39 Influenza Type B (PCR) Negative (Negative) 03/01/25 19:39 RSV (PCR) Negative (Negative) 03/01/25 19:39 SARS-CoV-2 (PCR) Negative (Negative) 03/01/25 19:39 All radiology interpretation(s) finalized by discharge EKG Data EKG 1: Interpretation: Sinus tach at 119 bpm, no axis deviation, no interval prolongation, no ST elevation or depression Critical Care Time 2 Critical Care Time: Critical Care Time: Yes Total Critical Care Time: 41 Attestation: Critical secondary to hypercarbic and hypoxic respiratory failure requiring noninvasive ventilation on arrival Discharge Plan Discharge Patient Disposition: Admitted As Inpatient Clinical Impression: Respiratory failure, [id number], Chronic systolic heart failure, Acute exacerbation of chronic obstructive pulmonary disease (COPD) Condition: Stable Coding Level of Care Code ED Classified Advertising Supervisor for [employer] Waters
[2025-03-01 20:22] LABS: Alanine Aminotransferase 17 U/L (0-41); Albumin Level 3.9 g/dL (3.5-5.2); Alkaline Phosphatase 104 U/L (40-130); Anion Gap 10.3 (5-19); Aspartate Amino Transferase 18 U/L (0-40); Blood Urea Nitrogen 16 mg/dL (6-20); Calcium 9.1 mg/dL (8.5-10.5); Chloride 94 mmol/L (98-107); Globulin 2.4 g/dL (1.3-4.6); Glucose 162 mg/dL (65-115); NT Pro B Type Natriuretic Pept 329 pg/mL (0-125); Osmolality Calculated 303 mOsm/kg (285-295); Potassium 4.3 mmol/L (3.5-5.1); Sodium 144 mmol/L (136-145); Total Protein 6.3 g/dL (6.6-8.7)
[2025-03-01 20:24] LABS: Carbon Dioxide 44 mmol/L (22-29)
[2025-03-01 20:29] LABS: Respiratory Syncytial Virus Ce NEGATIVE (Negative); SARS-CoV-2 PCR NEGATIVE (Negative)
--- NOTE | 2025-03-01 20:54 | PC.NURSE ---
2046 This RN called RT due to pts.O2 being at 88 on the BIPAP pt. is now at 91% at 2054 after RT changed settings.
[2025-03-01 21:22] LABS: Procalcitonin 0.10 ng/mL (0-0.5)
[2025-03-01 21:23] LABS: Magnesium 2.1 mg/dL (1.7-2.3)
--- NOTE | 2025-03-01 21:59 | PC.NURSE ---
Provider at bedside verbal to remove BIPAP and to place O2 NC target goal is 88O2.
--- NOTE | 2025-03-01 22:08 | PC.NURSE ---
This RN asked Pt. permission to talk with . Pt. stated yes.
[2025-03-01 23:04] LABS: Base Excess VBG 14.2 mmol/L (-3.0-3.0); Blood Gas Sample Type Venous; HCO3 VBG 42.9 mmol/L (24-28); PO2 VBG 65.8 mmHg (25-40); Venous Blood Gas Hematocrit 35.3 % (42-52); pH VBG 7.35 (7.32-7.42)
[2025-03-01 23:06] LABS: PCO2 VBG 77.0 mmHg (41-51)
--- NOTE | 2025-03-01 23:23 | PC.NURSE ---
Hospitalist at bedside pts. O2 at 84 on 5L NC Pt. is moving and talking to pt. ptjairoder said to leave O2. 87-90 when not talking
[2025-03-02] VITALS (48 sets, daily range): BP systolic 87–131; BP diastolic 53–82; PULSE 77–173; RESP 14–28; TEMP 36.3–36.9; O2SAT 79–100; BMI 33.2
--- NOTE | 2025-03-02 00:01 | PC.NURSE ---
Report called to Nell BURROUGHS.
--- NOTE | 2025-03-02 00:05 | P.HP_ITS ---
Providers/Chief Complaint 2 Admitting Physician: Seymour Garza MD Primary Care Provider: Raina Parkinson DO Chief Complaint: Resp Distress History of Present Illness Valentino Cerrato is a 44 year old male with multiple admissions since December 17, 2024 related to CO2 retention, diabetes, chronic venous stasis to both lower extremities and noncompliance. Patient left AMA on the December 17 admission just hours after he was admitted but was readmitted on 12/26/2024. Patient had BAL on 12/30/[address] Solitario and was discharged on 01/02/2025. He left at his request on 01/02/2025. Discharge medications included prednisone taper, insulin, docusate, Advair, MiraLAX, Levaquin, fluconazole, albuterol, testosterone, tamsulosin, Isauro Tropium bromide, aspirin, metformin, Jardiance, Flonase, pantoprazole, metoprolol, rizatriptan. The patient has been following with Dr. Parkinson outpatient but I do not see that he is seeing Dr. Solitario. Patient has been counseled length regarding leg elevation, compliance with his medications. I do not see that he has been referred for sleep study. Patient admits that he had a CPAP machine in the past which he did not use and was taken back by the company Review of Systems 2 Narrative: General No fevers chills he states he today could no longer stand and was having trouble breathing he is on oxygen at 5 L/min with saturations in the 90s he thinks maybe 96% Medications/Allergies Home Medications ?Medication ?Instructions ?Recorded ?Confirmed ?Last Taken ?Type nerve stimulator ##1 04/07/19 02/16/25 Unknow n History oxygen-air delivery systems 01/06/21 02/16/25 Unknown History blood-glucose meter #1 ea 06/14/21 02/16/25 Unkn own Rx lancets 30 gauge (OneTouch Delica ##100 11/29/2102/16 Unknown Rx Plus Lancet) sodium chloride 0.65 % nasal spray 2 spray intranasal Q4H PRN dry 02/24/24 02/16/25 Unknown Rx aerosol (Saline Nasal) nasal passages #44 mL Portable 02 concentrator #1 ea 06/09/24 02/16/25 Unkn own Rx 02 #1 ea 07/07/24 02/16/25 Unkn own Rx aspirin 81 mg tablet,delayed See Rx Instructions .Rout e 10/12/24 02/16/25 12/26/24 Rx release .COMPLEX #90 tabs empagliflozin 25 mg tablet 25 mg PO QAM #90 tabs 10/1802/16/25 12/26/24 Rx (Jardiance) metformin 750 mg tablet,extended 750 mg PO BID #180 ta bs 10/18/24 02/16/25 12/26/24 Rx release 24 hr rizatriptan 10 mg disintegrating 10 mg PO Q2H PRN migr brian headache 12/08/24 02/16/25 Unknown Rx tablet (Maxalt-CRITICAL POWER INSTALL TECHNICIAN) #27 tabs albuterol sulfate 90 mcg/actuation 1 inh inhalation Q6 H PRN shortness 01/02/25 02/16/25 Unknown Rx aerosol inhaler (Ventolin HFA) of breath or wheezing # 8.5 grams fluticasone 250 mcg-salmeterol 50 1 inh inhalation BID #60 ea 01/02/25 02/16/25 Unknown Rx mcg/dose blistr powdr for inhalation (Advair Diskus) glucometer testing kit #1 ea 01/02/25 02/16/25 Unkn own Rx blood sugar diagnostic (OneTouch #50 strips 01/05/25 1 04/19/24 Unknown Rx Ultra Test strips) fluticasone propionate 50 See Rx Instructions .Route 1 02/16/25 Unknown Rx mcg/actuation nasal .COMPLEX #16 grams spray,suspension dulaglutide 3 mg/0.5 mL mg SUBCUT 01/19/25 02/16/25 Unknown History subcutaneous pen injector (Trulicity) levofloxacin 750 mg tablet 750 mg PO DAILY 7 days #7 t abs 01/19/25 02/16/25 Unknown Rx furosemide 40 mg tablet (Lasix) 40 mg PO DAILY PRN anika ma or weight 02/01/25 02/16/25 Unknown Rx gain 3Lbs or sob 0 days #90 tabs potassium chloride 20 mEq 20 meq PO DAILY PRN with las ix 0 02/01/25 02/16/25 Unknown Rx tablet,extended days #90 tabs release(part/cryst) (Klor-Con M) tamsulosin 0.4 mg capsule See Rx Instructions .Route 1 04/03/24 02/16/25 Unknown Rx .COMPLEX #90 caps tiotropium bromide 18 mcg capsule See Rx Instructions .Route 02/09/25 02/16/25 Unknown Rx with inhalation device (Spiriva .COMPLEX #30 caps with HandiHaler) metoprolol tartrate 25 mg tablet See Rx Instructions . 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, with long-term current use of insulin Chronic venous stasis dermatitis of both lower extremities Bilateral impacted cerumen Colonoscopy refused Essential tremor Cellulitis of lower extremity, unspecified laterality Right leg pain Osteoarthrosis-multiple sites Bilateral shoulders, right knee, cervical, hips COPD, group B, by GOLD 2017 classification Chronic migraine without aura, with status migrainosus Chronic pain syndrome Erectile dysfunction Diabetes GERD (gastroesophageal reflux disease) Lumbar post-laminectomy syndrome Cataract Right Surgical History S/P carpal tunnel release right Status post lung surgery S/P cervical spinal fusion Family History Other Cancer Diabetes Social History (Updated 03/02/25 @ 00:13 by Seymour Garza MD) Smoking and tobacco/nicotine status: former use of tobacco/nicotine Quit status (tobacco/nicotine): has quit using Year quit tobacco: 2023 Former quit date comment: 1 pack/day for 20 years Alcohol intake: never Substance/Drug Use: never Additional social history: Patient wants full CODE STATUS as discussed with Seymour Garza MD on 12/17/2024 and reconfirmed on 03/02/2025 by Seymour Garza MD. 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 His hygiene is very poor. Oropharynx Mallampati 2 no exudate CV regular tachycardic rhythm and rate no loud murmur Lungs poor air movement poor cooperation with exam mild basilar crackles heard bilaterally Abdomen positive bowel tones soft nontender Hips minimal edema calves chronic venous stasis changes improved from my evaluation of him 12/17/2024 but still with 2+ to 3 edema and chronic venous thickening of the skin poor hygiene noted with brown residue. Does not look necrotic or acutely infected Data 03/01/25 19:17 03/01/25 19:17 Micro: Microbiology 03/01/25 19:25 Blood Culture - Preliminary Blood SPECIMEN COLLECTED 03/01/25 19:24 Blood Culture - Preliminary Blood SPECIMEN COLLECTED A&P Assessment and plan 1. Acute on chronic respiratory failure with hypoxia and hypercapnia: Patient is admitted with BiPAP. He has severe CO2 retention so goal for oxygen saturations 87 to 89% only. He needs to use BiPAP whenever sleeping at night as well as for twice a day between meals for 2 hours. Continue with diuresis. Will also slow his heart rate down to around 70 bpm with beta-niko 2. Chronic diastolic congestive heart failure: As above goal slow heart rate down to 70. Start furosemide 40 mg IV twice daily and metolazone 5 mg daily first dose now is potassium 3. Tachycardia with heart rate 121-140 beats per minute: As above 4. Chronic venous stasis dermatitis of both lower extremities: Start pneumatic compression stockings. Start cleansing legs with warm compresses and Hibiclens 5. COPD, group B, by GOLD 2017 classification: Patient stopped smoking in thousand 24. He is not wheezing much now will follow before starting a steroid taper 6. Obstructive sleep apnea: Patient needs to be evaluated for CPAP with Dr. Parkinson or Dr. Solitario 7. Obesity (BMI 30.0-34.9): 1600-calorie ADA diet 8. Noncompliance by refusing service: Counseled the patient please not leave out of frustration. If he is having concerns to please have that nurse addressed that with me. He states that his 3 criteria for staying is that he gets something to eat, get something for sleep and that he is not still here at [place] 9. 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, with long-term current use of insulin: Start sliding scale insulin as well as a weight loss 1600-calorie ADA diet PDMP PDMP Reviewed: Not Reviewed Attestations 2 Medical Necessity Statement*: Patient admitted to the hospital and is expected to require greater than 2 midnights Coding Level of Care Code 53594 Diagnoses Acute on chronic respiratory failure with hypoxia and hypercapnia J96.21; J96.22 Chronic diastolic congestive heart failure I50.32 Tachycardia with heart rate 121-140 beats per minute R00.0 Chronic venous stasis dermatitis of both lower extremities I87.2 COPD, group B, by GOLD 2017 classification J44.9 Obstructive sleep apnea G47.33 Obesity (BMI 30.0-34.9) E66.811 Noncompliance by refusing service Z91.199 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
[2025-03-02] MEDS: FUROsemide 10 mg/mL SDV 4mL 40 MG IVP ×2 (00:07→17:25)
[2025-03-02 02:40] LABS: Thyroid Stimulating Hormone 1.26 uIU/mL (0.27-4.20)
[2025-03-02] MEDS: chlorhexidine gluconate 4% Btl 118 mL 1 APPLIC TOPICAL (05:12)
--- NOTE | 2025-03-02 05:58 | ECG_ITS ---
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 Measurements Intervals [place] Rate: 144 P: 0 DC: 0 QRS: 87 QRSD: 73 T: -25 QT: 294 QTc: 456 Interpretive Statements ATRIAL FIBRILLATION WITH RAPID VENTRICULAR RESPONSE WITH ABERRANT CONDUCTION OR VENTRICULAR PREMATURE COMPLEXES NONSPECIFIC T-WAVE ABNORMALITY Compared to ECG 03/01/2025 20:38:55 Ventricular premature complex(es) now present Aberrant conduction of supraventricular beat(s) now present T-wave abnormality now present Sinus tachycardia no longer present Electronically Signed On 03-02-2025 21:23:50 IT HELP DESK ANALYST by Duane Gonzalez M.D. [email or web address] [id number]
[2025-03-02] MEDS: dilTIAZem 5 mg/mL SDV 5 mL 10 MG IVP (06:44)
[2025-03-02 06:45] LABS: Anion Gap 6.5 (5-19); Blood Urea Nitrogen 14 mg/dL (6-20); Calcium 8.7 mg/dL (8.5-10.5); Chloride 94 mmol/L (98-107); Glucose 265 mg/dL (65-115); Magnesium 2.1 mg/dL (1.7-2.3); Osmolality Calculated 308 mOsm/kg (285-295); Potassium 4.5 mmol/L (3.5-5.1); Sodium 144 mmol/L (136-145)
[2025-03-02 06:59] LABS: Carbon Dioxide 48 mmol/L (22-29)
--- NOTE | 2025-03-02 09:03 | PC.PHAR ---
[facility] faxing current med list 9m 03/02/25
--- NOTE | 2025-03-02 10:44 | ECG_ITS ---
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 Measurements Intervals [place] Rate: 89 P: 0 VA: 0 QRS: 79 QRSD: 85 T: 73 QT: 322 QTc: 392 Interpretive Statements ATRIAL FIBRILLATION ABNORMAL RHYTHM ECG Compared to ECG 03/02/2025 05:58:54 Ventricular premature complex(es) no longer present Aberrant conduction of supraventricular beat(s) no longer present T-wave abnormality no longer present Electronically Signed On 03-02-2025 21:22:59 RN PLACEMENT by Duane Gonzalez M.D. [id number] [id number]
[2025-03-02] MEDS: AMIODARONE HCL/D5W 900 MG/500 ML BAG 33.33 MG IV (11:12)
--- NOTE | 2025-03-02 12:30 | P.CONIM_ITS ---
Providers/Reason For Consult 2 Consulting Physician/Specialty*: Dr Wade Solitario Reason for Consult*: Acute on chronic respiratory failure Attending Physician: Elijah Lopes MD Primary Care Provider: Raina Parkinson DO History of Present Illness History of Present Illness 44-yo male with history of diabetes and long-standing bilateral lower-extremity venous stasis presents after being found in acute respiratory distress. He was placed on bilevel positive airway pressure (BiPAP). Initial blood gases showed acute on chronic respiratory failure with a partial pressure of carbon dioxide (PCO2) of 109. He remains very lethargic. He has a history of multiple admissions including treatment for sepsis, prior cardiac arrest PEA, and acute respiratory failure, and has been non-compliant with BiPAP use; his machine was recently taken away due to non-compliance. Imaging has shown patchy pulmonary opacities with multifocal pneumonia, and an extrinsic endobronchial lesion or compression has been considered. He is currently on an amiodarone drip for atrial fibrillation with rapid ventricular response (RVR). Next of kin is his girlfriend; no other family listed. Medications/Allergies Home Medications ?Medication ?Instructions ?Recorded ?Confirmed ?Last Taken ?Type nerve stimulator ##1 04/07/19 03/02/25 Unknow n History oxygen-air delivery systems 01/06/21 03/02/25 Unknown History blood-glucose meter #1 ea 06/14/21 03/02/25 Unkn own Rx lancets 30 gauge (OneTouch Delica ##100 11/29/2103/02 Unknown Rx Plus Lancet) sodium chloride 0.65 % nasal spray 2 spray intranasal Q4H PRN dry 02/24/24 03/02/25 Unknown Rx aerosol (Saline Nasal) nasal passages #44 mL Portable 02 concentrator #1 ea 06/09/24 03/02/25 Unkn own Rx 02 #1 ea 07/07/24 03/02/25 Unkn own Rx aspirin 81 mg tablet,delayed See Rx Instructions .Meche mcfadden 10/12/24 03/02/25 12/26/24 Rx release .COMPLEX #90 tabs empagliflozin 25 mg tablet 25 mg PO QAM #90 tabs 10/1803/02/25 12/26/24 Rx (Jardiance) metformin 750 mg tablet,extended 750 mg PO BID #180 ta bs 10/18/24 03/02/2525 Rx release 24 hr rizatriptan 10 mg disintegrating 10 mg PO Q2H PRN migr brian headache 12/08/24 03/02/25 Unknown Rx tablet (Maxalt-WORK CAR OPERATOR) #27 tabs albuterol sulfate 90 mcg/actuation 1 inh inhalation Q6 H PRN shortness 01/02/25 03/02/25 Unknown Rx aerosol inhaler (Ventolin HFA) of breath or wheezing # 8.5 grams fluticasone 250 mcg-salmeterol 50 1 inh inhalation BID #60 ea 01/02/25 03/02/25 Unknown Rx mcg/dose blistr powdr for inhalation (Advair Diskus) glucometer testing kit #1 ea 01/02/25 03/02/25 Unkn own Rx blood sugar diagnostic (OneTouch #50 strips 01/05/25 1 05/03/24 Unknown Rx Ultra Test strips) fluticasone propionate 50 See Rx Instructions .Route 1 03/02/25 Unknown Rx mcg/actuation nasal .COMPLEX #16 grams spray,suspension dulaglutide 3 mg/0.5 mL 3 mg SUBCUT .Q14D 01/19/25 1 05/03/24 02/23/25 History subcutaneous pen injector (Trulicity) furosemide 40 mg tablet (Lasix) 40 mg PO DAILY PRN anika ma or weight 02/01/25 03/02/25 Unknown Rx gain 3Lbs or sob 0 days #90 tabs potassium chloride 20 mEq 20 meq PO DAILY PRN with las ix 0 02/01/25 03/02/25 Unknown Rx tablet,extended days #90 tabs release(part/cryst) (Klor-Con M) tamsulosin 0.4 mg capsule See Rx Instructions .Route 1 04/03/24 03/02/25 Unknown Rx .COMPLEX #90 caps tiotropium bromide 18 mcg capsule See Rx Instructions .Route 02/09/25 03/02/25 Unknown Rx with inhalation device (Spiriva .COMPLEX #30 caps with HandiHaler) metoprolol tartrate 25 mg tablet See Rx Instructions . Route 02/10/25 03/02/25 Unknown Rx .COMPLEX #90 tabs pantoprazole 40 mg tablet,delayed See Rx Instructions .Route 03/01/25 03/02/25 Unknown Rx release .COMPLEX #90 tabs hydrochlorothiazide 12.5 mg tablet 12.5 mg PO QAM 02/1503/02/25 Unknown History Allergies Allergy/AdvReac Type Severity Reaction Status Date / Time Penicillins Allergy edema Verified 02/16/25 13:21 Current Medications Generic Name Dose Route Start Last Admin Trade Name Freq PRN Reason Stop Dose Admin Aspirin 81 mg 03/02/25 05:00 03/02/25 05:13 Aspirin 81 Mg Ec Tablet PO 81 mg DAILY LILIANA Administration Budesonide 0.25 mg 03/02/25 08:00 03/02/25 07:41 Budesonide 0.5 Mg/2 Ml Neb INHALATION 0.25 mg BID.RESPIRATORY LILIANA Administration Chlorhexidine Gluconate 1 applic 03/02/25 05:00 03/02/25 05:12 Chlorhexidine Gluconate 4% Btl 118 Ml TOPICAL 1 applic DAILY LILIANA Administration Diltiazem HCl 30 mg 03/02/25 06:15 03/02/25 07:55 Diltiazem 30 Mg Tablet PO Not Given Q6H LILIANA Furosemide 40 mg 03/01/25 23:55 03/02/25 00:07 Furosemide 10 Mg/Ml Sdv 4ml IVP 40 mg BID LILIANA Administration AMIODARONE HCL/D5W 900 mg in 500 mls @ 0 mls/hr 03/02/25 10:42 03/02/25 11:12 Amiodarone 900 Mg/500 Ml-D5w IV 1 mg/min .Q0M LILIANA 33.33 mls/hr Protocol Administration Per Protocol Insulin Human Lispro 0 unit 03/02/25 08:00 03/02/25 11:17 Insulin Lispro 100 Unit/1 Ml SUBCUT 4 unit WM&BEDTIME LILIANA Administration Protocol Metolazone 5 mg 03/02/25 00:25 03/02/25 05:13 Metolazone 5 Mg Tablet PO 5 mg DAILY LILIANA Administration Metoprolol Tartrate 25 mg 03/02/25 00:00 03/02/25 11:15 Metoprolol Tartrate 25 Mg Tablet PO Not Given Q6H LILIANA Pantoprazole Sodium 40 mg 03/02/25 05:00 03/02/25 05:[address] 40 Mg Tablet PO 40 mg DAILY LILIANA Administration Potassium Chloride 20 meq 03/01/25 23:55 03/02/25 00:06 Potassium Chloride Er 20 Meq Tablet PO 20 meq BID LILIANA Administration Tamsulosin HCl 0.4 mg 03/02/25 05:00 03/02/25 05:13 Tamsulosin 0.4 Mg Capsule PO 0.4 mg DAILY LILIANA Administration PFSH Acute 2 PFSH: Medical History (Updated 03/02/25 @ 00:17 by Seymour Garza MD) Noncompliance by refusing service Chronic diastolic congestive heart failure Acute on chronic respiratory failure with hypoxia and hypercapnia Multifocal pneumonia 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, with long-term current use of insulin Chronic venous stasis dermatitis of both lower extremities Bilateral impacted cerumen Colonoscopy refused Essential tremor Cellulitis of lower extremity, unspecified laterality Right leg pain Osteoarthrosis-multiple sites Bilateral shoulders, right knee, cervical, hips COPD, group B, by GOLD 2017 classification Chronic migraine without aura, with status migrainosus Chronic pain syndrome Erectile dysfunction Diabetes GERD (gastroesophageal reflux disease) Lumbar post-laminectomy syndrome Cataract Right Surgical History S/P carpal tunnel release right Status post lung surgery S/P cervical spinal fusion Family History Other Cancer Diabetes Social History (Updated 03/02/25 @ 00:13 by Seymour Garza MD) Smoking and tobacco/nicotine status: former use of tobacco/nicotine Quit status (tobacco/nicotine): has quit using Year quit tobacco: 2023 Former quit date comment: 1 pack/day for 20 years Alcohol intake: never Substance/Drug Use: never Additional social history: Patient wants full CODE STATUS as discussed with Seymour Garza MD on 12/17/2024 and reconfirmed on 03/02/2025 by Seymour Garza MD. 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 Current gender identity: Male Vitals/I&O/Wt Last Vital Signs Temp 97.4 F L 03/02/25 09:30 Pulse 140 H 03/02/25 09:30 Resp 15 03/02/25 09:30 BP 110/82 12/16/25 09:30 Pulse Ox 98 03/02/25 09:30 O2 Del Method Ambu-Bag 03/02/25 07:30 O2 Flow Rate 5 03/02/25 04:00 FiO2 50 03/02/25 07:45 03/01/25 03/02/25 03/02/25 22:59 06:59 14:59 Intake Total 250 / 250 Balance 250 / 250 Weight last 48 hrs Weight 242 lb 7 oz Weight 245 lb Weight 245 lb Physical Exam 2 Narrative: Per RN General: obese lethargic on bipap HEENT: EOMI Pulmonary: Diminished breath sounds bilaterally Cardiovascular: rrr, nl s1s2, Abdomen: soft, nt, nd, no r/g, Extremities: chronic venous stasis Neurologic: grossly intact Agree with above exam Data 03/01/25 19:17 03/02/25 05:34 Micro: Microbiology 03/01/25 19:25 Blood Culture - Preliminary Blood SPECIMEN COLLECTED 03/01/25 19:24 Blood Culture - Preliminary Blood SPECIMEN COLLECTED A&P Assessment and plan 1. Acute respiratory failure with hypoxia and hypercapnia: Plan: Acute on chronic hypoxic/hypercapnic respiratory failure : Initial blood gases on presentation showed severe hypercapnia (PCO2 109) with acute on chronic respiratory failure; remains lethargic. Subsequent review of blood gases indicates slight improvement (PCO2 is down to 77). He is deemed very high risk for intubation. - Continue BiPAP at current settings - Continue bronchodilators and bronchopulmonary hygiene - Intubate if needed (full code) Atrial fibrillation with rapid ventricular response : Currently managed with amiodarone drip. - Continue amiodarone gtt - All labs reviewed today, slightly elevated BNP Loculated pleural effusion in the past : Not clearly visualized on chest X-ray today; may have extrinsic compression. - Obtain CT chest when more stable Extrinsic endobronchial lesion or compression An extrinsic endobronchial lesion or compression has been considered in the context of pulmonary findings. Medical non-compliance : Documented non-compliance with BiPAP leading to removal of the machine; did not follow up with Dr. Butler at [facility] or in clinic as advised; very high risk for readmissions. - Recommend psychiatric evaluation to assess decision-making capacity (discussed with Dr. Mao) - Consider placement in a shelter - Obtain drug screen History of cardiac arrest: Prior cardiac arrest noted Long-standing bilateral lower-extremity venous stasis : Chronic venous stasis affecting both lower extremities. The high probability of a clinically significant, sudden or life threatening deterioration of the patient's [Respiratory, cardiac and renal] system(s) required my full and direct attention, intervention and personal management. The critical care time is as shown. This time is in addition to time spent performing any reported procedures but includes the following: [x] Data and vital sign review and interpretation [x] Patient assessment, examination and intervention [x] Documentation [x] Medication orders and management Critical Care Time (min): 35 Telemedicine Consent Patient seen today via Telemedicine by agreement and consent of patient.? Telemedicine technology used during the visit includes audio and, as available, review of images.? The patient encounter is appropriate and reasonable under the circumstances given the patient?s particular presentation at this time.? The patient has been advised of the potential risks and limitations of this mode of treatment (including but not limited to the absence of in-person examination) and has agreed to be treated in a remote fashion in spite of them.? Any, and all, of the patient?s/patient?s family?s questions on this issue have been answered and I have made no promises or guarantees to the patient. PDMP PDMP Reviewed: Not Reviewed Coding Level of Care Code Critical Care >/= 30 minutes Diagnoses Acute respiratory failure with hypoxia and hypercapnia J96.01; J96.02
--- NOTE | 2025-03-02 18:23 | PM.MISC ---
Miscellaneous Note Purpose of Documentation: Follow-up postadmission, admitted due to altered mentation secondary to high likelihood of acute on chronic hypercapnic respiratory failure Note: Patient had multiple admissions in the past due to BiPAP noncompliance Currently on BiPAP his pCO2 level and mentation improved Pulmonology consulted Continue management as per the admitting physician and to follow the recommendation of pulmonology Currently to monitor hemodynamics, neurochecks and to follow-up tomorrow
[2025-03-02 18:50] LABS: PCP Screen Urine Negative (Negative)
[2025-03-03] VITALS (44 sets, daily range): BP systolic 95–143; BP diastolic 56–76; PULSE 81–115; RESP 12–23; TEMP 36.4–37.1; O2SAT 71–98
[2025-03-03 04:01] LABS: ABG PH Result 7.53 (7.35-7.45); Alveolar-Arterial Oxygen Gradi 21.4 mmHg (5-10); Arterial Blood Gas Hematocrit 35.6 % (42-52); Blood Gas Allen Test Pos; Blood Gas Operator Identificat JDB; Blood Gas Sample Site Radial, right; Blood Gas Sample Type Arterial; Blood Gas Tidal Volume 0.45; Carboxyhemoglobin < 0.3 %THgb (0.4-20.1); Glucose Level-ABG 131.0 mg/dL (70-115); HCO3 ABG 55.6 mmol/L (22-26); Ionized Calcium Level - ABG 1.1 mmol/L (1.1-1.4); Methemoglobin 1.0 % (0.4-1.5); Oxygen Saturation ABG 97.2; PEEP 10.0 cmH20; PO2 ABG 111.0 mmHg (80.0-100.0); PO2 FiO2 Ratio Arterial Blood 222; Potassium Level - ABG 3.1 mmol/L (3.5-5.0); Sodium Level - ABG 140.0 mmol/L (131-143)
[2025-03-03 04:03] LABS: Hematocrit 36.2 % (37-53); Hemoglobin 10.50 g/dL (11.27-16.99); Mean Corpuscular HGB Conc 29.0 g/dL (30-55); Mean Corpuscular Hemoglobin 28.5 pg (27-33); Mean Corpuscular Volume 98.1 fl (82-101); Nucleated Red Blood Cells % 0 %; Platelet Count 197 10^3/cmm (157-399); Red Blood Count 3.69 10^6/uL (3.85-5.65); White Blood Count 6.00 10^3/uL (3.29-11.43)
[2025-03-03 04:31] LABS: Alanine Aminotransferase 12 U/L (0-41); Albumin Level 3.3 g/dL (3.5-5.2); Alkaline Phosphatase 77 U/L (40-130); Aspartate Amino Transferase 18 U/L (0-40); Blood Urea Nitrogen 17 mg/dL (6-20); Calcium 9.2 mg/dL (8.5-10.5); Chloride 88 mmol/L (98-107); Globulin 2.6 g/dL (1.3-4.6); Glucose 124 mg/dL (65-115); Osmolality Calculated 299 mOsm/kg (285-295); Potassium 3.4 mmol/L (3.5-5.1); Sodium 143 mmol/L (136-145); Total Protein 5.9 g/dL (6.6-8.7)
[2025-03-03] MEDS: FUROsemide 10 mg/mL SDV 4mL 40 MG IVP ×2 (04:59→17:32)
[2025-03-03] MEDS: chlorhexidine gluconate 4% Btl 118 mL 1 APPLIC TOPICAL (04:59)
[2025-03-03 05:09] LABS: Anion Gap 18.4 (5-19); Carbon Dioxide 40 mmol/L (22-29)
[2025-03-03 07:54] LABS: ABG PCO2 66.8 mmHg (35-45)
[2025-03-03 09:21] LABS: Magnesium 1.9 mg/dL (1.7-2.3)
--- NOTE | 2025-03-03 11:13 | PC.SOCIAL ---
IMM Updated Updated pt on IMM. No questions voiced. Provided pt a copy. Initialed, dated, & timed a copy & placed in chart.
--- NOTE | 2025-03-03 15:57 | PC.NURSE ---
Report called to Brandon and given to Kellie. All questions answered.
--- NOTE | 2025-03-03 16:23 | PC.NURSE ---
Pt transferred to room 262. All belonings transfered with pt. Significant other, Emily Velasquez gathered the personal belongings.
--- NOTE | 2025-03-03 18:05 | P.PN_ITS ---
Subjective 2 Subjective: 44-yo male with history of diabetes and long-standing bilateral lower-extremity venous stasis presents after being found in acute respiratory distress. He was placed on bilevel positive airway pressure (BiPAP). Initial blood gases showed acute on chronic respiratory failure with a partial pressure of carbon dioxide (PCO2) of 109. He remains very lethargic. He has a history of multiple admissions including treatment for sepsis, prior cardiac arrest PEA, and acute respiratory failure, and has been non-compliant with BiPAP use; his machine was recently taken away due to non-compliance. Imaging has shown patchy pulmonary opacities with multifocal pneumonia, and an extrinsic endobronchial lesion or compression has been considered. He is currently on an amiodarone drip for atrial fibrillation with rapid ventricular response (RVR). Next of kin is his girlfriend; no other family listed. 03/03/25 on 5L NC. off Bipap since this morning, sitting up in chair Vitals/I&O/Wt Last Vital Signs Temp 98.2 F 03/03/25 16:26 Pulse 95 03/03/25 16:26 Resp 18 03/03/25 16:26 BP 124/71 03/03/25 16:26 Pulse Ox 92 03/03/25 16:26 O2 Del Method Nasal Cannula 03/03/25 16:26 O2 Flow Rate 5 03/03/25 15:00 FiO2 6 03/03/25 07:48 03/03/25 03/03/25 03/03/25 06:59 14:59 22:59 Intake Total 240 / 156.585 6392.353 / 1848.353 480 / 2328.353 Output Total 1300 / 4150 2950 / 2950 700 / 3650 Balance -1060 / -3708.353 -1101.647 / -1101.647 -220 / -1321.647 Weight last 48 hrs Weight 241 lb 13.553 oz Weight 242 lb 7 oz Weight 245 lb Weight 245 lb Physical Exam 2 Narrative: Per RN General: alert, NAD obese HEENT: EOMI Pulmonary: Diminished breath sounds bilaterally Cardiovascular: rrr, nl s1s2, Abdomen: soft, nt, nd, no r/g, Agree with above exam Data 03/03/25 02:54 03/03/25 02:54 Micro: Microbiology 03/01/25 19:25 Blood Culture - Preliminary Blood NEGATIVE TO DATE 03/01/25 19:24 Blood Culture - Preliminary Blood NEGATIVE TO DATE A&P Assessment and plan 1. Acute respiratory failure with hypoxia and hypercapnia: Plan: Acute on chronic hypoxic/hypercapnic respiratory failure : - Continue BiPAP at night and during the day as needed - Continue bronchodilators and bronchopulmonary hygiene - Patient states today that he never received the Bipap machine but this was actually taken away from him due to his non compliance. Long discussion with patient regarding this and reason why he has repeated hospitalizations ABG reviewed today 7.- much improved from initial. Needs Bipap or NIV but non compliant Atrial fibrillation with rapid ventricular response : Currently managed with amiodarone drip to avoid toxicity - Continue amiodarone gtt- will switch to PO since HR is 95 today Loculated pleural effusion in the past : Not clearly visualized on chest X-ray today; may have extrinsic compression. - Obtain CT chest today - Discussed case with Dr Nava in detail Hypokalemia is 3.1 Kcl is 20 meq BID Extrinsic endobronchial lesion or compression An extrinsic endobronchial lesion or compression has been considered in the context of pulmonary findings. CT chest ordered Medical non-compliance : Documented non-compliance with BiPAP leading to removal of the machine; did not follow up with Dr. Butler at [facility] for loculated prior pleural effusion or in clinic as advised; very high risk for readmissions.- will review CT and decide future course - Recommend psychiatric evaluation to assess decision-making capacity (discussed with Dr. Mao) - Consider placement in a custodial - Obtain drug screen History of cardiac arrest: Prior cardiac arrest noted Long-standing bilateral lower-extremity venous stasis : Chronic venous stasis affecting both lower extremities. Hyperglycemia Start lantus 10 units at bedtime ISS- high Medical decision making level-high high MDM includes number and complexity of problems actively addressed during encounter, amount and/or complexity of data reviewed/ordered [ previous or external records, resulted lab(s)/test(s), ordered lab(s)/test(s), independent historian, independent test interpretation and other healthcare professional discussion] and described risk of complication, morbidity or mortality of management as documented This documentation was created by [email or web address] tactical intelligence officer software (known for inherent tactical intelligence officer error). Every effort was made to assure accuracy of tactical intelligence officer. Any obvious errors or omissions should be clarified with the author of the document PATIENT SEEN IN PERSON PDMP PDMP Reviewed: Not Reviewed Attestations 2 Medical Necessity Statement*: Can be transfered to floor Coding Level of Care Code 88594 Diagnoses Acute respiratory failure with hypoxia and hypercapnia J96.01; J96.02
--- NOTE | 2025-03-03 18:24 | CTR_ITS ---
PROCEDURE INFORMATION: Exam: CT Chest Without Contrast; Diagnostic Exam date and time: 03/03/2025 8:08 PM Age: 44 years old Clinical indication: Other: Extrinsic compression of airway TECHNIQUE: Imaging protocol: Diagnostic computed tomography of the chest without contrast. Radiation optimization: All CT scans at this facility use at least one of these dose optimization techniques: automated exposure control; mA and/or kV adjustment per patient size (includes targeted exams where dose is matched to clinical indication); or iterative reconstruction. COMPARISON: CT chest con [id number] 12/31/2024 3:48 PM RADIATION DOSE METRICS: Total DLP (mGy-cm): 544.48 FINDINGS: Tubes, catheters and devices: Spinal stimulator lead enters the spinal canal at T7-T8 and extends superiorly up to T5. Lungs: Severe emphysematous changes throughout both lungs. Postsurgical change status post prior right lower lobe lobectomy. Pleural spaces: Small bilateral pleural effusions with atelectatic changes and significant volume loss in the left lower lobe. Heart: No coronary artery calcifications. No cardiomegaly. No pericardial effusion. Lymph nodes: Unremarkable. No enlarged lymph nodes. Vasculature: Unremarkable. No aortic aneurysm. Bones/joints: Unremarkable. No acute fracture. Soft tissues: Unremarkable. CT/CT chest con [id number] IMPRESSION: 1. Severe emphysematous changes throughout both lungs. 2. Small bilateral pleural effusions with atelectatic changes and significant volume loss in the left lower lobe. 3. Postsurgical change status post prior right lower lobe lobectomy.
[2025-03-03] MEDS: insulin glargine 100 units/1 mL 10 UNIT SUBCUT (20:52)
--- NOTE | 2025-03-03 22:16 | P.PN_ITS ---
Subjective 2 Subjective: patient seen in the morning and currently is alert oriented and wide awake further informed that he is non compliant to his BIPAP and also he is not taking care of himself in general and of hygiene as well. having chronic venous stasis with skin thickeing, ulceration and poor hygeine status Next of kin is his girlfriend; no other family listed. currently off bipap and on NC Vitals/I&O/Wt Last Vital Signs Temp 98.1 F 03/03/25 20:00 Pulse 104 H 03/03/25 22:00 Resp 17 03/03/25 20:00 BP 101/64 03/03/25 20:00 Pulse Ox 90 03/03/25 20:00 O2 Del Method Nasal Cannula 03/03/25 20:00 O2 Flow Rate 5 03/03/25 20:00 FiO2 6 03/03/25 19:57 03/03/25 03/03/25 03/03/25 06:59 14:59 22:59 Intake Total 240 / 039.058 7822.353 / 5221.313 4237 / 3048.353 Output Total 1300 / 4150 2950 / 2950 2900 / 5850 Balance -1060 / -3708.353 -1101.647 / -1101.647 -1700 / -2801.647 Weight last 48 hrs Weight 109.7 kg Weight 109.968 kg Weight 111.13 kg Physical Exam 2 Narrative: General: Alert and oriented, lying comfortably without any distress on NC HEENT: Normocephalic, atraumatic, grossly unremarkable exam Cardio: normal rate rhythm, normal S1-S2 without any murmurs, rubs, or gallops and JVD normal Respiratory: normal vascular breathing on auscultation without any wheezes, stridor, rhonchi GI: Abdomen soft, nontender, nondistended, normoactive bowel sounds present all 4 quadrants, Neuro: intact cranial nerves motor and sensory and cerebellar/coordination function without any focal neurological deficit Behavior: Appropriate and cooperative Extremities: Adequate palpable pulses, Skin: bilateral chronic skin changes with scaling, fissuring and poorly unkempt lower extremities Data 03/03/25 02:54 03/03/25 02:54 Micro: Microbiology 03/01/25 19:25 Blood Culture - Preliminary Blood NEGATIVE TO DATE 03/01/25 19:24 Blood Culture - Preliminary Blood NEGATIVE TO DATE A&P Assessment and plan 1. Acute on chronic respiratory failure with hypoxia and hypercapnia: pulm consulted and to follow the recommendation emphasis and counseling regarding BIPAP has been provided. s/p BIPAP at presentation and improved his alertness. He has severe CO2 retention so goal for oxygen saturations 88-92%. He needs to use BiPAP whenever sleeping at night as well as for twice a day between meals for 2 hours. Continue with diuresis. Will also slow his heart rate down to around 70 bpm with beta-niko 2. Chronic diastolic congestive heart failure: As above goal slow heart rate down to 70 furosemide 40 mg IV twice daily and metolazone 5 mg daily first dose now is potassium maintain I/O check daily wt monitor electrolytes and correction accordingly 3. Tachycardia with heart rate 121-140 beats per minute: patient had atrial fibrillation and was kept on amiodarone, likely triggered due to acute hypercapneic resp failure currently stable off amiodarone infusion and started on oral replacement echo reviewed done in dec 2024 CHADsVASC score 2-3 enoxaparing bid on wt based cardiology consult in the morning for further optimisation of care 4. Chronic venous stasis dermatitis of both lower extremities: Start pneumatic compression stockings. Start cleansing legs with warm compresses and Hibiclens wound care inpatient and followup referral at the time of discharge derm referral at the time of discharge PCP to followup 5. COPD, group B, by GOLD 2017 classification: Patient exs moker. He is not wheezing much now will follow before starting a steroid taper 6. Obstructive sleep apnea: Patient needs to be evaluated for CPAP with Dr. Parkinson or Dr. Solitario 7. Obesity (BMI 30.0-34.9): 1600-calorie ADA diet PCP followup 8. Noncompliance by refusing service: Counseled the patient please not leave out of frustration. If he is having concerns then to share with the team for further management and optimisation of care and avoiding his re-admissions. 9. 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 Other Attestations: Patient condition has been discussed at length with the patient/family, I have independently reviewed the chart labs imaging/diagnostics/EKG. the goals of care and code status with the patient/family/NOK/legal call center support representative, and documented accordingly. I have reconciled the medications after confirmation/comorbidities/current clinical condition. The management has been done according to the current clinical condition with respect to patient goals of care and based on recommendations/guidelines. The patient/family has been informed about the current condition and further plan of care. Agreed with the plan of care and understood without any language barrier. Every effort was made to ensure accuracy of geographic area intelligence officer. Any obvious errors or omissions should be clarified with the author of the document. 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
[2025-03-04] VITALS (14 sets, daily range): BP systolic 100–118; BP diastolic 65–75; PULSE 87–125; RESP 14–18; TEMP 36.4–36.9; O2SAT 90–98; BMI 32.8
--- NOTE | 2025-03-04 04:00 | PC.ADMIT ---
[id number] Admission Note: The patient,Valentino Cerrato,44 y/o, was given written information regarding hospital policies, unit procedures and contact persons. Patient's smoking status: former smoker. Vital Signs - 8 hr 03/03/25 22:00 03/04/25 00:00 03/04/25 00:08 Temperature 97.9 F Pulse Rate 94 94 97 Respiratory Rate 16 18 Blood Pressure 117/75 Pulse Oximetry 98 96 Oxygen Delivery Method Nasal Cannula Nasal Cannula Oxygen Flow Rate 4 Fraction of Inspired Oxygen 4 03/04/25 01:45 Temperature Pulse Rate 102 H Respiratory Rate 16 Blood Pressure Pulse Oximetry 94 Oxygen Delivery Method Nasal Cannula Oxygen Flow Rate Fraction of Inspired Oxygen 4
--- NOTE | 2025-03-04 04:01 | PC.NURSE ---
from 1900-23:00 pt was calling [facility] for snacks/fluids. Found pt w extra snacks incl ice cream. Educate pt re DM/dm diet/ conc sugar snacks- pt said ok he thought that ice cream was sugar-free but it wasn't. pt called again and again asking for more snack BS was over 300-- Again, reinforce education but pt is non-compliant and ignores DM teaching. Later pt on SLEEP study- educate pt and reminded him of the POC re: sleep study to not call for more snack because we want him to try to sleep. pt verbalized good understanding. Resp staff at bedside . pt did refused to sleep in bed- pt prefered to sleep on the recliner. Enc several times but pt insisted sleeping on the recliner. around 2pm TV blaring, lowered the tv volume - pt eyes closed.
--- NOTE | 2025-03-04 04:09 | PC.NURSE ---
02:00 held LOVENOX sq- pt on sleep study ( do not disturb pt)
[2025-03-04 05:07] LABS: Hematocrit 39.9 % (37-53); Hemoglobin 12.10 g/dL (11.27-16.99); Mean Corpuscular HGB Conc 30.3 g/dL (30-55); Mean Corpuscular Hemoglobin 28.4 pg (27-33); Mean Corpuscular Volume 93.7 fl (82-101); Nucleated Red Blood Cells % 0 %; Platelet Count 292 10^3/cmm (157-399); Red Blood Count 4.26 10^6/uL (3.85-5.65); White Blood Count 5.56 10^3/uL (3.29-11.43)
[2025-03-04 05:26] LABS: Alanine Aminotransferase 14 U/L (0-41); Albumin Level 3.3 g/dL (3.5-5.2); Alkaline Phosphatase 89 U/L (40-130); Aspartate Amino Transferase 21 U/L (0-40); Blood Urea Nitrogen 9 mg/dL (6-20); Calcium 9.2 mg/dL (8.5-10.5); Chloride 85 mmol/L (98-107); Globulin 3.1 g/dL (1.3-4.6); Glucose 163 mg/dL (65-115); Osmolality Calculated 290 mOsm/kg (285-295); Potassium 3.4 mmol/L (3.5-5.1); Sodium 139 mmol/L (136-145); Total Protein 6.4 g/dL (6.6-8.7)
[2025-03-04 05:34] LABS: Anion Gap 7.4 (5-19)
[2025-03-04 05:57] LABS: Carbon Dioxide 50 mmol/L (22-29)
[2025-03-04] MEDS: chlorhexidine gluconate 4% Btl 118 mL 1 APPLIC TOPICAL (06:00)
[2025-03-04] MEDS: FUROsemide 10 mg/mL SDV 4mL 40 MG IVP (06:08)
--- NOTE | 2025-03-04 14:12 | ECG_ITS ---
[facility] Date: 2025-03-04 Pat Name: Valentino Cerrato Department: Room: 262 Gender: Male Insurance Billing Specialist: : 1980 Requested By: Sussy Campuzano Order Number: [id number] Sue MD: KENNY MACKEY Measurements Intervals [place] Rate: 115 P: 68 LA: 137 QRS: 76 QRSD: 81 T: 65 QT: 343 QTc: 475 Interpretive Statements SINUS TACHYCARDIA ABNORMAL RHYTHM ECG Compared to ECG 03/02/2025 10:46:05 Atrial fibrillation no longer present Electronically Signed On 03-10-2025 21:05:36 FRAME POLISHER by KENNY MACKEY [email or web address] [id number]
--- NOTE | 2025-03-04 15:13 | P.PN_ITS ---
Subjective 2 Subjective: patient seen in the morning and currently is alert oriented and wide awake As per the industrial relations commissioner the patient can be followed up as outpatient As per the case assembler patient needs sleep studies to qualify for BiPAP and currently he is only requiring 4 L of nasal cannula oxygen supplementation. further informed that he is non compliant to his BIPAP and also he is not taking care of himself in general and of hygiene as well. having chronic venous stasis with skin thickeing, ulceration and poor hygeine status, and to follow-up with the wound care Next of kin is his girlfriend; no other family listed. currently off bipap and on NC Vitals/I&O/Wt Last Vital Signs Temp 97.6 F 03/04/25 11:16 Pulse 112 H 03/04/25 11:16 Resp 14 03/04/25 11:16 BP 111/71 03/04/25 11:16 Pulse Ox 91 03/04/25 11:16 O2 Del Method Nasal Cannula 03/04/25 11:16 O2 Flow Rate 4 03/04/25 08:03 FiO2 4 03/04/25 06:00 03/04/25 03/04/25 03/04/25 06:59 14:59 22:59 Intake Total 1180 / 4228.353 600 / 600 Output Total 1600 / 7450 Balance -420 / -3221.647 600 / 600 Weight last 48 hrs Weight 109.588 kg Weight 109.7 kg Physical Exam 2 Narrative: General: Alert and oriented, lying comfortably without any distress on NC, able to speak full sentences HEENT: Normocephalic, atraumatic, grossly unremarkable exam Cardio: normal rate rhythm, normal S1-S2 without any murmurs, rubs, or gallops and JVD normal Respiratory: normal vascular breathing on auscultation without any wheezes, stridor, rhonchi GI: Abdomen soft, nontender, nondistended, normoactive bowel sounds present all 4 quadrants, Neuro: intact cranial nerves motor and sensory and cerebellar/coordination function without any focal neurological deficit Behavior: Appropriate and cooperative Extremities: Adequate palpable pulses, Skin: bilateral chronic skin changes with scaling, fissuring and poorly unkempt lower extremities Data 03/04/25 04:54 03/04/25 04:54 A&P Assessment and plan 1. Acute on chronic respiratory failure with hypoxia and hypercapnia: pulm consulted and to follow the recommendation and to follow the patient as outpatient. s/p BIPAP at presentation and improved his alertness. He has severe CO2 retention so goal for oxygen saturations 88-92%. emphasis and counseling regarding BIPAP has been provided and the patient last time had BiPAP which was taken back from him since he was not using it as was not compliant. Patient to follow with sleep studies as outpatient after pulmonology referral to qualify for BiPAP as per the case assembler since the patient does not qualify as inpatient and is doing well on 4 L of nasal cannula Respiratory extended panel to send in order to find any underlying viral infection triggered Continue DuoNebs Continue budesonide Levofloxacin 750 mg IV daily for 5 to 7 days later to oral eyes at the time of discharge Currently stable Continue to monitor 2. Tachycardia with heart rate 121-140 beats per minute: patient had atrial fibrillation and was kept on amiodarone, likely triggered due to acute hypercapneic resp failure currently stable off amiodarone infusion and started on oral replacement echo reviewed done in dec 2024 CHADsVASC score 3 Initially placed on enoxaparin twice daily to switch to apixaban 5 mg twice daily for stroke prophylaxis cardiology consulted and to follow the plan of care for further management proBNP 3. Chronic diastolic congestive heart failure: As above goal slow heart rate down to 70 Switch Lasix to 40 mg twice daily and metolazone 5 mg oral to continue maintain I/O check daily wt monitor electrolytes and correction accordingly Mild hypokalemia corrected 4. Chronic venous stasis dermatitis of both lower extremities: Start cleansing legs with warm compresses and Hibiclens wound care inpatient and followup referral at the time of discharge derm referral at the time of discharge PCP to followup 5. COPD, group B, by GOLD 2017 classification: Patient ex smoker. Prednisone 40 mg daily for 5 days considering patient might have COPD exacerbation and later to follow-up with the pulmonology as outpatient 6. Obstructive sleep apnea: Patient needs to be evaluated for CPAP with Dr. Parkinson or Dr. Solitario to qualify after discharge as outpatient 7. Obesity (BMI 30.0-34.9): 1600-calorie ADA diet PCP followup 8. Noncompliance by refusing service: Counseled the patient please not leave out of frustration. If he is having concerns then to share with the team for further management and optimisation of care and avoiding his re-admissions. 9. 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 40 minutes Other Attestations: Patient condition has been discussed at length with the patient/family, I have independently reviewed the chart labs imaging/diagnostics/EKG. the goals of care and code status with the patient/family/NOK/legal guest experience representative, and documented accordingly. I have reconciled the medications after confirmation/comorbidities/current clinical condition. The management has been done according to the current clinical condition with respect to patient goals of care and based on recommendations/guidelines. The patient/family has been informed about the current condition and further plan of care. Agreed with the plan of care and understood without any language barrier. Every effort was made to ensure accuracy of preschool assistant principal. Any obvious errors or omissions should be clarified with the author of the document. 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
--- NOTE | 2025-03-04 15:42 | P.CONIM_ITS ---
<Statement entered by Ulisses Howard M.D - 03/11/25 10:54> Patient was cared for in conjunction with an advanced practice practitioner.? I reviewed the chart and all pertinent data including imaging, telemetry, and laboratory results.? I discussed the patient in detail with the advanced practice practitioner.? Please see? their documentation for consult note, testing results and agreed upon plan of care for the patient. Providers/Reason For Consult 2 Consulting Physician/Specialty*: Dr. Howard Reason for Consult*: afib rvr Requesting Physician: Dr. Lopes Attending Physician: Elijah Lopes MD Primary Care Provider: Raina Parkinson DO History of Present Illness History of Present Illness Valentino Cerrato is a 44 year old male with history of COPD, CO2 retention, diabetes, former heavy smoker, chronic venous stasis to both lower extremities, presented to the emergency room via EMS due to respiratory distress. Was hypoxic in the 80s on nonrebreather placed on BiPAP and given steroids and responded well to this. Denies any chest pain or pressure. Denies any shortness of breath at this time. On the he went into A-fib RVR rates in the 140s and was given. This was transition to oral Amio 200 twice daily. At home he does take a beta-niko. He runs tacky at baseline. Most recent EKG shows sinus tachycardia rates 115's. Beta niko has been avoided due to acute COPD exacerbation. Chest ct was obtained that showed severe emphysematous changes throughout both lungs, small bilateral pleural effusions with atelectatic changes and significant volume loss in the left lower lobe, postsurgical change status post right lower lobectomy. Previous echo showed normal EF of 66% with no significant valvular abnormalities. Potassium is slightly low at 3.4. Renal function within normal limits. Patient is currently taking metolazone 5 mg and Lasix 40 twice daily and is -1520. Appears euvolemic on currently getting amiodarone 200 twice daily. Patient was placed on Lovenox. Albino Vascor is 3. Denies any dizziness palpitations or shortness of breath at this time. We have been consulted for further A-fib management. Review of Systems 2 Narrative: Consitutional: denies fever, chills, body aches Eyes: Denies changes in vision Card: Denies chest pain, palpitations, irregular heart rhythm, edema, syncope, shortness of breath, orthopnea Resp: Denies shortness of breath Musc: Denies extremity pain, denies limited range of motion or recent injury Skin: reports lower extremity plaques Neuro: Denies nubmness in extremities, h/a, s/s of stroke Medications/Allergies Home Medications ?Medication ?Instructions ?Recorded ?Confirmed ?Last Taken ?Type nerve stimulator ##1 04/07/19 03/02/25 Unknow n History oxygen-air delivery systems 01/06/21 03/02/25 Unknown History blood-glucose meter #1 ea 06/14/21 03/02/25 Unkn own Rx lancets 30 gauge (OneTouch Delica ##100 11/29/2103/02 Unknown Rx Plus Lancet) sodium chloride 0.65 % nasal spray 2 spray intranasal Q4H PRN dry 02/24/24 03/02/25 Unknown Rx aerosol (Saline Nasal) nasal passages #44 mL Portable 02 concentrator #1 ea 06/09/24 03/02/25 Unkn own Rx 02 #1 ea 07/07/24 03/02/25 Unkn own Rx aspirin 81 mg tablet,delayed See Rx Instructions .Rout e 10/12/24 03/02/25 12/26/24 Rx release .COMPLEX #90 tabs empagliflozin 25 mg tablet 25 mg PO QAM #90 tabs 10/1803/02/25 12/26/24 Rx (Jardiance) metformin 750 mg tablet,extended 750 mg PO BID #180 ta bs 10/18/24 03/02/25 12/26/24 Rx release 24 hr rizatriptan 10 mg disintegrating 10 mg PO Q2H PRN migr brian headache 12/08/24 03/02/25 Unknown Rx tablet (Maxalt-GERENTOLOGICAL PHYSIOTHERAPIST) #27 tabs albuterol sulfate 90 mcg/actuation 1 inh inhalation Q6 H PRN shortness 01/02/25 03/02/25 Unknown Rx aerosol inhaler (Ventolin HFA) of breath or wheezing # 8.5 grams fluticasone 250 mcg-salmeterol 50 1 inh inhalation BID #60 ea 01/02/25 03/02/25 Unknown Rx mcg/dose blistr powdr for inhalation (Advair Diskus) glucometer testing kit #1 ea 01/02/25 03/02/25 Unkn own Rx blood sugar diagnostic (OneTouch #50 strips 01/05/25 1 05/03/24 Unknown Rx Ultra Test strips) fluticasone propionate 50 See Rx Instructions .Route 1 03/02/25 Unknown Rx mcg/actuation nasal .COMPLEX #16 grams spray,suspension dulaglutide 3 mg/0.5 mL 3 mg SUBCUT .Q14D 01/19/25 1 05/03/24 02/23/25 History subcutaneous pen injector (Trulicity) furosemide 40 mg tablet (Lasix) 40 mg PO DAILY PRN anika ma or weight 02/01/25 03/02/25 Unknown Rx gain 3Lbs or sob 0 days #90 tabs potassium chloride 20 mEq 20 meq PO DAILY PRN with las ix 0 02/01/25 03/02/25 Unknown Rx tablet,extended days #90 tabs release(part/cryst) (Klor-Con M) tamsulosin 0.4 mg capsule See Rx Instructions .Route 1 04/03/24 03/02/25 Unknown Rx .COMPLEX #90 caps tiotropium bromide 18 mcg capsule See Rx Instructions .Route 02/09/25 03/02/25 Unknown Rx with inhalation device (Spiriva .COMPLEX #30 caps with HandiHaler) metoprolol tartrate 25 mg tablet See Rx Instructions . Route 02/10/25 03/02/25 Unknown Rx .COMPLEX #90 tabs pantoprazole 40 mg tablet,delayed See Rx Instructions .Route 03/01/25 03/02/25 Unknown Rx release .COMPLEX #90 tabs hydrochlorothiazide 12.5 mg tablet 12.5 mg PO QAM 02/1503/02/25 Unknown History Allergies Allergy/AdvReac Type Severity Reaction Status Date / Time Penicillins Allergy edema Verified 02/16/25 13:21 Current Medications Generic Name Dose Route Start Last Admin Trade Name Freq PRN Reason Stop Dose Admin Albuterol/Ipratropium 3 ml 03/01/25 23:54 03/03/25 07:47 Ipratropium-Albuterol 3 Ml Neb INHALATION 3 ml Q6H PRN Administration SHORTNESS OF BREATH Amiodarone HCl 200 mg 03/04/25 05:00 03/04/25 06:07 Amiodarone 200 Mg Tablet PO 200 mg BID LILIANA Administration Aspirin 81 mg 03/02/25 05:00 03/04/25 06:07 Aspirin 81 Mg Ec Tablet PO 81 mg DAILY LILIANA Administration Budesonide 0.25 mg 03/02/25 08:00 03/04/25 08:01 Budesonide 0.5 Mg/2 Ml Neb INHALATION 0.25 mg BID.RESPIRATORY LILIANA Administration Chlorhexidine Gluconate 1 applic 03/02/25 05:00 03/04/25 06:00 Chlorhexidine Gluconate 4% Btl 118 Ml TOPICAL 1 applic DAILY LILIANA Administration Enoxaparin Sodium 110 mg 03/04/25 02:00 03/04/25 14:22 Enoxaparin 120 Mg/0.8 Ml Syringe SUBCUT 110 mg Q12H LILIANA Administration Furosemide 40 mg 03/01/25 23:55 03/04/25 06:08 Furosemide 10 Mg/Ml Sdv 4ml IVP 40 mg BID LILIANA Administration Insulin Glargine 10 unit 03/03/25 21:00 03/03/25 20:52 Insulin Glargine 100 Units/1 Ml SUBCUT 10 unit BEDTIME LILIANA Administration Insulin Human Lispro 0 unit 03/02/25 08:00 03/04/25 11:44 Insulin Lispro 100 Unit/1 Ml SUBCUT 8 unit WM&BEDTIME LILIANA Administration Protocol Metolazone 5 mg 03/02/25 00:25 03/04/25 06:00 Metolazone 5 Mg Tablet PO 5 mg DAILY LILIANA Administration Pantoprazole Sodium 40 mg 03/02/25 05:00 03/04/25 06:[address] 40 Mg Tablet PO 40 mg DAILY LILIANA Administration Potassium Chloride 20 meq 03/01/25 23:55 03/04/25 06:07 Potassium Chloride Er 20 Meq Tablet PO 20 meq BID LILIANA Administration Tamsulosin HCl 0.4 mg 03/02/25 05:00 03/04/25 06:07 Tamsulosin 0.4 Mg Capsule PO 0.4 mg DAILY LILIANA Administration PFSH Acute 2 PFSH: Medical History (Updated 03/04/25 @ 16:01 by Sussy Campuzano NP) Noncompliance by refusing service Chronic diastolic congestive heart failure Acute on chronic respiratory failure with hypoxia and hypercapnia Multifocal pneumonia 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, with long-term current use of insulin Chronic venous stasis dermatitis of both lower extremities Bilateral impacted cerumen Colonoscopy refused Essential tremor Cellulitis of lower extremity, unspecified laterality Right leg pain Osteoarthrosis-multiple sites Bilateral shoulders, right knee, cervical, hips COPD, group B, by GOLD 2017 classification Chronic migraine without aura, with status migrainosus Chronic pain syndrome Erectile dysfunction Diabetes GERD (gastroesophageal reflux disease) Lumbar post-laminectomy syndrome Cataract Right Surgical History S/P carpal tunnel release right Status post lung surgery S/P cervical spinal fusion Family History Other Cancer Diabetes Social History (Updated 03/02/25 @ 00:13 by Seymour Garza MD) Smoking and tobacco/nicotine status: former use of tobacco/nicotine Quit status (tobacco/nicotine): has quit using Year quit tobacco: 2023 Former quit date comment: 1 pack/day for 20 years Alcohol intake: never Substance/Drug Use: never Additional social history: Patient wants full CODE STATUS as discussed with Seymour Garza MD on 12/17/2024 and reconfirmed on 03/02/2025 by Seymour Garza MD. 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 Current gender identity: Male Vitals/I&O/Wt Last Vital Signs Temp 97.6 F 03/04/25 11:16 Pulse 112 H 03/04/25 11:16 Resp 14 03/04/25 11:16 BP 111/71 03/04/25 11:16 Pulse Ox 91 03/04/25 11:16 O2 Del Method Nasal Cannula 03/04/25 11:16 O2 Flow Rate 4 03/04/25 08:03 FiO2 4 03/04/25 06:00 03/04/25 03/04/25 03/04/25 06:59 14:59 22:59 Intake Total 1180 / 4228.353 600 / 600 Output Total 1600 / 7450 Balance -420 / -3221.647 600 / 600 Weight last 48 hrs Weight 241 lb 9.6 oz Weight 241 lb 13.553 oz Physical Exam 2 Narrative: General: No apparent distress HENMT: normoceophalic Neck: No carotid bruit bilaterally Muskuloskeletal: Full ROM Respiratory: Normal respiratory effort, clear to auscultation bilaterally throughout all lung michelle, no use of accessory muscles Cardio: No JVD, tachycardic, regular rhythm, S1 S2 normal, no murmurs, peripheral pulses 2+ radial palpated bilaterally GI: Normal to inspection, nondistended Extremities: Full ROM, normal, normal capillary refill, no cyanosis, no edema but varicose veins with plaques present bilaterally and hemosiderin staining Neuro: Alert and oriented x4 Psych: Affect normal Skin: No rashes or lesions noted, no wounds Data 03/04/25 04:54 03/04/25 04:54 A&P Assessment and plan 1. New onset atrial fibrillation: 2. Chronic diastolic congestive heart failure: 3. Paroxysmal A-fib: Plan: Patient currently on amiodarone 200 BID now in sinus tachycardia, which is chronic for him. Afib is new, most likely due to underlying COPD with severe exacerbation. Patient denies chest pain at this time. Would not be unreasonable to get stress test to evaluate for underlying coronary diaseas as patient has high risk factors for CAD. Can be done as outpatient. Beta niko on hold at this time due to COPD exacerbation and hx of severe emphysema. Patient can be switched to Eliquis 5 mg BID for stroke prophylaxis. Albino Vascor is 3. Patient has no anemia, no contraindications. Patient appears euvolemic at this time. Will repeat probnp and titrate to patient's response Will restart beta niko at home dose Metoprolol 25 BID and patient is stable from a pulmonary standpoint. May need event monitor at discharge to evaluate tachycardia. Thank you Dr. Lopes, for allowing us to care for this very pleasant 44 year old gentleman. PDMP PDMP Reviewed: Not Reviewed Coding Level of Care Code Acute Code for Chg Fwd Diagnoses New onset atrial fibrillation I48.91 Chronic diastolic congestive heart failure I50.32 Heart failure chronicity: chronic Paroxysmal A-fib I48.0
[2025-03-04] MEDS: levofloxacin-dextrose 5 % 750 MG/150 ML PREMIX 100 MG IV (17:22)
[2025-03-04 17:36] LABS: NT Pro B Type Natriuretic Pept 235 pg/mL (0-125)
[2025-03-04] MEDS: oxyCODONE 5 mg IR Tab/Cap PO (21:25)
[2025-03-04] MEDS: insulin glargine 100 units/1 mL 10 UNIT SUBCUT (21:27)
[2025-03-05 01:51] VITALS: O2SAT 94
[2025-03-05 03:50] VITALS: BP 122/78; PULSE 86; RESP 16; TEMP 36.7; O2SAT 100
[2025-03-05] MEDS: chlorhexidine gluconate 4% Btl 118 mL 1 APPLIC TOPICAL (05:22)
[2025-03-05 05:29] LABS: Hematocrit 41.3 % (37-53); Hemoglobin 13.10 g/dL (11.27-16.99); Mean Corpuscular HGB Conc 31.7 g/dL (30-55); Mean Corpuscular Hemoglobin 28.8 pg (27-33); Mean Corpuscular Volume 90.8 fl (82-101); Nucleated Red Blood Cells % 0 %; Platelet Count 240 10^3/cmm (157-399); Red Blood Count 4.55 10^6/uL (3.85-5.65); White Blood Count 7.14 10^3/uL (3.29-11.43)
[2025-03-05 05:48] LABS: Alanine Aminotransferase 14 U/L (0-41); Albumin Level 3.6 g/dL (3.5-5.2); Alkaline Phosphatase 94 U/L (40-130); Anion Gap 10.3 (5-19); Aspartate Amino Transferase 17 U/L (0-40); Blood Urea Nitrogen 15 mg/dL (6-20); Calcium 9.2 mg/dL (8.5-10.5); Chloride 83 mmol/L (98-107); Globulin 3.4 g/dL (1.3-4.6); Glucose 282 mg/dL (65-115); Magnesium 2.2 mg/dL (1.7-2.3); Osmolality Calculated 285 mOsm/kg (285-295); Potassium 4.3 mmol/L (3.5-5.1); Sodium 132 mmol/L (136-145); Total Protein 7.0 g/dL (6.6-8.7)
[2025-03-05 06:00] VITALS: PULSE 114
[2025-03-05 06:03] LABS: Carbon Dioxide 43 mmol/L (22-29)
[2025-03-05 08:00] VITALS: BP 106/71; PULSE 105; PULSE 110; RESP 15; RESP 18; TEMP 36.8; O2SAT 91
[2025-03-05 11:45] VITALS: BP 99/65; PULSE 97; RESP 16; TEMP 37.1; O2SAT 93
--- NOTE | 2025-03-05 13:42 | P.PN_ITS ---
<Statement entered by Ulisses Howard M.D - 03/11/25 11:01> Patient was cared for in conjunction with an advanced practice practitioner.? I reviewed the chart and all pertinent data including imaging, telemetry, and laboratory results.? I discussed the patient in detail with the advanced practice practitioner.? Please see?their documentation for progress note, testing results and agreed upon plan of care for the patient. Subjective 2 Subjective: Patient is doing well he is sitting up in bed. Rates are currently much better controlled on the metoprolol currently 90s. Sinus rhythm. Vitals/I&O/Wt Last Vital Signs Temp 98.8 F 03/05/25 11:45 Pulse 97 03/05/25 11:45 Resp 16 03/05/25 11:45 BP 99/65 03/05/25 11:45 Pulse Ox 93 03/05/25 11:45 O2 Del Method Nasal Cannula 03/05/25 11:45 O2 Flow Rate 4 03/05/25 08:00 FiO2 4 03/04/25 06:00 03/04/25 03/05/25 03/05/25 22:59 06:59 14:59 Intake Total 870 / 1470 360 / 360 Output Total 2700 / 2700 750 / 3450 Balance -1830 / -1230 -750 / -1980 360 / 360 Weight last 48 hrs Weight 241 lb 9.6 oz Physical Exam 2 Narrative: General: No apparent distress HENMT: normoceophalic Neck: No carotid bruit bilaterally Muskuloskeletal: Full ROM Respiratory: Normal respiratory effort, clear to auscultation bilaterally throughout all lung michelle, no use of accessory muscles Cardio: No JVD, regular rate, regular rhythm, S1 S2 normal, no murmurs, peripheral pulses 2+ radial palpated bilaterally GI: Normal to inspection, nondistended Extremities: Full ROM, normal, normal capillary refill, no cyanosis, no edema but varicose veins with plaques present bilaterally and hemosiderin staining Neuro: Alert and oriented x4 Psych: Affect normal Skin: No rashes or lesions noted, no wounds Data 03/05/25 04:58 03/05/25 04:58 A&P Assessment and plan 1. New onset atrial fibrillation: 2. Chronic diastolic congestive heart failure: 3. Paroxysmal A-fib: Plan: Patient currently on amiodarone 200 BID. Would continue this. May not be penitentiary with patient's hx of severe COPD. Will see in the clinic. Continue metoprolol 25 BID. Continue Eliquis 5 mg BID for stroke prophylaxis. Albino Vascor is 3. Patient has no anemia, no contraindications. Patient appears euvolemic at this time. Probnp improved. Continue home dose of lasix. May be discahrged home with f/u in the clinic from cardiology perspective. PDMP PDMP Reviewed: Not Reviewed Attestations 2 Medical Necessity Statement*: Deferred to primary. Coding Level of Care Code Acute Code for Chg Fwd Diagnoses New onset atrial fibrillation I48.91 Chronic diastolic congestive heart failure I50.32 Heart failure chronicity: chronic Paroxysmal A-fib I48.0
[2025-03-05 14:14] LABS: Coronavirus 229E,HKU1,NL63,OC4 Not Detected (NOT DETECT); Parainfluenza Virus Type 1 Not Detected (NOT DETECT); Parainfluenza Virus Type 2 Not Detected (NOT DETECT); Parainfluenza Virus Type 3 Not Detected (NOT DETECT); Parainfluenza Virus Type 4 Not Detected (NOT DETECT); SARS-COV-2 Not Detected (NOT DETECT)
--- NOTE | 2025-03-05 21:32 | P.DS_ITS ---
Discharge Providers Date of Admission: 03/01/25 23:24 Date of Discharge: March 05, 2025 Attending Provider at Admission: Seymour Garza MD Attending Provider at Discharge: Elijah Lopes MD Primary Care Provider: Raina Parkinson DO Diagnoses at Discharge Discharge Diagnosis 1. New onset atrial fibrillation: 2. Chronic diastolic congestive heart failure: 3. Paroxysmal A-fib: Reason for Visit Reason for Visit: Resp Distress Brief History: As per the retrospective notes of the admitting physician Valentino Cerrato is a 44 year old male with multiple admissions since December 17, 2024 related to CO2 retention, diabetes, chronic venous stasis to both lower extremities and noncompliance. Patient left AMA on the December 17 admission just hours after he was admitted but was readmitted on 12/26/2024. Patient had BAL on 12/30/[address] Solitario and was discharged on 01/02/2025. He left at his request on 01/02/2025. Discharge medications included prednisone taper, insulin, docusate, Advair, MiraLAX, Levaquin, fluconazole, albuterol, testosterone, tamsulosin, Isauro Tropium bromide, aspirin, metformin, Jardiance, Flonase, pantoprazole, metoprolol, rizatriptan. The patient has been following with Dr. Parkinson outpatient but I do not see that he is seeing Dr. Solitario. Patient has been counseled length regarding leg elevation, compliance with his medications. I do not see that he has been referred for sleep study. Patient admits that he had a CPAP machine in the past which he did not use and was taken back by the company Hospital Course Hospital Course Patient admitted in the hospital as a case of acute on chronic respiratory failure with hypoxia and acute on chronic hypercapnia. The patient was kept on BiPAP and did not need intubation. He became stable in the next 24 to 48 hours. He also had episode of tachycardia which was found to have atrial fibrillation and was started on amiodarone. Within 24 hours it converted to sinus, possible trigger was COPD exacerbation. U tox and respiratory viral panel was negative. However considering patient having COPD and new onset atrial fibrillation his Albino VASc score was 3 and to avoid stroke he was started on anticoagulation initially with enoxaparin and later switched to apixaban after consulting the cardiology for further management. Due to his advanced COPD pulmonology was also consulted and taken on board for further management. The patient improved significantly with BiPAP and antibiotics were given considering he was likely having COPD exacerbation. Blood cultures were negative. The patient CT scan showed severe emphysematous changes throughout the lungs. For detailed report refer to the imaging section. Patient was counseled about compliance with his BiPAP and medication. The patient was discharged for his COPD exacerbation on levofloxacin and steroids. He also had chronic venous dermatitis of both lower extremities that required cleansing and dressing and wound care referral was provided at the time of discharge. The patient on given adequate diuresis during his hospital stay and postdischarge his diuretics were reconciled according to his condition and comorbidities. The patient case was discussed with the pillowcase sewer and after evaluation he did not qualify for BiPAP and to see the broach setter as outpatient for sleep studies with further BiPAP evaluation. Patient stabilized during his hospital stay. Medications were reconciled after confirmation and according to patient comorbidities and appropriate follow-ups and referrals were provided at the time of discharge. Patient condition has been discussed at length with the patient/family, I have independently reviewed the chart labs imaging/diagnostics/EKG. the goals of care and code status with the patient/family/NOK/legal representative personal service, and documented accordingly. The management has been done according to the current clinical condition with respect to patient goals of care and based on recommendations/guidelines. The patient/family has been informed about the current condition and further plan of care. Agreed with the plan of care and understood without any language barrier. Every effort was made to ensure accuracy of quality control auditor. Any obvious errors or omissions should be clarified with the author of the document. Physical Exam Narrative: General: Alert and oriented, lying comfortably without any distress on NC, able to speak full sentences HEENT: Normocephalic, atraumatic, grossly unremarkable exam Cardio: normal rate rhythm, normal S1-S2 without any murmurs, rubs, or gallops and JVD normal Respiratory: normal vascular breathing on auscultation without any wheezes, stridor, rhonchi GI: Abdomen soft, nontender, nondistended, normoactive bowel sounds present all 4 quadrants, Neuro: intact cranial nerves motor and sensory and cerebellar/coordination function without any focal neurological deficit Behavior: Appropriate and cooperative Extremities: Adequate palpable pulses, Skin: bilateral chronic skin changes with scaling, fissuring and poorly unkempt lower extremities Discharge Data Studies Completed and Pending Completed Studies During Hospitalization Category Date Time Status CT chest wo con [id number] Routine Cat Scan 03/03/25 18:24 Completed XR chest 1V portable [id number] Stat Exams 03/01/25 18:55 Completed Pending at discharge Category Date Time Status Blood Culture Stat Lab 03/01/25 19:25 Results VBG [Venous Blood Gas] Stat Lab 03/01/25 22:56 Results Radiology Impressions Chest X-Ray 03/01/25 18:55 IMPRESSION: Findings extensive reticulation in the right upper and lower lobe postinflammatory related scarring could be considered. Findings suggest prior granulomatous exposure Postsurgical changes as above from cervical spine fusion and prior surgery around the region of the right pulmonary hilum Chest CT 03/03/25 18:24 IMPRESSION: 1. Severe emphysematous changes throughout both lungs. 2. Small bilateral pleural effusions with atelectatic changes and significant volume loss in the left lower lobe. 3. Postsurgical change status post prior right lower lobe lobectomy. Laboratory Results WBC 7.14 10^3/uL (3.29-11.43) 03/05/25 04:58 RBC 4.55 10^6/uL (3.85-5.65) 03/05/25 04:58 Hgb 13.10 g/dL (11.27-16.99) 03/05/25 04:58 Hct 41.3 % (37-53) 03/05/25 04:58 MCV 90.8 fl (82-101) 03/05/25 04:58 MCH 28.8 pg (27-33) 03/05/25 04:58 MCHC 31.7 g/dL (30-55) 03/05/25 04:58 RDW 13.0 % (12.1-15.1) 03/05/25 04:58 Plt Count 240 10^3/cmm (157-399) 03/05/25 04:58 MPV 10.1 fL (7.4-10.4) 03/05/25 04:58 Neut % (Auto) 80.1 % 03/05/25 04:58 Lymph % (Auto) 10.4 % 03/05/25 04:58 Mcminn % (Auto) 8.5 % 03/05/25 04:58 Eos % (Auto) 0.1 % 03/05/25 04:58 Baso % (Auto) 0.3 % 03/05/25 04:58 Neut # (Auto) 5.72 10^3/uL (1.8-7.7) 03/05/25 04:58 Lymph # (Auto) 0.7 10^3/uL (0.8-4.8) L 03/05/25 04:58 Mcminn # (Auto) 0.6 10^3/uL (0.2-0.9) 03/05/25 04:58 Eos # (Auto) 0.0 10^3/uL (0.0-0.8) 03/05/25 04:58 Baso # (Auto) 0.0 10^3/uL (0.0-0.1) 03/05/25 04:58 Nucleated RBC % (auto) 0 % 03/05/25 04:58 Nucleated RBCs # 0.0 /100WBC 03/05/25 04:58 Specimen Type Arterial 03/03/25 03:48 Sample Site Radial, right 03/03/25 03:48 ABG pH 7.53 (7.35-7.45) H 03/03/25 03:48 ABG pCO2 66.8 mmHg (35-45) H* 03/03/25 03:48 ABG pO2 111.0 mmHg (80.0-100.0) H 03/03/25 03:48 ABG PO2/FiO2 Ratio 222 03/03/25 03:48 ABG HCO3 55.6 mmol/L (22-26) H 03/03/25 03:48 ABG O2 Saturation 97.2 03/03/25 03:48 ABG Base Excess 28.4 mmol/L (-2.0-2.0) H 03/03/25 03:48 Jone Test Pos 03/03/25 03:48 VBG pH 7.35 (7.32-7.42) 03/01/25 22:56 VBG pCO2 77.0 mmHg (41-51) H* 03/01/25 22:56 VBG pO2 65.8 mmHg (25-40) H 03/01/25 22:56 VBG HCO3 42.9 mmol/L (24-28) H 03/01/25 22:56 VBG Base Excess 14.2 mmol/L (-3.0-3.0) H 03/01/25 22:56 VBG Hematocrit 35.3 % (42-52) L 03/01/25 22:56 A-a O2 Gradient 21.4 mmHg (5-10) H 03/03/25 03:48 Hematocrit 35.6 % (42-52) L 03/03/25 03:48 Hgb O2 Saturation 96.2 % (95-100) 03/03/25 03:48 Carboxyhemoglobin < 0.3 %THgb (0.4-20.1) L 03/03/25 03:48 Methemoglobin 1.0 % (0.4-1.5) 03/03/25 03:48 Total Hemoglobin 11.6 g/dL (14-18) L 03/03/25 03:48 Sodium 140.0 mmol/L (131-143) 03/03/25 03:48 Potassium 3.1 mmol/L (3.5-5.0) L 03/03/25 03:48 Glucose 131.0 mg/dL (70-115) H 03/03/25 03:48 Ionized Calcium 1.1 mmol/L (1.1-1.4) 03/03/25 03:48 O2 Delivery Device Bipap 03/03/25 03:48 O2 Liters/Min 15.0 % 03/01/25 19:17 FiO2 50.0 % 03/03/25 03:48 Tidal Volume 0.45 03/03/25 03:48 PEEP 10.0 cmH20 03/03/25 03:48 Performance Improvement Consultant ID [email or web address] 03/03/25 03:48 Sodium 132 mmol/L (136-145) L 03/05/25 04:58 Potassium 4.3 mmol/L (3.5-5.1) 03/05/25 04:58 Chloride 83 mmol/L (98-107) L 03/05/25 04:58 Carbon Dioxide 43 mmol/L (22-29) H* 03/05/25 04:58 Anion Gap 10.3 (5-19) 03/05/25 04:58 BUN 15 mg/dL (6-20) 03/05/25 04:58 Creatinine 0.7 mg/dL (0.7-1.2) 03/05/25 04:58 GFR Calculation 121.4 mL/min (90-130) 03/05/25 04:58 Glucose 282 mg/dL (65-115) H 03/05/25 04:58 POC Glucose 383 mg/dL (70-110) H 03/05/25 11:26 Calculated Osmolality 285 mOsm/kg (285-295) 03/05/25 04:58 Lactic Acid 1.5 mmol/L (0.5-2.2) 03/01/25 19:17 Calcium 9.2 mg/dL (8.5-10.5) 03/05/25 04:58 Phosphorus 3.0 mg/dL (2.5-4.5) 03/01/25 20:17 Magnesium 2.2 mg/dL (1.7-2.3) 03/05/25 04:58 Total Bilirubin 0.6 mg/dL (0.15-1.2) 03/05/25 04:58 AST 17 U/L (0-40) 03/05/25 04:58 ALT 14 U/L (0-41) 03/05/25 04:58 Alkaline Phosphatase 94 U/L (40-130) 03/05/25 04:58 Troponin T Baseline 16 ng/L (0-15) H 03/01/25 19:17 Troponin T 60 Minute 14.41 ng/L (0-15) 03/01/25 20:17 Delta Troponin T -1.59 ABS# (0-10) L 03/01/25 20:17 C-Reactive Protein 39.4 mg/L (0.0-4.9) H 03/01/25 19:17 NT-Pro-B Natriuret Pep 235 pg/mL (0-125) H 03/04/25 04:54 Total Protein 7.0 g/dL (6.6-8.7) 03/05/25 04:58 Albumin 3.6 g/dL (3.5-5.2) 03/05/25 04:58 Globulin 3.4 g/dL (1.3-4.6) 03/05/25 04:58 Procalcitonin 0.10 ng/mL (0-0.5) 03/01/25 20:17 TSH 1.26 uIU/mL (0.27-4.20) 03/01/25 22:56 Urine Opiates Screen Negative ng/mL (Negative) 03/02/25 18:10 Ur Barbiturates Screen Negative ng/mL (Negative) 03/02/25 18:10 Ur Phencyclidine Scrn Negative ng/mL (Negative) 03/02/25 18:10 Ur Amphetamines Screen Negative ng/mL (Negative) 03/02/25 18:10 U Benzodiazepines Scrn Negative ng/mL (Negative) 03/02/25 18:10 Urine Cocaine Screen Negative ng/mL (Negative) 03/02/25 18:10 U Marijuana (THC) Screen Negative ng/mL (Negative) 03/02/25 18:10 Adenovirus (PCR) Not detected (NOT DETECT) 03/05/25 12:09 C. pneumoniae DNA (PCR) Not detected (NOT DETECT) 03/05/25 12:09 Coronavirus 229E (PCR) Not detected (NOT DETECT) 03/05/25 12:09 Human Metapneumovir PCR Not detected (NOT DETECT) 03/05/25 12:09 Influenza A (H1) PCR Not detected (NOT DETECT) 03/05/25 12:09 Influenza A (PCR) Negative (Negative) 03/01/25 19:39 Influ A (H1/09) PCR Not detected (NOT DETECT) 03/05/25 12:09 Influenza A (H3) PCR Not detected (NOT DETECT) 03/05/25 12:09 Influenza Type A (PCR) Not detected (NOT DETECT) 03/05/25 12:09 Influenza Type B (PCR) Not detected (NOT DETECT) 03/05/25 12:09 M. pneumoniae (PCR) Not detected (NOT DETECT) 03/05/25 12:09 Parainfluenza 1 (PCR) Not detected (NOT DETECT) 03/05/25 12:09 Parainfluenza 2 (PCR) Not detected (NOT DETECT) 03/05/25 12:09 Parainfluenza 3 (PCR) Not detected (NOT DETECT) 03/05/25 12:09 Parainfluenza 4 (PCR) Not detected (NOT DETECT) 03/05/25 12:09 RSV (PCR) Negative (Negative) 03/01/25 19:39 RSV Type A (PCR) Not detected (NOT DETECT) 03/05/25 12:09 RSV Type B (PCR) Not detected (NOT DETECT) 03/05/25 12:09 Entero/Rhino (PCR) Not detected (NOT DETECT) 03/05/25 12:09 SARS-CoV-2 (PCR) Not detected (NOT DETECT) 03/05/25 12:09 Vitals Last Vital Signs Temp 98.8 F 03/05/25 11:45 Pulse 97 03/05/25 11:45 Resp 16 03/05/25 11:45 BP 99/65 03/05/25 11:45 Pulse Ox 93 03/05/25 11:45 O2 Del Method Nasal Cannula 03/05/25 11:45 O2 Flow Rate 4 03/05/25 08:00 FiO2 4 03/04/25 06:00 Discharge Plan Discharge Patient Disposition: Home Condition: Stable Prescriptions: New levofloxacin 750 mg tablet 750 mg PO DAILY 7 Days Qty: 6 0RF amiodarone [Pacerone] 200 mg Tablet 200 mg PO BID 30 Days Qty: 60 0RF metoprolol tartrate 25 mg Tablet 25 mg PO BID@0900,2100 60 Days Qty: 120 0RF Eliquis 5 mg Tablet 5 mg PO BID@0900,2100 60 Days Qty: 120 0RF metolazone 5 mg Tablet 2.5 mg PO DAILY 60 Days Qty: 30 0RF prednisone 20 mg Tablet 40 mg PO DAILY 4 Days Qty: 8 0RF chlorhexidine gluconate [Rosmery-Hex] 4 % Liquid 1 applic topical DAILY 10 Days Qty: 946 0RF Continued (DME) blood-glucose meter Misc See Rx Instructions .Route Qty: 1 0RF Rx Instructions: once daily with glucose test strips and lancets (DME) nerve stimulator Device See Rx Instructions .ROUTE .MEDSUPPLY Qty: 1 Rx Instructions: As directed (DME) oxygen-air delivery systems Device See Rx Instructions .Route Rx Instructions: As directed 2L at night Saline Nasal 0.65 % aerosol,spray 2 spray intranasal Q4H PRN (Reason: dry nasal passages) Qty: 44 0RF (DME) Portable 02 concentrator See Rx Instructions .Route .MEDSUPPLY Qty: 1 0RF Rx Instructions: As directed (DME) 02 See Rx Instructions .Route .MEDSUPPLY Qty: 1 0RF Rx Instructions: 2-4 L continuous O2 Trulicity 3 mg/0.5 mL pen injector 3 mg SUBCUT .Q14D (DME) lancets [OneTouch Delica Plus Lancet] 30 gauge misc See Rx Instructions .ROUTE .COMPLEX Qty: 100 2RF Dose Instruction: Once daily with Glucose meter and Test strips. Rx Instructions: Once daily with Glucose meter and Test strips. aspirin 81 mg tablet,delayed release (DR/EC) See Rx Instructions .ROUTE .COMPLEX Qty: 90 0RF Dose Instruction: TAKE ONE TABLET BY MOUTH EVERY DAY Rx Instructions: TAKE ONE TABLET BY MOUTH EVERY DAY metformin 750 mg tablet extended release 24 hr 750 mg PO BID Qty: 180 1RF Jardiance 25 mg tablet 25 mg PO QAM Qty: 90 1RF Rx Instructions: TAKE ONE TABLET BY MOUTH EVERY MORNING rizatriptan [Maxalt-PACKER OPERATOR AUTOMATIC] 10 mg tablet,disintegrating 10 mg PO Q2H PRN (Reason: migraine headache) Qty: 27 2RF Rx Instructions: until response; not to exceed 2 doses in a 24 hour period fluticasone propionate 50 mcg/actuation spray,suspension See Rx Instructions .ROUTE .COMPLEX Qty: 16 2RF Dose Instruction: USE 2 SPRAYS in each nostril EVERY DAY as needed FOR allergy symptoms Rx Instructions: USE 2 SPRAYS in each nostril EVERY DAY as needed FOR allergy symptoms (DME) OneTouch Ultra Test Strip See Rx Instructions .ROUTE .COMPLEX Qty: 50 2RF Dose Instruction: USE DIRECTED TWICE DAILY WITH glucose meter Rx Instructions: USE DIRECTED TWICE DAILY WITH glucose meter tamsulosin 0.4 mg capsule See Rx Instructions .ROUTE .COMPLEX Qty: 90 1RF Dose Instruction: TAKE ONE CAPSULE BY MOUTH DAILY Rx Instructions: TAKE ONE CAPSULE BY MOUTH DAILY tiotropium bromide [Spiriva with HandiHaler] 18 mcg capsule, w/inhalation device See Rx Instructions .ROUTE .COMPLEX Qty: 30 5RF Dose Instruction: inhale THE contents of 1 capsule BY MOUTH DAILY; puncture 1 capsule using device AND INHALE fast AND deep two times. Rx Instructions: inhale THE contents of 1 capsule BY MOUTH DAILY; puncture 1 capsule using device AND INHALE fast AND deep two times. pantoprazole 40 mg tablet,delayed release (DR/EC) See Rx Instructions .ROUTE .COMPLEX Qty: 90 0RF Dose Instruction: TAKE 1 TABLET BY MOUTH EVERY DAY Rx Instructions: TAKE 1 TABLET BY MOUTH EVERY DAY albuterol sulfate [Ventolin HFA] 90 mcg/actuation HFA aerosol inhaler 1 inh inhalation Q6H PRN (Reason: shortness of breath or wheezing) Qty: 8.5 0RF fluticasone propion-salmeterol [Advair Diskus] 250-50 mcg/dose blister with device 1 inh inhalation BID Qty: 60 0RF (DME) glucometer testing kit See Rx Instructions .Route .MEDSUPPLY Qty: 1 0RF Rx Instructions: Glucometer testing kit Lancets #100 Strips 100 Check blood sugar 3 times daily after meals Changed furosemide [Lasix] 40 mg tablet 40 mg PO BIDWMEAL Qty: 90 0RF potassium chloride [Klor-Con M20] 20 mEq tablet,ER particles/crystals 40 meq PO DAILY Qty: 90 0RF Discontinued metoprolol tartrate 25 mg tablet See Rx Instructions .ROUTE .COMPLEX Qty: 90 3RF Dose Instruction: TAKE ONE TABLET BY MOUTH TWICE DAILY Rx Instructions: TAKE ONE TABLET BY MOUTH TWICE DAILY hydrochlorothiazide 12.5 mg tablet 12.5 mg PO QAM [employer] Fis[employer] Professor OK for DC: Cardiology and Pulmonary Discharge Order = DC NOW: Discharge Order (Routine); Ordered 03/05/25 Ordered By: Elijah Lopes Referrals: Wade Solitario MD [Physician, Pulmonology] - 1 week Referral Note: post discharge follow up COPD on home oxygen We have notified your physician's clinic of the need for a follow-up appointment to be scheduled. If you have not heard from them within the next 2 business days, please call them directly. Sussy Campuzano NP [Nurse Practitioner, Cardiology] - 03/23/25 8:00 am Jennifer Drake NP [Nurse Practitioner, Pain Management] - 1-3 days Referral Note: Bilateral lower leg venous stasis with fissuring and scaling We have notified your physician's clinic of the need for a follow-up appointment to be scheduled. If you have not heard from them within the next 2 business days, please call them directly. Raina Parkinson DO [Primary Care Provider, Family Practice] Referral Note: We have notified your physician's clinic of the need for a follow-up appointment to be scheduled. If you have not heard from them within the next 2 business days, please call them directly. Beni Blackwood MD [Physician, Endocrinology] - 2 weeks Referral Note: Diabetes management We have notified your physician's clinic of the need for a follow-up appointment to be scheduled. If you have not heard from them within the next 2 business days, please call them directly. Discharge Diet: Cardiac and Diabetic Discharge Activity: Resume usual activity Patient Instructions: Heart Failure (DC), A-fib (Atrial Fibrillation) (DC), CHF Stoplight, Opioid Safety, Patient Portal & Raj Instructions Discharge Attestations Time Spent in Discharge Care*: greater than 30 min Specific Discharge Activities: educating patient, educating and/or supporting family/caregiver, discussing with pcp/other providers, discussing with watch case polisher/social workers/dc planners, documenting/other paperwork and evaluating patient/reviewing data Time Spent in Smoking Cessation: 3 to 10 minutes Status at Discharge: Cognitive status at discharge: cognitively intact , Behavioral status at discharge: cooperative , Functional status at discharge: independent ambulation , Overall status at discharge: patient is back to baseline Quality Metrics Clinical Quality Measures [ No reported AMI, CVA or VTE this stay] Coding Level of Care Code 84345 Diagnoses New onset atrial fibrillation I48.91 Chronic diastolic congestive heart failure I50.32 Heart failure chronicity: chronic Paroxysmal A-fib I48.0
== END 2025-03-05 17:13 | disposition home or self-care (01) | DRG 189 ==
LOC: ER 23:30 → MEDSURG 23:52 → ICU 03-02 06:40 → MEDSURG 03-03 16:17
PROVIDERS: Emergency Medicine; Nurse Practitioner Family; Admitting Provider Internal Medicine; Emergency Provider Student in an Organized Health Care Education/Training Program; PCP Family Medicine; Visit Provider Student in an Organized Health Care Education/Training Program
DX: J96.22 Acute and chronic respiratory failure with hypercapnia (principal); I50.32 Chronic diastolic (congestive) heart failure; J44.1 Chronic obstructive pulmonary disease with (acute) exacerbation; J96.21 Acute and chronic respiratory failure with hypoxia; I48.0 Paroxysmal atrial fibrillation; E11.65 Type 2 diabetes mellitus with hyperglycemia; E11.620 Type 2 diabetes mellitus with diabetic dermatitis; J43.9 Emphysema, unspecified; G25.0 Essential tremor; M15.9 Polyosteoarthritis, unspecified; E87.6 Hypokalemia; R41.82 Altered mental status, unspecified; E66.9 Obesity, unspecified; Z68.32 Body mass index [BMI] 32.0-32.9, adult; G47.33 Obstructive sleep apnea (adult) (pediatric); R00.0 Tachycardia, unspecified; M96.1 Postlaminectomy syndrome, not elsewhere classified; K21.9 Gastro-esophageal reflux disease without esophagitis; N52.9 Male erectile dysfunction, unspecified; G89.4 Chronic pain syndrome; G43.701 Chronic migraine without aura, not intractable, with status migrainosus; Z79.01 Long term (current) use of anticoagulants; Z79.82 Long term (current) use of aspirin; Z79.84 Long term (current) use of oral hypoglycemic drugs; Z87.01 Personal history of pneumonia (recurrent); Z79.4 Long term (current) use of insulin; Z79.85 Long-term (current) use of injectable non-insulin antidiabetic drugs; Z91.199 Patient's noncompliance with other medical treatment and regimen due to unspecified reason; Z86.74 Personal history of sudden cardiac arrest; Z87.891 Personal history of nicotine dependence; Z88.0 Allergy status to penicillin; Z90.2 Acquired absence of lung [part of]; Z98.1 Arthrodesis status
CPT/HCPCS: 36415; 36416; 36600; 71045; 71250; 80048; 80051; 80053; 80306; 82330; 82803; 82805; 82962; 83605; 83735; 83880; 84100; 84145; 84443; 84484; 85025; 86140; 87040; 87486; 87581; 87633; 87637; 93005; 94640; 94660; 94664; 96365; 96372; 96375; 96376; 97116; 97162; 97530; 99291; A4222; J0282; J0456; J1650; J1815; J1938; J1956; J2919; J3490; J7050; J7512; J7613; J7626; J9999; Q0163